=== PATIENT | male | born 1995 | race Two or more races ===

== ENCOUNTER 2020-07-23 12:51 | Emergency (ER) | payer OTHER, SELFPAY ==
[2020-07-23 13:00] VITALS: BP 147/67; PULSE 83; RESP 18; TEMP 37.2; O2SAT 100; BMI 48.6
--- NOTE | 2020-07-23 14:03 | ED_ITS ---
HPI - Skin/Abscess/Foreign Bdy General Chief complaint: Skin/Abscess/Foreign Body Stated complaint: finger infection Time Seen by Provider: 07/23/20 13:56 Source: patient Mode of arrival: ambulatory Limitations: no limitations History of Present Illness HPI narrative: 24-year-old male presenting to the ED with complaints of redness to the left hand 4th digit for the past few days worse today. Reports he had an abscess and he squeezed it himself yesterday and now has worsening redness but not an abscess. Denies any other symptoms, complaints or concerns at this time. Related Data Previous Rx's Medication Instructions Recorded cephalexin [Keflex] 500 mg PO Q6H 10 Days #40 cap 07/23/20 doxycycline monohydrate 100 mg PO BID 10 Days #20 cap 07/23/20 Allergies Allergy/AdvReac Type Severity Reaction Status Date / Time No Known Allergies Allergy Verified 07/23/20 12:59 [No Known Allergies*] Review of Systems Review of Systems: Constitutional : No Fever, No Chills, Cardiovascular : No Chest Pain, No SOB Respiratory : No Dyspnea Gastrointestinal : No abdominal pain Musculoskeletal : No Joint Swelling Skin : No skin laceration, No Foreign bodies, No rash Neuro : No Weakness, No Numbness/tingling Psych : No SI/HI/thoughts of self injury Yes all other systems are reviewed and are negative [facility]LY [facility] Past Medical History Attestation statement: The following information was validated with the patient. Medical History Asthma Social History Social History Advance Directives: No Advance Directives Information Provided: No Physical Exam Vital Signs: Vital Signs: Vital Signs Temp Pulse Resp BP Pulse Ox 07/23/20 13:00 98.9 F 83 18 147/67 H 100 Body Mass Index 48.6 vital signs have been reviewed as normal and appeared to be correct. Blood pressure normal. Heart rate normal. Respiration rate normal. Temperature normal. Oxygen saturation normal. Appearance: Alert. Oriented X3. No acute distress. Head: Normal external exam. Normocephalic. Atraumatic. No Real signs noted. No raccoon eyes noted Eyes: PERRLA. EOMI. Conjunctiva and sclera normal. Eyelids normal. ENT: EAC normal. TM's Normal. Pharynx normal. Uvula midline. Moist mucous membranes. No trismus noted. No drooling noted. No muffled voice noted. Neck: Normal inspection. Neck supple. FROM. No adenopathy. Thyroid Normal. No meningeal signs. No neck mass noted. CVS: Normal heart rate and rhythm. Heart sound normal. No murmurs noted. Pulses normal throughout. Respiratory: No respiratory distress. Painless inspiration. Breath sounds normal. No wheezes/rales/rhonchi noted. Chest nontender. No accessory muscle usage noted or decreased air movement noted. Abdomen: Soft and nontender. Bowel sounds normal in all 4 quadrants. No distention noted. No organomegaly noted. No visible injury noted. Back: No CVA tenderness. Full range of motion noted. Skin: Skin warm and dry. Normal skin color. Normal skin turgor. No rashes/lesions/lacerations noted. Extremities: Right 4th digit at the distal aspect at the ulnar aspect of the nail there is mild surrounding erythema no fluctuance. No streaking/ induration /foreign bodies or drainage noted. No lower extremity edema. Extremities exhibit normal range of motion. All other Extremities nontender. Neuro: Oriented X 3. No motor deficit. No sensory deficit. Reflexes normal. Course Course Course Narrative: Patient with paronychia although he already drained at his house yesterday now has residing cellulitis will DC home with antibiotics and instructions to return if any new or worsening symptoms to follow-up with primary care provider. Patient understands agrees the plan. Discharge Plan Discharge Clinical Impression: Paronychia due to ingrown nail Patient Disposition: Home, Self-Care Instructions: Paronychia (ED) Prescriptions: New doxycycline monohydrate 100 mg capsule 100 mg PO BID 10 Days Qty: 20 RF: 0 cephalexin [Keflex] 500 mg capsule 500 mg PO Q6H 10 Days Qty: 40 RF: 0 Referrals: César Wallace MD [Primary Care Provider] - 2 days Print Language: Mongolian
== END 2020-07-23 14:20 | disposition home or self-care (01) ==
PROVIDERS: Emergency Provider Emergency Medicine; PCP Internal Medicine
DX: L03.012 Cellulitis of left finger (principal); L60.0 Ingrowing nail; F17.200 Nicotine dependence, unspecified, uncomplicated
CPT/HCPCS: 99283

== ENCOUNTER 2020-10-03 10:09 | Emergency (ER) | payer OTHER, SELFPAY ==
[2020-10-03 10:50] VITALS: BP 152/92; PULSE 86; RESP 16; TEMP 33.9; O2SAT 98; BMI 48.6
[2020-10-03 10:54] VITALS: BP 152/92; PULSE 86; RESP 16; TEMP 33.9; O2SAT 98
--- NOTE | 2020-10-03 11:16 | ED_ITS ---
HPI - General Adult General Chief complaint: General Medical Stated complaint: swollen tonsils Time Seen by Provider: 10/03/20 10:23 Source: patient Mode of arrival: ambulatory Limitations: no limitations History of Present Illness HPI narrative: 25yoM c PMHx of asthma presenting to the ED c c/o of swollen tonsils x 2 weeks. Denies any fevers, chills, trouble swallowing or breathing, cough or any other symptoms complaints or concerns. Denies recent travel or sick contacts. Denies any other family members or friends with similar symptoms. Related Data Previous Rx's Medication Instructions Recorded cephalexin [Keflex] 500 mg PO Q6H 10 Days #40 cap 07/23/20 doxycycline monohydrate 100 mg PO BID 10 Days #20 cap 07/23/20 acetaminophen [Tylenol] 650 mg PO Q6H PRN #10 tab 10/03/20 amoxicillin-pot clavulanate 1 tab PO BID 10 Days #20 tab 10/03/20 [Augmentin] Allergies Allergy/AdvReac Type Severity Reaction Status Date / Time No Known Allergies Allergy Verified 07/23/20 12:59 [No Known Allergies*] Review of Systems Review of Systems: Constitutional : No Fever, No Chills, No fatigue, No Malaise ENT/Mouth : + sore throat, No runny nose Eyes: No Discharge Cardiovascular : No Chest Pain, No SOB Respiratory : No Cough, No Sputum, No Wheezing, No Smoke Exposure, No Dyspnea Gastrointestinal : No Nausea, No Vomiting, No Diarrhea Genitourinary : No irregular bleeding, No Dysuria, No Urinary Frequency, No Hematuria, No Urinary Incontinence, No Urgency, No Flank Pain, Musculoskeletal : No Myalgia Skin : No rash Neuro : No Headache Yes all other systems are reviewed and are negative [facility]LY [facility] Past Medical History Attestation statement: The following information was validated with the patient. Medical History Asthma Social History Social History Smoking Status: Never smoker Use of substances other than those prescribed or required for medical reasons: No Advance Directives: No Advance Directives Information Provided: Yes Physical Exam Vital Signs: Vital Signs: Last Vital Signs Temp 93.0 F L 10/03/20 10:54 Pulse 86 10/03/20 10:54 Resp 16 12/31/20 10:54 BP 152/92 H 10/03/20 10:54 Pulse Ox 98 10/03/20 10:54 Body Mass Index 48.6 vital signs have been reviewed as normal and appeared to be correct. Blood pressure normal. Heart rate normal. Respiration rate normal. Temperature normal. Oxygen saturation normal. Appearance: Alert. Oriented X3. No acute distress. Head: Normal external exam. Normocephalic. Eyes: PERRLA. EOMI. Conjunctiva and sclera normal. Eyelids normal. ENT: Tonsils bilaterally erythematous bilaterally. Uvula is midline. Not consistent with peritonsillar abscess or pharyngeal abscess. Moist mucous membranes. No exudate noted. No trismus noted. No drooling noted. No muffled voice noted. Neck: Normal inspection. Neck supple. FROM. No adenopathy. Thyroid Normal. No meningeal signs. No neck mass noted. CVS: Normal heart rate and rhythm. Heart sound normal. No murmurs noted. Pulses normal throughout. Respiratory: No respiratory distress. Painless inspiration. Breath sounds normal. No wheezes/rales/rhonchi noted. Chest nontender. No accessory muscle usage noted or decreased air movement noted. Back: No CVA tenderness. Full range of motion noted. Skin: Skin warm and dry. Normal skin color. Normal skin turgor. No rashes/lesions/lacerations noted. Extremities: Extremities exhibit normal range of motion. Extremities nontender. Neuro: Oriented X 3. No motor deficit. No sensory deficit. Reflexes normal. Course Course Course Narrative: - 25-year-old male with bilateral lymphadenopathy to tonsils although uvula is midline. No trismus or drooling. Patient is sitting comfortably denies any actual pain he just noticed that his tonsils were enlarged. Swallowing and breathing normally. Is tolerating his secretions. Not consistent with pharyngeal abscess. Will test for strep and mono and DC home with antibiotics and instructions to follow-up. Patient understands agrees the plan. Medical Decision Making Medical Records Medical records reviewed: Yes I reviewed the patient's medical records. Discharge Plan Discharge Clinical Impression: Pharyngitis, Lymphadenopathy Patient Disposition: Home, Self-Care Instructions: Pharyngitis (ED), Lymphadenopathy (ED) Prescriptions: New amoxicillin-pot clavulanate [Augmentin] 875-125 mg tablet 1 tab PO BID 10 Days Qty: 20 RF: 0 acetaminophen [Tylenol] 325 mg tablet 650 mg PO Q6H PRN (Reason: fever or pain) Qty: 10 RF: 0 No Action doxycycline monohydrate 100 mg capsule 100 mg PO BID 10 Days Qty: 20 RF: 0 cephalexin [Keflex] 500 mg capsule 500 mg PO Q6H 10 Days Qty: 40 RF: 0 Referrals: César Wallace MD [Primary Care Provider] - 2 days Print Language: Beninese
[2020-10-03 12:19] LABS: MANUAL DIFF FLAG NO
[2020-10-03 12:20] LABS: Basophils Percent Auto 0.3 % (0-2); Eosinophils Absolute Auto 0.2 X10*3/uL (0.0-0.4); Hematocrit 40.6 % (42-52); Hemoglobin 13.3 g/dl (14.0-18.0); Imm Gran Abs Auto 0.02 X10*3/uL (0.00-0.03); Imm Gran Pct Auto 0.2 % (0.0-0.4); Lymphocytes Absolute Auto 2.5 X10*3/uL (1.2-4.9); Mean Corpuscular HGB Conc 32.8 g/dl (31.0-36.0); Mean Corpuscular Hemoglobin 29.9 pg (27.0-33.0); Mean Corpuscular Volume 91.2 fL (80-98); Mean Platelet Volume 10.5 fL (9.4-12.4); Monocytes Absolute Auto 0.7 X10*3/uL (0.1-1.2); Monocytes Percent Auto 7.5 % (2-11); Neutrophils Absolute Auto 5.6 X10*3/uL (2.0-8.3); Platelet Count 310 X10*3/uL (160-400); Red Blood Count 4.45 X10*6/uL (4.60-5.80); Red Cell Distribution Width 12.7 % (11.0-16.0)
--- NOTE | 2020-10-03 12:20 | PC.NURSE ---
pt awake, oriented. He reports swollen tonsils. He is able to manage his own secretions, denies shortness of breath, and is able to manage his own secretions. VS stable
[2020-10-03 12:53] LABS: Anion Gap 15 (12-20); Blood Urea Nitrogen 6 mg/dL (9-16); Carbon Dioxide 25 mmol/L (22-29); Chloride 101 mmol/L (96-108); Creatinine Clr Calc Pharmacy 198.6; Estimated Glomerular Filt Rate > 60; Glucose Random 224 mg/dL (60-115); Potassium 4.5 mmol/l (3.3-5.1); Sodium 136 mmol/L (135-145)
[2020-10-03 13:08] LABS: Monotest Negative (Negative)
[2020-10-03 13:25] LABS: Influenza A PCR NEGATIVE (Negative); Influenza B PCR NEGATIVE (Negative); Resp Syncy Virus RNA Qual PCR NEGATIVE (Negative); SARS COV2 PCR INHOUSE NEGATIVE (Negative)
== END 2020-10-03 12:35 | disposition home or self-care (01) ==
PROVIDERS: Physician Assistant Medical; Emergency Provider Emergency Medicine Emergency Medical Services; PCP Internal Medicine
DX: J02.9 Acute pharyngitis, unspecified (principal); R59.1 Generalized enlarged lymph nodes; Z20.828 Contact with and (suspected) exposure to other viral communicable diseases
CPT/HCPCS: 0241U; 36415; 80048; 85025; 86308; 87880; 99283; 99284

== ENCOUNTER 2020-11-06 15:31 | Emergency (ER) | payer OTHER, SELFPAY ==
[2020-11-06 15:59] VITALS: BP 147/87; PULSE 102; RESP 20; TEMP 37.7; O2SAT 97; BMI 51.7
--- NOTE | 2020-11-06 16:53 | ED.GENADULT ---
HPI - General Adult General Chief complaint: General Medical Stated complaint: cough Time Seen by Provider: 11/06/20 16:29 History of Present Illness HPI narrative: Patient presents to ED for dry cough, runny nose, and diarrhea. Patient states no one at home having similar symptoms. Patient states no recent travel outside the country or state lines. Related Data Home Medications Medication Instructions Recorded Confirmed No Known Home Meds 10/17/20 10/17/20 Allergies Allergy/AdvReac Type Severity Reaction Status Date / Time No Known Allergies Allergy Verified 10/17/20 11:55 [No Known Allergies*] Review of Systems Review of Systems: Yes all other systems are reviewed and are negative Constitutional: Constitutional: Reports as per HPI and Reports no additional constitutional complaints Eyes: Eyes: Reports as per HPI and Reports no additional eye complaints ENT: Reports system reviewed and no additional complaints, except as documented and Reports as per HPI Comments: Runny nose Cardiovascular: Cardiovascular: Reports as per HPI and Reports no additional cardiovascular complaints Respiratory: Respiratory: Reports as per HPI, Reports no additional respiratory complaints and Reports cough Gastrointestinal: Gastrointestinal: Reports as per HPI and Reports no additional gastrointestinal complaints Genitourinary: Genitourinary: Reports no additional male genitourinary complaints and Reports as per HPI Musculoskeletal: Musculoskeletal: Reports no additional musculoskeletal complaints and Reports as per HPI Neurologic: Reports system reviewed and no additional complaints, except as documented and Reports as per HPI Psychiatric: Psychiatric: Reports no additional psychiatric complaints and Reports as per HPI PMFSH Past Medical History Medical History Asthma Morbid obesity with BMI of 50.0-59.9, adult Surgical History History of repair of anterior cruciate ligament of right knee (~08/2015) Family History Family History (Updated 10/17/20 @ 22:43 by César Wallace MD) Brother Epilepsy Social History Social History Alcohol intake: never Smoking Status: Never smoker Smoked in Last 30 Days: No Use of substances other than those prescribed or required for medical reasons: No Advance Directives: No Advance Directives Information Provided: Yes Physical Exam Vital Signs: Vital Signs: Last Vital Signs Temp 99.8 F 11/06/20 15:59 Pulse 102 H 11/06/20 15:59 Resp 20 11/06/20 15:59 BP 147/87 H 11/06/20 15:59 Pulse Ox 97 11/06/20 15:59 Body Mass Index 51.7 Const: General: cooperative, healthy appearing, comfortable, no acute distress, well developed, alert, awake and Physically active Orientation/consciousness: patient oriented x3 HENMT: Head: Yes normal to inspection and Yes No palpable skull fracture present Eyes: General: appearance normal, both eyes and all related structures Neck: Neck: Yes normal visual inspection, Yes full ROM, Yes no lymphadenopathy, Yes no meningeal signs, Yes trachea midline, Yes supple and No tender Chest: Chest palpation & inspection: normal inspection of the chest and normal palpation of entire chest wall Resp: Effort & Inspection: normal respiratory effort and able to speak in complete sentences Auscultation: clear to auscultation bilaterally Cardio: Jugular venous distension: no JVD Heart sounds: S1 normal heart sound present and S2 normal heart sound present GI: Inspection: Yes normal to inspection Palpation (GI): Soft to palpation, not firm, nontender, no guarding and not rigid : General: No CVA tenderness and Yes no CVA tenderness Back/Spine/Pelvis: Back: no CVA tenderness, No CVA tenderness and No back tenderness Skin: General skin exam: no rashes or lesions noted and elasticity normal Neuro: General: patient oriented x3, no meningeal signs and CN's II-XI intact bilaterally Cranial nerves: Yes CN's II-XII intact bilaterally Extrem: Other: negative for any swelling, pitting edema, or calf tendernes. General: Yes normal to inspection and Yes full ROM Psych: Appearance: grossly normal, well kempt and not disheveled Course Course Course Narrative: Patient not in any distress. Patient will have COVID swab ordered. Reevaluation(s) Reevaluation #1: Will call patient with COVID results. Patient presents not any distress Time: 18:27 Reevaluation #2: Patient called and was informed that COVID swab came back negative. Patient informed sometimes be early false negative. Patient informed if he still having symptoms he should quarantine Time: 19:39 Medical Decision Making MDM Narrative Medical decision making narrative: Viral syndrome Lab Data Labs: Lab Results 11/06/20 Range/Units 16:59 Coronavirus (PCR) NEGATIVE (Negative) Influenza Type A (PCR) NEGATIVE (Negative) Influenza Type B (PCR) NEGATIVE (Negative) RSV RNA Qual (PCR) NEGATIVE (Negative) Discharge Plan Discharge Clinical Impression: Acute viral syndrome Patient Disposition: Home, Self-Care Instructions: Viral Syndrome (ED) Additional Instructions: Return to the ED immediately for any chest pain, shortness of breath, swelling of lower extremities, calf pain, coughing up blood, fever, chills, or any other concerning symptoms. Prescriptions: No Action No Known Home Meds RF: 0 Referrals: César Wallace MD [Primary Care Provider] - 2 days (Viral syndrome. COVID swab pending) Interventions: ED Discharge Assessment Last Done: 11/06/20 18:33 Discharge Date/Time: 11/06/20 18:36 Print Language: Bulgarian
[2020-11-06 19:27] LABS: Influenza A PCR NEGATIVE (Negative); Influenza B PCR NEGATIVE (Negative); Resp Syncy Virus RNA Qual PCR NEGATIVE (Negative); SARS COV2 PCR INHOUSE NEGATIVE (Negative)
== END 2020-11-06 18:36 | disposition home or self-care (01) ==
PROVIDERS: Physician Assistant; Emergency Provider Emergency Medicine; PCP Internal Medicine
DX: B34.9 Viral infection, unspecified (principal); Z20.822 Contact with and (suspected) exposure to COVID-19; J45.909 Unspecified asthma, uncomplicated
CPT/HCPCS: 0241U; 36415; 99283; 99284

== ENCOUNTER 2021-05-03 17:27 | Emergency (ER) | payer OTHER, SELFPAY ==
--- NOTE | ~2021-05-03 | XR_ITS ---
EXAMINATION: XR CHEST, 2 VIEWS CLINICAL INFORMATION: Cough COMPARISON: 12/05/2012 TECHNIQUE: PA and lateral views of the chest were obtained. FINDINGS: Lungs are clear. No consolidation, pneumothorax, or pleural effusion. Cardiac and mediastinal contours are normal. Pulmonary vasculature is unremarkable. Trachea is midline. 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 XR/XR chest 2V IMPRESSION: No acute pulmonary findings.
[2021-05-03 17:30] VITALS: BP 161/105; PULSE 106; RESP 20; TEMP 37.4; O2SAT 96; BMI 53.1
[2021-05-03 18:00] VITALS: PULSE 109; RESP 18; O2SAT 98
[2021-05-03 18:14] VITALS: O2SAT 98
--- NOTE | 2021-05-03 18:17 | ED_ITS ---
HPI - URI/Sore Throat General Chief Complaint: Upper Respiratory Symptoms Stated Complaint: cough Source: patient Mode of arrival: ambulatory Limitations: no limitations History of Present Illness HPI Narrative: 25-year-old male with past medical history of obesity and asthma presents with several days of a dry cough, runny nose and chest tightness. He did receive the Moderna vaccine earlier this week on Wednesday. He does not report any fevers, chills, chest pain or palpitations, abdominal pain, abdominal distention, dysuria, hematuria, nausea, vomiting, diarrhea, constipation, or edema. MD elicited complaint: cough, rhinorrhea and nasal congestion Pertinent past history: asthma Onset (ago): day(s) Consistency: constant Severity: mild Description of mucous: clear and watery Able to tolerate fluids by mouth: Yes Exacerbating factors: deep breaths Relieving factors: nothing Associated symptoms: rhinorrhea, nasal congestion and cough Treatments prior to arrival: none Related Data Previous Rx's Medication Instructions Recorded benzonatate 200 mg capsule 200 mg PO BID-TID PRN 10 Days #30 11/18/20 cap benzonatate 100 mg capsule 100 mg PO TID PRN #30 cap 05/03/21 (Tessalon Kaycee) Allergies Allergy/AdvReac Type Severity Reaction Status Date / Time No Known Allergies Allergy Verified 10/17/20 11:55 [No Known Allergies*] Review of Systems Review of Systems: Constitutional: No Fever, No Chills ENT/Mouth: No Hoarseness, No sore throat, No Rhinorrhea Eyes: No Redness, No Discharge, No Vision Changes Cardiovascular: No Chest Pain, no SOB, no Dyspnea on Exertion, No Edema Respiratory: positive Cough, No Sputum, positive Wheezing, Gastrointestinal: No Nausea, No Vomiting, No Diarrhea, No abdominal Pain Genitourinary: No Dysuria, No Hematuria Musculoskeletal: No joint pain, No Myalgias Skin: No rash Neuro: No Weakness, No Numbness, No Headache Psych: No anxiety, depression Heme/Lymph: No Bruising, No Bleeding Endocrine: No Polyuria, No Polydipsia Yes all other systems are reviewed and are negative [facility] Past Medical History Attestation statement: The following information was validated with the patient. Source: old records reviewed Medical History Asthma Morbid obesity with BMI of 50.0-59.9, adult Surgical History History of repair of anterior cruciate ligament of right knee (~08/2015) Family History Family History Brother Epilepsy Social History Social History Alcohol intake: never Smoked in Last 30 Days: No Use of substances other than those prescribed or required for medical reasons: No Advance Directives: No Advance Directives Information Provided: No Physical Exam Vital Signs: Vital Signs: Last Vital Signs Temp 99.3 F 05/03/21 17:30 Pulse 108 H 05/03/21 19:15 Resp 18 05/03/21 19:15 BP 135/74 05/03/21 19:15 Pulse Ox 96 05/03/21 19:15 Body Mass Index 53.1 Appearance: Alert. Oriented X3. No acute distress. Eyes: Pupils equal, round and reactive to light. EOMI, sclera nonicteric ENT: Pharynx normal. Moist mucous membranes Neck: Normal inspection. Neck supple. No cervical lymphadenopathy CVS: Normal heart rate and rhythm. Pulses normal. Respiratory: No respiratory distress. Lung sounds clear to auscultation all lobes Abdomen: Soft and nontender. Skin: Skin warm and dry. Normal skin color. Normal skin turgor. Extremities: No lower extremity edema. Gait well balanced well coordinated Neuro: No motor deficit. No sensory deficit. Cranial nerves 2-12 intact Course Course Course Narrative: 25-year-old male with past medical history morbid obesity and asthma presents with several days of upper respiratory symptoms. Received COVID-19 vaccine several days ago. Will order chest x-ray and COVID testing. Patient appears nontoxic, is afebrile, does have an elevated blood pressure, tachycardia most likely due to albuterol use. Lung sounds are clear to auscultation all lobes. Chest x-ray is negative, COVID test is negative. Most likely viral upper respiratory. Plan of care is to discharge home with Lis Benoit. Patient verbalized understanding of and agrees to plan of care. MDM - URI/Sore Throat Differential Diagnosis Differential diagnosis: Likely upper respiratory infection, viral infection, bronchitis, influenza and pharyngitis Medical Records Attestation: I reviewed the patient's medical records. Lab Data Attestation: I reviewed the patient's lab results. Labs: Lab Results 05/03/21 Range/Units 18:32 COVID-19 (ANNALISA) Negative (Negative) COVID-19 Clin Com See Note Imaging Data Chest x-ray: Attestation: I personally reviewed and interpreted this imaging study as follows: Radiologist's impression: EXAMINATION: XR CHEST, 2 VIEWS CLINICAL INFORMATION: Cough COMPARISON: 12/05/2012 TECHNIQUE: PA and lateral views of the chest were obtained. FINDINGS: Lungs are clear. No consolidation, pneumothorax, or pleural effusion. Cardiac and mediastinal contours are normal. Pulmonary vasculature is unremarkable. Trachea is midline. 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 XR/XR chest 2V IMPRESSION: No acute pulmonary findings. Discharge Plan Discharge Clinical Impression: Upper respiratory infection Patient Disposition: Home, Self-Care Instructions: Viral Syndrome (ED) Additional Instructions: You were evaluated for upper respiratory symptoms. Your COVID-19 test is negative. Your chest x-ray is negative for pneumonia. Please follow-up with primary care provider as needed. I prescribed Tessalon Perles to help with your cough. Please use her albuterol inhaler as needed for shortness of breath and wheezing. Thank you for choosing this emergency department for evaluation. Please follow-up with primary care physician as needed. Return to the emergency department for any new, concerning, or worsening symptoms. Prescriptions: New benzonatate [Tessalon Perles] 100 mg capsule 100 mg PO TID PRN (Reason: cough) Qty: 30 RF: 0 No Action benzonatate 200 mg capsule 200 mg PO BID-TID PRN (Reason: cough) 10 Days Qty: 30 RF: 0 Stand Alone Forms: Work/School Release Interventions: ED Discharge Assessment Last Done: 05/03/21 19:51 Discharge Date/Time: 05/03/21 19:55
[2021-05-03] MEDS: Benzonatate 100 MG CAPSULE 200 MG PO (18:27)
[2021-05-03] MEDS: Albuterol Sulfate 90 MCG 8 GM INHALER 2 PUFF INHALE (18:40)
[2021-05-03 18:41] VITALS: PULSE 112; O2SAT 97
[2021-05-03 18:52] LABS: COVID-19 Test Negative (Negative); IDNOW Serial# 9DD0AD1C
[2021-05-03 19:15] VITALS: BP 135/74; PULSE 108; RESP 18; O2SAT 96
== END 2021-05-03 19:55 | disposition home or self-care (01) ==
PROVIDERS: Nurse Practitioner Family; Emergency Provider Emergency Medicine Emergency Medical Services; PCP Internal Medicine
DX: J06.9 Acute upper respiratory infection, unspecified (principal); Z20.822 Contact with and (suspected) exposure to COVID-19; J45.909 Unspecified asthma, uncomplicated; E66.01 Morbid (severe) obesity due to excess calories; Z68.43 Body mass index [BMI] 50.0-59.9, adult
CPT/HCPCS: 36415; 71046; 87635; 94640; 99284; 99285

== ENCOUNTER 2021-07-04 18:56 | Emergency (ER) | payer OTHER, SELFPAY ==
--- NOTE | ~2021-07-04 | US_ITS ---
EXAMINATION: US ABDOMEN LIMITED CLINICAL INFORMATION: Right upper quadrant pain. COMPARISON: No similar priors. TECHNIQUE: Real-time imaging of the right upper quadrant abdominal viscera. FINDINGS: PANCREAS: Not visualized due to overlying shadowing from bowel gas. LIVER: There is diffuse increased parenchymal echogenicity which limits evaluation of subtle lesions and also some segments of the liver were not visualized due to shadowing from bowel gas and poor acoustic windows due to patient's body habitus. Accounting for these limitations, no focal abnormalities are seen. There is no intrahepatic biliary ductal dilatation. GALLBLADDER: The gallbladder is physiologically distended without evidence of stones, sludge, polyps, wall thickening or pericholecystic fluid. COMMON BILE DUCT: Normal in caliber measuring 0.7 cm in diameter. RIGHT KIDNEY: No hydronephrosis. No renal calculi or focal parenchymal lesions. The kidney measures 10.1 cm in maximum dimension. FREE FLUID: None. US/US abdomen limited IMPRESSION: The examination is significantly limited due to patient body habitus and shadowing from bowel gas. There is increased hepatic parenchymal echogenicity most compatible with hepatic steatosis. The common bile duct is within the upper limits of normal of unknown etiology based upon this study.
[2021-07-04 19:26] VITALS: BP 141/90; PULSE 99; RESP 16; TEMP 36.9; O2SAT 97; BMI 48.6
--- NOTE | 2021-07-04 21:21 | ED_ITS ---
HPI - Abdominal Pain General Chief Complaint: Abdominal Pain Stated Complaint: Abdominal pain Time Seen by Provider: 07/04/21 21:08 History of Present Illness HPI narrative: Patient is a 25-year-old male presents today with having abdominal pain in the epigastric area since approximately 17:00. The pain is dull. It is nonradiating. No history of similar pains in the past. Patient de nies any change in pain with position. Patient ate a ham and cheese sandwich at around noon time. The pain started at around 17:00. Positive nausea. No vomiting. No change in bowel movement. No chest pain or shortness of breath no diaphoresis. Patient from home. No coughing or congestion or upper respiratory symptoms. Patient is immunized for COVID. Related Data Previous Rx's Medication Instructions Recorded benzonatate 200 mg capsule 200 mg PO BID-TID PRN 10 Days #30 11/18/20 cap benzonatate 100 mg capsule 100 mg PO TID PRN #30 cap 05/03/21 (Tessalon Perles) pantoprazole 40 mg tablet,delayed 40 mg PO DAILY #14 tab 07/04/21 release (Protonix) Allergies Allergy/AdvReac Type Severity Reaction Status Date / Time No Known Allergies Allergy Verified 07/04/21 21:01 [No Known Allergies*] Review of Systems Review of Systems Positive epigastric pain No vomiting Positive nausea No history of similar pain No diarrhea All systems reviewed otherwise negative Physical Exam Vital Signs: Vital Signs: Last Vital Signs Temp 98.5 F 07/04/21 19:26 Pulse 99 07/04/21 19:26 Resp 16 07/04/21 19:26 BP 141/90 H 07/04/21 19:26 Pulse Ox 97 07/04/21 19:26 Body Mass Index 48.6 Appearance: Alert. Oriented X3. No acute distress. Eyes: Pupils equal, round and reactive to light. ENT: Pharynx normal. Neck: Normal inspection. Neck supple. No lymph nodes noted. No crepitus CVS: Normal heart rate and rhythm. Pulses normal. Normal S1 and S2 Respiratory: No respiratory distress. Breath sounds normal. No Wheezing. No rales Abdomen: Soft, mild epigastric tenderness no rebound. No rigidity. No distention. good BS x4 Skin: Skin warm and dry. Normal skin color. Normal skin turgor. Extremities: No lower extremity edema. Neurovascular intact to all extremities. No Lacerations. No Rash Neuro: Oriented X 3. No motor deficit. No sensory deficit. Moving all extermities. No slurred speech MDM - Abdominal Pain MDM Narrative Medical decision making narrative: Patient's LFT consistent with having a fatty liver. White count slightly elevated at 12. Ultrasound showed no evidence of gallstone. Patient's alk-phos is normal. Bilirubin normal. Given Maalox with good relief of patient's symptoms. Will start patient on PPI. Reflux precautions. Will discharge patient home. Lab Data Result diagrams: 07/04/21 22:04 07/04/21 22:04 Labs: Lab Results 07/04/21 07/04/21 Range/Units 22:04 22:04 WBC 12.9 H (4.8-10.8) X10*3/uL RBC 4.54 L (4.60-5.80) X10*6/uL Hgb 13.7 L (14.0-18.0) g/dl Hct 40.6 L (42-52) % MCV 89.4 (80-98) fL MCH 30.2 (27.0-33.0) pg MCHC 33.7 (31.0-36.0) g/dl RDW 13.2 (11.0-16.0) % Plt Count 358 (160-400) X10*3/uL MPV 10.2 (9.4-12.4) fL Immature Gran % (Auto) 0.3 (0.0-0.4) % Neut % (Auto) 65.2 (45-73) % Lymph % (Auto) 25.8 (20-40) % Blaine % (Auto) 7.5 (2-11) % Eos % (Auto) 0.9 (0-4) % Baso % (Auto) 0.3 (0-2) % Lymph # (Auto) 3.3 (1.2-4.9) X10*3/uL Blaine # (Auto) 1.0 (0.1-1.2) X10*3/uL Eos # (Auto) 0.1 (0.0-0.4) X10*3/uL Baso # (Auto) 0.0 (0.0-0.2) X10*3/uL Abs Immat Gran (auto) 0.04 H (0.00-0.03) X10*3/uL Absolute Neuts (auto) 8.4 H (2.0-8.3) X10*3/uL Absolute Nucleated RBC 0.000 (0.0-0.012) X10*3/uL Nucleated RBC % (auto) 0.0 (0.0-0.2) /100WBC Sodium 141 (135-145) mmol/L Potassium 4.3 (3.3-5.1) mmol/L Chloride 105 (96-108) mmol/L Carbon Dioxide 28 (22-29) mmol/L Anion Gap 12 (12-20) BUN 8 L (9-16) mg/dL Creatinine 0.83 (0.5-1.4) mg/dL Estim Creat Clear Calc 189.0 Estimated GFR > 60 Random Glucose 108 D (60-115) mg/dL Calcium 9.9 D (8.4-10.2) mg/dL Total Bilirubin 0.5 (0.0-1.0) mg/dL AST 38 H (5-37) U/L ALT 77 H (0-40) U/L Alkaline Phosphatase 86 (39-117) U/L Total Protein 7.5 (6.5-8.0) g/dL Albumin 4.5 (3.5-5.0) g/dL Lipase 29 (8-78) U/L Discharge Plan Discharge Clinical Impression: Gastritis Patient Disposition: Home, Self-Care Instructions: Gastritis (ED), Gastroesophageal Reflux Disease (ED) Prescriptions: New pantoprazole [Protonix] 40 mg tablet,delayed release (DR/EC) 40 mg PO DAILY Qty: 14 RF: 0 No Action benzonatate 200 mg capsule 200 mg PO BID-TID PRN (Reason: cough) 10 Days Qty: 30 RF: 0 benzonatate [Tessalon Perles] 100 mg capsule 100 mg PO TID PRN (Reason: cough) Qty: 30 RF: 0 Referrals: César Wallace MD [Primary Care Provider] - 2 days [facility] Past Medical History Attestation statement: The following information was validated with the patient. Medical History Asthma Morbid obesity with BMI of 50.0-59.9, adult Surgical History History of repair of anterior cruciate ligament of right knee (~08/2015) Family History Family History Brother Epilepsy Social History Social History Alcohol intake: never Patient Tobacco Use Status: Never used Tobacco Use of substances other than those prescribed or required for medical reasons: No Advance Directives: No Advance Directives Information Provided: No
[2021-07-04] MEDS: Ondansetron ODT 4 MG TAB.RAPDIS SUBLINGUAL (21:53)
[2021-07-04] MEDS: Magnesium Hydrox/Alum Hydrox 30 ML ORAL.SUSP PO (21:53)
[2021-07-04 22:08] LABS: Basophils Percent Auto 0.3 % (0-2); Eosinophils Absolute Auto 0.1 X10*3/uL (0.0-0.4); Eosinophils Percent Auto 0.9 % (0-4); Hematocrit 40.6 % (42-52); Hemoglobin 13.7 g/dl (14.0-18.0); Imm Gran Abs Auto 0.04 X10*3/uL (0.00-0.03); Imm Gran Pct Auto 0.3 % (0.0-0.4); Lymphocytes Absolute Auto 3.3 X10*3/uL (1.2-4.9); Lymphocytes Percent Auto 25.8 % (20-40); MANUAL DIFF FLAG NO; Mean Corpuscular HGB Conc 33.7 g/dl (31.0-36.0); Mean Corpuscular Hemoglobin 30.2 pg (27.0-33.0); Mean Corpuscular Volume 89.4 fL (80-98); Mean Platelet Volume 10.2 fL (9.4-12.4); Monocytes Percent Auto 7.5 % (2-11); Neutrophils Absolute Auto 8.4 X10*3/uL (2.0-8.3); Neutrophils Percent Auto 65.2 % (45-73); Platelet Count 358 X10*3/uL (160-400); Red Blood Count 4.54 X10*6/uL (4.60-5.80); Red Cell Distribution Width 13.2 % (11.0-16.0); White Blood Count 12.9 X10*3/uL (4.8-10.8)
[2021-07-04 22:26] LABS: Alanine Aminotransferase 77 U/L (0-40); Albumin Level 4.5 g/dL (3.5-5.0); Alkaline Phosphatase 86 U/L (39-117); Anion Gap 12 (12-20); Aspartate Amino Transferase 38 U/L (5-37); Bilirubin Total 0.5 mg/dL (0.0-1.0); Blood Urea Nitrogen 8 mg/dL (9-16); Calcium 9.9 mg/dL (8.4-10.2); Carbon Dioxide 28 mmol/L (22-29); Chloride 105 mmol/L (96-108); Estimated Glomerular Filt Rate > 60; Glucose Random 108 mg/dL (60-115); Lipase 29 U/L (8-78); Potassium 4.3 mmol/L (3.3-5.1); Sodium 141 mmol/L (135-145); Total Protein 7.5 g/dL (6.5-8.0)
--- NOTE | 2021-07-04 23:03 | PC.NURSE ---
Pt alert and oriented x4, calm and cooperative. Pt states pain has improved. Pt denies N/V. Pt ambulated out to private car. IV removed, vitals stable.
[2021-07-04 23:04] VITALS: BP 136/82; PULSE 86; RESP 20; TEMP 36.9; O2SAT 98
[2021-07-04 23:05] LABS: Appearance Urine HAZY; Color Urine YELLOW; Glucose Urine UA NEG (NEG); Leukocyte Esterase Urine NEG (NEG); Nitrite Urine NEG (NEG); Specific Gravity - Urine >= 1.030 (1.005-1.025); Urine Blood NEG (NEG); Urine Ketones NEG (NEG); Urine Protein TRACE MG/DL (NEG-TRACE)
[2021-07-04 23:06] LABS: UACC Culture Trigger NO
== END 2021-07-04 23:04 | disposition home or self-care (01) ==
PROVIDERS: Emergency Provider Emergency Medicine Emergency Medical Services; PCP Internal Medicine
DX: K29.00 Acute gastritis without bleeding (principal); R10.13 Epigastric pain; Z79.899 Other long term (current) drug therapy
CPT/HCPCS: 36415; 76705; 80053; 81003; 83690; 85025; 99284

== ENCOUNTER 2021-09-22 08:10 | Outpatient (REF) | payer OTHER, SELFPAY ==
[2021-09-22 08:24] LABS: MANUAL DIFF FLAG NO
[2021-09-22 09:09] LABS: Estimated Average Glucose 160 mg/dL; Hemoglobin A1c % 7.2 %
[2021-09-22 09:14] LABS: Basophils Percent Auto 0.2 % (0-2); Eosinophils Absolute Auto 0.3 X10*3/uL (0.0-0.4); Hematocrit 41.9 % (42.0-52.0); Hemoglobin 13.4 g/dl (14.0-18.0); Imm Gran Abs Auto 0.03 X10*3/uL (0.00-0.03); Imm Gran Pct Auto 0.2 % (0.0-0.4); Lymphocytes Absolute Auto 4.1 X10*3/uL (1.2-4.9); Lymphocytes Percent Auto 33.5 % (20-40); Mean Corpuscular Hemoglobin 28.9 pg (27.0-33.0); Mean Corpuscular Volume 90.5 fL (80.0-98.0); Mean Platelet Volume 10.3 fL (9.4-12.4); Monocytes Absolute Auto 0.8 X10*3/uL (0.1-1.2); Monocytes Percent Auto 6.6 % (2-11); Neutrophils Absolute Auto 7.1 x10*3/uL (2.0-8.3); Neutrophils Percent Auto 57.5 % (45-73); Platelet Count 404 X10*3/uL (160-400); Red Blood Count 4.63 X10*6/uL (4.60-5.80); Red Cell Distribution Width 13.3 % (11.0-16.0); White Blood Count 12.3 X10*3/uL (4.8-10.8)
[2021-09-22 09:28] LABS: Alanine Aminotransferase 79 U/L (0-40); Albumin Level 4.3 g/dL (3.5-5.0); Alkaline Phosphatase 78 U/L (39-117); Anion Gap 12 (12-20); Aspartate Amino Transferase 37 U/L (5-37); Bilirubin Total 0.6 mg/dL (0.0-1.0); Blood Urea Nitrogen 9 mg/dL (9-16); Calcium 9.5 mg/dL (8.4-10.2); Carbon Dioxide 27 mmol/L (22-29); Chloride 106 mmol/L (96-108); Cholesterol 179 mg/dL; Estimated Glomerular Filt Rate > 60; Glucose Fasting 141 mg/dL (60-99); HDL Cholesterol 27 mg/dL; LDL Cholesterol Calculated 116 mg/dl; Potassium 5.1 mmol/L (3.3-5.1); Sodium 140 mmol/L (135-145); Total Protein 7.3 g/dL (6.5-8.0); Triglycerides 182 mg/dL
[2021-09-22 09:53] LABS: TSH reflex Free T4 2.44 uIU/mL (0.32-4.0)
== END 2021-09-22 08:11 | disposition home or self-care (01) ==
LOC: HO.LAB 08:10
PROVIDERS: PCP Internal Medicine; Visit Provider Nurse Practitioner Acute Care
DX: Z00.00 Encounter for general adult medical examination without abnormal findings (principal); E66.01 Morbid (severe) obesity due to excess calories; Z68.43 Body mass index [BMI] 50.0-59.9, adult
CPT/HCPCS: 36415; 80053; 80061; 83036; 84443; 85025

== ENCOUNTER 2021-09-25 10:37 | Outpatient (REF) | payer OTHER, SELFPAY ==
--- NOTE | ~2021-09-25 | MM_ITS ---
EXAMINATION: MM DIAGNOSTIC DIGITAL BREAST TOMOSYNTHESIS, BILATERAL US BILATERAL BREAST TARGETED CLINICAL INFORMATION: Bilateral breast lumps inferior medial aspect of both breasts. COMPARISON: Mammography: None TECHNIQUE: Digital breast tomosynthesis is performed in both the craniocaudal and mediolateral oblique views along with computer-aided detection (CAD). Synthesized 2D images are generated from the tomosynthesis. FINDINGS: The breasts are almost entirely fatty (ACR BI-RADS breast composition Category a). There are no significant masses, abnormal calcifications, or other abnormalities within the right breast. Within the lateral aspect of the left breast there is a well-circumscribed 8 x 7 mm density, 9 cm from nipple. Right breast targeted ultrasound evaluation demonstrates a heterogeneous density at the 4 o'clock position approximately 15 cm from the nipple, which is well-circumscribed lying within the dermis with some peripheral vascularity and without abnormal distal sound shadowing. The lesion is wider than it is tall. No definite pore to the skin is appreciated. On some images there is question of the appearance of a lymph node with thin cortex; however, this likely represents a sebaceous cyst. No suspicious findings. Targeted left breast ultrasound demonstrates at the 3 o'clock position approximately 9 cm from nipple, a normal-appearing lymph node without cortical thickening or lobulation. At the 8 o'clock position approximately 13 cm from the nipple, there is a dermal hypoechoic lesion which is wider than it is tall with some increased through sound transmission and no distal sound shadowing measuring approximately 6 x 3 x 8 mm in size and likely representing a sebaceous cyst. There is some adjacent vascularity present with some appearing to lie within this structure peripherally. Results are discussed with the patient at time of visit. MM/MM tomosynthesis diagnostic BI IMPRESSION: In region of palpable abnormalities there are what appear to be benign terminal lesions bilaterally which do not lie within breast parenchyma which may represent small lymph nodes or sebaceous cyst. Continued clinical follow-up is recommended. ASSESSMENT: BI-RADS 2: Benign RECOMMENDATION: Clinical follow-up This patient's information was entered into a reminder system with a target due date for their next mammogram.
--- NOTE | ~2021-09-25 | US_ITS ---
EXAMINATION: US DIAGNOSTIC ULTRASOUND BREAST, LEFT CLINICAL INFORMATION: Palpable abnormality 8:00 position 13 cm from the nipple.. COMPARISON: None. TECHNIQUE: Ultrasound of the breast is performed with real-time natarajan scale imaging and color Doppler. FINDINGS: Targeted left breast ultrasound demonstrates at the 3:00 position approximately 9 cm from nipple a normal-appearing lymph node without cortical thickening or lobulation. At the 8:00 position approximately 13 cm from the nipple there is a dermal hypoechoic lesion which is wider than it is tall with some increased through sound transmission and no distal sound shadowing measuring approximately 6 x 3 x 8 mm in size and likely representing a sebaceous cyst. There is some adjacent vascularity present with some appearing to lie within this structure peripherally. Results are discussed with the patient at time of visit. US/US breast LT limited IMPRESSION: In region of palpable abnormalities there are what appear to be benign terminal lesions bilaterally which do not lie within breast parenchyma which may represent small lymph nodes or sebaceous cyst. Continued clinical follow-up is recommended. ASSESSMENT: BI-RADS 2: Benign RECOMMENDATION: Clinical follow-up
--- NOTE | ~2021-09-25 | US_ITS ---
EXAMINATION: US DIAGNOSTIC ULTRASOUND BREAST, RIGHT CLINICAL INFORMATION: Breast lump. COMPARISON: None. TECHNIQUE: Ultrasound of the breast is performed with real-time natarajan scale imaging and color Doppler. FINDINGS: Right breast targeted ultrasound evaluation demonstrates a heterogeneous density at the 4:00 position approximately 15 cm from the nipple which is well-circumscribed lying within the dermis with some peripheral vascularity and without abnormal distal sound shadowing. The lesion is wider than it is tall. No definite pore to the skin is appreciated. On some images there is question of the appearance of a lymph node with thin cortex however this likely represents a sebaceous cyst. No suspicious findings. Results are discussed with the patient at time of visit. US/US breast RT limited IMPRESSION: In region of palpable abnormalities there are what appear to be benign terminal lesions bilaterally which do not lie within breast parenchyma which may represent small lymph nodes or sebaceous cyst. Continued clinical follow-up is recommended. ASSESSMENT: BI-RADS 2: Benign RECOMMENDATION: Clinical follow-up
== END 2021-09-25 10:38 | disposition home or self-care (01) ==
LOC: HO.MAMMO 10:37
PROVIDERS: Visit Provider Nurse Practitioner Acute Care
DX: N63.14 Unspecified lump in the right breast, lower inner quadrant (principal); N63.24 Unspecified lump in the left breast, lower inner quadrant
CPT/HCPCS: 76642; 77062; 77066

== ENCOUNTER 2021-12-07 10:53 | Emergency (ER) | payer OTHER, SELFPAY ==
--- NOTE | ~2021-12-07 | XR_ITS ---
EXAMINATION: XR ANKLE, RIGHT CLINICAL INFORMATION: Pain following injury. COMPARISON: None TECHNIQUE: AP, lateral, and mortise views of the right ankle. FINDINGS: No acute fracture or dislocation. The ankle mortise is maintained. Small tibiotalar marginal osteophytes. No osseous erosion. Prominent plantar and dorsal calcaneal enthesophytes. XR/XR ankle RT min 3V IMPRESSION: No acute fracture or dislocation. Mild tibiotalar osteoarthritis. Plantar and dorsal calcaneal spurs.
[2021-12-07 11:06] VITALS: BP 129/64; PULSE 89; RESP 18; TEMP 36.7; O2SAT 98; BMI 57.2
--- NOTE | 2021-12-07 11:30 | ED.LOWEXIN ---
HPI - Extremity Injury (Lower) General Chief Complaint: Extremity Injury, Lower Stated Complaint: r foot inj at work Time Seen by Provider: 12/07/21 11:30 Source: patient Mode of arrival: ambulatory Limitations: no limitations History of Present Illness HPI Narrative: rolled right ankle after slipping while at work yesterday. works at a [employer]. able to ambulate, but more pain this morning when he got up. pain along posterior heel and right side of ankle. Denies snapping or popping sound with injury. Place: work Relieving factors: cold therapy Context: other Related Data Previous Rx's Medication Instructions Recorded ibuprofen 400 mg tablet 400 mg PO Q8H PRN #14 tab 11/21/21 Allergies Allergy/AdvReac Type Severity Reaction Status Date / Time No Known Allergies Allergy Verified 12/07/21 11:12 [No Known Allergies*] Review of Systems Review of Systems: Constitutional : No Fever, No Chills, No changes in PO intake, No difficulty speaking,? Cardiovascular : No Chest Pain, No SOB Respiratory : No Cough, No Sputum, No Wheezing,No Dyspnea Gastrointestinal : No Nausea, No Vomiting, No Diarrhea Musculoskeletal : positive right ankle pain and pain with ambulation Skin : No rash, no facial swelling or redness, Neuro : No Weakness, No Numbness, No Headache Psych : No SI/HI/thoughts of self injury Yes all other systems are reviewed and are negative [facility] Past Medical History Medical History Asthma Morbid obesity with BMI of 50.0-59.9, adult Surgical History History of repair of ACL History of repair of anterior cruciate ligament of right knee (~08/2015) Family History Family History Brother Epilepsy Social History Social History Housing: Apartment Alcohol intake: never Patient Tobacco Use Status: Never used Tobacco e-Cigarette/Vaping Use: Never Used Second Hand Smoke Exposure: Yes Advance Directives: Yes Advance Directives Information Provided: Yes Advance Directives on File: No service: No Current occupational status: employed Physical Exam Vital Signs: Vital Signs: Last Vital Signs Temp 98.1 F 12/07/21 11:06 Pulse 89 12/07/21 11:06 Resp 18 12/07/21 11:06 BP 129/64 12/07/21 11:06 Pulse Ox 98 12/07/21 11:06 BMI result Body Mass Index 57.2 vital signs have been reviewed as normal and appeared to be correct.? Blood pressure normal.? Heart rate normal.? Respiration rate normal.? Temperature normal.? Oxygen saturation normal. Appearance: Alert. Oriented X3. No acute distress. ? Head: Normal external exam. CVS: Normal heart rate and rhythm. Respiratory: No respiratory distress. Painless inspiration Back: Full range of motion noted. Skin: Skin warm and dry.? Normal skin color.? Normal skin turgor. No rashes/lesions/lacerations noted. Extremities: Mild tenderness over right posterior heel and right medial malleoli. no edema, ecchymosis or erythema noted. positive pedal pulses. ankle stable on exam. Negative Ferrari test Neuro: Oriented X 3.? No motor deficit noted. No sensory deficit noted. MDM - Extremity Injury (Lower) Imaging Data right ankle: Attestation: I personally reviewed and interpreted this imaging study as follows: Radiologist's impression: AP, lateral, and mortise views of the right ankle. FINDINGS: No acute fracture or dislocation. The ankle mortise is maintained. Small tibiotalar marginal osteophytes. No osseous erosion. Prominent plantar and dorsal calcaneal enthesophytes.? XR/XR ankle RT min 3V IMPRESSION: No acute fracture or dislocation. ? Mild tibiotalar osteoarthritis. ? Plantar and dorsal calcaneal spurs. Discharge Plan Discharge Clinical Impression: Ankle sprain and strain Patient Disposition: Home, Self-Care Instructions: Ankle Sprain (ED) Additional Instructions: Your xray did not show any fractures (broken bones). use crutches and pako wrap as needed. you can increase weight bearing on right foot as tolerated. Follow up with work connection this week for recheck. Call work connection (see paperwork given) for appointment Prescriptions: No Action ibuprofen 400 mg tablet 400 mg PO Q8H PRN (Reason: pain) Qty: 14 0RF Stand Alone Forms: Work/School Release Interventions: ED Discharge Assessment Last Done: 12/07/21 13:08 Discharge Date/Time: 12/07/21 13:09
== END 2021-12-07 13:09 | disposition home or self-care (01) ==
PROVIDERS: Emergency Provider Emergency Medicine; PCP Internal Medicine
DX: S93.401A Sprain of unspecified ligament of right ankle, initial encounter (principal); M25.571 Pain in right ankle and joints of right foot; W01.0XXA Fall on same level from slipping, tripping and stumbling without subsequent striking against object, initial encounter; Y93.9 Activity, unspecified; Y92.9 Unspecified place or not applicable; Y99.0 Civilian activity done for income or pay; Z79.899 Other long term (current) drug therapy
CPT/HCPCS: 73610; 99283

== ENCOUNTER → 2022-01-20 10:10 | Outpatient (BNVA) | payer OTHER, SELFPAY | PROVIDERS: PCP Internal Medicine; Referring Provider Internal Medicine; Visit Provider Surgery | DX: N63.10 Unspecified lump in the right breast, unspecified quadrant (principal); L72.0 Epidermal cyst | CPT/HCPCS: 99202 ==

== ENCOUNTER 2022-02-19 07:39 | Outpatient (REF) | payer OTHER, SELFPAY ==
[2022-02-19 07:48] VITALS: BMI 56.2
[2022-02-19 07:49] VITALS: BP 141/79; PULSE 82; RESP 16; TEMP 37.2; O2SAT 97
[2022-02-19 08:25] VITALS: BP 146/82; PULSE 86; RESP 16; O2SAT 97
--- NOTE | 2022-02-19 08:42 | P.OP_ITS ---
Operative Note Operative Note Date of Service: 02/19/22 Narrative: Preoperative diagnosis: Epidermal inclusion cyst mid chest Postoperative diagnosis: same Procedure: excision of epidermal inclusion cyst mid chest Surgeon: Cas Holcomb MD Building Inspection Engineer: none Anesthesia: local Indications for procedure: 26-year-old male patient presenting with a saw cyst of the anterior chest. On examination the patient has a 1.5 cm epidermal inclusion cyst to the right of midline over the sternum. Operative findings: 1.5 cm epidermal inclusion cyst Specimen: epidermal inclusion cyst mid chest Estimated blood loss: 2 mL Complications: none Procedure details: patient was brought to the minor surgery suite placed in a supine position. The site of surgery was confirmed by the patient in the mid chest. After assuring informed consent the skin was prepped with Betadine and draped in a sterile fashion. Local anesthesia consisting of 1% lidocaine with epinephrine was then infiltrated circumferentially around the lesion. An elliptical incision was then created oriented transversely around the cyst. The incision was carried down through the subcutaneous tissue and around the cyst wall. The lesion was completely excised and sent to pathology for further examination. Dermis was then reapproximated using interrupted 3-0 Polysorb sutures. Skin was closed using interrupted 3-0 nylon sutures. Sterile dressings consisting of 2 x 2 gauze Tegaderm were then applied. The pat ient tolerated the procedure well. He was discharged home in stable condition.
== END 2022-02-19 07:40 | disposition home or self-care (01) ==
LOC: HO.MS 07:39
PROVIDERS: PCP Internal Medicine; Visit Provider Surgery
PROC: (CPT 11402; principal; 2022-02-19 08:00)
DX: L72.0 Epidermal cyst (principal)
CPT/HCPCS: 11402; 12031; 88304

== ENCOUNTER → 2022-02-26 14:50 | Outpatient (BNVA) | payer OTHER, SELFPAY | PROVIDERS: PCP Internal Medicine; Referring Provider Internal Medicine; Visit Provider Surgery | DX: Z48.817 Encounter for surgical aftercare following surgery on the skin and subcutaneous tissue (principal); Z87.2 Personal history of diseases of the skin and subcutaneous tissue | CPT/HCPCS: 99212 ==

== ENCOUNTER 2022-09-24 09:50 | Outpatient (REF) | payer OTHER, SELFPAY ==
--- NOTE | ~2022-09-24 | XR_ITS ---
EXAMINATION: XR LUMBOSACRAL SPINE CLINICAL INFORMATION: Low back pain COMPARISON: Previous x-ray most recent February 2019 TECHNIQUE: Three views of the lumbosacral spine. FINDINGS: Mild curvature of the lumbar sacral spine to the right. Bone alignment is otherwise normal. No fracture or dislocation. Mild degenerative spondylosis and degenerative disc disease at T12-L1, L1-L2 and L2-L3. Lower lumbar spine facet arthritis. XR/XR lumbar spine 2-3V IMPRESSION: Mild degenerative changes.
== END 2022-09-24 09:51 | disposition home or self-care (01) ==
LOC: HO.XRAY 09:50
PROVIDERS: PCP Internal Medicine; Visit Provider Internal Medicine
DX: M54.50 Low back pain, unspecified (principal)
CPT/HCPCS: 72100

== ENCOUNTER 2023-03-12 09:56 | Emergency (ER) | payer OTHER, SELFPAY ==
--- NOTE | ~2023-03-12 | XR_ITS ---
EXAMINATION: XR ANKLE, RIGHT CLINICAL INFORMATION: Right ankle pain without trauma COMPARISON: None available. TECHNIQUE: AP, lateral, and mortise views of the right ankle. FINDINGS: There is no evidence of fracture or dislocation there is mild enthesopathy seen in the medial malleolus and there is plantar and superior calcaneal spurring. XR/XR ankle RT 2V IMPRESSION: Mild degenerative changes and calcaneal spurring.
[2023-03-12 10:05] VITALS: BP 132/75; PULSE 84; RESP 19; TEMP 36.6; O2SAT 98; BMI 53.2
--- NOTE | 2023-03-12 10:28 | ED.LOWEXIN ---
HPI - Extremity Injury (Lower) General Chief Complaint: Extremity Injury, Lower Stated Complaint: R ankle pain Time Seen by Provider: 03/12/23 10:25 Source: patient Mode of arrival: ambulatory Limitations: no limitations History of Present Illness HPI Narrative: 27 yo male presents to the ER for evaluation of nontrauamtic right ankle pain that started last night. He reports medial ankle pain and some swelling. No known injury. He is able to walk on it but it is sore. He reports pain moving his foot side to side. No redness, warmth or fevers. No other joint pain. MD complaint: other ( nontrauamtic right ankle pain ) Onset (ago): day(s) (1) Injury: Right: ankle Type of Injury: unknown Place: home Severity: moderate Severity scale (1-10): 5 Relieving factors: immobilization and rest Exacerbating factors: weight bearing, movement and palpation Associated symptoms: swelling and able to partially bear weight Other symptoms: none Related Data Previous Rx's Medication Instructions Recorded tizanidine 4 mg tablet 4 mg PO Q8H PRN muscle spasticity 09/22/22 10 days #30 tabs lidocaine 4 % topical patch 1 patch topical DAILY PRN pain #30 10/20/22 (Aspercreme (lidocaine)) ea naproxen 500 mg tablet 500 mg PO BID PRN pain 30 days #60 11/12/22 tabs lidocaine 5 % topical patch 1 patch topical DAILY 30 days #30 01/15/23 ea naproxen 500 mg tablet 500 mg PO BID PRN pain #20 tabs 03/12/23 Allergies Allergy/AdvReac Type Severity Reaction Status Date / Time No Known Allergies Allergy Verified 03/12/23 10:05 [No Known Allergies*] Review of Systems Review of Systems: Yes all other systems are reviewed and are negative PMFSH Past Medical History Medical History Asthma Lumbar degenerative disc disease Morbid obesity with BMI of 50.0-59.9, adult Surgical History History of excision of mass (02/19/22) History of repair of ACL History of repair of anterior cruciate ligament of right knee (~08/2015) Family History Family History Brother Epilepsy Maternal Aunt Breast cancer Social History Social History Housing: Apartment Alcohol intake: never Patient Tobacco Use Status: Never used Tobacco Smoked in Last 30 Days: No e-Cigarette/Vaping Use: Never Used Second Hand Smoke Exposure: Yes Use of substances other than those prescribed or required for medical reasons: No Advance Directives: No Advance Directives Information Provided: No service: No Current occupational status: employed Cognitive needs: No Hearing needs: No Vision needs: No Physical Exam Vital Signs: Vital Signs: Last Vital Signs Temp 98 F 03/12/23 10:05 Pulse 84 03/12/23 10:05 Resp 19 03/12/23 10:05 BP 132/75 03/12/23 10:05 Pulse Ox 98 03/12/23 10:05 O2 Del Method Room Air 03/12/23 10:05 BMI result Body Mass Index 53.2 Appearance: Alert. Oriented X3. No acute distress. HEENT: normal inspection CVS: Normal heart rate and rhythm. Pulses normal. Respiratory: No respiratory distress. Skin: Skin warm and dry. Normal skin color. Normal skin turgor. No rashes. Extremities: right ankle with minimal edema of distal medial ankle with tenderness to palpation. No erythema, warmth on palpation. No pain with dorsiflexion or plantar flexion. There is pain with movement of the foot laterally and medially. No point tenderness of the medial malleolus. Foot is warm and well perfused, 2+ DP and PT pulses. No pitting edema. Neuro: Oriented X 3. No motor deficit. No sensory deficit. Medical Decision Making Medical Decision Making MDM Narrative: 27-year-old male with history of morbid obesity, BMI is 53 who presents to the ER for evaluation of nontraumatic right ankle pain that started last night. On examination he has some mild tenderness and swelling of his medial distal ankle. No point tenderness. He has pain with lateral and medial range of motion. his x-ray today showed some mild degenerative changes. Most likely related to his weight. There is no evidence of acute fracture. No evidence of septic joint or gout, no erythema or warmth over the joint itself. Patient was placed in an Gene wrap for comfort and compression. We discussed RICE, NSAIDs and follow-up with PCP. He is stable for discharge home Differential Diagnosis Differential Diagnoses: The differential diagnosis associated with the presentation includes Ankle sprain, ankle fracture, arthritis, less likely septic joint or gout Independent Interpretation I performed an independent interpretation of an: Plain X-Ray Interpretation: right ankle with no fracture, agrees radiologist read Radiology Impression Discussion of test interpretation with radiology: I have reviewed the radiologist's reading. Radiologist Impression: XR/XR ankle RT 2V IMPRESSION: Mild degenerative changes and calcaneal spurring. ? External Record Review External record reviewed: Outpatient record and Prior outpatient radiology Prescription Management I considered prescription management with: Pain Medication Chronic Conditions Patient?s care impacted by: Other ( morbid obesity) Critical Care Time Critical Care Time Critical Care Time: No Discharge Plan Discharge Clinical Impression: Ankle sprain Patient Disposition: Home, Self-Care Instructions: Ankle Sprain (DC) Additional Instructions: Your x-ray today showed some mild degenerative changes, no broken bones or other abnormalities. Rest your ankle and elevate your foot when possible. Recommend GENE wrap for support and compression. Use ice several times per day for the next 48 hours. You may bear weight as tolerated. Take Tylenol and the prescribed anti-inflammatory medication as needed for pain. Follow up with your doctor as needed. Prescriptions: New naproxen 500 mg tablet 500 mg PO BID PRN (Reason: pain) Qty: 20 0RF No Action naproxen 500 mg tablet 500 mg PO BID PRN (Reason: pain) 30 Days Qty: 60 1RF Rx Instructions: Take with food lidocaine 5 % adhesive patch,medicated 1 patch topical DAILY 30 Days Qty: 30 2RF Rx Instructions: leave on most painful area for up to 12 hrs tizanidine 4 mg tablet 4 mg PO Q8H PRN (Reason: muscle spasticity) 10 Days Qty: 30 1RF lidocaine [Aspercreme (lidocaine)] 4 % adhesive patch,medicated 1 patch topical DAILY PRN (Reason: pain) Qty: 30 0RF Referrals: César Wallace MD [Primary Care Provider] -
--- NOTE | 2023-03-12 10:43 | PC.NURSE ---
patient a&ox3, c/o rt ankle pain with movement only 6/10 pain, + csm/pulses, edema noted to BLE , pt denies injury, xray obtained- awaiting results, pt denies taking po pain medications at home.
== END 2023-03-12 11:45 | disposition home or self-care (01) ==
PROVIDERS: Emergency Provider Internal Medicine; PCP Internal Medicine
DX: M25.571 Pain in right ankle and joints of right foot (principal); Z79.899 Other long term (current) drug therapy
CPT/HCPCS: 73600; 99283

== ENCOUNTER 2023-03-22 18:36 | Emergency (ER) | payer OTHER, SELFPAY ==
--- NOTE | ~2023-03-22 | US_ITS ---
EXAMINATION: US SCROTUM CLINICAL INFORMATION: Left testicular pain. COMPARISON: None available. TECHNIQUE: A sonogram of the scrotum was performed assessing natarajan-scale appearance and color Doppler flow. Spectral Doppler analysis of the arterial and venous flow were performed in the testes bilaterally. FINDINGS: RIGHT: Right testicle measures 3.2 x 1.5 x 2.1 cm, volume 5.1 mL. Tiny intratesticular calcification noted but no focal testicular parenchymal lesions are visualized. Spectral Doppler analysis of the arterial and venous flow is normal in the right testis. Right epididymal head is normal in size with a tiny right epididymal cyst. No right hydrocele or varicocele is seen. Right epididymal Doppler flow is normal. LEFT: Left testicle measures 3.7 x 2.3 x 2.8 cm, volume 12.4 mL. No focal testicular parenchymal lesions are visualized. Spectral Doppler analysis of the arterial and venous flow is normal in the left testis. Left epididymal head is normal in size. No left hydrocele or varicocele is seen. Left epididymal Doppler flow is normal. US/US scrotum IMPRESSION: No acute abnormality seen.
--- NOTE | ~2023-03-22 | US_ITS ---
EXAMINATION: US SCROTUM CLINICAL INFORMATION: Left testicular pain. COMPARISON: None available. TECHNIQUE: A sonogram of the scrotum was performed assessing natarajan-scale appearance and color Doppler flow. Spectral Doppler analysis of the arterial and venous flow were performed in the testes bilaterally. FINDINGS: RIGHT: Right testicle measures 3.2 x 1.5 x 2.1 cm, volume 5.1 mL. Tiny intratesticular calcification noted but no focal testicular parenchymal lesions are visualized. Spectral Doppler analysis of the arterial and venous flow is normal in the right testis. Right epididymal head is normal in size with a tiny right epididymal cyst. No right hydrocele or varicocele is seen. Right epididymal Doppler flow is normal. LEFT: Left testicle measures 3.7 x 2.3 x 2.8 cm, volume 12.4 mL. No focal testicular parenchymal lesions are visualized. Spectral Doppler analysis of the arterial and venous flow is normal in the left testis. Left epididymal head is normal in size. No left hydrocele or varicocele is seen. Left epididymal Doppler flow is normal. US/US scrotum doppler IMPRESSION: No acute abnormality seen.
[2023-03-22 18:39] VITALS: BP 142/79; PULSE 98; RESP 20; TEMP 36.1; O2SAT 99; BMI 55.9
--- NOTE | 2023-03-22 18:43 | ED_ITS ---
HPI - General Adult General Chief complaint: Urogenital-Male Stated complaint: pain in left testicle Time Seen by Provider: 03/22/23 19:59 Source: patient Mode of arrival: ambulatory Limitations: no limitations History of Present Illness HPI narrative: 27-year-old male came in for evaluation of left testicular pain started about 2 days ago then started to get better today patient woke up with worsening of left testicular pain. Patient declined any trauma or injury to the left testicle, patient is sexually not active and declined any risk for STDs no dysuria or frequency urination, no urethral discharge. Testicular pain is more when he stand up, declined any recent trauma or heavy lifting. Related Data Previous Rx's Medication Instructions Recorded tizanidine 4 mg tablet 4 mg PO Q8H PRN muscle spasticity 09/22/22 10 days #30 tabs lidocaine 4 % topical patch 1 patch topical DAILY PRN pain #30 10/20/22 (Aspercreme (lidocaine)) ea naproxen 500 mg tablet 500 mg PO BID PRN pain 30 days #60 11/12/22 tabs lidocaine 5 % topical patch 1 patch topical DAILY 30 days #30 01/15/23 ea naproxen 500 mg tablet 500 mg PO BID PRN pain #20 tabs 03/12/23 Allergies Allergy/AdvReac Type Severity Reaction Status Date / Time No Known Allergies Allergy Verified 03/22/23 18:50 [No Known Allergies*] Review of Systems Review of Systems: All other systems are reviewed and are negative Constitutional: Reports as per HPI and Reports no additional constitutional complaints Eyes: Reports as per HPI and Reports no additional eye complaints Reports system reviewed and no additional complaints, except as documented Cardiovascular: Reports as per HPI and Reports no additional cardiovascular complaints Respiratory: Reports as per HPI and Reports no additional respiratory complaints Gastrointestinal: Reports as per HPI and Reports no additional gastrointestinal complaints Genitourinary: Reports no additional female genitourinary complaints Musculoskeletal: Reports no additional musculoskeletal complaints Skin/Breast: Reports system reviewed and no additional complaints, except as docu Psychiatric: Reports no additional psychiatric complaints Endocrine: Reports no additional endocrine complaints Hematologic/Lymphatic: Reports no additional hematologic/lymphatic complaints Allergic/Immunologic: Reports no additional allergic/immunologic complaints Reports system reviewed and no additional complaints, except as documented and Reports Abnormal speech present [facility] Past Medical History Medical History Asthma Lumbar degenerative disc disease Morbid obesity with BMI of 50.0-59.9, adult Surgical History History of excision of mass (02/19/22) History of repair of ACL History of repair of anterior cruciate ligament of right knee (~08/2015) Family History Family History Brother Epilepsy Maternal Aunt Breast cancer Social History Social History Housing: Apartment Alcohol intake: never Patient Tobacco Use Status: Never used Tobacco e-Cigarette/Vaping Use: Never Used Second Hand Smoke Exposure: Yes service: No Current occupational status: employed Cognitive needs: No Hearing needs: No Vision needs: No Physical Exam ED Vital Signs: Vital Signs - 24 hr 03/22/23 18:39 03/22/23 20:00 Temperature 97.0 F 98.7 F Pulse Rate 98 75 Respiratory Rate 20 15 Blood Pressure 142/79 H 107/50 L Pulse Oximetry 99 98 Oxygen Delivery Method Room Air Room Air BMI result Body Mass Index 55.9 Vital signs have been reviewed as appeared to be correct. Blood pressure normal. Heart rate normal. Respiration rate normal. Temperature normal. Oxygen saturation normal. Appearance: Alert. Oriented X3. No acute distress. Head: Normal external exam. Normocephalic. Atraumatic. No Real signs noted. No raccoon eyes noted Eyes: PERRLA. EOMI. Conjunctiva and sclera normal. Eyelids normal. ENT: TM's Normal. Pharynx normal. Uvula midline. Moist mucous membranes. No trismus noted. No drooling noted. No muffled voice noted. Neck: Normal inspection. Neck supple. FROM. No adenopathy. Thyroid Normal. No meningeal signs. No neck mass noted. CVS: Normal heart rate and rhythm. Heart sound normal. No murmurs noted. Pulses normal throughout. Respiratory: No respiratory distress. Painless inspiration. Breath sounds normal. No wheezes/rales/rhonchi noted. Chest nontender. No accessory muscle usage noted or decreased air movement noted. Abdomen: Soft and nontender. Bowel sounds normal in all 4 quadrants. No distention noted. No organomegaly noted. No visible injury noted. : Normal inspection, mild tenderness to the left scrotum but no swelling or tenderness or redness. Intact cremasteric muscle reflexes bilaterally. Back: No CVA tenderness. Full range of motion noted. Skin: Skin warm and dry. Normal skin color. Normal skin turgor. No rashes/lesions/lacerations noted. Extremities: No lower extremity edema. Extremities exhibit normal range of motion. Extremities nontender. Neuro: Oriented X 3. Cranial nerve exam: II-XII are grossly intact No motor deficit. No sensory deficit. Reflexes normal. Course Course Course Narrative: 27-year-old male presents for evaluation of left testicular pain. He reports his symptoms initially started last night. His pain is intermittent but got much worse today. Denies any dysuria. Plan for UA, scrotal ultrasound. Patient denies concern for STI Reevaluation(s) Reevaluation #1: Left testicular pain with unremarkable left testicular ultrasound, no UTI, patient decline any chance of STDs since he is not sexually active. Will recommend rest with elevation of the scrotum and take ibuprofen if needed for pain. Time: 21:07 Medical Decision Making Differential Diagnosis Differential Diagnoses: The differential diagnosis associated with the presentation includes (UTI, kidney stone, STD, testicular torsion.) Lab Data MDM Lab Attestation statement: I reviewed the patient's lab results. Labs: Lab Results 03/22/23 Range/Units 20:11 Urine Color Dark Yellow Urine Appearance Cloudy Urine pH 5.5 (5.0-9.0) Ur Specific [place] 1.025 (1.005-1.025) Urine Protein Trace (Neg-Trace) mg/dL Urine Glucose (UA) Negative (Negative) mg/dL Urine Ketones Trace (Negative) mg/dL Urine Blood Negative (Negative) Urine Nitrite Negative (Negative) Ur Leukocyte Esterase Negative (Negative) Urine RBC 0-2 (0-2) /HPF Urine WBC 0-5 (0-5) /HPF Ur Squamous Epith Cells 6-10 (0-2) /HPF Urine Bacteria None Seen (None Seen) Hyaline Casts 0-2 (0-2) /LPF Independent Interpretation I performed an independent interpretation of an: Ultrasound (Scrotal ultrasound: No torsion or testicular cysts.) Radiology Impression Discussion of test interpretation with radiology: I have reviewed the radiologi st's reading. Discharge Plan Discharge Clinical Impression: Acute pain in scrotum Patient Disposition: Home, Self-Care Instructions: Scrotal Pain (ED) Additional Instructions: Avoid laying supine for long times, elevate the scrotum, take ibuprofen 200 mg if needed for pain. Prescriptions: No Action naproxen 500 mg tablet 500 mg PO BID PRN (Reason: pain) 30 Days Qty: 60 1RF Rx Instructions: Take with food naproxen 500 mg tablet 500 mg PO BID PRN (Reason: pain) Qty: 20 0RF lidocaine 5 % adhesive patch,medicated 1 patch topical DAILY 30 Days Qty: 30 2RF Rx Instructions: leave on most painful area for up to 12 hrs tizanidine 4 mg tablet 4 mg PO Q8H PRN (Reason: muscle spasticity) 10 Days Qty: 30 1RF lidocaine [Aspercreme (lidocaine)] 4 % adhesive patch,medicated 1 patch topical DAILY PRN (Reason: pain) Qty: 30 0RF Referrals: César Wallace MD [Primary Care Provider] -
[2023-03-22 20:00] VITALS: BP 107/50; PULSE 75; RESP 15; TEMP 37.1; O2SAT 98
[2023-03-22 20:31] LABS: Appearance Urine Cloudy; Color Urine Dark Yellow; Glucose Urine UA Negative (Negative); Leukocyte Esterase Urine Negative (Negative); Nitrite Urine Negative (Negative); PH 5.5 (5.0-9.0); Specific Gravity - Urine 1.025 (1.005-1.025); Urine Blood Negative (Negative); Urine Ketones Trace mg/dL (Negative); Urine Protein Trace mg/dL (Neg-Trace)
[2023-03-22 20:36] LABS: Bacteria Urine None Seen (None Seen); Hyaline Casts Urine 0-2 /LPF (0-2); RBC Urine 0-2 /HPF (0-2); WBC Urine 0-5 /HPF (0-5)
== END 2023-03-22 21:34 | disposition home or self-care (01) ==
PROVIDERS: Physician Assistant; Emergency Provider Emergency Medicine; PCP Internal Medicine
DX: N50.812 Left testicular pain (principal); N50.82 Scrotal pain; R10.2 Pelvic and perineal pain; Z79.899 Other long term (current) drug therapy
CPT/HCPCS: 76870; 81001; 93975; 99284

== ENCOUNTER 2023-04-29 11:54 | Outpatient (AMB) | payer OTHER, SELFPAY ==
[2023-04-29 12:04] VITALS: BP 126/82; PULSE 86; O2SAT 98; BMI 55.5
--- NOTE | 2023-04-29 12:04 | A.OFFPC_ITS ---
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 Accompanied by: Self / Same As Patient Allergies No Known Allergies [No Known Allergies*] Allergy (Verified 04/29/23 14:01) Medication List - Last Reconciled 04/29/23 by César Wallace MD levofloxacin 500 mg PO DAILY 10 days lidocaine 4% (Aspercreme (lidocaine)) 1 patch topical DAILY PRN lidocaine 5% 1 patch topical DAILY 30 days naproxen 500 mg PO BID PRN naproxen 500 mg PO BID PRN 30 days Tobacco use date assessed: 04/29/23 Dental Screening Dental Screen Date: 04/29/23 Did you have a dental visit in the last 12 months?: No Did you have a dental problem in the last 6 months where you did not have access to dental care?: No Was dental information given to patient?: No HPI [facility] [place] Acute pain in scrotum HPI Details Patient comes in today for his [facility] follow up visit He went to the ER last month on 03/22/2023 for worsening left testicular pain that he states has been going on for a couple of days prior to his ER visit Does not recall any recent injury, trauma or heavy exertion and noted that his pain feels worse with prolonged standing He denies any associated urinary symptoms, including dysuria and urinary frequency; denies any penile discharge States that he is not sexually active so STDs are not a possibility Had scrotal US done in the ER which came out normal and states that he was sent home subsequently with instructions to just take some OTC Ibuprofen as needed States that he currently still has on and off pains in his left scrotal / testicular area and does not really feel any different from a month ago although his symptoms do not seem to be occurring as often as they did He again denies any other associated symptoms Denies any fever, headaches or dizziness Denies any chest pains, no SOB No nausea/vomiting, no abdominal pain No change in bowel habits noted [facility] Medical History Asthma Lumbar degenerative disc disease Morbid obesity with BMI of 50.0-59.9, adult Surgical History History of excision of mass (02/19/22) History of repair of ACL History of repair of anterior cruciate ligament of right knee (~08/2015) Family History Brother Epilepsy Maternal Aunt Breast cancer Social History Housing: Apartment Alcohol intake: never Patient Tobacco Use Status: Never used Tobacco e-Cigarette/Vaping Use: Never Used Second Hand Smoke Exposure: Yes service: No Current occupational status: employed Cognitive needs: No Hearing needs: No Vision needs: No Questionnaire PHQ-9 Over the last 2 weeks, how often have you been bothered by any of the following problems? 1. Little interest or pleasure in doing things: not at all 2. Feeling down, depressed, or hopeless: not at all 3. Trouble falling or staying asleep, or sleeping too much: not at all 4. Feeling tired or having little energy: not at all 5. Poor appetite or overeating: not at all 6. Feeling bad about yourself - or that you are a failure or have let yourself or your family down: not at all 7. Trouble concentrating on things, such as reading the newspaper or watching television: not at all 8. Moving or speaking so slowly that other people could have noticed. Or the opposite - being so fidgety or restless that you have been moving around a lot more than usual: not at all 9. Thoughts that you would be better off or of hurting yourself in some way: not at all Total score: 0 Depression Screening Interpretation: Negative 67452 - PHQ-9 Billing: Yes Source: Developed by Drs. Kwesi Tran, Za Campoverde, Jovon Mireles and colleagues, with an educational sary from [employer]. Thrive Questionnaire Date Thrive assessed: 04/29/23 I am a: Patient What is your living situation today?: I have a steady place to live Within the past 12 months, did the food you bought not last and you didn't have the money to get more?: Never true Within the past 12 months, did you worry whether your food would run out before you got money to buy more?: Never true Do you have trouble paying for medicines?: No Do you have trouble getting transportation to medical appointments?: No Do you have trouble paying your heating and electricity bill?: No Do you have trouble taking care of your child, family member or friend?: No Do you have trouble with day-to-day activities such as bathing, preparing meals, shopping, managing finances, etc.?: No Are you currently unemployed and looking for a job?: No Are you interested in more education?: No Please select the resources that you would like help with: None Currently or been in a relationship where the following occur: no concerns reported AUDIT C Alcohol Use Questionnaire (AUDIT-C) 1. How often do you have a drink containing alcohol?: Monthly or less 2. How many drinks containing alcohol do you have on a typical day when you are drinking?: 1 or 2 3. How often do you have six or more drinks on one occasion?: Never Total Score: 1 Score Reviewed/Action Taken: Yes LIBBY-7 AMB Questionnaire LIBBY-7 Date LIBBY - 7 assessed: 04/29/23 Feeling nervous, anxious, or on edge: 0 = Not at all Not being able to stop or control worryin = Not at all Worrying too much about different things: 0 = Not at all Trouble relaxin = Not at all Being so restless that it is hard to sit still: 0 = Not at all Becoming easily annoyed or irritable: 0 = Not at all Feeling afraid as if something awful might happen: 0 = Not at all Total LIBBY-7 score (0-4 normal; 5-9 mild; 10-14 moderate; 15-21 severe): 0 Source: Developed by Drs. Kwesi Tran, Za Campoverde, Jovon Mireles and colleagues, with an educational sary from [employer]. Review of Systems Const Denies chills, Denies fatigue, Denies fever(s) and Denies headache(s) ENT Denies dysphagia, Denies dizziness, Denies headache(s), Denies odynophagia and Denies sore throat Card Denies chest pain, Denies palpitations and Denies dyspnea Resp Denies cough and Denies dyspnea GI Denies abdominal pain, Denies constipation, Denies dysphagia, Denies heartburn, Denies diarrhea, Denies nausea, Denies odynophagia and Denies vomiting Denies hematuria, Denies difficulty urinating, Denies dysuria, Denies nocturia, Denies penile discharge, Reports testicular pain (left - see HPI), Denies urinary frequency and Denies urinary urgency Neuro Denies dizziness and Denies headache(s) Endo Denies fatigue and Denies palpitations Physical exam (Primary Care) Vital Signs: Last Vital Signs Pulse 86 04/29/23 12:04 BP 126/82 04/29/23 12:04 Pulse Ox 98 04/29/23 12:04 Oxygen Delivery Method Room Air 04/29/23 12:04 BMI result Body Mass Index 55.5 Tobacco/Smoking Status: Tobacco use Status Tobacco use date assessed 04/29/23 04/29/23 12:09 Patient Tobacco Use Status Never used Tobacco 04/29/23 12:09 e-Cigarette/Vaping Use Never Used 04/29/23 12:09 PHQ-9: PHQ-9 Score PHQ-9: Total score 0 04/29/23 13:03 Depression Screening Interpretation: Negative Thrive Assessment: Date of Thrive Assessment Date Thrive assessed 04/29/23 04/29/23 12:09 Currently or been in a relationship where the following occur: no concerns reported Const General: no acute distress and alert Neck Neck: Yes no lymphadenopathy and Yes supple Resp Auscultation: clear to auscultation bilaterally, no rales and no wheezes Cardio Rate: regular rate Rhythm: regular rhythm Heart sounds: no murmurs GI Palpation (GI): Soft to palpation and nontender Auscultation: normal bowel sounds Scrotum: no inguinal hernias and no scrotal swelling Testes: no testicular mass, no testicular swelling and testicular tenderness on the left Extrem General: Yes no clubbing, cyanosis or edema Assessment and Plan Assessment & Plan (1) Left testicular pain: Code(s): N50.812 - Left testicular pain Plan: Patient advised again that his recent scrotal US done in the ER came out normal so it is unlikely that his current left testicular pain is from torsion or testicular pathology Reminded that his previous lumbar spine x-rays done revealed (+) lower lumbar facet arthritis so there is a possibility that his current left scrotal pain may have some relation to his lower back as the nerves that supply the scrotum and testicles originate from L1, L2 and S2 At this time, will try him empirically on Levofloxacin 500 mg QD x 10 days for possible occult / subclinical epididymitis and advised patient that this Abx Tx may OR may not help Will also go ahead and refer him to urology for further evaluation and management Plan To return as scheduled in June 2023 for his annual physical examination Orders: Referrals Urology Referral N50.812 - Left testicular pain Medications: New levofloxacin 500 mg PO DAILY 10 days 10 tabs 0RF epididymitis Coding Level of Care Code Est Pt Level 3 (81529) Diagnoses Left testicular pain N50.812
== END 2023-04-29 13:02 | disposition home or self-care (01) ==
PROVIDERS: PCP Internal Medicine; Visit Provider Internal Medicine
DX: N50.812 Left testicular pain (principal)
CPT/HCPCS: 99213

== ENCOUNTER 2023-06-17 08:44 | Outpatient (AMB) | payer OTHER, SELFPAY ==
[2023-06-17 08:47] VITALS: BP 120/76; PULSE 90; O2SAT 97; BMI 55.2
--- NOTE | 2023-06-17 08:47 | MHC.PC.OV ---
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 Accompanied by: Self / Same As Patient Allergies No Known Allergies [No Known Allergies*] Allergy (Verified 06/17/23 09:09) Medication List - Last Reconciled 06/17/23 by César Wallace MD lidocaine 5% 1 patch topical DAILY 30 days naproxen 500 mg PO BID PRN Tobacco use date assessed: 06/17/23 Dental Screening Dental Screen Date: 06/17/23 Did you have a dental visit in the last 12 months?: No Did you have a dental problem in the last 6 months where you did not have access to dental care?: No Was dental information given to patient?: No HPI pe HPI Details Patient comes in today for his annual physical examination States that he feels okay Has had some mild soreness on the right side of his throat since 3 to 4 days ago - recalls eating something that did not agree with him this past weekend and threw up last Wednesday States that he has been feeling better after he threw up but noted the soreness on the right side of his throat since He denies any trouble swallowing and denies any cough/cold symptoms; denies any fever He denies any headaches or dizziness Denies any chest pains, no SOB No nausea/vomiting, no abdominal pain No change in bowel habits noted Denies any acute urinary symptoms States that his previous left testicular pain resolved completely after the trial of Tx with empiric Abx (Levofloxacin) that we started him on and they have not recurred since He was previously referred to urology for this and is scheduled to be seen in a couple of weeks on 06/28/23 - patient states that he still plans to go and see them to get this checked out Still has on and off low back pain and would like to get a refill on his Lidocaine patches, which he states help a lot PFSH Medical History Lumbar degenerative disc disease Morbid obesity with BMI of 50.0-59.9, adult Asthma Surgical History History of excision of mass (02/19/22) History of repair of ACL History of repair of anterior cruciate ligament of right knee (~08/2015) Family History Brother Epilepsy Maternal Aunt Breast cancer Social History Housing: Apartment Alcohol intake: never Patient Tobacco Use Status: Never used Tobacco e-Cigarette/Vaping Use: Never Used Second Hand Smoke Exposure: Yes service: No Current occupational status: employed Cognitive needs: No Hearing needs: No Vision needs: No Questionnaire PHQ-9 Over the last 2 weeks, how often have you been bothered by any of the following problems? 1. Little interest or pleasure in doing things: not at all 2. Feeling down, depressed, or hopeless: not at all 3. Trouble falling or staying asleep, or sleeping too much: not at all 4. Feeling tired or having little energy: not at all 5. Poor appetite or overeating: not at all 6. Feeling bad about yourself - or that you are a failure or have let yourself or your family down: not at all 7. Trouble concentrating on things, such as reading the newspaper or watching television: not at all 8. Moving or speaking so slowly that other people could have noticed. Or the opposite - being so fidgety or restless that you have been moving around a lot more than usual: not at all 9. Thoughts that you would be better off or of hurting yourself in some way: not at all Total score: 0 Depression Screening Interpretation: Negative 47561 - PHQ-9 Billing: Yes Source: Developed by Drs. Kwesi Tran, Za Campoverde, Jovon Mireles and colleagues, with an educational sary from [employer]. Thrive Questionnaire Date Thrive assessed: 06/17/23 I am a: Patient What is your living situation today?: I have a steady place to live Within the past 12 months, did the food you bought not last and you didn't have the money to get more?: Never true Within the past 12 months, did you worry whether your food would run out before you got money to buy more?: Never true Do you have trouble paying for medicines?: No Do you have trouble getting transportation to medical appointments?: No Do you have trouble paying your heating and electricity bill?: No Do you have trouble taking care of your child, family member or friend?: No Do you have trouble with day-to-day activities such as bathing, preparing meals, shopping, managing finances, etc.?: No Are you currently unemployed and looking for a job?: No Are you interested in more education?: No Please select the resources that you would like help with: None Currently or been in a relationship where the following occur: no concerns reported AUDIT C Alcohol Use Questionnaire (AUDIT-C) 1. How often do you have a drink containing alcohol?: Monthly or less 2. How many drinks containing alcohol do you have on a typical day when you are drinking?: 1 or 2 3. How often do you have six or more drinks on one occasion?: Never Total Score: 1 Score Reviewed/Action Taken: Yes LIBBY-7 AMB Questionnaire LIBBY-7 Date LIBBY - 7 assessed: 06/17/23 Feeling nervous, anxious, or on edge: 0 = Not at all Not being able to stop or control worryin = Not at all Worrying too much about different things: 0 = Not at all Trouble relaxin = Not at all Being so restless that it is hard to sit still: 0 = Not at all Becoming easily annoyed or irritable: 0 = Not at all Feeling afraid as if something awful might happen: 0 = Not at all Total LIBBY-7 score (0-4 normal; 5-9 mild; 10-14 moderate; 15-21 severe): 0 Source: Developed by Drs. Kwesi Tran, Za Campoverde, Jovon Mireles and colleagues, with an educational sary from [employer]. Review of Systems Const Denies chills, Denies fatigue, Denies fever(s), Denies headache(s), Denies malaise and Denies weakness Eyes Denies blurry vision, Denies change in vision, Denies irritation and Denies itchy eyes ENT Denies dysphagia, Denies dizziness, Denies otalgia, Denies headache(s), Denies nasal congestion, Denies neck pain, Denies odynophagia and Denies sore throat Card Denies chest pain, Denies rapid heart rate, Denies irregular heart rhythm, Denies palpitations and Denies dyspnea Resp Denies chest congestion, Denies cough, Denies dyspnea and Denies wheezing GI Denies abdominal pain, Denies bloating, Denies constipation, Denies dysphagia, Denies heartburn, Denies diarrhea, Denies nausea, Denies odynophagia and Denies vomiting Denies hematuria, Denies difficulty urinating, Denies dysuria, Denies nocturia, Denies testicular mass, Denies testicular pain (appears to have resolved with Abx Tx), Denies urinary frequency and Denies urinary urgency Musc Reports back pain (on and off, over the lower back), Denies arthralgias, Denies joint swelling, Denies muscle weakness and Denies neck pain Skin/Breast Denies change in pigmentation, Denies lesions, Denies rash and Denies unusual bruising Neuro Denies dizziness, Denies headache(s), Denies paresthesias and Denies weakness Endo Denies fatigue and Denies palpitations Aller/Immun Denies itchy eyes and Denies wheezing Physical exam (Primary Care) Vital Signs: Last Vital Signs Pulse 90 06/17/23 08:47 BP 120/76 06/17/23 08:47 Pulse Ox 97 06/17/23 08:47 Oxygen Delivery Method Room Air 06/17/23 08:47 BMI result Body Mass Index 55.2 Tobacco/Smoking Status: Tobacco use Status Tobacco use date assessed 06/17/23 06/17/23 08:51 Patient Tobacco Use Status Never used Tobacco 06/17/23 08:51 e-Cigarette/Vaping Use Never Used 06/17/23 08:51 PHQ-9: PHQ-9 Score PHQ-9: Total score 0 06/17/23 08:51 Depression Screening Interpretation: Negative Thrive Assessment: Date of Thrive Assessment Date Thrive assessed 06/17/23 06/17/23 08:51 Currently or been in a relationship where the following occur: no concerns reported Const General: no acute distress, alert and awake Orientation/consciousness: patient oriented x3 HENMT Head: Yes normocephalic and Yes atraumatic Ears: external ears normal, TM's normal bilaterally and EAC's normal General nose exam: No nasal discharge present Face and sinus: Yes normal facial exam and Yes sinuses nontender Teeth and gingiva: dentition normal Throat: Yes posterior oropharynx normal and Yes tonsils normal (no TP congestion) Eyes Eyelids: Yes eyelids normal Conjunctivae: conjunctivae normal Pupils: Equal, round and reactive pupils present EOM: EOMs intact bilaterally Neck Neck: Yes no lymphadenopathy and Yes supple Thyroid: Thyroid normal Resp Auscultation: clear to auscultation bilaterally, no rales and no wheezes Cardio Rate: regular rate Rhythm: regular rhythm Heart sounds: no murmurs GI Palpation (GI): Soft to palpation and nontender Auscultation: normal bowel sounds General: Yes no CVA tenderness Testes: no testicular mass, no testicular swelling and no testicular tenderness Back/Spine/Pelvis Back: no CVA tenderness Thoracic/Lumbar Spine: straight leg raise negative bilaterally and lumbar spinal tenderness Skin Lesions: no lesions Rashes: no rashes Neuro General: patient oriented x3, moves all extremities, no focal motor deficits and CN's II-XI intact bilaterally Cranial nerves: Yes Equal, round and reactive pupils present Cognition (Neuro): normal cognition Gait exam (Neuro): Normal gait present Extrem General: Yes no clubbing, cyanosis or edema Assessment and Plan Assessment & Plan (1) Annual physical exam: Code(s): Z00.00 - Encounter for general adult medical examination without abnormal findings Plan: Check labs (2) Lumbar degenerative disc disease: Code(s): M51.36 - Other intervertebral disc degeneration, lumbar region Plan: Reinforced activity and weight lifting restrictions Lumbar spine x-rays done back on 02/16/2019 revealed a stable mild anterior T11 wedge compression fracture, anterior spondylosis at T12-L1 and L1-L2, with no acute fracture or spondylolisthesis seen Repeat lumbar spine x-rays done in September 2022 revealed (+) mild curvature of the lumbar sacral spine to the right. Bone alignment is otherwise normal. No fracture or dislocation. Mild degenerative spondylosis and degenerative disc disease at T12-L1, L1-L2 and L2-L3; (+) lower lumbar spine facet arthritis. The previous T11 wedge compression fracture has apparently resolved Patient also reports (+) improvement of symptoms and relief of pain when he received physical therapy in the past - advised that we can refer him to physical therapy again at any time when needed and all he has to do is to let us know Continue Lidocaine 5% patches apply QD PRN - Rx refilled (3) Asthma: Code(s): J45.909 - Unspecified asthma, uncomplicated Qualifiers: Asthma severity: mild Asthma persistence: intermittent Asthma complication type: uncomplicated Qualified Code(s): J45.20 - Mild intermittent asthma, uncomplicated Plan: Stable - states that he has not had any flare ups of his asthma in a while now Has Albuterol inhaler that he uses as needed but as he has not had any flare ups in a while now, has not needed to use it at all lately (4) Left testicular pain: Code(s): N50.812 - Left testicular pain Plan: States that this apparently resolved with empiric Abx Tx with Levofloxacin back in late April 2023 and the pain has not recurred since Testicular US done back in March 2023 came out normal He was previously referred to urology for further evaluation and is scheduled to be seen on 06/28/23 - patient states that he would like to keep that appt just to get checked out (5) Morbid obesity with BMI of 50.0-59.9, adult: Code(s): E66.01 - Morbid (severe) obesity due to excess calories; Z68.43 - Body mass index [BMI] 50.0-59.9, adult Plan: Reinforced diet/exercise as tolerated/lose weight Plan To return in 1 year for his next annual physical examination Orders: Orders Complete Blood Count Auto Diff Today N50.812 - Left testicular pain, Z00.00 - Encounter for general adult medical examination without abnormal findings UA CC w/rflx Micro + Cult Today N50.812 - Left testicular pain, Z00.00 - Encounter for general adult medical examination without abnormal findings Comprehensive Met. Panel Today E66.01 - Morbid (severe) obesity due to excess calories, N50.812 - Left testicular pain, Z00.00 - Encounter for general adult medical examination without abnormal findings, Z68.43 - Body mass index [BMI] 50.0-59.9, adult TSH reflex Free T4 Today E66.01 - Morbid (severe) obesity due to excess calories, Z00.00 - Encounter for general adult medical examination without abnormal findings, Z68.43 - Body mass index [BMI] 50.0-59.9, adult Vitamin D 25-OH Total Today E55.9 - Vitamin D deficiency, unspecified, E66.01 - Morbid (severe) obesity due to excess calories, Z00.00 - Encounter for general adult medical examination without abnormal findings, Z68.43 - Body mass index [BMI] 50.0-59.9, adult Cholesterol Today E66.01 - Morbid (severe) obesity due to excess calories, Z00.00 - Encounter for general adult medical examination without abnormal findings, Z68.43 - Body mass index [BMI] 50.0-59.9, adult Medications: Refilled lidocaine 5% leave on most painful area for up to 12 hrs 1 patch topical DAILY 30 days 30 ea 5RF M51.36 - Other intervertebral disc degeneration, lumbar region, M54.50 - Low back pain, unspecified Coding Level of Care Code Est Pt Prev Care [id number]) Diagnoses Annual physical exam Z00.00 Lumbar degenerative disc disease M51.36 Mild intermittent asthma without complication J45.20 Asthma severity: mild Asthma persistence: intermittent Asthma complication type: uncomplicated Left testicular pain N50.812 Morbid obesity with BMI of 50.0-59.9, adult E66.01; Z68.43
== END 2023-06-17 09:24 | disposition home or self-care (01) ==
PROVIDERS: PCP Internal Medicine; Visit Provider Internal Medicine
DX: Z00.00 Encounter for general adult medical examination without abnormal findings (principal); J45.20 Mild intermittent asthma, uncomplicated; Z68.43 Body mass index [BMI] 50.0-59.9, adult; E66.01 Morbid (severe) obesity due to excess calories; M51.36 Other intervertebral disc degeneration, lumbar region; N50.812 Left testicular pain
CPT/HCPCS: 99395

== ENCOUNTER 2023-06-28 08:49 | Outpatient (AMB) | payer OTHER, SELFPAY ==
--- NOTE | 2023-06-28 08:55 | A.OFFVIS_ITS ---
Intake Intake Visit Reasons: Left testicular pain Intake Note: NEW Patient presents today to established treatment for Left Testicular Pain: Meds- None Allergies to Antibiotic- No Known Allergies Blood Thinner- None Disk Grinder Required: No Accompanied by: Self / Same As Patient Allergies No Known Allergies [No Known Allergies*] Allergy (Verified 06/28/23 08:57) HPI HPI Comments History of Present Illness Details Anthony is a 27-year-old male who presents today to the office to establish as a new patient for an evaluation of?left testicular pain. 06/28/2023? He is present today for an evaluation of?left testicular pain. He has seen Dr. Lindsey for left testicular pain on 04/29/2023.? The patient was treated with Levofloxacin 500 mg QD x 10 days for possible occult / subclinical epididymitis and was advised patient that this Abx Tx may OR may not help at that time. The patient was referred to urology for further evaluation and management during that time. I reviewed the scrotum US results from 03/22/2023 revealed no left hydrocele or varicocele. is seen. Left epididymal Doppler flow is normal. He reports that the left testicular pain has improved. He states that he notices on and off mild pain while to stretching his legs. He admits that sometimes he will hold urine at work. Evaluation today?UA? leukocytes: negative; blood: negative. Plan: Chemical epididymitis Behavioural modifications such as making sure that he is emptying his bladder in a timely fashion; supportive measures such as non NSAIDS prn. Scrotal support, underwear as needed. [facility] Medical History Lumbar degenerative disc disease Morbid obesity with BMI of 50.0-59.9, adult Asthma Surgical History History of excision of mass (02/19/22) History of repair of ACL History of repair of anterior cruciate ligament of right knee (~08/2015) Family History Brother Epilepsy Maternal Aunt Breast cancer Social History Housing: Apartment Alcohol intake: never Patient Tobacco Use Status: Never used Tobacco e-Cigarette/Vaping Use: Never Used Second Hand Smoke Exposure: Yes service: No Current occupational status: employed Cognitive needs: No Hearing needs: No Vision needs: No Review of Systems Const All systems reviewed & are unremarkable except as noted in HPI and below Reports no additional complaints Eyes Reports no additional complaints ENT Reports no additional complaints Card Denies dyspnea Resp Denies cough and Denies dyspnea GI Reports no additional complaints Musc Reports no additional complaints Skin/Breast Denies rash and Denies unusual bruising Neuro Reports no additional complaints Psych Reports no additional complaints Endo Reports no additional complaints Waqar/Lymph Reports no additional complaints Aller/Immun Reports no additional complaints Physical Exam Const General: healthy appearing, no acute distress and well developed Nutritional Appearance: overweight Orientation/consciousness: patient oriented x3 HEENT Head: Yes normocephalic and Yes atraumatic Eyes Conjunctivae: conjunctivae normal Neck Neck: Yes normal visual inspection Chest Chest palpation & inspection: normal inspection of the chest Resp Effort & Inspection: normal respiratory effort Cardio Rate: regular rate GI Inspection: Yes normal to inspection Palpation (GI): Soft to palpation Penis: normal penis Scrotum: scrotum normal Skin General skin exam: no rashes or lesions noted Neuro General: patient oriented x3 Extrem General: No pedal edema Psych Appearance: grossly normal Affect: normal affect Results AMB Urinalysis, Automated UA Leukoctes 0 Baljeet/uL Last Edit by EDGAR Hernandez on 06/28/23 09:15 UA Nitrite Negative Last Edit by EDGAR Hernandez on 06/28/23 09:15 UA Urobilinogen 0.2 mg/dL Last Edit by EDGAR Hernandez on 06/28/23 09:1 5 UA Protein 15 mg/dL Last Edit by EDGAR Hernandez on 06/28/23 09:15 UA pH 5.5 Last Edit by EDGAR Hernandez on 06/28/23 09:15 UA Blood 0 Deepak/uL Last Edit by Carolyn Zavala KERRYA on 06/28/23 09:15 UA Specific [place] 1.030 Last Edit by Carolyn Zavala, A on 06/28/23 09: 15 UA Ketone Negative Last Edit by Carolyn Zavala, A on 06/28/23 09:15 UA Bilirubin 0 mg/dL Last Edit by Carolyn Zavala, A on 06/28/23 09:15 UA Glucose 0 mg/dL Last Edit by Carolyn Zavala, A on 06/28/23 09:15 Results Reviewed Results Reviewed: Laboratory Last Values Urine pH (Auto) 5.5 06/28/23 09:06 Specific [place] (Auto) 1.030 06/28/23 09:06 Urine Protein (Auto) 15 mg/dL 06/28/23 09:06 Glucose (UA)(Auto) 0 mg/dL 06/28/23 09:06 Urine Ketones (Auto) Negative 06/28/23 09:06 Urine Blood (Auto) 0 Deepak/uL 06/28/23 09:06 Urine Nitrite (Auto) Negative 06/28/23 09:06 Urine Bilirubin (Auto) 0 mg/dL 06/28/23 09:06 Urine Urobilinogen (Auto) 0.2 mg/dL 06/28/23 09:06 Leukocyte Esterase (Auto) 0 Baljeet/uL 06/28/23 09:06 Date of Service: 03/22/23 EXAMINATION: US SCROTUM CLINICAL INFORMATION:? Left testicular pain. COMPARISON:? None available. FINDINGS: RIGHT: Right testicle measures 3.2 x 1.5 x 2.1 cm, volume 5.1 mL. Tiny intratesticular calcification noted but no focal testicular parenchymal lesions are visualized. Spectral Doppler analysis of the arterial and venous flow is normal in the right testis.? Right epididymal head is normal in size with a tiny right epididymal cyst. No right hydrocele or varicocele is seen. Right epididymal Doppler flow is normal. LEFT: Left testicle measures 3.7 x 2.3 x 2.8 cm, volume 12.4 mL. No focal testicular parenchymal lesions are visualized. Spectral Doppler analysis of the arterial and venous flow is normal in the left testis.? Left epididymal head is normal in size. No left hydrocele or varicocele is seen. Left epididymal Doppler flow is normal. IMPRESSION: No acute abnormality seen Assessment & Plan Assessment & Plan (1) Left testicular pain: Code(s): N50.812 - Left testicular pain (2) Epididymitis, left: Code(s): N45.1 - Epididymitis Plan Behavioural modifications such as making sure that he is emptying his bladder in a timely fashion; supportive measures such as non NSAIDS prn.? Scrotal support, underwear as needed. Orders: Orders AMB Urinalysis Automated Today Z13.9 - Encounter for screening, unspecified Patient Instructions: The patient had an opportunity to ask questions regarding treatment plan. All questions were answered. Imaging, Laboratory studies and physical exam results were discussed and reviewed in detail. No major barriers to understanding were identified. The patient expressed understanding and agreement with the above treatment plan.? ? ? The patient is aware they should contact our office by phone for worsening of their current condition or the appearance of new symptoms. Compliance is encouraged with any medications and followup testing that is ordered.? ? ? It is a privilege to be allowed the opportunity to participate in the urologic care of your patient. If you have any questions or concerns regarding treatment for the above conditions please do not hesitate to contact me. The office tele phone contact is [phone].? ? ? This note is constructed in part using voice recognition software. While every effort has been made to ensure accuracy monument letterer errors may have been included.? ? ? Yours sincerely,? ? ? Lily Martinez MD? Coding Level of Care Code New Pt Level 3 (75016) Diagnoses Left testicular pain N50.812 Epididymitis, left N45.1
== END 2023-06-28 09:43 | disposition home or self-care (01) ==
PROVIDERS: PCP Internal Medicine; Visit Provider Urology
DX: N50.812 Left testicular pain (principal); N45.1 Epididymitis; Z13.9 Encounter for screening, unspecified
CPT/HCPCS: 99203

== ENCOUNTER → 2023-06-28 08:49 | Outpatient (BNVA) | payer OTHER, SELFPAY | PROVIDERS: PCP Internal Medicine; Visit Provider Urology | DX: N45.1 Epididymitis (principal); N50.812 Left testicular pain | CPT/HCPCS: 81003 ==

== ENCOUNTER 2023-07-04 10:01 | Emergency (ER) | payer OTHER, SELFPAY ==
[2023-07-04 10:13] VITALS: BP 135/78; PULSE 82; RESP 16; TEMP 37.2; O2SAT 96; BMI 55.0
--- NOTE | 2023-07-04 10:20 | ED_ITS ---
HPI - Eye Problem General Chief complaint: Eye Problems Stated complaint: R eye swollen Time Seen by Provider: 07/04/23 10:17 Source: patient Mode of arrival: ambulatory Limitations: no limitations History of Present Illness HPI Narrative: 27 yo male healthy here with complaints of redness, swelling and discomfort to right lower eyelid since yesterday. No vision changes, discharge reported. Denies contact lens use Related Data Previous Rx's Medication Instructions Recorded naproxen 500 mg tablet 500 mg PO BID PRN pain #20 tabs 03/12/23 lidocaine 5 % topical patch 1 patch topical DAILY 30 days #30 06/17/23 ea erythromycin 5 mg/gram (0.5 %) eye 0.5 inch ophthalmic (eye) BID 7 07/04/23 ointment days #3.5 grams Allergies Allergy/AdvReac Type Severity Reaction Status Date / Time No Known Allergies Allergy Verified 07/04/23 10:13 [No Known Allergies*] Review of Systems Review of Systems: Yes all other systems are reviewed and are negative Constitutional: Constitutional: Reports no additional constitutional complaints, Denies body ache(s), Denies chills, Denies fever(s), Denies headache(s) and Denies weakness Eyes: Eyes: Reports no additional eye complaints, Denies change in vision, Denies eye discharge, Denies irritation, Denies eye pain and Denies photophobia Comments: +eyelid swelling/redness ENT: Reports system reviewed and no additional complaints, except as documented, Denies dizziness, Denies headache(s), Denies nasal congestion, Denies nasal discharge and Denies neck pain Cardiovascular: Cardiovascular: Reports no additional cardiovascular complai nts, Denies chest pain, Denies leg edema and Denies dyspnea Respiratory: Respiratory: Reports no additional respiratory complaints, Denies cough and Denies dyspnea Gastrointestinal: Gastrointestinal: Reports no additional gastrointestinal complaints, Denies abdominal pain, Denies diarrhea, Denies nausea and Denies vomiting Genitourinary: Genitourinary: Denies urinary incontinence Musculoskeletal: Musculoskeletal: Reports no additional musculoskeletal complaints, Denies back pain, Denies arthralgias, Denies joint swelling, Denies neck pain, Denies numbness and Denies tingling Integumentary/Breasts: Skin/Breast: Reports system reviewed and no additional complaints, except as docu and Denies rash Neurologic: Reports system reviewed and no additional complaints, except as documented, Denies Abnormal speech present, Denies dizziness, Denies headache(s), Denies numbness, Denies tingling and Denies weakness PMFSH Past Medical History Attestation statement: The following information was validated with the patient. Source: old records reviewed and nursing notes reviewed Medical History Lumbar degenerative disc disease Morbid obesity with BMI of 50.0-59.9, adult Asthma Surgical History History of excision of mass (02/19/22) History of repair of ACL History of repair of anterior cruciate ligament of right knee (~08/2015) Family History Family History Brother Epilepsy Maternal Aunt Breast cancer Social History Social History Housing: Apartment Alcohol intake: never Patient Tobacco Use Status: Never used Tobacco e-Cigarette/Vaping Use: Never Used Second Hand Smoke Exposure: Yes Advance Directives: No Advance Directives Information Provided: No service: No Current occupational status: employed Cognitive needs: No Hearing needs: No Vision needs: No Physical Exam Vital Signs: Vital Signs: Last Vital Signs Temp 98.9 F 07/04/23 10:13 Pulse 82 07/04/23 10:13 Resp 16 07/04/23 10:13 BP 135/78 07/04/23 10:13 Pulse Ox 96 07/04/23 10:13 O2 Del Method Room Air 07/04/23 10:13 BMI result Body Mass Index 55.0 Const: General: cooperative, healthy appearing, comfortable and no acute distress Orientation/consciousness: patient oriented x3 Limitations: no limitations HEENT: Head: Yes normal to inspection Ears: hearing grossly normal bilaterally and TM's normal bilaterally General nose exam: Normal external nose present Face and sinus: Yes normal facial exam Mouth: Normal oral and palatal mucosa present Throat: Yes posterior oropharynx normal, Yes tonsils normal and Yes uvula midline Eyes: General: appearance normal, both eyes and all related structures Visual Reyez: normal visual reyez by confrontation Alignment and Position: alignment normal Periorbital: periorbital findings normal Eyelids: Yes eyelid abnormality (Right lower eyelid hordeolum present ) Conjunctivae: conjunctivae normal Sclerae: sclerae normal Corneas: corneas normal Pupils: Equal, round and reactive pupils present EOM: EOMs intact bilaterally Direct Ophthalmoscopy: normal light reflex and No photophobia Neck: Neck: Yes normal visual inspection and Yes full ROM Chest: Chest palpation & inspection: normal inspection of the chest Resp: Effort & Inspection: normal respiratory effort Auscultation: clear to auscultation bilaterally Cardio: Rate: regular rate Rhythm: regular rhythm Peripheral pulses: Peripheral pulses 2+ throughout GI: Inspection: Yes normal to inspection Palpation (GI): Soft to palpation and nontender Auscultation: normal bowel sounds Back/Spine/Pelvis: Thoracic/Lumbar Spine: thoracic and lumbar spine normal to inspection Skin: General skin exam: no rashes or lesions noted Neuro: General: patient oriented x3, no focal motor deficits and normal sensation to monofilament Cranial nerves: Yes Equal, round and reactive pupils present Cognition (Neuro): normal cognition Speech: No Abnormal speech present Gait exam (Neuro): Normal gait present Motor exam (neuro): 5/5 motor strength present throughout Extrem: General: Yes normal to inspection Medical Decision Making Medical Decision Making MDM Narrative: 27 yo male healthy here with complaints of redness, swelling and discomfort to right lower eyelid since yesterday. No vision changes, discharge reported. Denies contact lens use +hordeleoum on exam right lower eyelid. Exam otherwise benign with no visual complaints. Recommend warm compresses, topical antibiotic ointment. Reviewed worrisome signs/symptoms with patient and when to seek additional care. Comfortable with discharge home. Differential Diagnosis Differential Diagnoses: The differential diagnosis associated with the presentation includes chalazion, hordeleoum Low concern for orbital cellulitis, periorbital cellulitis, corneal abrasion, corneal FB Admission/Observation Consideration of admission/observation: Escalation of care including admission/observation considered No clinical findings concerning for orbital cellulitis necessitating labs, CT orbiits and even further need for IV ABX and admission Tests considered The following testing was considered but not selected: No clinical findings concerning for orbital cellulitis necessitating labs, CT orbiits Prescription Management I considered prescription management with: Antibiotic Discharge Plan Discharge Clinical Impression: Hordeolum Patient Disposition: Home, Self-Care Instructions: Amy (ED) Additional Instructions: Warm compresses four times daily Prescriptions: New erythromycin 5 mg/gram (0.5 %) ointment 0.5 inch ophthalmic (eye) BID 7 Days Qty: 3.5 0RF No Action naproxen 500 mg tablet 500 mg PO BID PRN (Reason: pain) Qty: 20 0RF lidocaine 5 % adhesive patch,medicated 1 patch topical DAILY 30 Days Qty: 30 5RF Rx Instructions: leave on most painful area for up to 12 hrs Referrals: César Wallace MD [Primary Care Provider] - 1 week Interventions: ED Discharge Assessment Last Done: 07/04/23 10:26
== END 2023-07-04 10:26 | disposition home or self-care (01) ==
PROVIDERS: Emergency Provider Emergency Medicine; PCP Internal Medicine
DX: H00.012 Hordeolum externum right lower eyelid (principal)
CPT/HCPCS: 99282

== ENCOUNTER 2023-09-21 16:49 | Emergency (ER) | payer OTHER, SELFPAY ==
[2023-09-21 17:11] VITALS: BP 150/91; PULSE 96; RESP 18; TEMP 37; O2SAT 96; BMI 56.2
--- NOTE | 2023-09-21 17:12 | ED_ITS ---
HPI - General Adult General Chief complaint: Skin/Abscess/Foreign Body Stated complaint: painful lump on abd Time Seen by Provider: 09/21/23 19:01 Source: patient Mode of arrival: ambulatory Limitations: no limitations History of Present Illness HPI narrative: Patient is a 28-year-old male presents emergency department for evaluation of a small painful lump beneath his abdominal fold. Reports onset 2.5 days ago. Slowly increasing in size. He states he attempted to drain it at home but was unsuccessful. Reports some surrounding redness. Denies any additional skin lesions or wounds at this time. Denies fevers, chills nausea, vomiting, constipation, diarrhea. Related Data Previous Rx's Medication Instructions Recorded naproxen 500 mg tablet 500 mg PO BID PRN pain #20 tabs 03/12/23 lidocaine 5 % topical patch 1 patch topical DAILY 30 days #30 06/17/23 ea erythromycin 5 mg/gram (0.5 %) eye 0.5 inch ophthalmic (eye) BID 7 07/04/23 ointment days #3.5 grams cephalexin 500 mg capsule 500 mg PO QID #27 caps 09/21/23 doxycycline hyclate 100 mg capsule 100 mg PO BID #13 caps 09/21/23 Allergies Allergy/AdvReac Type Severity Reaction Status Date / Time No Known Allergies Allergy Verified 07/04/23 10:13 [No Known Allergies*] Review of Systems Review of Systems: Yes all other systems are reviewed and are negative PMFSH Past Medical History Attestation statement: The following information was validated with the patient. Source: old records reviewed Medical History Lumbar degenerative disc disease Morbid obesity with BMI of 50.0-59.9, adult Asthma Surgical History History of excision of mass (02/19/22) History of repair of ACL History of repair of anterior cruciate ligament of right knee (~08/2015) Family History Family History Brother Epilepsy Maternal Aunt Breast cancer Social History Social History Housing: Apartment Alcohol intake: never Patient Tobacco Use Status: Never used Tobacco e-Cigarette/Vaping Use: Never Used Second Hand Smoke Exposure: Yes service: No Current occupational status: employed Cognitive needs: No Hearing needs: No Vision needs: No Physical Exam ED Vital Signs: Vital Signs - 24 hr 09/21/23 17:11 09/21/23 19:04 Temperature 98.6 F 98.3 F Pulse Rate 96 89 Respiratory Rate 18 18 Blood Pressure 150/91 H 151/79 H Pulse Oximetry 96 97 Oxygen Delivery Method Room Air Room Air BMI result Body Mass Index 56.2 Appearance: Alert.?Oriented to person, place and time. No acute distress.?Normal affect. Eyes: Pupils equal, round and reactive to light.? ENT: Pharynx normal.?? Neck: Normal inspection.? Neck supple.?? CVS: Heart sounds normal. Normal heart rate and rhythm.? Pulses normal.?? Respiratory: No respiratory distress.? Lung sounds clear to auscultation bilaterally?? Abdomen: Soft and non-tender. Normoactive bowel sounds.?? Skin: Skin warm and dry.? Normal skin color.? 1cm mid lower abdominal fold abscess, actively draining, small amount of surrounding induration and erythema, no fluctuance?? Extremities: No lower extremity edema.? Neuro: Moves all extremities spontaneously. Sensation intact bilaterally. . Ambulates with normal steady gait. Course Course Course Narrative: RME- 28 year old male presents for evaluation of a painful lump with redness to the lower abdominal skin folds. Exam consistent with a small abscess Medical Decision Making Medical Decision Making MDM Narrative: Patient is a 28-year-old male presents emergency department for evaluation of a painful lump to the abdominal fold as per HPI. He reports a history of similar in the past requiring incision and drainage. While waiting in the emergency department, the abscess began draining on its own. At this time examination is consistent with a drained abscess, no remaining fluctuance present, do not feel this would be amenable to any further incision and drainage at this time. There is some mild induration in surrounding erythema, concerning for overlying cellulitis. Not consistent with necrotizing fasciitis, myositis. At this time feel he is stable for discharge home, discussed warm moist compresses, acetaminophen/ibuprofen for pain, prescription for antibiotic was sent to patient's pharmacy. Reviewed worrisome signs and symptoms that would warrant re-evaluation emergency department. All questions answered. Stable for discharge. Differential Diagnosis Differential Diagnoses: The differential diagnosis associated with the presentation includes (As noted above) Admission/Observation Consideration of admission/observation: Escalation of care including admission/observation considered (As noted above) External Record Review External record reviewed: Outpatient record Prescription Management I considered prescription management with: Antibiotic Discharge Plan Discharge Clinical Impression: Abscess of skin of abdomen Patient Disposition: Home, Self-Care Instructions: Abscess (ED) Additional Instructions: Apply warm moist compresses 3-4 times a day for 10-15 minutes. You can take ibuprofen 200 mg, 3 tablets (600mg) every 6-8 hours as needed for pain, in addition to Tylenol 500 mg, 2 tablets (1,000mg) every 4-6 hours as need ed for pain, but not to exceed 3 doses daily (3,000mg).? Complete the entire course of antibiotics as prescribed Contact your primary care provider and arrange for a follow-up visit. You may return back to emergency department with any new or worsening symptoms or concerns. Prescriptions: New cephalexin 500 mg capsule 500 mg PO QID Qty: 27 0RF doxycycline hyclate 100 mg capsule 100 mg PO BID Qty: 13 0RF No Action naproxen 500 mg tablet 500 mg PO BID PRN (Reason: pain) Qty: 20 0RF erythromycin 5 mg/gram (0.5 %) ointment 0.5 inch ophthalmic (eye) BID 7 Days Qty: 3.5 0RF lidocaine 5 % adhesive patch,medicated 1 patch topical DAILY 30 Days Qty: 30 5RF Rx Instructions: leave on most painful area for up to 12 hrs Referrals: César Wallace MD [Primary Care Provider] - Stand Alone Forms: Work/School Release
[2023-09-21 19:04] VITALS: BP 151/79; PULSE 89; RESP 18; TEMP 36.8; O2SAT 97
== END 2023-09-21 20:31 | disposition home or self-care (01) ==
PROVIDERS: Emergency Provider Internal Medicine; PCP Internal Medicine
DX: L02.211 Cutaneous abscess of abdominal wall (principal); Z79.899 Other long term (current) drug therapy
CPT/HCPCS: 99282; 99283

== ENCOUNTER 2023-09-28 06:14 | Emergency (ER) | payer OTHER, SELFPAY ==
[2023-09-28 06:30] VITALS: BP 138/77; PULSE 95; RESP 16; TEMP 36.8; O2SAT 96; BMI 55.9
--- NOTE | 2023-09-28 07:48 | ED_ITS ---
HPI - Male Genitourinary General Chief complaint: Urogenital-Male Stated complaint: groin pain Time Seen by Provider: 09/28/23 07:48 History of Present Illness HPI Narrative: The patient is a 28-year-old male. He has a history of morbid obesity. He presents because of pain and discomfort and from the foreskin of his penis. This is been present for about 3 or 4 days. He denies being sexually active and does not think that he is at any risk for any sexually transmitted disease. He says that he has discomfort if he attempts to retract his foreskin. No fever, sweats, chills. No testicular pain. Related Data Previous Rx's Medication Instructions Recorded naproxen 500 mg tablet 500 mg PO BID PRN pain #20 tabs 03/12/23 lidocaine 5 % topical patch 1 patch topical DAILY 30 days #30 06/17/23 ea erythromycin 5 mg/gram (0.5 %) eye 0.5 inch ophthalmic (eye) BID 7 07/04/23 ointment days #3.5 grams cephalexin 500 mg capsule 500 mg PO QID #27 caps 09/21/23 doxycycline hyclate 100 mg capsule 100 mg PO BID #13 caps 09/21/23 clotrimazole 1 % topical cream 1 appl topical BID 4 weeks #45 09/28/23 grams metformin 500 mg tablet 500 mg PO BID #60 tabs 09/28/23 Allergies Allergy/AdvReac Type Severity Reaction Status Date / Time No Known Allergies Allergy Verified 09/28/23 06:29 [No Known Allergies*] Review of Systems 2 Review of Systems: Yes all other systems are reviewed and are negative [facility] Past Medical History Medical History Lumbar degenerative disc disease Morbid obesity with BMI of 50.0-59.9, adult Asthma Surgical History History of excision of mass (02/19/22) History of repair of ACL History of repair of anterior cruciate ligament of right knee (~08/2015) Family History Family History Brother Epilepsy Maternal Aunt Breast cancer Social History Social History Housing: Apartment Alcohol intake: never Patient Tobacco Use Status: Never used Tobacco e-Cigarette/Vaping Use: Never Used Second Hand Smoke Exposure: Yes service: No Current occupational status: employed Cognitive needs: No Hearing needs: No Vision needs: No Physical Exam 2 Vital Signs: Vital Signs: Last Vital Signs Temp 98.6 F 09/28/23 09:21 Pulse 74 09/28/23 09:21 Resp 18 09/28/23 09:21 BP 129/77 09/28/23 09:21 Pulse Ox 97 09/28/23 09:21 O2 Del Method Room Air 09/28/23 09:21 BMI result Body Mass Index 55.9 Const: Other: The patient is awake, alert, pleasant, cooperative. He does not appear in acute distress. BMI is 56. HEENT: Other: Face is symmetrical. Mucous membranes moist. Eyes: Other: Pupils are round equal, conjunctivae clear Resp: Other: Lungs are clear Cardio: Other: The patient has regular rate rhythm with no murmur GI: Other: The abdomen is soft and nontender : Other: The patient is an uncircumcised male. Scrotal contents are unremarkable. No testicular swelling or tenderness. There is some edema to the tip of the foreskin and there is purulent discharge at the tip of the foreskin. When I attempt to retract the foreskin he has discomfort. There is no paraphimosis. Medical Decision Making Medical Decision Making [facility] Narrative: Patient is a morbidly obese 28-year-old who presents with penile discharge and foreskin discomfort. He says he is not sexually active. Clinically the distal foreskin seems somewhat indurated, swollen, and tender. He has pain with attempts to retracting the foreskin. There is no paraphimosis. There is purulent discharge at the tip of the foreskin. Interestingly these symptoms began after the patient was started on cephalexin and doxycycline last week when he was here for a small superficial skin abscess on his lower abdomen. He says he has been taking the cephalexin but not the doxycycline. 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 I think it is unlikely that the penile discharge represents gonorrhea or chlamydia given the absence of recent sexual exposures. A urine sample sent for GC and chlamydia is negative for both. A wound culture was sent from the purulence discharge. The Gram stain shows 1+ polys, 3+ epithelial cells, 3+ Gram-positive rods, 3+ Gram-negative rods, 2+ Gram-positive cocci, and 1+ yeast. Additionally the patient's urine showed glucosuria. I suspect that the patient likely has incipient type 2 diabetes. His blood sugar was 176 and his hemoglobin A1c is 9.7 The patient is advised to improve his hygiene with regard to his foreskin. He should make a lot of effort to gently clean the foreskin with soap and water couple of times a day. Additionally he was prescribed clotrimazole cream which he should use 2 times a day. His urinalysis showed white cells but I think this is probably more related to the penile discharge than a true UTI. This is specially the case since he developed the penile symptoms while on cephalexin. As I think the patient has type 2 diabetes he will be started on metformin 500 mg b.i.d. and should follow up with his PCP for ongoing consideration of type 2 diabetes. With regard to his balanitis he should improve his penile hygiene, use the clotrimazole and follow-up with urology. He was also encouraged to restart the doxycycline he had been prescribed last week. Lab Data 09/28/23 09:51 Labs: Lab Results 09/28/23 09/28/23 09/28/23 Range/Units 08:38 08:41 09:51 Sodium 140 (135-145) mmol/L Potassium 4.0 D (3.3-5.1) mmol/L Chloride 104 (96-108) mmol/L Carbon Dioxide 27 (22-29) mmol/L Anion Gap 13 (12-20) BUN 8 L (9-16) mg/dL Creatinine 0.83 (0.5-1.4) mg/dL Estim Creat Clear Calc 200.2 Estimated GFR > 60 POC Glucose 167 H (60-115) mg/dL Random Glucose 176 H (60-115) mg/dL Estimat Average Glucose 232 mg/dL Hemoglobin A1c % 9.7 H (<6.0) % Calcium 9.7 (8.4-10.2) mg/dL Urine Color Yellow Urine Appearance Turbid Urine pH 6.0 (5.0-9.0) Ur Specific Loiza 1.025 (1.005-1.025) Urine Protein 100 (2+) H (Neg-Trace) mg/dL Urine Glucose (UA) 100 H (Negative) mg/dL Urine Ketones Trace (Negative) mg/dL Urine Blood Moderate (2+) H (Negative) Urine Nitrite Negative (Negative) Ur Leukocyte Esterase Large (3+) H (Negative) Urine RBC 11-20 H (0-2) /HPF Urine WBC >50 H (0-5) /HPF Ur Squamous Epith Cells 11-20 (0-2) /HPF Urine Bacteria 4+ (None Seen) Hyaline Casts 3-5 (0-2) /LPF Chlam trachomat DNA PCR NOT DETECTED (Not Detect.) N.gonorrhoeae DNA (PCR) NOT DETECTED (Not Detect.) Discharge Plan Discharge Clinical Impression: Balanoposthitis, Type 2 diabetes mellitus Patient Disposition: Home, Self-Care Additional Instructions: Please apply the cream prescribed 2 times a day to the tip of your penis. Also please focus on hygiene. When you take a shower make sure that you clean your foreskin well. Retract your foreskin as much as you can without significant discomfort and clean gently with soap and water. Try to do this at least 2 times a day before applying the cream. Please resume the doxycycline you were prescribed last week. Take this medication 2 times a day. Take it with a lot of water. Your testing today is concerning for early type 2 diabetes. Please contact your regular doctor's office to make an appointment to discuss this. In the meantime please start taking the metformin prescribed. Please also contact urology office to make an appointment to re-evaluate how your foreskin is doing. Therefore in summary please make an appoint with Urology office and also with your primary care doctor's office, please focus on foreskin hygiene, apply the clotrimazole 2 times a day, resume the doxycycline you were prescribed last week, and also take the metformin prescribed today. Return to the emergency room if significantly worse. Prescriptions: New clotrimazole 1 % cream 1 appl topical BID 28 Days Qty: 45 0RF metformin 500 mg tablet 500 mg PO BID Qty: 60 0RF No Action naproxen 500 mg tablet 500 mg PO BID PRN (Reason: pain) Qty: 20 0RF erythromycin 5 mg/gram (0.5 %) ointment 0.5 inch ophthalmic (eye) BID 7 Days Qty: 3.5 0RF cephalexin 500 mg capsule 500 mg PO QID Qty: 27 0RF doxycycline hyclate 100 mg capsule 100 mg PO BID Qty: 13 0RF lidocaine 5 % adhesive patch,medicated 1 patch topical DAILY 30 Days Qty: 30 5RF Rx Instructions: leave on most painful area for up to 12 hrs Referrals: César Wallace MD [Primary Care Provider] - (Early type 2 diabetes) Lily Martinez MD [Physician] - (balanoposthitis ) Interventions: ED Discharge Assessment Last Done: 09/28/23 09:56 Discharge Date/Time: 09/28/23 09:57
[2023-09-28 08:47] LABS: Glucose, Whole Blood 167 mg/dL (60-115)
[2023-09-28 08:49] LABS: Appearance Urine Turbid; Color Urine Yellow; Glucose Urine UA 100 mg/dL (Negative); Leukocyte Esterase Urine Large (3+) (Negative); Nitrite Urine Negative (Negative); Specific Gravity - Urine 1.025 (1.005-1.025); UMIC TRIGGER UACC YES; Urine Blood Moderate (2+) (Negative); Urine Ketones Trace mg/dL (Negative); Urine Protein 100 (2+) mg/dL (Neg-Trace)
[2023-09-28 09:01] LABS: Bacteria Urine 4+ (None Seen); UACC Culture Trigger YES; WBC Urine >50 /HPF (0-5)
[2023-09-28 09:21] VITALS: BP 129/77; PULSE 74; RESP 18; TEMP 37; O2SAT 97
[2023-09-28 10:17] LABS: Anion Gap 13 (12-20); Blood Urea Nitrogen 8 mg/dL (9-16); Calcium 9.7 mg/dL (8.4-10.2); Carbon Dioxide 27 mmol/L (22-29); Chloride 104 mmol/L (96-108); Creatinine Clr Calc Pharmacy 200.2; Estimated Glomerular Filt Rate > 60; Glucose Random 176 mg/dL (60-115); Sodium 140 mmol/L (135-145)
[2023-09-28 10:49] LABS: Estimated Average Glucose 232 mg/dL; Hemoglobin A1c % 9.7 % (<6.0)
[2023-09-28 11:30] LABS: CT PCR NOT DETECTED (Not Detect.); NG PCR NOT DETECTED (Not Detect.)
== END 2023-09-28 09:57 | disposition home or self-care (01) ==
PROVIDERS: Emergency Provider Emergency Medicine; PCP Internal Medicine
DX: N47.6 Balanoposthitis (principal); N48.89 Other specified disorders of penis; E11.9 Type 2 diabetes mellitus without complications; Z79.899 Other long term (current) drug therapy; Z79.84 Long term (current) use of oral hypoglycemic drugs
CPT/HCPCS: 0353U; 36415; 80048; 81001; 82947; 83036; 87070; 87086; 87147; 87205; 99283

== ENCOUNTER 2023-10-12 13:50 | Outpatient (AMB) | payer OTHER, SELFPAY ==
[2023-10-12 13:55] VITALS: BP 124/82; PULSE 88; O2SAT 99; BMI 55.7
--- NOTE | 2023-10-12 13:55 | A.OFFPC_ITS ---
Vital Signs 10/12/23 13:55 Height 5 ft 8 in Weight 366 lb 6 oz BMI 55.7 BP 124/82 Blood Pressure Location Lt brachial Position Sitting Pulse 88 Pulse Source Pulse Oximeter Pulse Oximetry (%) 99 Oxygen Delivery Method Room Air Intake Visit Reasons: ED javier up Ecologist Required: No Accompanied by: Self / Same As Patient Allergies No Known Allergies [No Known Allergies*] Allergy (Verified 12/16/23 12:00) Medication List - Last Reconciled 10/12/23 by César Wallace MD clotrimazole 1% 1 appl topical BID 4 weeks erythromycin 0.5 inches ophthalmic (eye) BID 7 days lidocaine 5% 1 patch topical DAILY 30 days metformin 500 mg PO BID naproxen 500 mg PO BID PRN Tobacco use date assessed: 10/12/23 Dental Screening Dental Screen Date: 10/12/23 Did you have a dental visit in the last 12 months?: No Did you have a dental problem in the last 6 months where you did not have access to dental care?: No Was dental information given to patient?: No HPI ED javier up HPI Details Patient comes in today for his HDF follow up visit He went to the ER a couple of weeks ago for increasing genital/penile discomfort and difficulty in retracting his foreskin He was diagnosed with balanoposthisis/phimosis and was given instructions on how to clean and manage this and was started on Clotrimazole cream as well He was also noted to have hyperglycemia on work up done in the ER and HgbA1c was noted to be at 9.7% and was started on Metformin 500 mg BID for newly-diagnosed diabetes and instructed to follow up with his PCP CHRISTEL Patient states that he currently feels okay and that his previous genital symptoms have mostly resolved He does however states that he has been experiencing increasing pain and discomfort over his left hip area for the past week or so He denies any previous hip issues and does not recall any recent injury or trauma to his left hip He denies any headaches or dizziness Denies any chest pains, no SOB No nausea/vomiting, no abdominal pain No change in bowel habits noted States that he will need his Metformin Rx refilled if he is to continue on the medication [facility], [facility] Medical History (Updated 12/16/23 @ 14:21 by César Wallace MD) Vitamin D deficiency Diabetes mellitus Lumbar degenerative disc disease Morbid obesity with BMI of 50.0-59.9, adult Asthma Surgical History History of excision of mass (02/19/22) History of repair of ACL History of repair of anterior cruciate ligament of right knee (~08/2015) Family History Brother Epilepsy Maternal Aunt Breast cancer Social History Housing: Apartment Alcohol intake: never Patient Tobacco Use Status: Never used Tobacco e-Cigarette/Vaping Use: Never Used Second Hand Smoke Exposure: Yes service: No Current occupational status: employed Cognitive needs: No Hearing needs: No Vision needs: No Questionnaire PHQ-9 Over the last 2 weeks, how often have you been bothered by any of the following problems? 1. Little interest or pleasure in doing things: not at all 2. Feeling down, depressed, or hopeless: not at all 3. Trouble falling or staying asleep, or sleeping too much: not at all 4. Feeling tired or having little energy: not at all 5. Poor appetite or overeating: not at all 6. Feeling bad about yourself - or that you are a failure or have let yourself or your family down: not at all 7. Trouble concentrating on things, such as reading the newspaper or watching television: not at all 8. Moving or speaking so slowly that other people could have noticed. Or the opposite - being so fidgety or restless that you have been moving around a lot more than usual: not at all 9. Thoughts that you would be better off or of hurting yourself in some way: not at all Total score: 0 Depression Screening Interpretation: Negative Depression Screening Done: Yes 55368 - PHQ-9 Billing: Yes Source: Developed by Drs. Kwesi Tran, Za Campoverde, Jovon Mireles and colleagues, with an educational sary from [employer]. Thrive Questionnaire Date Thrive assessed: 10/12/23 I am a: Patient What is your living situation today?: I have a steady place to live Within the past 12 months, did the food you bought not last and you didn't have the money to get more?: Never true Within the past 12 months, did you worry whether your food would run out before you got money to buy more?: Never true Do you have trouble paying for medicines?: No Do you have trouble getting transportation to medical appointments?: No Do you have trouble paying your heating and electricity bill?: No Do you have trouble taking care of your child, family member or friend?: No Do you have trouble with day-to-day activities such as bathing, preparing meals, shopping, managing finances, etc.?: No Are you currently unemployed and looking for a job?: No Are you interested in more education?: No Please select the resources that you would like help with: None Currently or been in a relationship where the following occur: no concerns reported AUDIT C Alcohol Use Questionnaire (AUDIT-C) 1. How often do you have a drink containing alcohol?: Monthly or less 2. How many drinks containing alcohol do you have on a typical day when you are drinking?: 1 or 2 3. How often do you have six or more drinks on one occasion?: Never Total Score: 1 Score Reviewed/Action Taken: Yes LIBBY-7 AMB Questionnaire LIBBY-7 Date LIBBY - 7 assessed: 10/12/23 Feeling nervous, anxious, or on edge: 0 = Not at all Not being able to stop or control worryin = Not at all Worrying too much about different things: 0 = Not at all Trouble relaxin = Not at all Being so restless that it is hard to sit still: 0 = Not at all Becoming easily annoyed or irritable: 0 = Not at all Feeling afraid as if something awful might happen: 0 = Not at all Total LIBBY-7 score (0-4 normal; 5-9 mild; 10-14 moderate; 15-21 severe): 0 Source: Developed by Drs. Kwesi Tran, Za Campoverde, Jovon Mireles and colleagues, with an educational sary from [employer]. Review of Systems Const Denies fatigue, Denies fever(s) and Denies headache(s) ENT Denies dysphagia, Denies dizziness, Denies otalgia, Denies headache(s), Denies neck pain, Denies odynophagia and Denies sore throat Card Denies chest pain, Denies palpitations and Denies dyspnea Resp Denies cough and Denies dyspnea GI Denies abdominal pain, Denies constipation, Denies dysphagia, Denies heartburn, Denies diarrhea, Denies nausea, Denies odynophagia and Denies vomiting Denies difficulty urinating, Denies dysuria, Reports nocturia and Reports urinary frequency Musc Reports back pain (over the lower back - chronic), Reports arthralgias (left hip ) and Denies neck pain Skin/Breast Denies rash Neuro Denies dizziness and Denies headache(s) Endo Denies fatigue and Denies palpitations Physical exam (Primary Care) Vital Signs: Last Vital Signs Pulse 88 10/12/23 13:55 BP 124/82 10/12/23 13:55 Pulse Ox 99 10/12/23 13:55 Oxygen Delivery Method Room Air 10/12/23 13:55 BMI result Body Mass Index 55.7 Tobacco/Smoking Status: Tobacco use Status Tobacco use date assessed 10/12/23 10/12/23 14:00 Patient Tobacco Use Status Never used Tobacco 10/12/23 14:00 e-Cigarette/Vaping Use Never Used 10/12/23 14:00 PHQ-9: PHQ-9 Score PHQ-9: Total score 0 10/12/23 14:20 Depression Screening Interpretation: Negative Thrive Assessment: Date of Thrive Assessment Date Thrive assessed 10/12/23 10/12/23 14:00 Currently or been in a relationship where the following occur: no concerns reported Const General: no acute distress and alert HENMT Throat: Yes posterior oropharynx normal and Yes tonsils normal (no TP congestion) Neck Neck: Yes no lymphadenopathy and Yes supple Thyroid: Thyroid normal Resp Auscultation: clear to auscultation bilaterally, no rales and no wheezes Cardio Rate: regular rate Rhythm: regular rhythm Heart sounds: no murmurs GI Palpation (GI): Soft to palpation and nontender Auscultation: normal bowel sounds General: Yes no CVA tenderness Back/Spine/Pelvis Back: no CVA tenderness Thoracic/Lumbar Spine: lumbar spinal tenderness Skin General skin exam: no rashes or lesions noted Extrem General: Yes no clubbing, cyanosis or edema Left lower extremity: hip/thigh Details: tenderness Location: of the hip Location: anterolaterally Assessment and Plan Assessment & Plan (1) Diabetes mellitus: Code(s): E11.9 - Type 2 diabetes mellitus without complications Qualifiers: Diabetes mellitus type: type 2 Diabetes mellitus half-way insulin use: without half-way use Diabetes mellitus complication status: with hyperglycemia Qualified Code(s): E11.65 - Type 2 diabetes mellitus with hyperglycemia Plan: Newly-diagnosed HgbA1c was noted to be at 9.7% when it was checked at the ER a couple of weeks ago - goal is <7.0% Reinforced diabetic diet Continue Metformin 500 mg BID for now - Rx refilled Will have patient get some follow up labs done in a couple of months (2) Left hip pain: Code(s): M25.552 - Pain in left hip Plan: Suspect tendinitis or bursitis as the source of his recent hip pain Will send patient for x-rays of the left hip for further evaluation (3) Asthma: Code(s): J45.909 - Unspecified asthma, uncomplicated Qualifiers: Asthma severity: mild Asthma persistence: intermittent Asthma complication type: uncomplicated Qualified Code(s): J45.20 - Mild intermittent asthma, uncomplicated Plan: Stable - states that he has not had any flare ups of his asthma in a while now Has Albuterol inhaler that he uses as needed but as he has not had any flare ups in a while now, has not needed to use it at all lately (4) Lumbar degenerative disc disease: Code(s): M51.36 - Other intervertebral disc degeneration, lumbar region Plan: Reinforced activity and weight lifting restrictions Lumbar spine x-rays done back on 02/16/2019 revealed a stable mild anterior T11 wedge compression fracture, anterior spondylosis at T12-L1 and L1-L2, with no acute fracture or spondylolisthesis seen Repeat lumbar spine x-rays done in September 2022 revealed (+) mild curvature of the lumbar sacral spine to the right. Bone alignment is otherwise normal. No fracture or dislocation. Mild degenerative spondylosis and degenerative disc disease at T12-L1, L1-L2 and L2-L3; (+) lower lumbar spine facet arthritis. The previous T11 wedge compression fracture has apparently resolved Patient also reports (+) improvement of symptoms and relief of pain when he received physical therapy in the past - advised that we can refer him to physical therapy again at any time when needed and all he has to do is to let us know Continue Lidocaine 5% patches apply QD PRN (5) Morbid obesity with BMI of 50.0-59.9, adult: Code(s): E66.01 - Morbid (severe) obesity due to excess calories; Z68.43 - Body mass index [BMI] 50.0-59.9, adult Plan: Reinforced diet/exercise as tolerated/lose weight Plan Follow up in 2 months Orders: Orders Hemoglobin A1c 2 Months E11.9 - Type 2 diabetes mellitus without complications Lipid Panel 2 Months E78.00 - Pure hypercholesterolemia, unspecified Complete Blood Count Auto Diff 2 Months J45.909 - Unspecified asthma, uncomplicated Comprehensive Barnes. Panel Fast 2 Months E78.00 - Pure hypercholesterolemia, unspecified TSH reflex Free T4 2 Months E78.00 - Pure hypercholesterolemia, unspecified XR hip LT min 2V 10/12/23 M25.552 - Pain in left hip UA CC w/rflx Micro + Cult 2 Months R30.0 - Dysuria Microalbumin, Random (w Creat) 2 Months E11.9 - Type 2 diabetes mellitus without complications Vitamin D 25-OH Total 2 Months E55.9 - Vitamin D deficiency, unspecified Medications: Refilled metformin 500 mg PO BID 60 tabs 2RF Coding Level of Care Code Est Pt Level 4 (56138) Diagnoses Type 2 diabetes mellitus with hyperglycemia, without long-term current use of insulin E11.65 Diabetes mellitus type: type 2 Diabetes mellitus half-way insulin use: 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
== END 2023-10-12 14:28 | disposition home or self-care (01) ==
PROVIDERS: PCP Internal Medicine; Visit Provider Internal Medicine
DX: E11.65 Type 2 diabetes mellitus with hyperglycemia (principal); E66.01 Morbid (severe) obesity due to excess calories; Z68.43 Body mass index [BMI] 50.0-59.9, adult; M25.552 Pain in left hip; J45.20 Mild intermittent asthma, uncomplicated; M51.36 Other intervertebral disc degeneration, lumbar region
CPT/HCPCS: 99214

== ENCOUNTER 2023-11-05 05:37 | Emergency (ER) | payer OTHER, SELFPAY ==
[2023-11-05 05:50] VITALS: BP 156/80; PULSE 106; RESP 17; TEMP 36.9; O2SAT 97; BMI 54.7
--- NOTE | 2023-11-05 07:05 | ED_ITS ---
HPI - Back Pain/Injury General Chief Complaint: Back Pain/Injury Stated Complaint: lower back pain Time Seen by Provider: 11/05/23 06:34 Source: patient, RN notes reviewed and old records reviewed Mode of arrival: ambulatory History of Present Illness HPI Narrative: 28-year-old male with a past medical history of obesity, lumbar degenerative disc disease, asthma, presenting to the ED complaining of low back pain x 3 days s/p cleaning his room. Denies known injury/trauma or fall. Denies numbness, tingling, weakness, incontinence/retention, dysuria/hematuria, fever. Denies trying anything for pain at home. MD elicited complaint: back pain Related Data Previous Rx's Medication Instructions Recorded naproxen 500 mg tablet 500 mg PO BID PRN pain #20 tabs 03/12/23 lidocaine 5 % topical patch 1 patch topical DAILY 30 days #30 06/17/23 ea erythromycin 5 mg/gram (0.5 %) eye 0.5 inch ophthalmic (eye) BID 7 07/04/23 ointment days #3.5 grams clotrimazole 1 % topical cream 1 appl topical BID 4 weeks #45 09/28/23 grams metformin 500 mg tablet 500 mg PO BID #60 tabs 10/12/23 acetaminophen 500 mg tablet 500 mg PO Q6H PRN fever or pain 11/05/23 (Tylenol Extra Strength) #14 tabs cyclobenzaprine 5 mg tablet 5 mg PO Q8H PRN pain (scale score 11/05/23 7-10) 5 days #14 tabs lidocaine 5 % topical patch 1 patch topical DAILY PRN pain #30 11/05/23 (Lidoderm) ea naproxen 500 mg tablet 500 mg PO BID PRN pain 10 days #20 11/05/23 tabs Allergies Allergy/AdvReac Type Severity Reaction Status Date / Time No Known Allergies Allergy Verified 11/05/23 05:49 [No Known Allergies*] Review of Systems Review of Systems: Constitutional: No Fever, No Chills ENT/Mouth: No Ear Pain, No Nasal Congestion, No sore throat, No Rhinorrhea, No Swallowing Difficulty Cardiovascular: No Chest Pain, No SOB Respiratory: No Cough, Gastrointestinal: No Nausea, No Vomiting, No Diarrhea, No Constipation, No Abdominal pain Genitourinary: No Dysuria, No Urinary Frequency, No Hematuria, No Urinary Incontinence/retention, No Flank Pain Musculoskeletal: + joint pain, No Myalgias, No Joint Swelling Skin: No Skin Lesions, No rash Neuro: No Weakness, No Numbness, No Paresthesias Yes all other systems are reviewed and are negative Constitutional: Constitutional: Reports as per HPI Neurologic: Denies Abnormal speech present and Denies Sensory deficit (Neuro) [facility] Past Medical History Attestation statement: The following information was validated with the patient. Source: old records reviewed Medical History Lumbar degenerative disc disease Morbid obesity with BMI of 50.0-59.9, adult Asthma Surgical History History of excision of mass (02/19/22) History of repair of ACL History of repair of anterior cruciate ligament of right knee (~08/2015) Family History Family History Brother Epilepsy Maternal Aunt Breast cancer Social History Social History Housing: Apartment Alcohol intake: never Patient Tobacco Use Status: Never used Tobacco e-Cigarette/Vaping Use: Never Used Second Hand Smoke Exposure: Yes Advance Directives: No Advance Directives Information Provided: No service: No Current occupational status: employed Cognitive needs: No Hearing needs: No Vision needs: No Physical Exam Vital Signs: Vital Signs: Last Vital Signs Temp 98.4 F 11/05/23 05:50 Pulse 106 H 11/05/23 05:50 Resp 17 11/05/23 05:50 BP 156/80 H 11/05/23 05:50 Pulse Ox 97 11/05/23 05:50 BMI result Body Mass Index 54.7 Const: General: cooperative, healthy appearing and no acute distress Orientation/consciousness: patient oriented x3 Limitations: no limitations HEENT: Head: Yes normal to inspection and Yes atraumatic Ears: hearing grossly normal bilaterally General nose exam: Normal external nose present Face and sinus: Yes normal facial exam Eyes: General: appearance normal, both eyes and all related structures EOM: EOMs intact bilaterally Neck: Neck: Yes normal visual inspection and Yes no meningeal signs Resp: Effort & Inspection: normal respiratory effort and no respiratory distress Auscultation: clear to auscultation bilaterally Cardio: Rate: regular rate Heart sounds: S1 normal heart sound present and S2 normal heart sound present GI: Inspection: Yes normal to inspection Palpation (GI): Soft to palpation, nontender, no guarding and not rigid : General: Yes no CVA tenderness Back/Spine/Pelvis: Other: No midline cervical/thoracic/lumbar spinous tenderness/step-off or deformity. + right-sided upper lumbar paraspinal/MSK reproducible tenderness. No rash/erythema or ecchymosis Back: no CVA tenderness Skin: Rashes: no rashes Wounds: no wounds Neuro: Other: Strength intact throughout. No saddle anesthesia. Sensation intact to light touch. Neurovascular intact distally General: patient oriented x3, gait normal, tone normal, moves all extremities, no meningeal signs, no focal motor deficits and CN's II-XI intact bilaterally Cranial nerves: Yes CN's II-XII intact bilaterally Cognition (Neuro): normal cognition Speech: No Abnormal speech present Gait exam (Neuro): Normal gait present Motor exam (neuro): 5/5 motor strength present throughout Sensory Exam: No Sensory deficit (Neuro) Extrem: General: Yes normal to inspection Medications Administered Discontinued Medications Generic Name Dose Route Start Last Admin Trade Name Freq PRN Reason Stop Dose Admin Cyclobenzaprine HCl 10 mg 11/05/23 06:49 11/05/23 07:22 Cyclobenzaprine Hcl 10 Mg Tablet PO 11/05/23 06:50 10 mg ONCE ONE Administration Ketorolac Tromethamine 30 mg 11/05/23 06:49 11/05/23 07:23 Ketorolac Tromethamine 30 Mg/Ml Vial IM 11/05/23 06:50 30 mg ONCE ONE Administration Lidocaine 1 patch 11/05/23 06:49 11/05/23 07:25 Lidocaine 4 % Patch Adh..Patch TRANSDERMA 11/05/23 06:50 1 patch ONCE ONE Administration Protocol Medical Decision Making Medical Decision Making MDM Narrative: 28-year-old male with a past medical history of obesity, lumbar degenerative disc disease, asthma, presenting to the ED complaining of low back pain x 3 days s/p cleaning his room. On exam of the tachycardic likely from pain, NAD/nontoxic, no midline spinous tenderness or or red flag symptoms. Ambulating with steady gait. PE as above. Concern for MSK pain/spasming/strain vs possible herniated disc. Low suspicion for cauda equina/cord compression, epidural abscess or renal stone/pyelo Plan: Pain management, PCP follow-up Please refer to course for remaining clinical decision making, interpretation of labs/imaging results, and discussions with consultants and/or family members. Results discussed with patient including worrisome signs and symptoms and strict return precautions, and when to return to the emergency department. They verbalized understanding and feel safe for discharge at this time. Differential Diagnosis Differential Diagnoses: The differential diagnosis associated with the presentation includes As above External Record Review External record reviewed: Inpatient record, Office record, Outpatient record, Prior outpatient labs, Prior outpatient radiology, Primary care record and Outside ED record Tests considered The following testing was considered but not selected: As above Prescription Management I considered prescription management with: Pain Medication Discharge Plan Discharge Clinical Impression: Low back pain Patient Disposition: Home, Self-Care Instructions: Acute Low Back Pain (ED) Additional Instructions: Your pain is likely musculoskeletal Flexeril is a muscle relaxer, take at night as it makes you drowsy, do not drive, drink alcohol, or operate machinery while taking it Naproxen as an anti-inflammatory / pain medication, take with food Lidoderm patches are numbing patches, apply to painful area In addition take Tylenol at home If symptoms persist or worsen, pain becomes unbearable, you developed urinary retention or incontinence, or weakness return to the ED Prescriptions: New acetaminophen [Tylenol Extra Strength] 500 mg tablet 500 mg PO Q6H PRN (Reason: fever or pain) Qty: 14 0RF lidocaine [Lidoderm] 5 % adhesive patch,medicated 1 patch topical DAILY MDD remove after 12 hours PRN (Reason: pain) Qty: 30 0RF Rx Instructions: leave on most painful area for up to 12 hrs naproxen 500 mg tablet 500 mg PO BID PRN (Reason: pain) 10 Days Qty: 20 0RF cyclobenzaprine 5 mg tablet 5 mg PO Q8H PRN (Reason: pain (scale score 7-10)) 5 Days Qty: 14 0RF No Action naproxen 500 mg tablet 500 mg PO BID PRN (Reason: pain) Qty: 20 0RF clotrimazole 1 % cream 1 appl topical BID 28 Days Qty: 45 0RF erythromycin 5 mg/gram (0.5 %) ointment 0.5 inch ophthalmic (eye) BID 7 Days Qty: 3.5 0RF lidocaine 5 % adhesive patch,medicated 1 patch topical DAILY 30 Days Qty: 30 5RF Rx Instructions: leave on most painful area for up to 12 hrs metformin 500 mg tablet 500 mg PO BID Qty: 60 2RF Referrals: César Wallace MD [Primary Care Provider] - Stand Alone Forms: Work/School Release Interventions: ED Discharge Assessment Last Done: 11/05/23 07:28 Discharge Date/Time: 11/05/23 07:29
[2023-11-05] MEDS: Cyclobenzaprine HCl 10 MG TABLET PO (07:22)
[2023-11-05] MEDS: Ketorolac Tromethamine 30 MG/ML VIAL IM (07:23)
[2023-11-05] MEDS: Lidocaine 4 % Patch ADH..PATCH 1 PATCH TRANSDERMA (07:25)
== END 2023-11-05 07:29 | disposition home or self-care (01) ==
PROVIDERS: Emergency Provider Emergency Medicine Emergency Medical Services; PCP Internal Medicine
DX: M54.50 Low back pain, unspecified (principal)
CPT/HCPCS: 96372; 99284; J1885

== ENCOUNTER 2023-12-08 08:09 | Outpatient (REF) | payer OTHER, SELFPAY ==
--- NOTE | ~2023-12-08 | XR_ITS ---
EXAMINATION: XR HIP, LEFT CLINICAL INFORMATION: Pain. COMPARISON: None available. TECHNIQUE: AP and frog-leg lateral views of the left hip. FINDINGS: No fracture. Alignment is anatomic. Hip joint space is maintained. Soft tissues are unremarkable. XR/XR hip LT min 2V IMPRESSION: Normal left hip.
[2023-12-08 08:36] LABS: MANUAL DIFF FLAG NO
[2023-12-08 08:53] LABS: Basophils Percent Auto 0.3 % (0-2); Eosinophils Absolute Auto 0.1 X10*3/uL (0.0-0.4); Eosinophils Percent Auto 1.1 % (0-4); Hematocrit 43.7 % (42.0-52.0); Hemoglobin 14.5 g/dl (14.0-18.0); Imm Gran Abs Auto 0.03 X10*3/uL (0.00-0.03); Imm Gran Pct Auto 0.2 % (0.0-0.4); Lymphocytes Percent Auto 32.2 % (20-40); Mean Corpuscular HGB Conc 33.2 g/dl (31.0-36.0); Mean Corpuscular Hemoglobin 29.1 pg (27.0-33.0); Mean Corpuscular Volume 87.6 fL (80.0-98.0); Mean Platelet Volume 10.2 fL (9.4-12.4); Monocytes Absolute Auto 0.7 X10*3/uL (0.1-1.2); Monocytes Percent Auto 5.9 % (2-11); Neutrophils Absolute Auto 7.5 x10*3/uL (2.0-8.3); Neutrophils Percent Auto 60.3 % (45-73); Platelet Count 361 X10*3/uL (160-400); Red Blood Count 4.99 X10*6/uL (4.60-5.80); Red Cell Distribution Width 13.1 % (11.0-16.0); White Blood Count 12.4 X10*3/uL (4.8-10.8)
[2023-12-08 09:37] LABS: Appearance Urine Clear; Color Urine Dark Yellow; Glucose Urine UA Negative (Negative); Leukocyte Esterase Urine Negative (Negative); Nitrite Urine Negative (Negative); PH 5.5 (5.0-9.0); Specific Gravity - Urine 1.025 (1.005-1.025); Urine Blood Negative (Negative); Urine Ketones Trace mg/dL (Negative); Urine Protein Negative (Neg-Trace)
[2023-12-08 09:43] LABS: Alanine Aminotransferase 82 U/L (0-40); Albumin Level 4.7 g/dL (3.5-5.0); Alkaline Phosphatase 82 U/L (39-117); Anion Gap 14 (12-20); Aspartate Amino Transferase 34 U/L (5-37); Bilirubin Total 0.6 mg/dL (0.0-1.0); Blood Urea Nitrogen 9 mg/dL (9-16); Carbon Dioxide 26 mmol/L (22-29); Chloride 102 mmol/L (96-108); Cholesterol 178 mg/dL (<200); Estimated Glomerular Filt Rate > 60; Glucose Fasting 149 mg/dL (60-99); Glucose Random 150 mg/dL (60-115); HDL Cholesterol 33 mg/dL (>40); LDL Cholesterol Calculated 115 mg/dL (<100); Potassium 3.7 mmol/L (3.3-5.1); Sodium 138 mmol/L (135-145); Total Protein 8.5 g/dL (6.5-8.0); Triglycerides 151 mg/dL (<150)
[2023-12-08 10:00] LABS: TSH reflex Free T4 1.85 uIU/mL (0.32-4.0)
[2023-12-08 10:39] LABS: Estimated Average Glucose 197 mg/dL; Hemoglobin A1c % 8.5 % (<6.0)
[2023-12-08 10:47] LABS: Creatinine Urine 341.84 mg/dL; Microalbum/Creatinine Ratio Ur 8.1 ug/mg cr (<30)
== END 2023-12-08 08:10 | disposition home or self-care (01) ==
LOC: HO.XRAY 08:09
PROVIDERS: PCP Internal Medicine; Visit Provider Internal Medicine
DX: Z00.00 Encounter for general adult medical examination without abnormal findings (principal); E66.01 Morbid (severe) obesity due to excess calories; N50.812 Left testicular pain; E55.9 Vitamin D deficiency, unspecified; M25.552 Pain in left hip; E11.9 Type 2 diabetes mellitus without complications; E78.00 Pure hypercholesterolemia, unspecified; R30.0 Dysuria; J45.909 Unspecified asthma, uncomplicated; Z68.43 Body mass index [BMI] 50.0-59.9, adult
CPT/HCPCS: 36415; 73502; 80053; 80061; 81003; 82043; 82306; 82570; 83036; 84443; 85025

== ENCOUNTER 2023-12-16 11:43 | Outpatient (AMB) | payer OTHER, SELFPAY ==
[2023-12-16 11:45] VITALS: BP 136/84; PULSE 89; O2SAT 97; BMI 54.8
--- NOTE | 2023-12-16 11:45 | MHC.PC.OV ---
Vital Signs 12/16/23 11:45 Height 5 ft 8 in Weight 360 lb 2 oz BMI 54.8 BP 136/84 Blood Pressure Location Rt brachial Position Sitting Pulse 89 Pulse Source Pulse Oximeter Pulse Oximetry (%) 97 Oxygen Delivery Method Room Air Intake Visit Reasons: newly diagnosed DM, asthma Outbound Sales Agent Required: No Accompanied by: Self / Same As Patient Allergies No Known Allergies [No Known Allergies*] Allergy (Verified 12/16/23 12:00) Medication List - Last Reconciled 12/16/23 by César Wallace MD acetaminophen (Tylenol Extra Strength) 500 mg PO Q6H PRN cyclobenzaprine 5 mg PO Q8H PRN 5 days lidocaine 5% (Lidoderm) 1 patch topical DAILY PRN MDD remove after 12 hours lidocaine 5% 1 patch topical DAILY 30 days metformin 500 mg PO BID naproxen 500 mg PO BID PRN 10 days Tobacco use date assessed: 12/16/23 Dental Screening Dental Screen Date: 12/16/23 Did you have a dental visit in the last 12 months?: No Did you have a dental problem in the last 6 months where you did not have access to dental care?: No Was dental information given to patient?: No HPI newly diagnosed DM, asthma HPI Details Patient comes in today for his follow up visit States that his left hip is still bothering him a lot and he often has to straighten his left leg out when he is sitting or his hip pain will get worse He still has trouble walking long distances due to his hip pain - would like to know how his hip x-rays done recently came out He denies any headaches or dizziness Denies any chest pains, no SOB No nausea/vomiting, no abdominal pain No change in bowel habits noted Needs his Metformin Rx refilled and states that his insurance recently informed him that they prefer he fill his Rx for 90 days' supply at a time Had his follow up labs done last week - to discuss his results [facility] Medical History (Updated 12/16/23 @ 14:21 by César Wallace MD) Vitamin D deficiency Diabetes mellitus Lumbar degenerative disc disease Morbid obesity with BMI of 50.0-59.9, adult Asthma Surgical History History of excision of mass (02/19/22) History of repair of ACL History of repair of anterior cruciate ligament of right knee (~08/2015) Family History Brother Epilepsy Maternal Aunt Breast cancer Social History Housing: Apartment Alcohol intake: never Patient Tobacco Use Status: Never used Tobacco e-Cigarette/Vaping Use: Never Used Second Hand Smoke Exposure: Yes service: No Current occupational status: employed Cognitive needs: No Hearing needs: No Vision needs: No Questionnaire PHQ-9 Over the last 2 weeks, how often have you been bothered by any of the following problems? 1. Little interest or pleasure in doing things: not at all 2. Feeling down, depressed, or hopeless: not at all 3. Trouble falling or staying asleep, or sleeping too much: not at all 4. Feeling tired or having little energy: not at all 5. Poor appetite or overeating: not at all 6. Feeling bad about yourself - or that you are a failure or have let yourself or your family down: not at all 7. Trouble concentrating on things, such as reading the newspaper or watching television: not at all 8. Moving or speaking so slowly that other people could have noticed. Or the opposite - being so fidgety or restless that you have been moving around a lot more than usual: not at all 9. Thoughts that you would be better off or of hurting yourself in some way: not at all Total score: 0 Depression Screening Interpretation: Negative Depression Screening Done: Yes 39806 - PHQ-9 Billing: Yes Source: Developed by Drs. Kwesi Tran, Za Campoverde, Jovon Mireles and colleagues, with an educational sary from [employer]. Thrive Questionnaire Date Thrive assessed: 12/16/23 I am a: Patient What is your living situation today?: I have a steady place to live Within the past 12 months, did the food you bought not last and you didn't have the money to get more?: Never true Within the past 12 months, did you worry whether your food would run out before you got money to buy more?: Never true Do you have trouble paying for medicines?: No Do you have trouble getting transportation to medical appointments?: No Do you have trouble paying your heating and electricity bill?: No Do you have trouble taking care of your child, family member or friend?: No Do you have trouble with day-to-day activities such as bathing, preparing meals, shopping, managing finances, etc.?: No Are you currently unemployed and looking for a job?: No Are you interested in more education?: No Please select the resources that you would like help with: None Currently or been in a relationship where the following occur: no concerns reported THRIVE Score: 0 AUDIT C Alcohol Use Questionnaire (AUDIT-C) 1. How often do you have a drink containing alcohol?: Monthly or less 2. How many drinks containing alcohol do you have on a typical day when you are drinking?: 1 or 2 3. How often do you have six or more drinks on one occasion?: Never Total Score: 1 Score Reviewed/Action Taken: Yes LIBBY-7 AMB Questionnaire LIBBY-7 Date LIBBY - 7 assessed: 12/16/23 Feeling nervous, anxious, or on edge: 0 = Not at all Not being able to stop or control worryin = Not at all Worrying too much about different things: 0 = Not at all Trouble relaxin = Not at all Being so restless that it is hard to sit still: 0 = Not at all Becoming easily annoyed or irritable: 0 = Not at all Feeling afraid as if something awful might happen: 0 = Not at all Total LIBBY-7 score (0-4 normal; 5-9 mild; 10-14 moderate; 15-21 severe): 0 Source: Developed by Drs. Kwesi Tran, Za Campoverde, Jovon Mireles and colleagues, with an educational sary from [employer]. Review of Systems Const Denies chills, Denies fatigue, Denies fever(s) and Denies headache(s) ENT Denies dysphagia, Denies dizziness, Denies otalgia, Denies headache(s), Denies neck pain, Denies odynophagia and Denies sore throat Card Denies chest pain, Denies palpitations and Denies dyspnea Resp Denies cough and Denies dyspnea GI Denies abdominal pain, Denies constipation, Denies dysphagia, Denies heartburn, Denies diarrhea, Denies nausea, Denies odynophagia and Denies vomiting Denies dysuria and Denies nocturia Musc Reports back pain (over the lower back, on and off), Reports arthralgias (increased over the left hip - see HPI) and Denies neck pain Skin/Breast Denies rash Neuro Denies dizziness and Denies headache(s) Endo Denies fatigue and Denies palpitations Physical exam (Primary Care) Vital Signs: Last Vital Signs Pulse 89 12/16/23 11:45 BP 136/84 12/16/23 11:45 Pulse Ox 97 12/16/23 11:45 Oxygen Delivery Method Room Air 12/16/23 11:45 BMI result Body Mass Index 54.8 Tobacco/Smoking Status: Tobacco use Status Tobacco use date assessed 12/16/23 12/16/23 11:47 Patient Tobacco Use Status Never used Tobacco 12/16/23 11:47 e-Cigarette/Vaping Use Never Used 12/16/23 11:47 PHQ-9: PHQ-9 Score PHQ-9: Total score 0 12/16/23 12:21 Depression Screening Interpretation: Negative Thrive Assessment: Date of Thrive Assessment Date Thrive assessed 12/16/23 12/16/23 11:47 Currently or been in a relationship where the following occur: no concerns reported Const General: no acute distress and alert HENMT Ears: TM's normal bilaterally and EAC's normal Throat: Yes posterior oropharynx normal and Yes tonsils normal (no TP congestion) Neck Neck: Yes no lymphadenopathy and Yes supple Resp Auscultation: clear to auscultation bilaterally, no rales and no wheezes Cardio Rate: regular rate Rhythm: regular rhythm Heart sounds: no murmurs GI Palpation (GI): Soft to palpation and nontender Auscultation: normal bowel sounds Back/Spine/Pelvis Thoracic/Lumbar Spine: lumbar spinal tenderness (mild) Skin Rashes: no rashes Extrem General: Yes no clubbing, cyanosis or edema Left lower extremity: hip/thigh Details: tenderness Location: of the hip Location: anterolaterally Results Reviewed Results Reviewed: Laboratory Tests 09/28/23 12/08/23 12/08/23 09:51 08:20 08:20 WBC Hgb Hct Plt Count Sodium 140 Potassium Creatinine Estimated GFR Fasting Glucose Hemoglobin A1c % Calcium AST ALT Triglycerides Cholesterol LDL Cholesterol, Calc HDL Cholesterol 25-OH Vitamin D Total TSH Urine pH 5.5 Ur Specific [place] 1.025 Urine Protein Negative Urine Glucose (UA) Negative Urine Blood Negative Urine Nitrite Negative Ur Leukocyte Esterase Negative 12/08/23 12/08/23 08:34 08:34 WBC 12.4 H Hgb 14.5 Hct 43.7 Plt Count 361 Sodium 138 Potassium 3.7 Creatinine 0.85 Estimated GFR > 60 Fasting Glucose 149 H Hemoglobin A1c % 8.5 H Calcium 10.0 AST 34 ALT 82 H Triglycerides 151 H Cholesterol 178 LDL Cholesterol, Calc 115 H HDL Cholesterol 33 L 25-OH Vitamin D Total 13.0 L TSH 1.85 Urine pH Ur Specific [place] Urine Protein Urine Glucose (UA) Urine Blood Urine Nitrite Ur Leukocyte Esterase Assessment and Plan Assessment & Plan (1) Diabetes mellitus: Code(s): E11.9 - Type 2 diabetes mellitus without complications Qualifiers: Diabetes mellitus complication status: with hyperglycemia Diabetes mellitus ferry terminal supervisor insulin use: without ferry terminal supervisor use Diabetes mellitus type: type 2 Qualified Code(s): E11.65 - Type 2 diabetes mellitus with hyperglycemia Plan: HgbA1c was at 8.5% on his labs done last week (was at 9.7% a few months ago) - goal is <7.0% Reinforced diabetic diet Continue Metformin 500 mg BID for now, especially since his diabetes control appears to be improving on his current med and regimen Will recheck his labs in 3 months for follow up (2) Hip bursitis, left: Code(s): M70.72 - Other bursitis of hip, left hip Qualifiers: Hip bursitis location: trochanteric bursitis Qualified Code(s): M70.62 - Trochanteric bursitis, left hip Plan: X-rays of the left hip done a few days ago came back normal Discussed with patient that we suspect that his current hip pain is due to bursitis Will refer him to physical therapy for further evaluation and management and advised that if physical therapy does not help much, then the next step would then be to refer him to physical therapy for consideration for cortisone injection Continue Naproxen 500 mg BID PRN with food (3) Vitamin D deficiency: Code(s): E55.9 - Vitamin D deficiency, unspecified Plan: He is advised that his Vitamin D level was very low on his recent labs and he should start taking supplements for this Will start him on Vitamin D3 2000 units QD (4) Asthma: Code(s): J45.909 - Unspecified asthma, uncomplicated Qualifiers: Asthma severity: mild Asthma persistence: intermittent Asthma complication type: uncomplicated Qualified Code(s): J45.20 - Mild intermittent asthma, uncomplicated Plan: Stable - states that he has not had any flare ups of his asthma in a while now Has Albuterol inhaler that he uses as needed but as he has not had any flare ups in a while now, has not needed to use it at all lately (5) Elevated LFTs: Code(s): R79.89 - Other specified abnormal findings of blood chemistry Plan: He is advised that his LFTs were elevated on his recent labs and are most likely related to his weight (hepatosteatosis) Advised that losing weight should help get them back to normal Will continue to monitor his LFTs regularly (6) Lumbar degenerative disc disease: Code(s): M51.36 - Other intervertebral disc degeneration, lumbar region Plan: Reinforced activity and weight lifting restrictions Lumbar spine x-rays done back on 02/16/2019 revealed a stable mild anterior T11 wedge compression fracture, anterior spondylosis at T12-L1 and L1-L2, with no acute fracture or spondylolisthesis seen Repeat lumbar spine x-rays done in September 2022 revealed (+) mild curvature of the lumbar sacral spine to the right. Bone alignment is otherwise normal. No fracture or dislocation. Mild degenerative spondylosis and degenerative disc disease at T12-L1, L1-L2 and L2-L3; (+) lower lumbar spine facet arthritis. The previous T11 wedge compression fracture has apparently resolved Patient also reports (+) improvement of symptoms and relief of pain when he received physical therapy in the past - advised that we can refer him to physical therapy again at any time when needed and all he has to do is to let us know Continue Lidocaine 5% patches apply QD PRN (7) Left testicular pain: Code(s): N50.812 - Left testicular pain Plan: States that this apparently resolved with empiric Abx Tx with Levofloxacin back in late April 2023 and the pain has not recurred since Testicular US done back in March 2023 came out normal He was referred to and seen by urology on 06/28/23 - was advised that his symptoms were likely due to epididymitis and he was instructed on measures and practices to help minimize this from recurring (8) Morbid obesity with BMI of 50.0-59.9, adult: Code(s): E66.01 - Morbid (severe) obesity due to excess calories; Z68.43 - Body mass index [BMI] 50.0-59.9, adult Plan: Reinforced diet/exercise as tolerated/lose weight Plan Follow up in 3 months Orders: Orders PT Evaluation and Treatment Today M70.72 - Other bursitis of hip, left hip Complete Blood Count Auto Diff 3 Months D64.9 - Anemia, unspecified Comprehensive [place]. Panel Fast 3 Months E78.00 - Pure hypercholesterolemia, unspecified Lipid Panel 3 Months E78.00 - Pure hypercholesterolemia, unspecified Hemoglobin A1c 3 Months E11.9 - Type 2 diabetes mellitus without complications Microalbumin, Random (w Creat) 3 Months E11.9 - Type 2 diabetes mellitus without complications Vitamin D 25-OH Total 3 Months E55.9 - Vitamin D deficiency, unspecified TSH reflex Free T4 3 Months E78.00 - Pure hypercholesterolemia, unspecified UA CC w/rflx Micro + Cult 3 Months R30.0 - Dysuria Medications: New cholecalciferol (vitamin D3) 50 mcg PO DAILY 90 days 90 caps 3RF E55.9 - Vitamin D deficiency, unspecified Changed From metformin 500 mg PO BID 60 tabs 2RF To metformin 500 mg PO BID 90 days 180 tabs 1RF Coding Level of Care Code Est Pt Level 4 (12506) Diagnoses Type 2 diabetes mellitus with hyperglycemia, without long-term current use of insulin E11.65 Diabetes mellitus complication status: with hyperglycemia Diabetes mellitus ferry terminal supervisor insulin use: without [facility] use Diabetes mellitus type: type 2 Trochanteric bursitis of left hip M70.62 Hip bursitis location: trochanteric bursitis Vitamin D deficiency E55.9 Mild intermittent asthma without complication J45.20 Asthma severity: mild Asthma persistence: intermittent Asthma complication type: uncomplicated Elevated LFTs R79.89 Lumbar degenerative disc disease M51.36 Left testicular pain N50.812 Morbid obesity with BMI of 50.0-59.9, adult E66.01; Z68.43
== END 2023-12-16 12:11 | disposition home or self-care (01) ==
PROVIDERS: PCP Internal Medicine; Visit Provider Internal Medicine
DX: E11.65 Type 2 diabetes mellitus with hyperglycemia (principal); E66.01 Morbid (severe) obesity due to excess calories; Z68.43 Body mass index [BMI] 50.0-59.9, adult; M70.62 Trochanteric bursitis, left hip; E55.9 Vitamin D deficiency, unspecified; J45.20 Mild intermittent asthma, uncomplicated; R79.89 Other specified abnormal findings of blood chemistry; M51.36 Other intervertebral disc degeneration, lumbar region; N50.812 Left testicular pain
CPT/HCPCS: 99214

== ENCOUNTER 2024-01-14 11:00 | Outpatient (RCR) | payer OTHER, SELFPAY ==
--- NOTE | 2023-12-31 14:19 | MHC.PT.EP ---
[facility] [place] [facility] [place] [facility] [place] Office [address] [phone] F: [phone] F: [phone] F: [phone] F: [phone] Physical Therapy Plan of Care Date of Evaluation: 12/31/23 Date of Surgery: Diagnosis: L hip pain, bursitis Assessment: Pt is a 28yo male who was referred to PT for L hip flexor pain. Skilled PT indicated to help patient reduce his pain by addressing multiple muscle imbalances, promotion of hip and core strengthening, and to improve body mechanics. Pt is in agreement with POC and is motivated to participate. Frequency and Duration: The patient will be seen 2x/week, x 4 weeks Short Term Goals: 1. In 2 weeks, patient will be able to complete 3 daily stretches while at work without increased pain. 2. In 2 weeks, improve L hip ext/abd strength with ability to complete SL bridge through 50% ROM. Life Skills Coordinator Goals: 1. Pt will be able to lift leg normally up onto 8 inch step without increased pain, repetitively for work purposes in 4 weeks. 2. Improve LEFS score 10 points indicating improved overall functional mobility. Treatment Plan: Modalities to reduce pain, spasms and effusion. Manual therapy to restore motion and function. Therapeutic exercise to improve strength and flexibility. Neuromuscular re-education for posture and balance. Therapeutic activities to return to functional activities of daily living. Electronically signed by: Calli Duvall PT, DPT Please sign and return to therapist. Thank you for your referral.
--- NOTE | 2024-08-09 11:20 | MHC.PT.DC ---
[facility] [place] Office [place] Office [place] Office [address] Luis Yuan [address] [phone] F: [phone] F: [phone] F: [phone] F: [phone] Physical Therapy Discharge Report Diagnosis: L hip pain, bursitis Date of Surgery: Date of Evaluation: 12/31/23 Date of Discharge: 02/11/24 Treatments to Date: 5 Cancellations to Date: 1 No Shows to Date: 2 Discharge Status: Improved Function Discharge Summary: Pt is a 28yo male who was referred to PT for L hip flexor pain. Skilled PT indicated to help patient reduce his pain by addressing multiple muscle imbalances, promotion of hip and core strengthening, and to improve body mechanics. Pt is in agreement with POC and is motivated to participate. Pt participated in 5 treatment sessions, progressed to phase 2 exercises including closed chair hip burner exercises, tolerated iliopsoas manual hip releases, and improved ROM into extension. Pt did not f/u with additional appointments following 5 treatment sessions. D/C at this time due to visit non-compliance. Thank you for this referral. Electronically signed by: Calli Duvall PT, DPT Please sign and return to therapist. Thank you for your referral.
== END 2024-08-09 11:22 | disposition home or self-care (01) ==
LOC: HO.PT 11:00
PROVIDERS: PCP Internal Medicine; Visit Provider Internal Medicine
DX: M70.72 Other bursitis of hip, left hip (principal)
CPT/HCPCS: 97110; 97140; 97161

== ENCOUNTER 2024-03-27 06:59 | Outpatient (REF) | payer OTHER, SELFPAY ==
[2024-03-27 07:09] LABS: MANUAL DIFF FLAG NO
[2024-03-27 07:51] LABS: Appearance Urine Clear; Color Urine Dark Yellow; Glucose Urine UA Negative (Negative); Leukocyte Esterase Urine Negative (Negative); Nitrite Urine Negative (Negative); PH 5.5 (5.0-9.0); Specific Gravity - Urine 1.025 (1.005-1.025); Urine Blood Negative (Negative); Urine Ketones Trace mg/dL (Negative); Urine Protein Negative (Neg-Trace)
[2024-03-27 07:52] LABS: Basophils Percent Auto 0.3 % (0-2); Eosinophils Absolute Auto 0.1 X10*3/uL (0.0-0.4); Eosinophils Percent Auto 1.1 % (0-4); Hematocrit 39.7 % (42.0-52.0); Hemoglobin 13.1 g/dl (14.0-18.0); Imm Gran Abs Auto 0.05 X10*3/uL (0.00-0.03); Imm Gran Pct Auto 0.4 % (0.0-0.4); Lymphocytes Absolute Auto 4.1 X10*3/uL (1.2-4.9); Lymphocytes Percent Auto 34.1 % (20-40); Mean Corpuscular Hemoglobin 29.4 pg (27.0-33.0); Mean Corpuscular Volume 89.2 fL (80.0-98.0); Mean Platelet Volume 10.4 fL (9.4-12.4); Monocytes Absolute Auto 0.9 X10*3/uL (0.1-1.2); Monocytes Percent Auto 7.2 % (2-11); Neutrophils Absolute Auto 6.8 x10*3/uL (2.0-8.3); Neutrophils Percent Auto 56.9 % (45-73); Platelet Count 345 X10*3/uL (160-400); Red Blood Count 4.45 X10*6/uL (4.60-5.80); Red Cell Distribution Width 13.1 % (11.0-16.0); White Blood Count 11.9 X10*3/uL (4.8-10.8)
[2024-03-27 08:01] LABS: Estimated Average Glucose 197 mg/dL; Hemoglobin A1c % 8.5 % (<6.0)
[2024-03-27 08:21] LABS: Alanine Aminotransferase 82 U/L (0-40); Albumin Level 4.5 g/dL (3.5-5.0); Alkaline Phosphatase 78 U/L (39-117); Anion Gap 15 (12-20); Aspartate Amino Transferase 46 U/L (5-37); Bilirubin Total 0.5 mg/dL (0.0-1.0); Blood Urea Nitrogen 11 mg/dL (9-16); Calcium 10.2 mg/dL (8.4-10.2); Carbon Dioxide 27 mmol/L (22-29); Chloride 101 mmol/L (96-108); Cholesterol 176 mg/dL (<200); Estimated Glomerular Filt Rate > 60; Glucose Fasting 136 mg/dL (60-99); HDL Cholesterol 34 mg/dL (>40); LDL Cholesterol Calculated 111 mg/dL (<100); Potassium 4.1 mmol/L (3.3-5.1); Sodium 139 mmol/L (135-145); Total Protein 7.7 g/dL (6.5-8.0); Triglycerides 158 mg/dL (<150)
[2024-03-27 08:24] LABS: Microalbum/Creatinine Ratio Ur 5.5 ug/mg cr (<30)
[2024-03-27 08:39] LABS: TSH reflex Free T4 3.38 uIU/mL (0.32-4.0); Vitamin D 25-OH Total 17.4 ng/mL (>30)
== END 2024-03-27 07:00 | disposition home or self-care (01) ==
LOC: HO.LAB 06:59
PROVIDERS: PCP Internal Medicine; Visit Provider Internal Medicine
DX: E78.00 Pure hypercholesterolemia, unspecified (principal); E11.9 Type 2 diabetes mellitus without complications; E55.9 Vitamin D deficiency, unspecified; R30.0 Dysuria; D64.9 Anemia, unspecified
CPT/HCPCS: 36415; 80053; 80061; 81003; 82043; 82306; 82570; 83036; 84443; 85025

== ENCOUNTER 2024-04-03 13:04 | Outpatient (AMB) | payer OTHER, SELFPAY ==
--- NOTE | 2024-04-03 13:12 | A.OFFPC_ITS ---
Vital Signs 04/03/24 13:15 Height 5 ft 8 in Weight 355 lb 2 oz BMI 54.0 BP 130/62 Blood Pressure Location Lt brachial Position Sitting Pulse 74 Pulse Source Pulse Oximeter Pulse Oximetry (%) 97 Oxygen Delivery Method Room Air Intake Visit Reasons: 3 Month F/U Intake Note: Patient is here to follow up on Asthma, Back pain . 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 Accompanied by: Self / Same As Patient Allergies No Known Allergies [No Known Allergies*] Allergy (Verified 04/03/24 14:00) Medication List - Last Reconciled 04/03/24 by César Wallace MD acetaminophen (Tylenol Extra Strength) 500 mg PO Q6H PRN cholecalciferol (vitamin D3) 50 mcg PO DAILY 90 days cyclobenzaprine 5 mg PO Q8H PRN 5 days lidocaine 5% (Lidoderm) 1 patch topical DAILY PRN MDD remove after 12 hours metformin 500 mg PO BID 90 days naproxen 500 mg PO BID PRN 10 days Tobacco use date assessed: 04/03/24 Dental Screening Dental Screen Date: 12/16/23 HPI 3 Month F/U HPI Details Patient comes in today for his follow up visit States that he is currently still experiencing increased pain in his left hip States that he went to physical therapy for a while a few months ago and recalls that he was experiencing some relief/improvement of his hip pain while he was getting physical therapy but his joint pains have gotten worse again since he completed his PT sessions a couple of months ago He recalls getting x-rays of his hip last year that came out normal and he would like to find out what to do now for his hip issues States that his hip pain is limiting his mobility and this is in turn making it harder for him to try to lose weight States that he feels okay otherwise He denies any headaches or dizziness Denies any chest pains, no increased SOB No nausea/vomiting, no abdominal pain No change in bowel habits noted Needs his Vitamin D3 Rx refilled - states that he never picked up his Rx last time as it was supposedly not at the pharmacy He had his follow up labs done last week - to discuss his results [facility] Medical History Chronic left hip pain Vitamin D deficiency Diabetes mellitus Lumbar degenerative disc disease Morbid obesity with BMI of 50.0-59.9, adult Asthma Surgical History History of excision of mass (02/19/22) History of repair of ACL History of repair of anterior cruciate ligament of right knee (~08/2015) Family History Brother Epilepsy Maternal Aunt Breast cancer Social History Housing: Apartment Alcohol intake: never Patient Tobacco Use Status: Never used Tobacco e-Cigarette/Vaping Use: Never Used Second Hand Smoke Exposure: Yes service: No Current occupational status: employed Cognitive needs: No Hearing needs: No Vision needs: No Questionnaire Thrive Questionnaire Date Thrive assessed: 12/16/23 LIBBY-7 AMB Questionnaire LIBBY-7 Date LIBBY - 7 assessed: 12/16/23 Source: Developed by Drs. Kwesi Tran, Za Campoverde, Jovon Mireles and colleagues, with an educational sary from [employer]. Review of Systems Const Denies chills, Denies fatigue, Denies fever(s) and Denies headache(s) ENT Denies dysphagia, Denies dizziness, Denies otalgia, Denies headache(s), Denies neck pain, Denies odynophagia and Denies sore throat Card Denies chest pain, Denies palpitations and Denies dyspnea Resp Denies cough, Denies dyspnea and Denies wheezing GI Denies abdominal pain, Denies constipation, Denies dysphagia, Denies heartburn, Denies diarrhea, Denies nausea, Denies odynophagia and Denies vomiting Denies dysuria, Denies nocturia and Denies urinary frequency Musc Reports back pain (over the lower back, on and off), Reports arthralgias (increased over the left hip - chronic), Denies joint swelling and Denies neck pain Skin/Breast Denies rash Neuro Denies dizziness and Denies headache(s) Endo Denies fatigue and Denies palpitations Aller/Immun Denies wheezing Physical exam (Primary Care) Vital Signs: Last Vital Signs Pulse 74 04/03/24 13:15 BP 130/62 04/03/24 13:15 Pulse Ox 97 04/03/24 13:15 Oxygen Delivery Method Room Air 04/03/24 13:15 BMI result Body Mass Index 54.0 Tobacco/Smoking Status: Tobacco use Status Tobacco use date assessed 04/03/24 04/03/24 13:24 Patient Tobacco Use Status Never used Tobacco 04/03/24 13:24 e-Cigarette/Vaping Use Never Used 04/03/24 13:24 Thrive Assessment: Date of Thrive Assessment Date Thrive assessed 12/16/23 04/03/24 13:24 Const General: no acute distress and alert HENMT Ears: TM's normal bilaterally and EAC's normal Throat: Yes posterior oropharynx normal and Yes tonsils normal (no TP congestion) Neck Neck: Yes no lymphadenopathy and Yes supple Thyroid: Thyroid normal Resp Auscultation: clear to auscultation bilaterally, no rales and no wheezes Cardio Rate: regular rate Rhythm: regular rhythm Heart sounds: no murmurs GI Palpation (GI): Soft to palpation and nontender Auscultation: normal bowel sounds General: Yes no CVA tenderness Back/Spine/Pelvis Back: no CVA tenderness Thoracic/Lumbar Spine: lumbar spinal tenderness (mild) Skin Rashes: no rashes Extrem General: Yes no clubbing, cyanosis or edema Left lower extremity: hip/thigh Details: tenderness Location: of the hip Location: anterolaterally Results Reviewed Results Reviewed: Laboratory Tests 03/27/24 03/27/24 07:05 07:07 WBC 11.9 H Hgb 13.1 L Hct 39.7 L Plt Count 345 Sodium 139 Potassium 4.1 Creatinine 0.86 Estimated GFR > 60 Fasting Glucose 136 H Hemoglobin A1c % 8.5 H Calcium 10.2 AST 46 H ALT 82 H Triglycerides 158 H Cholesterol 176 LDL Cholesterol, Calc 111 H HDL Cholesterol 34 L 25-OH Vitamin D Total 17.4 L TSH 3.38 Urine pH 5.5 Ur Specific [place] 1.025 Urine Protein Negative Urine Glucose (UA) Negative Urine Blood Negative Urine Nitrite Negative Ur Leukocyte Esterase Negative Microalb/Creat Ratio 5.5 Assessment and Plan Assessment & Plan (1) Diabetes mellitus: Code(s): E11.9 - Type 2 diabetes mellitus without complications Qualifiers: Diabetes mellitus type: type 2 Diabetes mellitus mcc insulin use: without longitudinal float operator use Diabetes mellitus complication status: with hyperglycemia Qualified Code(s): E11.65 - Type 2 diabetes mellitus with hyperglycemia Plan: His HgbA1c remains unchanged from previous at 8.5% on his labs done last week - goal is <7.0% Reinforced diabetic diet As his diabetes control appears to have stalled recently, will now increase his Metformin from 500 mg to 1000 mg BID Will recheck his labs in 3 months for follow up (2) Chronic left hip pain: Code(s): M25.552 - Pain in left hip; G89.29 - Other chronic pain Plan: X-rays of the left hip done last year came back normal We previously referred patient to physical therapy as we suspected at the time that his symptoms are more consistent with bursitis Patient relates that his hip pain was improving when he was going to physical therapy a couple of months ago but his symptoms have regressed again when he stopped going to PT since January 2024 (apparently completed his sessions then) As previously advised, since patient appears to have had only a partial response to physical therapy, will now refer him to orthopedics for consideration for cortisone injection(s) Continue Naproxen 500 mg BID PRN with food (3) Asthma: Code(s): J45.909 - Unspecified asthma, uncomplicated Qualifiers: Asthma severity: mild Asthma persistence: intermittent Asthma complication type: uncomplicated Qualified Code(s): J45.20 - Mild intermittent asthma, uncomplicated Plan: Stable - states that he has not had any flare ups of his asthma in a while now Has Albuterol inhaler that he uses as needed but as he has not had any flare ups in a while now, has not needed to use it at all lately (4) Vitamin D deficiency: Code(s): E55.9 - Vitamin D deficiency, unspecified Plan: Improving - continue Vitamin D3 2000 units QD (5) Elevated LFTs: Code(s): R79.89 - Other specified abnormal findings of blood chemistry Plan: He is advised that his LFTs remain elevated on his recent labs - are most likely related to his weight (hepatosteatosis) and that losing weight should help get them back to normal gradually He did have an abdominal US done in July 2021 that revealed (+) increased hepatic parenchymal echogenicity most compatible with hepatic steatosis Will continue to monitor his LFTs regularly (6) Leukocytosis (leucocytosis): Code(s): D72.829 - Elevated white blood cell count, unspecified Qualifiers: Leukocytosis type: unspecified Qualified Code(s): D72.829 - Elevated white blood cell count, unspecified Plan: Mild - it appears to be slowly improving and patient's differential on his CBC appears to be mostly normal Will continue to monitor his CBC regularly for now and will do further work ups only if this progresses or gets worse (7) Lumbar degenerative disc disease: Code(s): M51.36 - Other intervertebral disc degeneration, lumbar region Plan: Reinforced activity and weight lifting restrictions Lumbar spine x-rays done back on 02/16/2019 revealed a stable mild anterior T11 wedge compression fracture, anterior spondylosis at T12-L1 and L1-L2, with no acute fracture or spondylolisthesis seen Repeat lumbar spine x-rays done in September 2022 revealed (+) mild curvature of the lumbar sacral spine to the right. Bone alignment is otherwise normal. No fracture or dislocation. Mild degenerative spondylosis and degenerative disc disease at T12-L1, L1-L2 and L2-L3; (+) lower lumbar spine facet arthritis. The previous T11 wedge compression fracture has apparently resolved Patient also reports (+) improvement of symptoms and relief of pain when he received physical therapy in the past - advised that we can refer him to physical therapy again at any time when needed and all he has to do is to let us know Continue Lidocaine 5% patches apply QD PRN (8) Left testicular pain: Code(s): N50.812 - Left testicular pain Plan: States that this apparently resolved with empiric Abx Tx with Levofloxacin back in late April 2023 and the pain has not recurred since Testicular US done back in March 2023 came out normal He was referred to and seen by urology on 06/28/23 - was advised that his symptoms were likely due to epididymitis and he was instructed on measures and practices to help minimize this from recurring (9) Morbid obesity with BMI of 50.0-59.9, adult: Code(s): E66.01 - Morbid (severe) obesity due to excess calories; Z68.43 - Body mass index [BMI] 50.0-59.9, adult Plan: Reinforced diet/exercise as tolerated/lose weight Plan Follow up in 3 months Orders: Orders Complete Blood Count Auto Diff 3 Months D64.9 - Anemia, unspecified TSH reflex Free T4 3 Months E78.00 - Pure hypercholesterolemia, unspecified Vitamin D 25-OH Total 3 Months E55.9 - Vitamin D deficiency, unspecified Hemoglobin A1c 3 Months E11.9 - Type 2 diabetes mellitus without complications Comprehensive [place]. Panel Fast 3 Months E78.00 - Pure hypercholesterolemia, unspecified UA CC w/rflx Micro + Cult 3 Months R30.0 - Dysuria Referrals Orthopedics Referral M25.552 - Pain in left hip Medications: Changed From metformin 500 mg PO BID 90 days 180 tabs 1RF To metformin 1,000 mg PO BID 90 days 180 tabs 1RF Refilled cholecalciferol (vitamin D3) 50 mcg PO DAILY 90 days 90 caps 3RF E55.9 - Vitamin D deficiency, unspecified Coding Level of Care Code Est Pt Level 4 (28182) Complex EM visit Add On G2211 Diagnoses Type 2 diabetes mellitus with hyperglycemia, without long-term current use of insulin E11.65 Diabetes mellitus type: type 2 Diabetes mellitus longitudinal float operator insulin use: without longitudinal float operator use Diabetes mellitus complication status: with hyperglycemia Chronic left hip pain M25.552; G89.29 Mild intermittent asthma without complication J45.20 Asthma severity: mild Asthma persistence: intermittent Asthma complication type: uncomplicated Vitamin D deficiency E55.9 Elevated LFTs R79.89 Leukocytosis, unspecified type D72.829 Leukocytosis type: unspecified Lumbar degenerative disc disease M51.36 Left testicular pain N50.812 Morbid obesity with BMI of 50.0-59.9, adult E66.01; Z68.43
[2024-04-03 13:15] VITALS: BP 130/62; PULSE 74; O2SAT 97; BMI 54.0
== END 2024-04-03 14:09 | disposition home or self-care (01) ==
PROVIDERS: PCP Internal Medicine; Visit Provider Internal Medicine
DX: E11.65 Type 2 diabetes mellitus with hyperglycemia (principal); Z68.43 Body mass index [BMI] 50.0-59.9, adult; E66.01 Morbid (severe) obesity due to excess calories; M25.552 Pain in left hip; G89.29 Other chronic pain; J45.20 Mild intermittent asthma, uncomplicated; E55.9 Vitamin D deficiency, unspecified; R79.89 Other specified abnormal findings of blood chemistry; D72.829 Elevated white blood cell count, unspecified; M51.36 Other intervertebral disc degeneration, lumbar region; N50.812 Left testicular pain
CPT/HCPCS: 99214; G2211

== ENCOUNTER 2024-05-31 08:26 | Outpatient (REF) | payer OTHER, SELFPAY ==
--- NOTE | ~2024-05-31 | XR_ITS ---
EXAMINATION: XR HIP, LEFT CLINICAL INFORMATION: Left hip pain. COMPARISON: 12/08/2023. TECHNIQUE: AP and frog-leg lateral views of the left hip and an AP view of the pelvis. FINDINGS: Minimal arthrosis in both hips is characterized by marginal osteophytes. No joint space narrowing. No fracture or malalignment. Bone mineralization is normal. Soft tissues are unremarkable. XR/XR hip LT min 2V IMPRESSION: Mild minimal arthrosis. No acute osseous findings. Electronically signed by: Yonatan Mclaughlin MD 06/06/2024 10:07 AM EDT
== END 2024-05-31 08:27 | disposition home or self-care (01) ==
LOC: HO.XRAY 08:26
PROVIDERS: PCP Internal Medicine; Visit Provider Physician Assistant
DX: M25.552 Pain in left hip (principal)
CPT/HCPCS: 73502; 99202

== ENCOUNTER 2024-05-31 09:06 | Outpatient (AMB) | payer OTHER, SELFPAY ==
--- NOTE | 2024-05-31 09:11 | MHC.OFFVIS ---
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 Patient reports his pain has been present since late September of 2023. He attended PT however this only provided him with temporary relief. His pain is located in his groin and travels down to his knee. Denies injury. Finds little relief with naproxen and Tylenol. 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 He states he has pain at the left groin and hip area that radiates down to his knee. His pain is aggravated with sitting bending, stair use and getting in and out of his car. He denies any pain night or with laying on his sides. He has tried physical therapy with transient relief. He has not had any injury in the past. He finds mild relief with naproxen and Tylenol. 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 REPLACED BY [facility] Medical History Chronic left hip pain Vitamin D deficiency Diabetes mellitus Lumbar degenerative disc disease Morbid obesity with BMI of 50.0-59.9, adult Asthma Surgical History History of excision of mass (02/19/22) History of repair of ACL History of repair of anterior cruciate ligament of right knee (~08/2015) Family History Brother Epilepsy Maternal Aunt Breast cancer Social History (Updated 05/31/24 @ 09:16 by EDGAR Madsen) Housing: Apartment Alcohol intake: never Patient Tobacco Use Status: Never used Tobacco e-Cigarette/Vaping Use: Never Used Second Hand Smoke Exposure: Yes service: No Current occupational status: employed Current occupation: [employer] Cognitive needs: No Hearing needs: No Vision needs: No Review of Systems Const All systems reviewed & are unremarkable except as noted in HPI and below Physical Exam Vital Signs: BMI result Body Mass Index 54.0 Const General: cooperative, healthy appearing, comfortable, no acute distress, well developed and alert Orientation/consciousness: patient oriented x3 HEENT Head: Yes normal to inspection, Yes normocephalic and Yes atraumatic Eyes General: appearance normal, both eyes and all related structures Resp Effort & Inspection: normal respiratory effort and able to speak in complete sentences Cardio Rate: regular rate Peripheral pulses: Peripheral pulses 2+ throughout GI Palpation (GI): Soft to palpation Skin Lesions: no lesions Rashes: no rashes Neuro General: patient oriented x3 Extrem Other: Left hip: Normal to inspection. He has no pain with ROM of hip. No pain with hip flexion or knee extension. No pain with abduction or adduction and no tenderness over great trochanter. NVI. Results Reviewed Results Reviewed: Xrays were obtained in the office today and personally reviewed by me of the left hip are negative for acute fracture or dislocations. Assessment & Plan Assessment & Plan (1) Left hip impingement syndrome: Code(s): M25.852 - Other specified joint disorders, left hip Category: Medical Plan Given his absence of pain on exam which is not consistent with the discomfort he states deep in the groin with activities. Therefore, I will order an MRI arthrogram to further evaluate the surrounding structures. Once this is complete, I will contact him to discuss the next step in his treatment. Orders: Orders XR hip LT min 2V Today M25.552 - Pain in left hip XR pelvis 1-2V Today M25.559 - Pain in unspecified hip Patient Instructions: Scribed for Luann Willis PA-C, by Myles Lindo medical sales specialist, on 05/31/2024 at 9:00 AM EST.? I, Luann Willis PA-C, have personally reviewed and agree with the information entered by the scribe. Coding Level of Care Code New Pt Level 3 (91183) Diagnoses Left hip impingement syndrome M25.852
[2024-05-31 09:19] VITALS: BMI 54.0
== END 2024-05-31 10:34 | disposition home or self-care (01) ==
PROVIDERS: PCP Internal Medicine; Visit Provider Physician Assistant
DX: M25.852 Other specified joint disorders, left hip (principal)
CPT/HCPCS: 99203

== ENCOUNTER 2024-07-23 19:37 | Emergency (ER) | payer OTHER, SELFPAY ==
--- NOTE | ~2024-07-23 | XR_ITS ---
EXAMINATION: XR CHEST CLINICAL INFORMATION: Chest discomfort COMPARISON: Chest radiograph 05/03/2021 TECHNIQUE: 2 views of the chest were obtained. FINDINGS: No significant abnormality is noted involving the heart, lungs, mediastinum, bony thorax or soft tissues. Degenerative changes are present in the spine with some mild wedging of a lower thoracic vertebral body and mild kyphosis, unchanged. XR/XR chest 2V IMPRESSION: No acute intrathoracic disease. Electronically signed by: Hernesto Dalton MD 07/23/2024 09:44 PM EDT
--- NOTE | 2024-07-23 19:39 | ECG_ITS ---
Test Reason : HEAVY CHEST Blood Pressure : / mmHG Vent. Rate : 088 BPM Atrial Rate : 088 BPM P-R Int : 152 ms QRS Dur : 102 ms QT Int : 370 ms P-R-T Axes : 028 018 011 degrees QTc Int : 447 ms Normal sinus rhythm Incomplete right bundle branch block Cannot rule out Anterior infarct , age undetermined Abnormal ECG When compared with ECG of 06-DEC-2012 00:12, No significant change was found Referred By: Leila Ramey Electronically Signed By:José Luis Mora
[2024-07-23 19:46] VITALS: BP 126/65; PULSE 90; RESP 18; TEMP 36.9; O2SAT 96; BMI 53.7
--- NOTE | 2024-07-23 19:58 | ED_ITS ---
HPI - Chest Pain General Chief Complaint: Chest Pain Stated Complaint: heavy chest feeling Time Seen by Provider: 07/23/24 21:24 Source: patient Mode of arrival: ambulatory Limitations: no limitations History of Present Illness ED Provider: greta YANCEY narrative: Patient no significant past medical obese comes here for sharp left-sided chest last 2 days off and lasting patient has had pain was at 10:00 no shortness a breath no increase in pain on movements or taking deep breath at this time patient is chest pain-free patient was evaluated by triage provider and labs were ordered chest x-ray and troponin was negative EKG without any ischemic changes Related Data Previous Rx's ?Medication ?Instructions ?Recorded acetaminophen 500 mg tablet 500 mg PO Q6H PRN fever or pain 11/05/23 (Tylenol Extra Strength) #14 tabs cyclobenzaprine 5 mg tablet 5 mg PO Q8H PRN pain (scale score 11/05/23 7-10) 5 days #14 tabs lidocaine 5 % topical patch 1 patch topical DAILY PRN pain #30 11/05/23 (Lidoderm) ea naproxen 500 mg tablet 500 mg PO BID PRN pain 10 days #20 11/05/23 tabs cholecalciferol (vitamin D3) 50 50 mcg PO DAILY 90 days #90 caps 04/03/24 mcg (2,000 unit) capsule metformin 1,000 mg tablet 1,000 mg PO BID 90 days #180 tabs 04/03/24 Allergies Allergy/AdvReac Type Severity Reaction Status Date / Time No Known Allergies Allergy Verified 07/23/24 19:50 [No Known Allergies*] Review of Systems 2 Review of Systems: Yes all other systems are reviewed and are negative PMFSH Past Medical History Medical History Chronic left hip pain Vitamin D deficiency Diabetes mellitus Lumbar degenerative disc disease Morbid obesity with BMI of 50.0-59.9, adult Asthma Surgical History History of excision of mass (02/19/22) History of repair of ACL History of repair of anterior cruciate ligament of right knee (~08/2015) Family History Family History Brother Epilepsy Maternal Aunt Breast cancer Social History Social History Housing: Apartment Alcohol intake: never Patient Tobacco Use Status: Never used Tobacco Smoked in Last 30 Days: No e-Cigarette/Vaping Use: Never Used Second Hand Smoke Exposure: Yes Use of substances other than those prescribed or required for medical reasons: No Advance Directives: No Advance Directives Information Provided: No service: No Current occupational status: employed Current occupation: [employer] Cognitive needs: No Hearing needs: No Vision needs: No Physical Exam 2 Vital Signs: Vital Signs: Last Vital Signs Temp 98.2 F 07/23/24 21:53 Pulse 85 07/23/24 21:53 Resp 18 07/23/24 21:53 BP 124/56 L 07/23/24 21:53 Pulse Ox 99 07/23/24 21:53 O2 Del Method Room Air 07/23/24 21:53 BMI result Body Mass Index 53.7 Appearance: Alert. Oriented X3. No acute distress. ENT: Pharynx normal. Oral Mucosa moist Neck: Normal inspection. Neck supple. CVS: Normal heart rate and rhythm. Pulses normal. Respiratory: No respiratory distress. Equal air entry bilateral, no wheezing/rales/rhonchi Abdomen: Soft and nontender. Bowel sounds are present, no mass palpable, no CVA tenderness Skin: Skin warm and dry. Normal skin color. Normal skin turgor. Extremities: No lower extremity edema. No calf tenderness Neuro: Oriented X 3. No motor deficit. Course Course Course Narrative: This is a Rapid Medical Examination (RME) performed by Nissa Ramey PA-C in triage. Full HPI, ROS, assessment and treatment plan per primary provider in the Main ED. 28 yo male here for eval of left sided chest heaviness x3 days. Reports feeling a sharp, pins and needles pain in his left chest which has since resolved. Denies any strenuous activity. States he possibly lifting a keg at work however is unsure. denies chest pain or SOB. Plan: cxr, ekg, labs Medical Decision Making Medical Decision Making [facility] Narrative: Patient's heart score of 0 atypical chest take cardiac enzymes and EKG without any ischemic change Differential Diagnosis Differential Diagnoses: The differential diagnosis associated with the presentation includes Lab Data [facility] Lab Attestation statement: I reviewed the patient's lab results. 07/23/24 20:04 07/23/24 20:04 Labs: Lab Results 07/23/24 Range/Units 20:04 WBC 11.6 H (4.8-10.8) X10*3/uL RBC 5.02 (4.60-5.80) X10*6/uL Hgb 14.9 (14.0-18.0) g/dl Hct 43.9 (42.0-52.0) % MCV 87.5 (80.0-98.0) fL MCH 29.7 (27.0-33.0) pg MCHC 33.9 (31.0-36.0) g/dl RDW 12.8 (11.0-16.0) % Plt Count 363 (160-400) X10*3/uL MPV 9.9 (9.4-12.4) fL Immature Gran % (Auto) 0.3 (0.0-0.4) % Neut % (Auto) 61.1 (45-73) % Lymph % (Auto) 30.5 (20-40) % [place] % (Auto) 6.5 (2-11) % Eos % (Auto) 1.3 (0-4) % Baso % (Auto) 0.3 (0-2) % Lymph # (Auto) 3.5 (1.2-4.9) X10*3/uL [place] # (Auto) 0.8 (0.1-1.2) X10*3/uL Eos # (Auto) 0.2 (0.0-0.4) X10*3/uL Baso # (Auto) 0.0 (0.0-0.2) X10*3/uL Abs Immat Gran (auto) 0.03 (0.00-0.03) X10*3/uL Absolute Neuts (auto) 7.1 (2.0-8.3) x10*3/uL Absolute Nucleated RBC 0.000 (0.0-0.012) X10*3/uL Nucleated RBC % (auto) 0.0 (0.0-0.2) /100WBC PT 11.4 (10.9-12.4) SEC INR 1.0 (0.9-1.1) Sodium 137 (135-145) mmol/L Potassium 3.9 (3.3-5.1) mmol/L Chloride 104 (96-108) mmol/L Carbon Dioxide 24 (22-29) mmol/L Anion Gap 13 (12-20) BUN 11 (9-16) mg/dL Creatinine 0.88 (0.5-1.4) mg/dL Estim Creat Clear Calc 184.2 Estimated GFR > 60 Random Glucose 230 H (60-115) mg/dL Calcium 9.6 (8.4-10.2) mg/dL Magnesium 2.0 (1.6-2.6) mg/dL Total Bilirubin 0.3 (0.0-1.0) mg/dL AST 29 (5-37) U/L ALT 59 H (0-40) U/L Alkaline Phosphatase 87 (39-117) U/L Troponin I High Sens 5.5 (<3.5-35.0) ng/L Total Protein 8.2 H (6.5-8.0) g/dL Albumin 4.7 (3.5-5.0) g/dL Lipase 29 (8-78) U/L Independent Interpretation I performed an independent interpretation of an: EKG Interpretation: Normal sinus rhythm heart rate 88 beats per minute no acute ST-T changes no acute ischemia Discharge Plan Discharge Clinical Impression: Atypical chest pain Patient Disposition: Home, Self-Care Instructions: Chest Wall Pain (ED) Additional Instructions: Your chest Pain is not from the cardiac origin Take Tylenol /Motrin for pain as needed Prescriptions: No Action acetaminophen [Tylenol Extra Strength] 500 mg tablet 500 mg PO Q6H PRN (Reason: fever or pain) Qty: 14 0RF lidocaine [Lidoderm] 5 % adhesive patch,medicated 1 patch topical DAILY MDD remove after 12 hours PRN (Reason: pain) Qty: 30 0RF Rx Instructions: leave on most painful area for up to 12 hrs naproxen 500 mg tablet 500 mg PO BID PRN (Reason: pain) 10 Days Qty: 20 0RF cyclobenzaprine 5 mg tablet 5 mg PO Q8H PRN (Reason: pain (scale score 7-10)) 5 Days Qty: 14 0RF cholecalciferol (vitamin D3) 50 mcg (2,000 unit) capsule 50 mcg PO DAILY 90 Days Qty: 90 3RF metformin 1,000 mg tablet 1,000 mg PO BID 90 Days Qty: 180 1RF Stand Alone Forms: Work/School Release Interventions: ED Discharge Assessment Last Done: 07/23/24 21:53 Discharge Date/Time: 07/23/24 21:53 Print Language: Welsh
[2024-07-23 20:10] LABS: MANUAL DIFF FLAG NO
[2024-07-23 20:11] LABS: Basophils Percent Auto 0.3 % (0-2); Eosinophils Absolute Auto 0.2 X10*3/uL (0.0-0.4); Eosinophils Percent Auto 1.3 % (0-4); Hematocrit 43.9 % (42.0-52.0); Hemoglobin 14.9 g/dl (14.0-18.0); Imm Gran Abs Auto 0.03 X10*3/uL (0.00-0.03); Imm Gran Pct Auto 0.3 % (0.0-0.4); Lymphocytes Absolute Auto 3.5 X10*3/uL (1.2-4.9); Lymphocytes Percent Auto 30.5 % (20-40); Mean Corpuscular HGB Conc 33.9 g/dl (31.0-36.0); Mean Corpuscular Hemoglobin 29.7 pg (27.0-33.0); Mean Corpuscular Volume 87.5 fL (80.0-98.0); Mean Platelet Volume 9.9 fL (9.4-12.4); Monocytes Absolute Auto 0.8 X10*3/uL (0.1-1.2); Monocytes Percent Auto 6.5 % (2-11); Neutrophils Absolute Auto 7.1 x10*3/uL (2.0-8.3); Neutrophils Percent Auto 61.1 % (45-73); Platelet Count 363 X10*3/uL (160-400); Red Blood Count 5.02 X10*6/uL (4.60-5.80); Red Cell Distribution Width 12.8 % (11.0-16.0); White Blood Count 11.6 X10*3/uL (4.8-10.8)
[2024-07-23 20:24] LABS: Prothrombin Time 11.4 SEC (10.9-12.4)
[2024-07-23 20:31] VITALS: PULSE 84
[2024-07-23 20:36] LABS: Alanine Aminotransferase 59 U/L (0-40); Albumin Level 4.7 g/dL (3.5-5.0); Alkaline Phosphatase 87 U/L (39-117); Anion Gap 13 (12-20); Aspartate Amino Transferase 29 U/L (5-37); Bilirubin Total 0.3 mg/dL (0.0-1.0); Blood Urea Nitrogen 11 mg/dL (9-16); Calcium 9.6 mg/dL (8.4-10.2); Carbon Dioxide 24 mmol/L (22-29); Chloride 104 mmol/L (96-108); Creatinine Clr Calc Pharmacy 184.2; Estimated Glomerular Filt Rate > 60; Glucose Random 230 mg/dL (60-115); Lipase 29 U/L (8-78); Potassium 3.9 mmol/L (3.3-5.1); Sodium 137 mmol/L (135-145); Total Protein 8.2 g/dL (6.5-8.0)
[2024-07-23 20:38] VITALS: BP 124/56; PULSE 85; RESP 18; O2SAT 99
[2024-07-23 20:43] LABS: Troponin-I High Sensitivity 5.5 ng/L (<3.5-35.0)
[2024-07-23 21:53] VITALS: BP 124/56; PULSE 85; RESP 18; TEMP 36.8; O2SAT 99
== END 2024-07-23 21:53 | disposition home or self-care (01) ==
PROVIDERS: Physician Assistant Medical; Emergency Provider Internal Medicine; PCP Internal Medicine
DX: R07.89 Other chest pain (principal); I45.10 Unspecified right bundle-branch block; R94.31 Abnormal electrocardiogram [ECG] [EKG]; Z79.899 Other long term (current) drug therapy
CPT/HCPCS: 36415; 71046; 80053; 83690; 83735; 84484; 85025; 85610; 93005; 99284; 99285

== ENCOUNTER → 2024-07-23 19:39 | Outpatient (BNV) | payer OTHER, SELFPAY | PROVIDERS: Emergency Provider Internal Medicine; PCP Internal Medicine; Visit Provider Internal Medicine Cardiovascular Disease | DX: R94.31 Abnormal electrocardiogram [ECG] [EKG] (principal) | CPT/HCPCS: 93010 ==

== ENCOUNTER 2024-07-24 14:04 | Outpatient (REF) | payer OTHER, SELFPAY ==
--- NOTE | ~2024-07-24 | FL_ITS ---
FLUOROSCOPIC GUIDED LEFT HIP ARTHROGRAM INDICATIONS: Left hip pain. Intra-articular gadolinium injection is needed prior to MRI. PROCEDURE: Risks and benefits and possible complications were discussed with the patient and the consent form was signed. The patient was placed hip on the fluoroscopy table. The left hip was prepped and draped in normal sterile fashion. 1% buffered lidocaine was used for anesthesia. A 22-gauge spinal needle was used to access the hip joint. Intra-articular position of the needle within the hip joint was verified using 3 cc of Omnipaque 300. A total of 12 mL of gadolinium/saline (1:200) contrast mixture was then injected into the hip joint. The needle was then removed and a Band-Aid was applied to the injection site. The patient tolerated the procedure well and was sent for to MRI. There were no immediate complications. FL/FL arthrogram hip LT IMPRESSION: Successful instillation of dilute intra-articular gadolinium into the left hip prior to MRI. The procedure was performed by Driss Siddiqui PA-C, and directly supervised by Dr. Bergeron. Electronically signed by: Yonatan Bergeron MD 07/24/2024 04:21 PM EDT
--- NOTE | ~2024-07-24 | MR_ITS ---
EXAMINATION: MR HIP WITH CONTRAST, LEFT CLINICAL INFORMATION: Left hip pain and swelling. COMPARISON: Left hip fluoroscopic arthrography done earlier the same day. Left hip radiographs dated 05/31/2024. TECHNIQUE: MRI of the left hip was performed after the intra-articular administration of a dilute gadolinium-containing solution on a high-field scanner. FINDINGS: ACETABULAR LABRUM: No contrast extending into the labral tissue to suggest undersurface tearing. ARTICULAR CARTILAGE/BONE: Articular cartilage thinning with areas of full-thickness loss superiorly and centrally as well as superolaterally. Small marginal osteophytes. There is a large, simple cyst within the acetabulum measuring up to 3.3 x 1.9 x 4.1 cm, consistent with a geode. No adjacent marrow edema or aggressive features. No stress reaction, fracture, or avascular necrosis. The alpha angle equals approximately 41 degrees as measured at the 3:00 position on the sagittal oblique images. The acetabular depth is within normal limits. MUSCLES/TENDONS: Mild gluteus minimus and minimal gluteus medius tendinosis. No transverse tendon tear or tendon retraction. JOINT FLUID/BURSA: Within normal limits. INTRAPELVIC STRUCTURES: Unremarkable. MR/MR hip LT w con IMPRESSION: 1. 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 No stress reaction, fracture, or avascular necrosis. 2. No labral tear. 3. Mild gluteus minimus and minimal gluteus medius tendinosis. Electronically signed by: Ray Amaral MD 08/02/2024 10:55 AM EDT
[2024-07-24] MEDS: gadobutroL 2 ML VIAL IVPUSH (15:10)
== END 2024-07-24 14:05 | disposition home or self-care (01) ==
LOC: HO.XRAY 14:04
PROVIDERS: PCP Internal Medicine; Visit Provider Physician Assistant
DX: M16.12 Unilateral primary osteoarthritis, left hip (principal)
CPT/HCPCS: 27093; 73525; 73722; A9585

== ENCOUNTER → 2024-07-24 14:22 | Outpatient (BNV) | payer OTHER, SELFPAY | PROVIDERS: PCP Internal Medicine; Visit Provider Radiology Diagnostic Radiology | DX: M25.552 Pain in left hip (principal) | CPT/HCPCS: 27095; 73525 ==

== ENCOUNTER 2024-08-11 09:32 | Outpatient (AMB) | payer OTHER, SELFPAY ==
--- NOTE | 2024-08-11 09:33 | MHC.OFFVIS ---
Vital Signs 08/11/24 09:35 Height 5 ft 8 in Weight 335 lb BMI 50.9 Intake Visit Reasons: MRI results Intake Note: Anthony a 28 year old male who presents today for an MRI review of left hip pain. Patient reports no change in his symptoms. Allergies No Known Allergies [No Known Allergies*] Allergy (Verified 08/11/24 09:36) HPI HPI MRI results: Details: left hip s/p MRI. He continues to have pain with prolonged standing and walking. Pain with reaching at lower levels and bending. [facility] Medical History Chronic left hip pain Vitamin D deficiency Diabetes mellitus Lumbar degenerative disc disease Morbid obesity with BMI of 50.0-59.9, adult Asthma Surgical History History of excision of mass (02/19/22) History of repair of ACL History of repair of anterior cruciate ligament of right knee (~08/2015) Family History Brother Epilepsy Maternal Aunt Breast cancer Social History Housing: Apartment Alcohol intake: never Patient Tobacco Use Status: Never used Tobacco e-Cigarette/Vaping Use: Never Used Second Hand Smoke Exposure: Yes service: No Current occupational status: employed Current occupation: [employer] Cognitive needs: No Hearing needs: No Vision needs: No Review of Systems Const All systems reviewed & are unremarkable except as noted in HPI and below Physical Exam Vital Signs: BMI result Body Mass Index 50.9 Resp Effort & Inspection: normal respiratory effort and able to speak in complete sentences Telehealth Telehealth Telehealth Platform: Telephone Location of provider rendering services: practice address Location of patient: address on file Patient Identification confirmed using: Name, : Yes Telehealth method: voice only Patient verbally consented to treatment: Yes Patient verbally consented to billing insurance company: Yes Patient informed of any privacy concerns related to visit: Yes Minutes spent on Phone/Video with Pt.: 10 Results Reviewed Results Reviewed: MR hip LT w con IMPRESSION: 1. 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 No stress reaction, fracture, or avascular necrosis. 2. No labral tear. 3. Mild gluteus minimus and minimal gluteus medius tendinosis. Assessment & Plan Assessment & Plan (1) Left hip impingement syndrome: Code(s): M25.852 - Other specified joint disorders, left hip Category: Medical Plan: We discussed options and since he continues to have pain with daily activities I recommend referral to a hip specialist for further evaluation . He is content with this plan. Orders: Referrals Orthopedics Referral M25.852 - Other specified joint disorders, left hip Coding Level of Care Code Tele Est Pt Level 3 (62264) Complex EM visit Add On G2211 Diagnoses Left hip impingement syndrome M25.852
[2024-08-11 09:35] VITALS: BMI 50.9
== END 2024-08-11 09:42 | disposition home or self-care (01) ==
LOC: HO.HOS 09:32
PROVIDERS: PCP Internal Medicine; Visit Provider Physician Assistant
DX: M25.852 Other specified joint disorders, left hip (principal)
CPT/HCPCS: 99213; G2211

== ENCOUNTER → 2024-08-11 09:32 | Outpatient (BNVA) | payer OTHER, SELFPAY | PROVIDERS: PCP Internal Medicine; Visit Provider Physician Assistant ==

== ENCOUNTER 2024-08-30 07:09 | Emergency (ER) | payer OTHER, SELFPAY ==
--- NOTE | ~2024-08-30 | XR_ITS ---
EXAMINATION: XR ANKLE, LEFT XR FOOT, LEFT CLINICAL INFORMATION: pain, injury COMPARISON: 08/23/2017. TECHNIQUE: AP, lateral, and mortise views of the left ankle. 3 views left foot. FINDINGS: No fracture, dislocation, or suspicious focal bony abnormality. There is normal alignment. Ankle mortise is intact. Talar dome is normal. There are mild to moderate degenerative changes in the tibiotalar joint, possibly posttraumatic. No ankle joint effusion. Bones of the foot are intact and normally aligned. There are mild degenerative changes in the tarsometatarsal joints and intertarsal joints. 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 There is a large dorsal calcaneal enthesophyte. There is a moderate-sized plantar calcaneal enthesophyte. No soft tissue abnormalities. XR/XR ankle LT min 3V IMPRESSION: 1. No acute trauma posttraumatic abnormalities of the left ankle or foot. 2. 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 3. There are large dorsal and medium-sized plantar calcaneal spurs. 4. There are left foot and ankle degenerative changes as discussed. Electronically signed by: Yonatan Bergeron MD 08/30/2024 11:00 [place] [facility] [place]
--- NOTE | ~2024-08-30 | XR_ITS ---
EXAMINATION: XR ANKLE, LEFT XR FOOT, LEFT CLINICAL INFORMATION: pain, injury COMPARISON: 08/23/2017. TECHNIQUE: AP, lateral, and mortise views of the left ankle. 3 views left foot. FINDINGS: No fracture, dislocation, or suspicious focal bony abnormality. There is normal alignment. Ankle mortise is intact. Talar dome is normal. There are mild to moderate degenerative changes in the tibiotalar joint, possibly posttraumatic. No ankle joint effusion. Bones of the foot are intact and normally aligned. There are mild degenerative changes in the tarsometatarsal joints and intertarsal joints. 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 There is a large dorsal calcaneal enthesophyte. There is a moderate-sized plantar calcaneal enthesophyte. No soft tissue abnormalities. XR/XR foot LT min 3V IMPRESSION: 1. No acute trauma posttraumatic abnormalities of the left ankle or foot. 2. 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 3. There are large dorsal and medium-sized plantar calcaneal spurs. 4. There are left foot and ankle degenerative changes as discussed. Electronically signed by: Yonatan Bergeron MD 08/30/2024 11:00 AM [facility] [place]
[2024-08-30 07:12] VITALS: BP 138/65; PULSE 81; RESP 18; TEMP 36.4; O2SAT 99; BMI 53.6
[2024-08-30 07:37] VITALS: BP 138/65; PULSE 81; RESP 18; TEMP 36.4; O2SAT 99
--- NOTE | 2024-08-30 07:37 | ED_ITS ---
HPI - General Adult General Chief complaint: Extremity Injury, Lower Stated complaint: L foot pain Time Seen by Provider: 08/30/24 07:36 Source: patient Mode of arrival: ambulatory Limitations: no limitations History of Present Illness ED Provider: Sana Marroquin PA-C HPI narrative: Patient is a 29 year old assigned male at with a history of asthma and DM presenting to the emergency department today with left heel pain. Patient states that over the last day he has had left heel pain. Patient states that the pain is constant but is significantly worse when he steps on his left foot and it goes into the rest of his left foot. Patient denies any dizziness, lightheadedness, abdominal pain, nausea, vomiting, fever, chills, blurry vision, double vision, loss of vision, chest pain, difficulty breathing, shortness of breath, back pain, night sweats, pain with urination, increased urinary frequency, increased urinary urgency, blood in his urine or stool, syncope or a near syncopal episode, bowel incontinence, bladder incontinence, or any other complaints at this time. Onset (ago): day(s) (1) Location: left and lower extremity Relieving factors: none Exacerbating factors: other (pressure on heel) Associated symptoms: denies other symptoms Treatments prior to arrival: none Related Data Previous Rx's ?Medication ?Instructions ?Recorded lidocaine 5 % topical patch 1 patch topical DAILY PRN pain #30 11/05/23 (Lidoderm) ea cholecalciferol (vitamin D3) 50 50 mcg PO DAILY 90 days #90 caps 04/03/24 mcg (2,000 unit) capsule metformin 1,000 mg tablet 1,000 mg PO BID 90 days #180 tabs 04/03/24 naproxen 500 mg tablet 500 mg PO BID 7 days #14 tabs 08/30/24 Allergies Allergy/AdvReac Type Severity Reaction Status Date / Time No Known Allergies Allergy Verified 08/30/24 07:12 [No Known Allergies*] Review of Systems Constitutional: Constitutional: Reports no additional constitutional complaints, Denies chills, Denies fever(s) and Denies night sweats Eyes: Eyes: Reports no additional eye complaints, Denies blurry vision, Denies change in vision, Denies diplopia, Denies eye discharge, Denies loss of vision and Denies eye pain ENT: Denies dizziness Cardiovascular: Cardiovascular: Reports no additional cardiovascular complaints, Denies chest pain, Denies lightheadedness, Denies Loss of Consciousness and Denies dyspnea Respiratory: Respiratory: Reports no additional respiratory complaints and Denies dyspnea Gastrointestinal: Gastrointestinal: Reports no additional gastrointestinal complaints, Denies abdominal pain, Denies melena, Denies hematochezia, Denies change in bowel habits and Denies change in stool character Genitourinary: Genitourinary: Reports no additional male genitourinary complaints, Denies hematuria, Denies oliguria, Denies difficulty urinating, Denies dysuria, Denies urinary frequency, Denies urinary hesitancy, Denies urinary incontinence and Denies urinary urgency Musculoskeletal: Musculoskeletal: Reports no additional musculoskeletal complaints, Denies numbness and Denies tingling Comments: left heel pain Neurologic: Denies dizziness, Denies loss of vision, Denies numbness and Denies tingling Psychiatric: Psychiatric: Reports no additional psychiatric complaints Endocrine: Endocrine: Reports no additional endocrine complaints Hematologic/Lymphatic: Hematologic/Lymphatic: Reports no additional hematologic/lymphatic complaints Allergic/Immunologic: Allergic/Immunologic: Reports no additional allergic/immunologic complaints [facility] Past Medical History Attestation statement: The following information was validated with the patient. Source: old records reviewed and nursing notes reviewed Medical History Chronic left hip pain Vitamin D deficiency Diabetes mellitus Lumbar degenerative disc disease Morbid obesity with BMI of 50.0-59.9, adult Asthma Surgical History History of excision of mass (02/19/22) History of repair of ACL History of repair of anterior cruciate ligament of right knee (~08/2015) Family History Family History Brother Epilepsy Maternal Aunt Breast cancer Social History Social History Housing: Apartment Alcohol intake: never Patient Tobacco Use Status: Never used Tobacco e-Cigarette/Vaping Use: Never Used Second Hand Smoke Exposure: Yes Advance Directives: No Advance Directives Information Provided: No service: No Current occupational status: employed Current occupation: [employer] Cognitive needs: No Hearing needs: No Vision needs: No Physical Exam ED Vital Signs: Vital Signs - 24 hr 08/30/24 07:12 08/30/24 07:37 08/30/24 09:37 Temperature 97.6 F 97.6 F 97.6 F Pulse Rate 81 81 81 Respiratory Rate 18 18 18 Blood Pressure 138/65 138/65 138/65 Pulse Oximetry 99 99 99 BMI result Body Mass Index 53.6 Const General: cooperative, no acute distress, alert and awake Nutritional Appearance: well nourished Orientation/consciousness: patient oriented x3 Limitations: no limitations HENMT Head: Yes normal to inspection and Yes atraumatic Ears: hearing grossly normal bilaterally and external ears normal General nose exam: Normal external nose present, no nasal discharge noted and no epistaxis Face and sinus: Yes normal facial exam, No abrasion and No laceration Mouth: Normal oral and palatal mucosa present, no drooling and no muffled voice Eyes General: appearance normal, both eyes and all related structures Periorbital: periorbital findings normal Eyelids: Yes eyelids normal Conjunctivae: conjunctivae normal Pupils: Equal, round and reactive pupils present EOM: EOMs intact bilaterally Neck Neck: Yes normal visual inspection, Yes full ROM and Yes no lymphadenopathy Chest Chest palpation & inspection: normal inspection of the chest Resp Effort & Inspection: normal respiratory effort and able to speak in complete sentences GI Inspection: Yes normal to inspection Neuro General: patient oriented x3 and moves all extremities Cranial nerves: Yes Equal, round and reactive pupils present Cognition (Neuro): normal cognition Extrem General: Yes normal to inspection, Yes full ROM and Yes capillary refill normal Psych Appearance: grossly normal Mental Status: mental status grossly normal Affect: normal affect Attitude: cooperative Thought process: Normal thought process present Thought content: Normal thought content present Insight: Good insight present (Psych) Medications Administered Discontinued Medications Generic Name Dose Route Start Last Admin Trade Name Freq PRN Reason Stop Dose Admin Ketorolac Tromethamine 15 mg 08/30/24 09:24 08/30/24 09:29 Ketorolac Tromethamine 15 Mg/Ml Vial IM 08/30/24 09:25 15 mg ONCE ONE Administration Medical Decision Making Medical Decision Making [facility] Narrative: Patient is a 29 year old assigned male at with a history of asthma and DM presenting to the emergency department today with left heel pain. Patient's physical exam was unremarkable. Patient's left foot and ankle x-rays showed no acute process. I explained my physical exam findings as well as all test results to the patient. I answered all questions asked by the patient. I stressed the importance of the patient taking his medication as directed (either prescribed or as the over the counter packaging recommends). I stressed the importance of the patient following up with his primary care provider and an orthopedic provider. I stressed the importance of the patient returning to the emergency department immediately if his symptoms were to worsen or if he were to develop any dizziness, shortness of breath, difficulty breathing, chest pain, blurry vision, loss of vision, nausea, vomiting, abdominal pain, fever, chills, back pain, or any other complaints. Patient verbalized agreement and understanding with this treatment plan and discharge. Differential Diagnosis Differential Diagnoses: The differential diagnosis associated with the presentation includes Left heel pain Plantar fasciitis Admission/Observation Consideration of admission/observation: Escalation of care including admission/observation considered Patient would have been admitted to the hospital had his work up had any findings where hospital admission was appropriate and his clinical presentation warranted hospital admission. Independent Interpretation I performed an independent interpretation of an: Plain X-Ray Interpretation: My interpretation is in agreement with the radiologist's impression of these imaging studies. EXAMINATION: XR ANKLE, LEFT XR FOOT, LEFT CLINICAL INFORMATION: pain, injury COMPARISON: 08/23/2017. TECHNIQUE: AP, lateral, and mortise views of the left ankle. 3 views left foot. FINDINGS: No fracture, dislocation, or suspicious focal bony abnormality. There is normal alignment. Ankle mortise is intact. Talar dome is normal. There are mild to moderate degenerative changes in the tibiotalar joint, possibly posttraumatic. No ankle joint effusion. Bones of the foot are intact and normally aligned. There are mild degenerative changes in the tarsometatarsal joints and intertarsal joints. 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 There is a large dorsal calcaneal enthesophyte. There is a moderate-sized plantar calcaneal enthesophyte. No soft tissue abnormalities. XR/XR foot LT min 3V IMPRESSION: 1. No acute trauma posttraumatic abnormalities of the left ankle or foot. 2. 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 3. There are large dorsal and medium-sized plantar calcaneal spurs. 4. There are left foot and ankle degenerative changes as discussed. Electronically signed by: Yonatan Bergeron MD 08/30/2024 11:00 AM [facility] Dictated By: Yonatan Bergeron MD Signed By: Electronically signed by Yonatan Bergeron MD 08/30/24 1100 Radiology Impression Discussion of test interpretation with radiology: I have reviewed the radiologist's reading. Discharge Plan Discharge Clinical Impression: Plantar fasciitis Patient Disposition: Home, Self-Care Instructions: Plantar Fasciitis (ED), Plantar Fasciitis Exercises (ED) Additional Instructions: Follow up with your primary care provider. Return to the emergency department immediately if your symptoms worsen or if you develop any dizziness, shortness of breath, difficulty breathing, chest pain, blurry vision, loss of vision, nausea, vomiting, abdominal pain, fever, chills, back pain, or any other complaints. Prescriptions: New naproxen 500 mg tablet 500 mg PO BID 7 Days Qty: 14 0RF No Action lidocaine [Lidoderm] 5 % adhesive patch,medicated 1 patch topical DAILY MDD remove after 12 hours PRN (Reason: pain) Qty: 30 0RF Rx Instructions: leave on most painful area for up to 12 hrs cholecalciferol (vitamin D3) 50 mcg (2,000 unit) capsule 50 mcg PO DAILY 90 Days Qty: 90 3RF metformin 1,000 mg tablet 1,000 mg PO BID 90 Days Qty: 180 1RF Referrals: [facility] [place] [facility] [place] Group] (Call to establish and follow up with an orthopedic provider. ) César Wallace MD [Primary Care Provider] - Stand Alone Forms: Work/School Release Interventions: ED Discharge Assessment Last Done: 08/30/24 09:37 Discharge Date/Time: 08/30/24 09:38 Print Language: Icelandic
--- NOTE | 2024-08-30 07:40 | PC.NURSE ---
Pt enters my care- pt denied any trauma to back of his heel- no swelling or redness- pt stated he works on his feet alot
[2024-08-30] MEDS: Ketorolac Tromethamine 15 MG/ML VIAL IM (09:29)
[2024-08-30 09:37] VITALS: BP 138/65; PULSE 81; RESP 18; TEMP 36.4; O2SAT 99
== END 2024-08-30 09:38 | disposition home or self-care (01) ==
PROVIDERS: Emergency Provider Emergency Medicine Emergency Medical Services; PCP Internal Medicine
DX: M72.2 Plantar fascial fibromatosis (principal); E11.9 Type 2 diabetes mellitus without complications; J45.909 Unspecified asthma, uncomplicated; Z79.84 Long term (current) use of oral hypoglycemic drugs
CPT/HCPCS: 73610; 73630; 96372; 99284; J1885

== ENCOUNTER → 2024-08-30 07:37 | Outpatient (BNV) | payer OTHER, SELFPAY | PROVIDERS: Emergency Provider Emergency Medicine Emergency Medical Services; PCP Internal Medicine; Visit Provider Radiology Diagnostic Radiology | DX: M77.32 Calcaneal spur, left foot (principal); M19.072 Primary osteoarthritis, left ankle and foot | CPT/HCPCS: 73610; 73630 ==

== ENCOUNTER 2024-09-14 11:44 | Outpatient (AMB) | payer OTHER, SELFPAY ==
[2024-09-14 11:47] VITALS: BP 126/80; PULSE 81; O2SAT 98; BMI 53.7
--- NOTE | 2024-09-14 11:47 | MHC.PC.OV ---
Vital Signs 09/14/24 11:47 Height 5 ft 8 in Weight 353 lb 4 oz BMI 53.7 BP 126/80 Blood Pressure Location Lt brachial Position Sitting Pulse 81 Pulse Source Pulse Oximeter Pulse Oximetry (%) 98 Oxygen Delivery Method Room Air Intake Visit Reasons: DM, anemia, leucocytosis, left hip pain Display Fabrication Supervisor Required: No Accompanied by: Self / Same As Patient Allergies No Known Allergies [No Known Allergies*] Allergy (Verified 09/14/24 12:10) Medication List - Last Reconciled 09/14/24 by César Wallace MD cholecalciferol (vitamin D3) 50 mcg PO DAILY 90 days lidocaine 5% (Lidoderm) 1 patch topical DAILY PRN MDD remove after 12 hours metformin 1,000 mg PO BID 90 days naproxen 500 mg PO BID 7 days Tobacco use date assessed: 09/14/24 Dental Screening Dental Screen Date: 09/14/24 Did you have a dental visit in the last 12 months?: No Did you have a dental problem in the last 6 months where you did not have access to dental care?: No Was dental information given to patient?: No HPI DM, anemia, leucocytosis, left hip pain HPI Details Patient comes in today for his follow-up visit States that he feels okay except for his left hip - he continues to experience left hip pain gets worse with prolonged activity and prolonged standing He has been to physical therapy within the past year with no improvement He was referred to orthopedics and had an MRI of the left hip done a couple of months ago He denies any headaches or dizziness Denies any chest pains, no shortness of breath No nausea/vomiting, no abdominal pain No change in bowel habits noted [facility] Medical History (Updated 09/17/24 @ 08:23 by César Wallace MD) Osteoarthritis of left hip Chronic left hip pain Vitamin D deficiency Diabetes mellitus Lumbar degenerative disc disease Morbid obesity with BMI of 50.0-59.9, adult Asthma Surgical History History of excision of mass (02/19/22) History of repair of ACL History of repair of anterior cruciate ligament of right knee (~08/2015) Family History Brother Epilepsy Maternal Aunt Breast cancer Social History Housing: Apartment Alcohol intake: never Patient Tobacco Use Status: Never used Tobacco e-Cigarette/Vaping Use: Never Used Second Hand Smoke Exposure: Yes service: No Current occupational status: employed Current occupation: [email or web address] Cognitive needs: No Hearing needs: No Vision needs: No Questionnaire PHQ-9 Over the last 2 weeks, how often have you been bothered by any of the following problems? 1. Little interest or pleasure in doing things: not at all 2. Feeling down, depressed, or hopeless: not at all 3. Trouble falling or staying asleep, or sleeping too much: not at all 4. Feeling tired or having little energy: not at all 5. Poor appetite or overeating: not at all 6. Feeling bad about yourself - or that you are a failure or have let yourself or your family down: not at all 7. Trouble concentrating on things, such as reading the newspaper or watching television: not at all 8. Moving or speaking so slowly that other people could have noticed. Or the opposite - being so fidgety or restless that you have been moving around a lot more than usual: not at all 9. Thoughts that you would be better off or of hurting yourself in some way: not at all Total score: 0 Depression Screening Interpretation: Negative Depression Screening Done: Yes 50067 - PHQ-9 Billing: Yes Source: Developed by Drs. Kwesi Tran, Za Campoverde, Jovon Mireles and colleagues, with an educational sary from [employer]. Thrive Questionnaire Date Thrive assessed: 09/14/24 I am a: Patient What is your living situation today?: I have a steady place to live Within the past 12 months, did the food you bought not last and you didn't have the money to get more?: Never true Within the past 12 months, did you worry whether your food would run out before you got money to buy more?: Never true Do you have trouble paying for medicines?: No Do you have trouble getting transportation to medical appointments?: No Do you have trouble paying your heating and electricity bill?: No Do you have trouble taking care of your child, family member or friend?: No Do you have trouble with day-to-day activities such as bathing, preparing meals, shopping, managing finances, etc.?: No Are you currently unemployed and looking for a job?: No Are you interested in more education?: No Please select the resources that you would like help with: None Currently or been in a relationship where the following occur: No concerns reported THRIVE Score: 0 AUDIT C Alcohol Use Questionnaire (AUDIT-C) 1. How often do you have a drink containing alcohol?: Monthly or less 2. How many drinks containing alcohol do you have on a typical day when you are drinking?: 1 or 2 3. How often do you have six or more drinks on one occasion?: Never Total Score: 1 Score Reviewed/Action Taken: Yes LIBBY-7 AMB Questionnaire LIBBY-7 Date LIBBY - 7 assessed: 09/14/24 Feeling nervous, anxious, or on edge: 0 = Not at all Not being able to stop or control worryin = Not at all Worrying too much about different things: 0 = Not at all Trouble relaxin = Not at all Being so restless that it is hard to sit still: 0 = Not at all Becoming easily annoyed or irritable: 0 = Not at all Feeling afraid as if something awful might happen: 0 = Not at all Total LIBBY-7 score (0-4 normal; 5-9 mild; 10-14 moderate; 15-21 severe): 0 Source: Developed by Drs. Kwesi Tran, Za Campoverde, Jovon Mireles and colleagues, with an educational sary from [employer]. Review of Systems Const Denies chills, Denies fatigue, Denies fever(s) and Denies headache(s) ENT Denies dysphagia, Denies dizziness, Denies otalgia, Denies headache(s), Denies neck pain, Denies odynophagia and Denies sore throat Card Denies chest pain, Denies palpitations and Denies dyspnea Resp Denies cough, Denies dyspnea and Denies wheezing GI Denies abdominal pain, Denies constipation, Denies dysphagia, Denies heartburn, Denies diarrhea, Denies nausea, Denies odynophagia and Denies vomiting Denies dysuria, Denies nocturia and Denies urinary frequency Musc Reports back pain (over the lower back, on and off), Reports arthralgias (increased over the left hip - chronic) and Denies neck pain Skin/Breast Denies rash Neuro Denies dizziness and Denies headache(s) Endo Denies fatigue and Denies palpitations Aller/Immun Denies wheezing Physical exam (Primary Care) Vital Signs: Last Vital Signs Pulse 81 09/14/24 11:47 BP 126/80 09/14/24 11:47 Pulse Ox 98 09/14/24 11:47 Oxygen Delivery Method Room Air 09/14/24 11:47 BMI result Body Mass Index 53.7 Tobacco/Smoking Status: Tobacco use Status Tobacco use date assessed 09/14/24 09/14/24 11:50 Patient Tobacco Use Status Never used Tobacco 09/14/24 11:50 e-Cigarette/Vaping Use Never Used 09/14/24 11:50 PHQ-9: PHQ-9 Score PHQ-9: Total score 0 09/14/24 12:12 Depression Screening Interpretation: Negative Thrive Assessment: Date of Thrive Assessment Date Thrive assessed 09/14/24 09/14/24 11:50 Currently or been in a relationship where the following occur: No concerns reported Const General: no acute distress and alert HENMT Ears: TM's normal bilaterally and EAC's normal Throat: Yes posterior oropharynx normal and Yes tonsils normal (no TP congestion) Neck Neck: Yes no lymphadenopathy and Yes supple Thyroid: Thyroid normal Resp Auscultation: clear to auscultation bilaterally, no rales and no wheezes Cardio Rate: regular rate Rhythm: regular rhythm Heart sounds: no murmurs GI Palpation (GI): Soft to palpation and nontender Auscultation: normal bowel sounds General: Yes no CVA tenderness Back/Spine/Pelvis Back: no CVA tenderness Thoracic/Lumbar Spine: lumbar spinal tenderness (mild) Skin Rashes: no rashes Extrem General: Yes no clubbing, cyanosis or edema Left lower extremity: hip/thigh Details: tenderness Location: of the hip Location: anterolaterally Results AMB Hemoglobin A1c AMB Hemoglobin A1c 8.5 % Last Edit by EDGAR Cano on 09/14/24 12:03 Results Reviewed Results Reviewed: Laboratory Last Values Hgb A1c (Clinic) 8.5 % (4.0-6.0) H 09/14/24 11:57 Coding Level of Care Code Est Pt Level 4 (27328) Diagnoses Type 2 diabetes mellitus with hyperglycemia, without long-term current use of insulin E11.65 Diabetes mellitus type: type 2 Diabetes mellitus adjunct faculty for medical terminology insulin use: without fci use Diabetes mellitus complication status: with hyperglycemia Primary osteoarthritis of left hip M16.12 Osteoarthritis type: primary Elevated LFTs R79.89 Mild intermittent asthma without complication J45.20 Asthma severity: mild Asthma persistence: intermittent Asthma complication type: uncomplicated Vitamin D deficiency E55.9 Leukocytosis, unspecified type D72.829 Leukocytosis type: unspecified Degeneration of intervertebral disc of lumbar region with discogenic back pain M51.360 Disc-related pain type: discogenic back pain only Morbid obesity with BMI of 50.0-59.9, adult E66.01; Z68.43 Additional Codes PHQ-9 - 09317 - PHQ-9 Billing: Yes ([id number]) Assessment & Plan Assessment & Plan (1) Diabetes mellitus: Code(s): E11.9 - Type 2 diabetes mellitus without complications Category: Medical Qualifiers: Diabetes mellitus type: type 2 Diabetes mellitus adjunct faculty for medical terminology insulin use: without adjunct faculty for medical terminology use Diabetes mellitus complication status: with hyperglycemia Qualified Code(s): E11.65 - Type 2 diabetes mellitus with hyperglycemia Plan: His in-office HgbA1c today remains unchanged from his previous HgbA1c of 8.5% a few months ago - goal is <7.0% Reinforced diabetic diet Continue Metformin 1000 mg BID; will start him additionally on Januvoa 50 mg QD Will recheck his labs and HgbA1c in 3 months for follow up (2) Osteoarthritis of left hip: Code(s): M16.12 - Unilateral primary osteoarthritis, left hip Category: Medical Qualifiers: Osteoarthritis type: primary Qualified Code(s): M16.12 - Unilateral primary osteoarthritis, left hip Plan: He was referred to and seen by orthopedics for his left hip issues a few months ago He has been referred to physical therapy about a year ago and states that PT did not help at all He eventually underwent an MRI of the left hip a couple of months ago, which revealed (+) [id number] left hip osteoarthritis with a large geode within the acetabulum. No stress reaction, fracture, or avascular necrosis. No labral tear. Mild gluteus minimus and minimal gluteus medius tendinosis are noted He was then referred to a hip specialist for further management and he is currently still waiting to be seen by a his hip specialist (3) Elevated LFTs: Code(s): R79.89 - Other specified abnormal findings of blood chemistry Category: Medical Plan: His LFTs remained elevated on his recent labs done a few months ago - are most likely related to his weight (hepatosteatosis) and he is advised that losing weight should help get them back to normal gradually He did have an abdominal US done in July 2021 that revealed (+) increased hepatic parenchymal echogenicity most compatible with hepatic steatosis Will continue to monitor his LFTs regularly (4) Asthma: Code(s): J45.909 - Unspecified asthma, uncomplicated Category: Medical Qualifiers: Asthma severity: mild Asthma persistence: intermittent Asthma complication type: uncomplicated Qualified Code(s): J45.20 - Mild intermittent asthma, uncomplicated Plan: Stable - states that he has not had any flare ups of his asthma in a while now He has an Albuterol inhaler that he uses as needed but as he has not had any flare ups in a while now, has not needed to use it at all lately (5) Vitamin D deficiency: Code(s): E55.9 - Vitamin D deficiency, unspecified Category: Medical Plan: Continue Vitamin D3 2000 units QD (6) Leukocytosis (leucocytosis): Code(s): D72.829 - Elevated white blood cell count, unspecified Category: Medical Qualifiers: Leukocytosis type: unspecified Qualified Code(s): D72.829 - Elevated white blood cell count, unspecified Plan: Mild - it appears to be slowly improving and patient's differential on his CBC appears to be mostly normal Will continue to monitor his CBC regularly for now and will do further work ups only if this progresses or gets worse (7) Lumbar degenerative disc disease: Code(s): M51.36 - Other intervertebral disc degeneration, lumbar region Category: Medical Qualifiers: Disc-related pain type: discogenic back pain only Qualified Code(s): M51.360 - Other intervertebral disc degeneration, lumbar region with discogenic back pain only Plan: Reinforced activity and weight lifting restrictions Lumbar spine x-rays done back on 02/16/2019 revealed a stable mild anterior T11 wedge compression fracture, anterior spondylosis at T12-L1 and L1-L2, with no acute fracture or spondylolisthesis seen Repeat lumbar spine x-rays done in September 2022 revealed (+) mild curvature of the lumbar sacral spine to the right. Bone alignment is otherwise normal. No fracture or dislocation. Mild degenerative spondylosis and degenerative disc disease at T12-L1, L1-L2 and L2-L3; (+) lower lumbar spine facet arthritis. The previous T11 wedge compression fracture has apparently resolved Patient also reports (+) improvement of symptoms and relief of pain when he received physical therapy in the past - advised that we can refer him to physical therapy again at any time when needed and all he has to do is to let us know Continue Lidocaine 5% patches apply QD PRN (8) Morbid obesity with BMI of 50.0-59.9, adult: Code(s): E66.01 - Morbid (severe) obesity due to excess calories; Z68.43 - Body mass index [BMI] 50.0-59.9, adult Category: Medical Plan: Reinforced diet/exercise as tolerated/lose weight Plan Follow-up in 3 months Orders: Orders AMB Hemoglobin A1c 09/14/24 Z13.9 - Encounter for screening, unspecified Medications: New sitagliptin phosphate (Januvia) 50 mg PO DAILY 90 days 90 tabs 1RF
== END 2024-09-14 12:30 | disposition home or self-care (01) ==
PROVIDERS: PCP Internal Medicine; Visit Provider Internal Medicine
DX: Z13.9 Encounter for screening, unspecified (principal)

== ENCOUNTER → 2024-09-14 11:44 | Outpatient (BNVA) | payer OTHER, SELFPAY | PROVIDERS: PCP Internal Medicine; Visit Provider Internal Medicine | DX: E11.65 Type 2 diabetes mellitus with hyperglycemia (principal); M16.12 Unilateral primary osteoarthritis, left hip; R79.89 Other specified abnormal findings of blood chemistry; J45.20 Mild intermittent asthma, uncomplicated; E55.9 Vitamin D deficiency, unspecified; D72.829 Elevated white blood cell count, unspecified; M51.360 Other intervertebral disc degeneration, lumbar region with discogenic back pain only; E66.01 Morbid (severe) obesity due to excess calories; Z68.43 Body mass index [BMI] 50.0-59.9, adult; Z71.3 Dietary counseling and surveillance | CPT/HCPCS: 83036; 96127; 99212 ==

== ENCOUNTER 2024-12-25 19:31 | Emergency (ER) | payer OTHER, SELFPAY ==
--- NOTE | 2024-12-25 | ECG_ITS ---
Test Reason : chest pain Blood Pressure : */* mmHG Vent. Rate : 75 BPM Atrial Rate : 75 BPM P-R Int : 164 ms QRS Dur : 106 ms QT Int : 394 ms P-R-T Axes : 30 16 17 degrees QTcB Int : 439 ms Normal sinus rhythm with sinus arrhythmia Incomplete right bundle branch block Borderline ECG When compared with ECG of 23-Jul-2024 19:37, No significant change was found Referred By: Generic ED Physician Electronically Signed By: TIM GREGG MD
--- NOTE | ~2024-12-25 | XR_ITS ---
CLINICAL HISTORY: pain Single view of the chest. Comparison 07/23/2024. Findings: Heart size is upper limits of normal. There is no consolidation. No pleural effusions are seen. The lungs are under ventilated. Impression: No consolidation. This document has been electronically signed by: David Ramírez MD on 12/25/2024 20:35:21
[2024-12-25 19:38] VITALS: BP 136/62; PULSE 75; RESP 18; TEMP 36.7; O2SAT 99; BMI 55.4
--- NOTE | 2024-12-25 19:41 | ED_ITS ---
HPI - Chest Pain General Chief Complaint: Chest Pain Stated Complaint: chest tightness/pressure Time Seen by Provider: 12/25/24 23:06 Source: patient Mode of arrival: ambulatory Limitations: no limitations History of Present Illness ED Provider: Hernesto Mena DO HPI narrative: 29-year-old male with past medical history of mild diabetes on metformin and asthma as well as obesity presents to the ED for an evaluation of left-sided nonradiating chest pressure episodes that started at noon today and have been intermittent, lasting 5 or 10 minutes at a time with no clear mitigating or exacerbating factors. He denies increased pain with exertion or associated dyspnea, diaphoresis, nausea, vomiting, lower extremity pain or swelling, previous history of DVT or PE, hemoptysis, pleuritic chest pain or pain to palpation or pain worse with lying supine. He denies recent illnesses including cough or fevers. Related Data Previous Rx's ?Medication ?Instructions ?Recorded lidocaine 5 % topical patch 1 patch topical DAILY PRN pain #30 11/05/23 (Lidoderm) ea cholecalciferol (vitamin D3) 50 50 mcg PO DAILY 90 days #90 caps 04/03/24 mcg (2,000 unit) capsule metformin 1,000 mg tablet 1,000 mg PO BID 90 days #180 tabs 04/03/24 naproxen 500 mg tablet 500 mg PO BID 7 days #14 tabs 08/30/24 sitagliptin phosphate 50 mg tablet 50 mg PO DAILY 90 days #90 tabs 09/14/24 (Januvia) Allergies Allergy/AdvReac Type Severity Reaction Status Date / Time No Known Allergies Allergy Verified 12/25/24 19:40 [No Known Allergies*] Review of Systems 2 Review of Systems: Yes all other systems are reviewed and are negative PMFSH Past Medical History Medical History (Updated 12/26/24 @ 00:19 by Hernesto Mena DO) Osteoarthritis of left hip Chronic left hip pain Vitamin D deficiency Diabetes mellitus Lumbar degenerative disc disease Morbid obesity with BMI of 50.0-59.9, adult Asthma Surgical History History of excision of mass (02/19/22) History of repair of ACL History of repair of anterior cruciate ligament of right knee (~08/2015) Family History Family History Brother Epilepsy Maternal Aunt Breast cancer Social History Social History Housing: Apartment Alcohol intake: never Patient Tobacco Use Status: Never used Tobacco e-Cigarette/Vaping Use: Never Used Second Hand Smoke Exposure: Yes Advance Directives: No Advance Directives Information Provided: Yes service: No Current occupational status: employed Current occupation: [employer] Cognitive needs: No Hearing needs: No Vision needs: No Physical Exam 2 Vital Signs: Vital Signs: Last Vital Signs Temp 99.1 F 12/26/24 00:36 Pulse 84 12/26/24 00:36 Resp 16 12/26/24 00:36 BP 147/82 H 12/26/24 00:36 Pulse Ox 98 12/26/24 00:36 O2 Del Method Room Air 12/26/24 00:36 BMI result Body Mass Index 55.4 Constitutional: ?Alert, oriented, speaking in full sentences HEENT: ?Normocephalic, atraumatic. ?Moist mucous membranes Eyes: ?PERRL, EOMI Neck: ?Supple, nontender Chest: ?No chest wall tenderness Respiratory: ?Lungs clear to auscultation, no increased work of breathing Cardio: ?Regular rate and rhythm, no murmur, 2+ radial and DP pulses symmetrically GI: ?Soft, nondistended, nontender Back: ?Normal range of motion, nontender Skin: ?No rash, no lesions Neuro: ?Alert and oriented to person, place and time, moves all 4 extremities, no focal deficits Extremities: ?No swelling or tenderness, full range of motion Psych: ?Calm, alert and cooperative, appropriate behavior Course Course Course Narrative: This is a rapid medical exam performed by Araseli Norman PA-C. The patient is a 29-year-old male with a history of morbid obesity, arthritis, asthma who presents with left-sided chest pain since earlier today. No precipitating factors, no exacerbating or alleviating. Pain over left anterior chest. Denies recent cough or cold symptoms, denies overuse injury. We will be screening basic labs EKG chest x-ray and a trop. The patient was stable and can return to the waiting room pending his full medical assessment. Medical Decision Making Medical Decision Making MDM Narrative: This patient presents with chest pain, with symptoms suggestive of noncardiac chest pain. History without high risk features (e.g., not substernal, no exertional component, not relieved with rest). Minimal CAD risk factors. Exam without evidence of volume overload. EKG without signs of active ischemia. HEART score: 2. Plan to send troponin to evaluate for evidence of NSTEMI. Presentation not consistent with acute PE (Wells low risk / PERC negative), pneumothorax, thoracic arotic dissection, cardiac effusion or tamponade. Two troponins unremarkable. No active chest pain during my evaluation. Unclear etiology of the patient's symptoms at this time. Very low likelihood of ACS. Patient has follow up with his PCP on Wednesday in less than a week. We discussed clear return precautions for any recurrent symptoms or development of other symptoms. Admission/Observation Consideration of admission/observation: Escalation of care including admission/observation considered Lab Data MDM Lab Attestation statement: I reviewed the patient's lab results. 12/25/24 20:07 12/25/24 20:07 Labs: Lab Results 12/25/24 12/25/24 Range/Units 20:07 23:14 WBC 10.0 (4.8-10.8) X10*3/uL RBC 4.59 L (4.60-5.80) X10*6/uL Hgb 13.3 L (14.0-18.0) g/dl Hct 40.3 L (42.0-52.0) % MCV 87.8 (80.0-98.0) fL MCH 29.0 (27.0-33.0) pg MCHC 33.0 (31.0-36.0) g/dl RDW 12.7 (11.0-16.0) % Plt Count 304 (160-400) X10*3/uL MPV 10.5 (9.4-12.4) fL Immature Gran % (Auto) 0.3 (0.0-0.4) % Neut % (Auto) 54.6 (45-73) % Lymph % (Auto) 34.1 (20-40) % [place] % (Auto) 9.1 (2-11) % Eos % (Auto) 1.5 (0-4) % Baso % (Auto) 0.4 (0-2) % Lymph # (Auto) 3.4 (1.2-4.9) X10*3/uL [place] # (Auto) 0.9 (0.1-1.2) X10*3/uL Eos # (Auto) 0.2 (0.0-0.4) X10*3/uL Baso # (Auto) 0.0 (0.0-0.2) X10*3/uL Abs Immat Gran (auto) 0.03 (0.00-0.03) X10*3/uL Absolute Neuts (auto) 5.5 (2.0-8.3) x10*3/uL Absolute Nucleated RBC 0.000 (0.0-0.012) X10*3/uL Nucleated RBC % (auto) 0.0 (0.0-0.2) /100WBC Sodium 138 (135-145) mmol/L Potassium 4.4 (3.3-5.1) mmol/L Chloride 103 (96-108) mmol/L Carbon Dioxide 26 (22-29) mmol/L Anion Gap 13 (12-20) BUN 10 (9-16) mg/dL Creatinine 0.82 (0.5-1.4) mg/dL Estim Creat Clear Calc 199.6 Estimated GFR > 60 Random Glucose 234 H (60-115) mg/dL Calcium 9.2 (8.4-10.2) mg/dL Magnesium 1.8 (1.6-2.6) mg/dL Total Bilirubin 0.3 (0.0-1.0) mg/dL AST 50 H (5-37) U/L ALT 98 H (0-40) U/L Alkaline Phosphatase 80 (39-117) U/L Troponin I High Sens < 2.7 D < 2.7 (<3.5-35.0) ng/L Total Protein 7.4 (6.5-8.0) g/dL Albumin 4.3 (3.5-5.0) g/dL Lipase 25 (8-78) U/L Independent Interpretation I performed an independent interpretation of an: EKG Interpretation: Normal sinus rhythm at 75 beats per minute, slight prolongation of QRS, unremarkable intervals otherwise, no diagnostic ST or T-wave abnormalities, normal axis, no prior for comparison. Chest x-ray per my independent interpretation shows no acute cardiopulmonary abnormalities. Scores Heart Score History: -1- moderately suspicious ECG: -0- normal Age: -0- < or = 45 Risk factory: -1- 1 or 2 risk factors Troponin: -0- < or = normal limit Score: 2 Risk: 1.7% Discharge Plan Discharge Clinical Impression: Chest pain Patient Disposition: Home, Self-Care Instructions: Chest Pain (ED) Additional Instructions: You have been evaluated in the emergency department for chest pain today.? Although it was determined that there was not an immediately life threatening cause for your chest pain, it is very important that you follow up with your primary care physician.? Further cardiac (heart) testing may be recommended. Please be aware that if your condition changes or worsens in any way while you are at home, you should return to the emergency department immediately for further care.? This is especially true for worsening / recurrent pain, shortness of breath, vomiting, sweating, palpitations, lightheadedness or passing out.? These may be signs of an emergency condition and you should call 911 if these symptoms occur. Thank you for choosing us for your care. Prescriptions: No Action lidocaine [Lidoderm] 5 % adhesive patch,medicated 1 patch topical DAILY MDD remove after 12 hours PRN (Reason: pain) Qty: 30 0RF Rx Instructions: leave on most painful area for up to 12 hrs naproxen 500 mg tablet 500 mg PO BID 7 Days Qty: 14 0RF cholecalciferol (vitamin D3) 50 mcg (2,000 unit) capsule 50 mcg PO DAILY 90 Days Qty: 90 3RF metformin 1,000 mg tablet 1,000 mg PO BID 90 Days Qty: 180 1RF Januvia 50 mg tablet 50 mg PO DAILY 90 Days Qty: 90 1RF Interventions: ED Discharge Assessment Last Done: 12/26/24 00:36 Discharge Date/Time: 12/26/24 00:36 Print Language: Croatian
[2024-12-25 20:13] LABS: MANUAL DIFF FLAG NO
[2024-12-25 20:15] LABS: Basophils Percent Auto 0.4 % (0-2); Eosinophils Absolute Auto 0.2 X10*3/uL (0.0-0.4); Eosinophils Percent Auto 1.5 % (0-4); Hematocrit 40.3 % (42.0-52.0); Hemoglobin 13.3 g/dl (14.0-18.0); Imm Gran Abs Auto 0.03 X10*3/uL (0.00-0.03); Imm Gran Pct Auto 0.3 % (0.0-0.4); Lymphocytes Absolute Auto 3.4 X10*3/uL (1.2-4.9); Lymphocytes Percent Auto 34.1 % (20-40); Mean Corpuscular Volume 87.8 fL (80.0-98.0); Mean Platelet Volume 10.5 fL (9.4-12.4); Monocytes Absolute Auto 0.9 X10*3/uL (0.1-1.2); Monocytes Percent Auto 9.1 % (2-11); Neutrophils Absolute Auto 5.5 x10*3/uL (2.0-8.3); Neutrophils Percent Auto 54.6 % (45-73); Platelet Count 304 X10*3/uL (160-400); Red Blood Count 4.59 X10*6/uL (4.60-5.80); Red Cell Distribution Width 12.7 % (11.0-16.0)
[2024-12-25 20:30] LABS: Alanine Aminotransferase 98 U/L (0-40); Albumin Level 4.3 g/dL (3.5-5.0); Alkaline Phosphatase 80 U/L (39-117); Anion Gap 13 (12-20); Aspartate Amino Transferase 50 U/L (5-37); Bilirubin Total 0.3 mg/dL (0.0-1.0); Blood Urea Nitrogen 10 mg/dL (9-16); Calcium 9.2 mg/dL (8.4-10.2); Carbon Dioxide 26 mmol/L (22-29); Chloride 103 mmol/L (96-108); Creatinine Clr Calc Pharmacy 199.6; Estimated Glomerular Filt Rate > 60; Glucose Random 234 mg/dL (60-115); Lipase 25 U/L (8-78); Magnesium 1.8 mg/dL (1.6-2.6); Potassium 4.4 mmol/L (3.3-5.1); Sodium 138 mmol/L (135-145); Total Protein 7.4 g/dL (6.5-8.0)
[2024-12-25 20:39] LABS: Troponin-I High Sensitivity < 2.7 ng/L (<3.5-35.0)
[2024-12-25 23:02] VITALS: BP 140/74; PULSE 66; RESP 18; TEMP 36.3; O2SAT 98
[2024-12-25 23:49] LABS: Troponin-I High Sensitivity < 2.7 ng/L (<3.5-35.0)
[2024-12-25 23:59] VITALS: BP 147/82; PULSE 84; RESP 16; TEMP 37.3; O2SAT 98
[2024-12-26 00:36] VITALS: BP 147/82; PULSE 84; RESP 16; TEMP 37.3; O2SAT 98
== END 2024-12-26 00:36 | disposition home or self-care (01) ==
PROVIDERS: Physician Assistant Medical; Emergency Provider Emergency Medicine; PCP Internal Medicine
DX: R07.89 Other chest pain (principal); I49.8 Other specified cardiac arrhythmias; Z79.899 Other long term (current) drug therapy; Z79.84 Long term (current) use of oral hypoglycemic drugs
CPT/HCPCS: 36415; 71045; 80053; 83690; 83735; 84484; 85025; 93005; 99283

== ENCOUNTER → 2024-12-25 19:34 | Outpatient (BNV) | payer OTHER, SELFPAY | PROVIDERS: Emergency Provider Emergency Medicine; PCP Internal Medicine; Visit Provider Internal Medicine Cardiovascular Disease | DX: I45.10 Unspecified right bundle-branch block (principal) | CPT/HCPCS: 93010 ==

== ENCOUNTER → 2024-12-25 19:40 | Outpatient (BNV) | payer OTHER, SELFPAY | PROVIDERS: PCP Internal Medicine; Visit Provider Radiology Diagnostic Radiology | DX: R07.9 Chest pain, unspecified (principal) | CPT/HCPCS: 71045 ==

== ENCOUNTER 2024-12-26 18:21 | Emergency (ER) | payer OTHER, SELFPAY ==
--- NOTE | 2024-12-26 18:23 | ECG_ITS ---
Test Reason : cp Blood Pressure : */* mmHG Vent. Rate : 100 BPM Atrial Rate : 100 BPM P-R Int : 156 ms QRS Dur : 104 ms QT Int : 374 ms P-R-T Axes : 24 23 34 degrees QTcB Int : 482 ms Normal sinus rhythm Incomplete right bundle branch block Borderline ECG When compared with ECG of 25-Dec-2024 19:34, No significant change was found Referred By: Generic ED Physician Electronically Signed By: TIM GREGG MD
[2024-12-26 18:51] VITALS: BP 122/64; PULSE 76; RESP 18; TEMP 36.8; O2SAT 99; BMI 55.0
--- NOTE | 2024-12-26 18:58 | ED_ITS ---
HPI - Chest Pain General Chief Complaint: Dizziness Stated Complaint: Chest pain Time Seen by Provider: 12/26/24 21:52 Source: patient Mode of arrival: ambulatory Limitations: no limitations History of Present Illness ED Provider: HPI narrative: Patient is complaining of pain in the right 2nd intercostal space since yesterday was seen here diagnose costochondritis today comes because pain is still there and has difficulty in breathing patient has a D-dimer done prior to my evaluation which was negative yesterday cardiac workup was negative chest x- ray were negative patient has had 2 sets of cardiac enzymes which were negative yesterday and today also troponin is negative Related Data Previous Rx's ?Medication ?Instructions ?Recorded lidocaine 5 % topical patch 1 patch topical DAILY PRN pain #30 11/05/23 (Lidoderm) ea cholecalciferol (vitamin D3) 50 50 mcg PO DAILY 90 days #90 caps 04/03/24 mcg (2,000 unit) capsule metformin 1,000 mg tablet 1,000 mg PO BID 90 days #180 tabs 04/03/24 naproxen 500 mg tablet 500 mg PO BID 7 days #14 tabs 08/30/24 sitagliptin phosphate 50 mg tablet 50 mg PO DAILY 90 days #90 tabs 09/14/24 (Januvia) ibuprofen 600 mg tablet 600 mg PO Q6H PRN fever or pain 12/26/24 #30 tabs Allergies Allergy/AdvReac Type Severity Reaction Status Date / Time No Known Allergies Allergy Verified 12/26/24 22:42 Review of Systems 2 Review of Systems: Yes all other systems are reviewed and are negative PMFSH Past Medical History Medical History Osteoarthritis of left hip Chronic left hip pain Vitamin D deficiency Diabetes mellitus Lumbar degenerative disc disease Morbid obesity with BMI of 50.0-59.9, adult Asthma Surgical History History of excision of mass (02/19/22) History of repair of ACL History of repair of anterior cruciate ligament of right knee (~08/2015) Family History Family History Brother Epilepsy Maternal Aunt Breast cancer Social History Social History Housing: Apartment Alcohol intake: never Patient Tobacco Use Status: Never used Tobacco Smoked in Last 30 Days: No e-Cigarette/Vaping Use: Never Used Second Hand Smoke Exposure: Yes Advance Directives: No Advance Directives Information Provided: No service: No Current occupational status: employed Current occupation: [employer] Cognitive needs: No Hearing needs: No Vision needs: No Physical Exam 2 Vital Signs: Vital Signs: Last Vital Signs Temp 98.1 F 12/26/24 22:53 Pulse 63 12/26/24 22:53 Resp 16 12/26/24 22:53 BP 118/65 12/26/24 22:53 Pulse Ox 98 12/26/24 22:53 O2 Del Method Room Air 12/26/24 22:53 BMI result Body Mass Index 55.0 Appearance: Alert. Oriented X3. No acute distress. Eyes: PERRLA, No Nystagmus ENT: Pharynx normal. Oral Mucosa moist Neck: Normal inspection. Neck supple. CVS: Normal heart rate and rhythm. Pulses normal. No rub murmur or gallop Respiratory: No respiratory distress. Equal air entry bilateral, no wheezing/rales/rhonchi global tenderness right 2nd intercostal space on palpation Abdomen: Soft and nontender. Bowel sounds are present, no mass palpable, no CVA tenderness Skin: Skin warm and dry. Normal skin color. Normal skin turgor. Extremities: No lower extremity edema. No calf tenderness Neuro: Oriented X 3. No motor deficit. No sensory deficit.No cerebellar signs , cranial nerves II-XII intact Course Course Course Narrative: This is a rapid medical exam performed by Araseli Norman PA-C. Patient is a 29-year-old male with a history of morbid obesity, chronic pain, diabetes, asthma who presents with pleuritic chest pain. Patient was seen overnight yesterday in the emergency department for same symptoms. He had a negative cardiac workup. Patient states he has gradual sharp left anterior chest pain worse with breathing, that occurs spontaneously. Denies anxiety, history of panic attacks, recent cough or cold symptoms, abdominal pain, chest wall strain. He has no known risk factors for PE, no objective signs symptoms for DVT on exam. He appears anxious on exam, his lungs are clear. We will be screening basic labs cardiac enzyme, and a dimer. I am not repeating the chest x-ray which he had yesterday. EKG already obtained. He is stable and can return to the waiting room pending his full medical assessment. Medications Administered Discontinued Medications Generic Name Dose Route Start Last Admin Trade Name Mukul PRN Reason Stop Dose Admin Ibuprofen 800 mg 12/26/24 22:11 12/26/24 22:47 Ibuprofen 800 Mg Tablet PO 12/26/24 22:12 800 mg ONCE ONE Administration Medical Decision Making Medical Decision Making [facility] Narrative: Patient will costochondritis D-dimer was negative for PE repeat cardiac enzymes also negative Differential Diagnosis Differential Diagnoses: The differential diagnosis associated with the presentation includes PE/costochondritis/ACS Lab Data [facility] Lab Attestation statement: I reviewed the patient's lab results. 12/26/24 19:25 12/26/24 19:25 Labs: Lab Results 12/26/24 Range/Units 19:25 WBC 11.4 H (4.8-10.8) X10*3/uL RBC 4.50 L (4.60-5.80) X10*6/uL Hgb 13.2 L (14.0-18.0) g/dl Hct 38.4 L (42.0-52.0) % MCV 85.3 (80.0-98.0) fL MCH 29.3 (27.0-33.0) pg MCHC 34.4 (31.0-36.0) g/dl RDW 12.8 (11.0-16.0) % Plt Count 297 (160-400) X10*3/uL MPV 10.3 (9.4-12.4) fL Immature Gran % (Auto) 0.3 (0.0-0.4) % Neut % (Auto) 69.4 (45-73) % Lymph % (Auto) 23.0 (20-40) % [place] % (Auto) 6.3 (2-11) % Eos % (Auto) 0.7 (0-4) % Baso % (Auto) 0.3 (0-2) % Lymph # (Auto) 2.6 (1.2-4.9) X10*3/uL [place] # (Auto) 0.7 (0.1-1.2) X10*3/uL Eos # (Auto) 0.1 (0.0-0.4) X10*3/uL Baso # (Auto) 0.0 (0.0-0.2) X10*3/uL Abs Immat Gran (auto) 0.04 H (0.00-0.03) X10*3/uL Absolute Neuts (auto) 7.9 (2.0-8.3) x10*3/uL Absolute Nucleated RBC 0.000 (0.0-0.012) X10*3/uL Nucleated RBC % (auto) 0.0 (0.0-0.2) /100WBC D-Dimer High Sensitivty < 150 NG/ML Sodium 137 (135-145) mmol/L Potassium 3.8 (3.3-5.1) mmol/L Chloride 105 (96-108) mmol/L Carbon Dioxide 21 L (22-29) mmol/L Anion Gap 15 (12-20) BUN 10 (9-16) mg/dL Creatinine 0.81 (0.5-1.4) mg/dL Estim Creat Clear Calc 201.2 Estimated GFR > 60 Random Glucose 215 H (60-115) mg/dL Calcium 9.5 (8.4-10.2) mg/dL Magnesium 1.7 (1.6-2.6) mg/dL Total Bilirubin 0.4 (0.0-1.0) mg/dL AST 54 H (5-37) U/L ALT 101 H (0-40) U/L Alkaline Phosphatase 80 (39-117) U/L Troponin I High Sens < 2.7 (<3.5-35.0) ng/L Total Protein 7.5 (6.5-8.0) g/dL Albumin 4.4 (3.5-5.0) g/dL Independent Interpretation I performed an independent interpretation of an: EKG Interpretation: Normal sinus rhythm heart rate 100 beats per minute incomplete right bundle- branch block no acute ST-T changes no acute ischemia Discharge Plan Discharge Clinical Impression: Acute costochondritis Patient Disposition: Home, Self-Care Instructions: Costochondritis (ED) Additional Instructions: Your chest pain is from inflammation of the cartilage Ibuprofen for pain Follow with your PCP if not better Prescriptions: New ibuprofen 600 mg tablet 600 mg PO Q6H PRN (Reason: fever or pain) Qty: 30 0RF No Action lidocaine [Lidoderm] 5 % adhesive patch,medicated 1 patch topical DAILY MDD remove after 12 hours PRN (Reason: pain) Qty: 30 0RF Rx Instructions: leave on most painful area for up to 12 hrs naproxen 500 mg tablet 500 mg PO BID 7 Days Qty: 14 0RF cholecalciferol (vitamin D3) 50 mcg (2,000 unit) capsule 50 mcg PO DAILY 90 Days Qty: 90 3RF metformin 1,000 mg tablet 1,000 mg PO BID 90 Days Qty: 180 1RF Januvia 50 mg tablet 50 mg PO DAILY 90 Days Qty: 90 1RF Stand Alone Forms: Work/School Release Interventions: ED Discharge Assessment Last Done: 12/26/24 22:53 Discharge Date/Time: 12/26/24 22:55 Print Language: Citizen Of [place]
[2024-12-26 19:37] LABS: MANUAL DIFF FLAG NO
[2024-12-26 19:39] LABS: Basophils Percent Auto 0.3 % (0-2); Eosinophils Absolute Auto 0.1 X10*3/uL (0.0-0.4); Eosinophils Percent Auto 0.7 % (0-4); Hematocrit 38.4 % (42.0-52.0); Hemoglobin 13.2 g/dl (14.0-18.0); Imm Gran Abs Auto 0.04 X10*3/uL (0.00-0.03); Imm Gran Pct Auto 0.3 % (0.0-0.4); Lymphocytes Absolute Auto 2.6 X10*3/uL (1.2-4.9); Mean Corpuscular HGB Conc 34.4 g/dl (31.0-36.0); Mean Corpuscular Hemoglobin 29.3 pg (27.0-33.0); Mean Corpuscular Volume 85.3 fL (80.0-98.0); Mean Platelet Volume 10.3 fL (9.4-12.4); Monocytes Absolute Auto 0.7 X10*3/uL (0.1-1.2); Monocytes Percent Auto 6.3 % (2-11); Neutrophils Absolute Auto 7.9 x10*3/uL (2.0-8.3); Neutrophils Percent Auto 69.4 % (45-73); Platelet Count 297 X10*3/uL (160-400); Red Cell Distribution Width 12.8 % (11.0-16.0); White Blood Count 11.4 X10*3/uL (4.8-10.8)
[2024-12-26 20:02] LABS: Alanine Aminotransferase 101 U/L (0-40); Albumin Level 4.4 g/dL (3.5-5.0); Alkaline Phosphatase 80 U/L (39-117); Anion Gap 15 (12-20); Aspartate Amino Transferase 54 U/L (5-37); Bilirubin Total 0.4 mg/dL (0.0-1.0); Blood Urea Nitrogen 10 mg/dL (9-16); Calcium 9.5 mg/dL (8.4-10.2); Carbon Dioxide 21 mmol/L (22-29); Chloride 105 mmol/L (96-108); Creatinine Clr Calc Pharmacy 201.2; Estimated Glomerular Filt Rate > 60; Glucose Random 215 mg/dL (60-115); Magnesium 1.7 mg/dL (1.6-2.6); Potassium 3.8 mmol/L (3.3-5.1); Sodium 137 mmol/L (135-145); Total Protein 7.5 g/dL (6.5-8.0)
[2024-12-26 20:12] LABS: D Dimer High Sensitivity < 150 NG/ML
[2024-12-26 20:16] LABS: Troponin-I High Sensitivity < 2.7 ng/L (<3.5-35.0)
--- NOTE | 2024-12-26 21:37 | PC.NURSE ---
Patient presents from work and began experiencing sscp. Denies any additional symptoms or cardiac history.
[2024-12-26 21:39] VITALS: BP 136/74; PULSE 71; RESP 18; TEMP 36.9; O2SAT 99
[2024-12-26 22:00] VITALS: BP 118/65; PULSE 63; RESP 16; TEMP 36.7; O2SAT 98
[2024-12-26] MEDS: Ibuprofen 800 MG TABLET PO (22:47)
[2024-12-26 22:53] VITALS: BP 118/65; PULSE 63; RESP 16; TEMP 36.7; O2SAT 98
== END 2024-12-26 22:55 | disposition home or self-care (01) ==
PROVIDERS: Physician Assistant Medical; Emergency Provider Internal Medicine; PCP Internal Medicine
DX: M94.0 Chondrocostal junction syndrome [Tietze] (principal); R07.9 Chest pain, unspecified; E11.9 Type 2 diabetes mellitus without complications; J45.909 Unspecified asthma, uncomplicated
CPT/HCPCS: 36415; 80053; 83735; 84484; 85025; 85379; 93005; 99283; 99285

== ENCOUNTER → 2024-12-26 18:23 | Outpatient (BNV) | payer OTHER, SELFPAY | PROVIDERS: Emergency Provider Internal Medicine; PCP Internal Medicine; Visit Provider Internal Medicine Cardiovascular Disease | DX: I45.10 Unspecified right bundle-branch block (principal) | CPT/HCPCS: 93010 ==

== ENCOUNTER 2024-12-29 09:12 | Outpatient (REF) | payer OTHER, SELFPAY ==
[2024-12-29 09:36] LABS: MANUAL DIFF FLAG NO
[2024-12-29 09:59] LABS: Basophils Percent Auto 0.4 % (0-2); Eosinophils Absolute Auto 0.1 X10*3/uL (0.0-0.4); Eosinophils Percent Auto 1.2 % (0-4); Hematocrit 41.7 % (42.0-52.0); Hemoglobin 13.9 g/dl (14.0-18.0); Imm Gran Abs Auto 0.03 X10*3/uL (0.00-0.03); Imm Gran Pct Auto 0.3 % (0.0-0.4); Lymphocytes Percent Auto 31.6 % (20-40); Mean Corpuscular HGB Conc 33.3 g/dl (31.0-36.0); Mean Corpuscular Volume 86.9 fL (80.0-98.0); Mean Platelet Volume 10.6 fL (9.4-12.4); Monocytes Absolute Auto 0.7 X10*3/uL (0.1-1.2); Monocytes Percent Auto 7.5 % (2-11); Neutrophils Absolute Auto 5.5 x10*3/uL (2.0-8.3); Platelet Count 319 X10*3/uL (160-400); Red Cell Distribution Width 12.7 % (11.0-16.0); White Blood Count 9.4 X10*3/uL (4.8-10.8)
[2024-12-29 10:05] LABS: Estimated Average Glucose 235 mg/dL; Hemoglobin A1c % 9.8 % (<6.0)
[2024-12-29 11:19] LABS: Alanine Aminotransferase 111 U/L (0-40); Albumin Level 4.4 g/dL (3.5-5.0); Alkaline Phosphatase 73 U/L (39-117); Anion Gap 11 (12-20); Aspartate Amino Transferase 69 U/L (5-37); Bilirubin Total 0.6 mg/dL (0.0-1.0); Blood Urea Nitrogen 9 mg/dL (9-16); Calcium 9.3 mg/dL (8.4-10.2); Carbon Dioxide 27 mmol/L (22-29); Chloride 106 mmol/L (96-108); Estimated Glomerular Filt Rate > 60; Glucose Fasting 172 mg/dL (60-99); Potassium 4.6 mmol/L (3.3-5.1); Sodium 139 mmol/L (135-145); Total Protein 7.5 g/dL (6.5-8.0)
[2024-12-29 11:23] LABS: TSH reflex Free T4 1.94 uIU/mL (0.32-4.0); Vitamin D 25-OH Total 15.2 ng/mL (>30)
[2024-12-29 11:38] LABS: Appearance Urine Clear; Color Urine Yellow; Glucose Urine UA Negative (Negative); Leukocyte Esterase Urine Negative (Negative); Nitrite Urine Negative (Negative); PH 5.5 (5.0-9.0); Urine Blood Negative (Negative); Urine Ketones Negative (Negative); Urine Protein Negative (Neg-Trace)
== END 2024-12-29 09:13 | disposition home or self-care (01) ==
LOC: HO.LAB 09:12
PROVIDERS: PCP Internal Medicine; Visit Provider Internal Medicine
DX: D64.9 Anemia, unspecified (principal); E78.00 Pure hypercholesterolemia, unspecified; R30.0 Dysuria; E55.9 Vitamin D deficiency, unspecified; E11.9 Type 2 diabetes mellitus without complications
CPT/HCPCS: 36415; 80053; 81003; 82306; 83036; 84443; 85025

== ENCOUNTER 2025-01-01 12:18 | Outpatient (AMB) | payer OTHER, SELFPAY ==
[2025-01-01 12:31] VITALS: BP 114/72; PULSE 72; O2SAT 99; BMI 54.8
--- NOTE | 2025-01-01 12:31 | A.OFFPC_ITS ---
Vital Signs 01/01/25 12:31 Height 5 ft 8 in Weight 360 lb 6 oz BMI 54.8 BP 114/72 Blood Pressure Location Lt brachial Position Sitting Pulse 72 Pulse Source Pulse Oximeter Pulse Oximetry (%) 99 Oxygen Delivery Method Room Air Intake Visit Reasons: 3 months [employer] Analyst Required: No Accompanied by: Self / Same As Patient Allergies No Known Allergies Allergy (Verified 01/01/25 12:55) Medication List - Last Reconciled 01/01/25 by César Wallace MD cholecalciferol (vitamin D3) 50 mcg PO DAILY 90 days ibuprofen 600 mg PO Q6H PRN lidocaine 5% (Lidoderm) 1 patch topical DAILY PRN MDD remove after 12 hours metformin 1,000 mg PO BID 90 days naproxen 500 mg PO BID 7 days sitagliptin phosphate (Januvia) 50 mg PO DAILY 90 days Tobacco use date assessed: 01/01/25 Dental Screening Dental Screen Date: 01/01/25 Did you have a dental visit in the last 12 months?: No Did you have a dental problem in the last 6 months where you did not have access to dental care?: No Was dental information given to patient?: No HPI 3 months HPI Details Patient comes in today for his follow up visit He went to the ER last week for increased right-sided chest wall pain - was diagnosed with costochondritis after work ups done came back negative Patient states that he still has the right anterior chest wall pain but the intensity of the pain has subsided a lot from a week ago States that he feels okay otherwise He denies any headaches or dizziness Denies any exertional chest pains, no increased SOB No nausea/vomiting, no abdominal pain No change in bowel habits noted He had his follow up labs done a few days ago - to discuss his results [facility], [facility] Medical History Osteoarthritis of left hip Chronic left hip pain Vitamin D deficiency Diabetes mellitus Lumbar degenerative disc disease Morbid obesity with BMI of 50.0-59.9, adult Asthma Surgical History History of excision of mass (02/19/22) History of repair of ACL History of repair of anterior cruciate ligament of right knee (~08/2015) Family History Brother Epilepsy Maternal Aunt Breast cancer Social History Housing: Apartment Alcohol intake: never Patient Tobacco Use Status: Never used Tobacco e-Cigarette/Vaping Use: Never Used Second Hand Smoke Exposure: Yes service: No Current occupational status: employed Current occupation: [employer] Cognitive needs: No Hearing needs: No Vision needs: No Questionnaire PHQ-9 Over the last 2 weeks, how often have you been bothered by any of the following problems? 1. Little interest or pleasure in doing things: not at all 2. Feeling down, depressed, or hopeless: not at all 3. Trouble falling or staying asleep, or sleeping too much: not at all 4. Feeling tired or having little energy: not at all 5. Poor appetite or overeating: not at all 6. Feeling bad about yourself - or that you are a failure or have let yourself or your family down: not at all 7. Trouble concentrating on things, such as reading the newspaper or watching television: not at all 8. Moving or speaking so slowly that other people could have noticed. Or the opposite - being so fidgety or restless that you have been moving around a lot more than usual: not at all 9. Thoughts that you would be better off or of hurting yourself in some way: not at all Total score: 0 Depression Screening Interpretation: Negative Depression Screening Done: Yes 84573 - PHQ-9 Billing: Yes Source: Developed by Drs. Kwesi Tran, Za Campoverde, Jovon Mireles and colleagues, with an educational sary from [employer]. Thrive Questionnaire Date Thrive assessed: 01/01/25 I am a: Patient What is your living situation today?: I have a steady place to live Within the past 12 months, did the food you bought not last and you didn't have the money to get more?: Never true Within the past 12 months, did you worry whether your food would run out before you got money to buy more?: Never true Do you have trouble paying for medicines?: No Do you have trouble getting transportation to medical appointments?: No Do you have trouble paying your heating and electricity bill?: No Do you have trouble taking care of your child, family member or friend?: No Do you have trouble with day-to-day activities such as bathing, preparing meals, shopping, managing finances, etc.?: No Are you currently unemployed and looking for a job?: No Are you interested in more education?: No Please select the resources that you would like help with: None Currently or been in a relationship where the following occur: No concerns reported THRIVE Score: 0 AUDIT C Alcohol Use Questionnaire (AUDIT-C) 1. How often do you have a drink containing alcohol?: Monthly or less 2. How many drinks containing alcohol do you have on a typical day when you are drinking?: 1 or 2 3. How often do you have six or more drinks on one occasion?: Never Total Score: 1 Score Reviewed/Action Taken: Yes LIBBY-7 AMB Questionnaire LIBBY-7 Date LIBBY - 7 assessed: 01/01/25 Feeling nervous, anxious, or on edge: 0 = Not at all Not being able to stop or control worryin = Not at all Worrying too much about different things: 0 = Not at all Trouble relaxin = Not at all Being so restless that it is hard to sit still: 0 = Not at all Becoming easily annoyed or irritable: 0 = Not at all Feeling afraid as if something awful might happen: 0 = Not at all Total LIBBY-7 score (0-4 normal; 5-9 mild; 10-14 moderate; 15-21 severe): 0 Source: Developed by Drs. Kwesi Tran, Za Campoverde, Jovon Mireles and colleagues, with an educational sary from [employer]. Review of Systems Const Denies chills, Denies fatigue, Denies fever(s) and Denies headache(s) ENT Denies dysphagia, Denies dizziness, Denies otalgia, Denies headache(s), Denies neck pain, Denies odynophagia and Denies sore throat Card Details: (+) mild right-sided chest wall pain Denies chest pain with activity, Denies palpitations and Denies dyspnea Resp Denies chest congestion, Denies cough and Denies dyspnea GI Denies abdominal pain, Denies constipation, Denies dysphagia, Denies heartburn, Denies diarrhea, Denies nausea, Denies odynophagia and Denies vomiting Denies dysuria, Denies nocturia and Denies urinary frequency Musc Reports back pain (over the lower back, on and off), Reports arthralgias (increased over the left hip - chronic) and Denies neck pain Skin/Breast Denies rash Neuro Denies dizziness and Denies headache(s) Endo Denies fatigue and Denies palpitations Physical exam (Primary Care) Vital Signs: Last Vital Signs Pulse 72 01/01/25 12:31 BP 114/72 01/01/25 12:31 Pulse Ox 99 01/01/25 12:31 Oxygen Delivery Method Room Air 01/01/25 12:31 BMI result Body Mass Index 54.8 Tobacco/Smoking Status: Tobacco use Status Tobacco use date assessed 01/01/25 01/01/25 12:33 Patient Tobacco Use Status Never used Tobacco 01/01/25 12:33 e-Cigarette/Vaping Use Never Used 01/01/25 12:33 PHQ-9: PHQ-9 Score PHQ-9: Total score 0 01/01/25 12:58 Depression Screening Interpretation: Negative Thrive Assessment: Date of Thrive Assessment Date Thrive assessed 01/01/25 01/01/25 12:33 Currently or been in a relationship where the following occur: No concerns reported Const General: no acute distress and alert HENMT Ears: TM's normal bilaterally and EAC's normal Throat: Yes posterior oropharynx normal and Yes tonsils normal (no TP congestion) Neck Neck: Yes supple and No lymphadenopathy Thyroid: Thyroid normal Chest Other: (+) mild tenderness on palpation over the right lower anterior chest wall, just lateral to the lower sternum Resp Auscultation: clear to auscultation bilaterally, no rales and no wheezes Cardio Rate: regular rate Rhythm: regular rhythm Heart sounds: no murmurs GI Palpation (GI): Soft to palpation and nontender Auscultation: normal bowel sounds General: Yes no CVA tenderness Back/Spine/Pelvis Back: no CVA tenderness Thoracic/Lumbar Spine: lumbar spinal tenderness (mild) Skin Rashes: no rashes Extrem General: Yes no clubbing, cyanosis or edema Left lower extremity: hip/thigh Details: tenderness Location: of the hip Location: anterolaterally Results Reviewed Results Reviewed: Laboratory Tests 12/29/24 12/29/24 09:27 09:32 WBC 9.4 Hgb 13.9 L Hct 41.7 L Plt Count 319 Sodium 139 Potassium 4.6 D Creatinine 0.80 Estimated GFR > 60 Fasting Glucose 172 H Hemoglobin A1c % 9.8 H Calcium 9.3 AST 69 H ALT 111 H 25-OH Vitamin D Total 15.2 L TSH 1.94 Ur Specific [place] 1.020 Urine Protein Negative Urine Glucose (UA) Negative Urine Blood Negative Urine Nitrite Negative Ur Leukocyte Esterase Negative Coding Level of Care Code Est Pt Level 4 (80891) Complex EM visit Add On G2211 Diagnoses Type 2 diabetes mellitus with hyperglycemia, without long-term current use of insulin E11.65 Diabetes mellitus complication status: with hyperglycemia Diabetes mellitus prison insulin use: without shower screen installer use Diabetes mellitus type: type 2 Primary osteoarthritis of left hip M16.12 Osteoarthritis type: primary Elevated LFTs R79.89 Mild intermittent asthma without complication J45.20 Asthma complication type: uncomplicated Asthma persistence: intermittent Asthma severity: mild Costochondritis M94.0 Vitamin D deficiency E55.9 Leukocytosis, unspecified type D72.829 Leukocytosis type: unspecified Degeneration of intervertebral disc of lumbar region with discogenic back pain M51.360 Disc-related pain type: discogenic back pain only Morbid obesity with BMI of 50.0-59.9, adult E66.01; Z68.43 Additional Codes PHQ-9 - 28363 - PHQ-9 Billing: Yes ([id number]) Assessment & Plan Assessment & Plan (1) Diabetes mellitus: Code(s): E11.9 - Type 2 diabetes mellitus without complications Category: Medical Qualifiers: Diabetes mellitus complication status: with hyperglycemia Diabetes mellitus shower screen installer insulin use: without prison use Diabetes mellitus type: type 2 Qualified Code(s): E11.65 - Type 2 diabetes mellitus with hyperglycemia Plan: His HgbA1c went up to 9.8% on his labs done a few days ago (in-office HgbA1c was previously at 8.5% a few months ago) - goal is <7.0% Reinforced diabetic diet Patient admits that he has not been taking his medications as prescribed over the past few weeks due to increased stress and anxiety and he is now just starting back on taking his medications regularly Continue Metformin 1000 mg BID and Januvia 50 mg QD for now Will recheck his labs and HgbA1c in 3 months for follow up (2) Osteoarthritis of left hip: Code(s): M16.12 - Unilateral primary osteoarthritis, left hip Category: Medical Qualifiers: Osteoarthritis type: primary Qualified Code(s): M16.12 - Unilateral primary osteoarthritis, left hip Plan: He was referred to and seen by orthopedics for his left hip issues last year He has been referred to physical therapy about a year ago but states that PT did not help at all He eventually underwent an MRI of the left hip a few months ago, which revealed (+) [id number] left hip osteoarthritis with a large geode within the acetabulum. No stress reaction, fracture, or avascular necrosis. No labral tear. Mild gluteus minimus and minimal gluteus medius tendinosis are noted He was then referred to a hip specialist for further management and he is currently still waiting to be seen by this hip specialist (3) Elevated LFTs: Code(s): R79.89 - Other specified abnormal findings of blood chemistry Category: Medical Plan: His LFTs remained elevated on his recent labs done last week and he is cautioned that they have increased slightly from previous These are most likely related to his weight (hepatosteatosis) and he has been advised that losing weight should help get them back to normal gradually He did have an abdominal US done in July 2021 that revealed (+) increased hepatic parenchymal echogenicity most compatible with hepatic steatosis Will continue to monitor his LFTs regularly (4) Asthma: Code(s): J45.909 - Unspecified asthma, uncomplicated Category: Medical Qualifiers: Asthma complication type: uncomplicated Asthma persistence: intermittent Asthma severity: mild Qualified Code(s): J45.20 - Mild intermittent asthma, uncomplicated Plan: Controlled - states that he has not had any flare ups of his asthma in a while now He has an Albuterol inhaler that he uses as needed but as he has not had any flare ups in a while now, has not needed to use it at all lately (5) Costochondritis: Code(s): M94.0 - Chondrocostal junction syndrome [[place]ze] Category: Medical Plan: Work ups done at the ER recently came back normal Patient is again advised/reassured of the benign nature of this issue He has been advised that he can try applying some warm compress to his right anterior chest wall area PRN for symptomatic relief (6) Vitamin D deficiency: Code(s): E55.9 - Vitamin D deficiency, unspecified Category: Medical Plan: Continue Vitamin D3 2000 units QD Have advised patient that his vitamin D level on his recent labs have decreased from previous so he should try to take his Vitamin D3 tablets daily and more consistently (7) Leukocytosis (leucocytosis): Code(s): D72.829 - Elevated white blood cell count, unspecified Category: Medical Qualifiers: Leukocytosis type: unspecified Qualified Code(s): D72.829 - Elevated white blood cell count, unspecified Plan: Corrected on his recent labs - patient's differential on his CBC also appears normal Will continue to monitor his CBC regularly for now and will do further work ups only if this progresses or gets worse (8) Lumbar degenerative disc disease: Code(s): M51.36 - Other intervertebral disc degeneration, lumbar region Category: Medical Qualifiers: Disc-related pain type: discogenic back pain only Qualified Code(s): M51.360 - Other intervertebral disc degeneration, lumbar region with discogenic back pain only Plan: Reinforced activity and weight lifting restrictions Lumbar spine x-rays done back on 02/16/2019 revealed a stable mild anterior T11 wedge compression fracture, anterior spondylosis at T12-L1 and L1-L2, with no acute fracture or spondylolisthesis seen Repeat lumbar spine x-rays done in September 2022 revealed (+) mild curvature of the lumbar sacral spine to the right. Bone alignment is otherwise normal. No fracture or dislocation. Mild degenerative spondylosis and degenerative disc disease at T12-L1, L1-L2 and L2-L3; (+) lower lumbar spine facet arthritis. The previous T11 wedge compression fracture has apparently resolved Patient also reports (+) improvement of symptoms and relief of pain when he received physical therapy in the past - advised that we can refer him to physical therapy again at any time when needed and he just has to reach out and let us know Continue Lidocaine 5% patches apply QD PRN (9) Morbid obesity with BMI of 50.0-59.9, adult: Code(s): E66.01 - Morbid (severe) obesity due to excess calories; Z68.43 - Body mass index [BMI] 50.0-59.9, adult Category: Medical Plan: Reinforced diet/exercise as tolerated/lose weight Plan Follow-up in 3 months Orders: Orders Complete Blood Count Auto Diff 3 Months D64.9 - Anemia, unspecified Comprehensive [place]. Panel Fast 3 Months E78.00 - Pure hypercholesterolemia, unspecified Microalbumin, Random (w Creat) 3 Months E11.9 - Type 2 diabetes mellitus without complications Vitamin D 25-OH Total 3 Months E55.9 - Vitamin D deficiency, unspecified Vitamin B12 and Folate 3 Months E53.8 - Deficiency of other specified B group vitamins Lipid Panel 3 Months E78.00 - Pure hypercholesterolemia, unspecified Hemoglobin A1c 3 Months E11.9 - Type 2 diabetes mellitus without complications TSH reflex Free T4 3 Months E78.00 - Pure hypercholesterolemia, unspecified UA CC w/rflx Micro + Cult 3 Months R30.0 - Dysuria
--- OUTSIDE RECORDS SUMMARY | 2025-01-01 13:58 | XMS_ITS | Encounter Summary ---
Author Organization [facility] Address [address] [place] [address] Phone Care Team Providers Care Paint Line Production Supervisor Name Role Phone Valerie Cooper MD Primary Care Provider [phone] Encounter Details Date Type Department Care Team (Late st Contact Info) Description 05/07/2015 Documentation [facility] [place] Family Medicine [address] [place] [address] Family Medicine, Physician [address] [place], [place] [phone] Social History Tobacco Use Types Packs/Day Years Used Date Smoking Tobacco: Never Comments:Never smoker Sex and Gender Information Value Date Recorded Sex Assigned at Not on file Legal Sex Male 4:44 PM EDT Gender Identity Not on file Sexual Orientation Not on file documented as of this encounter Plan of Treatment Not on file documented as of this encounter Visit Diagnoses Not on filedocumented in this encounter Care Teams Paint Line Production Supervisor Relationship Specialty Start Date End Date Valerie Cooper MD [address] [place] [address] [place] [address] PCP - General 05/14/17 01/14/23 documented as of this encounter
--- OUTSIDE RECORDS SUMMARY | 2025-01-01 13:58 | XMS_ITS | Encounter Summary ---
Author Organization [facility] Address [address] [place] [address] Phone Care Team Providers Care Microsoft Access Developer Name Role Phone Valerie Cooper MD Primary Care Provider [phone] Encounter Details Date Type Department Care Team (Late st Contact Info) Description 08/31/2011 Documentation [facility] [place] Family Medicine [address] [place] [address] Family Medicine, Physician [address] [place], [place] [phone] Social History Tobacco Use Types Packs/Day Years Used Date Smoking Tobacco: Never Assessed Sex and Gender Information Value Date Recorded Sex Assigned at Not on file Legal Sex Male 4:44 PM EDT Gender Identity Not on file Sexual Orientation Not on file documented as of this encounter Plan of Treatment Not on file documented as of this encounter Visit Diagnoses Not on filedocumented in this encounter Care Teams Microsoft Access Developer Relationship Specialty Start Date End Date Valerie Cooper MD [address] [place] [address] PCP - General 05/14/17 01/14/23 documented as of this encounter
--- OUTSIDE RECORDS SUMMARY | 2025-01-01 13:58 | XMS_ITS | Encounter Summary ---
Author Organization [facility] Address [address] [place] [address] Phone Care Team Providers Care Maritime Pilot Name Role Phone Valerie Cooper MD Primary Care Provider [phone] Encounter Details Date Type Department Care Team (Late st Contact Info) Description 05/20/2017 Conversion Encounter [facility] [place] [address] [place] [address] Social History Tobacco Use Types Packs/Day Years [...] on filedocumented in this encounter Care Teams Maritime Pilot Relationship Specialty Start Date End Date Valerie Cooper MD [address] [place] [address] PCP - General 05/14/17 01/14/23 documented as of this encounter
--- OUTSIDE RECORDS SUMMARY | 2025-01-01 13:58 | XMS_ITS | Encounter Summary ---
Author Organization [facility] Address [address] [place] [address] Phone Care Team Providers Care Magnetic Tester Name Role Phone Valerie Cooper MD Primary Care Provider Encounter Details Date Type Department Care Team (Late st Contact Info) Description 03/13/2015 Documentation [facility] [place] Family Medicine [address] [place] [address] Family Medicine, Physician [address] [place], [place] [phone] Social History Tobacco Use Types Packs/Day Years [...] on filedocumented in this encounter Care Teams Magnetic Tester Relationship Specialty Start Date End Date Valerie Cooper MD [address] [place] [address] [place] [address] PCP - General 05/14/17 01/14/23 documented as of this encounter
--- OUTSIDE RECORDS SUMMARY | 2025-01-01 13:58 | XMS_ITS | Encounter Summary ---
Author Organization [facility] Address [address] [place] [address] Phone Care Team Providers Care Allocation Analyst Name Role Phone Valerie Cooper MD Primary Care Provider [phone] Encounter Details Date Type Department Care Team (Late st Contact Info) Description 01/15/2011 Documentation [facility] [place] Family Medicine [address] [place] [address] Family Medicine, Physician [address] [place], [place] [phone] Social History Tobacco Use Types Packs/Day Years [...] on filedocumented in this encounter Care Teams Allocation Analyst Relationship Specialty Start Date End Date Valerie Cooper MD [address] [facility] [place] [address] PCP - General 05/14/17 01/14/23 documented as of this encounter
--- OUTSIDE RECORDS SUMMARY | 2025-01-01 13:58 | XMS_ITS | Encounter Summary ---
Author Organization [facility] Address [address] [place] [address] Phone Care Team Providers Care Clinical Cytogeneticist Scientist Name Role Phone Valerie Cooper MD Primary Care Provider [phone] Encounter Details Date Type Department Care Team (Late st Contact Info) Description 09/11/2011 Documentation [facility] [place] [address] [place] [address] Family Medicine, Physician [address] [place], [place] [phone] Social History Tobacco Use Types Packs/Day Years [...] on filedocumented in this encounter Care Teams Clinical Cytogeneticist Scientist Relationship Specialty Start Date End Date Valerie Cooper MD [address] [facility] [place] [address] PCP - General 05/14/17 01/14/23 documented as of this encounter
--- OUTSIDE RECORDS SUMMARY | 2025-01-01 13:58 | XMS_ITS | Clinical Summary ---
Author Organization [facility] Address [address] [place] [address] Phone Care Team Providers Care Rn Endocrinology Name Role Phone Unavailable Primary Care Provider Unavailabl e Immunizations Immunization Administration Dates Next Due DTP 04/30/1999, 6,05/06/1995, 995,1994 H1N1 09/06/2009 HPV, Quadrivalent 07/12/2013,06/29/2012 Hep B, ped/adol 05/06/1995,1994,1994 Hib (PRP-T) 12/10/1995,199 5,04/02/1995, 995 IPV 12/10/1995, 5,04/02/1995, 995 Influenza Split 07/12/2013,06/29/2012,06/04/2011 Influenza, injectable, trivalent 09/06/2009,01/2008,10/19/2007 MMR 06/07/1998,12/30/1995 Meningococcal Conj (Menactra) MCV4P 10/19/2007 Tdap 06/30/2006 Family History Relation Name Status Comments Brother Alive Brother: Asthma , Asthma / Reflex Father Alive Father: Alive a nd well Mother Alive Mother: Alive a nd well Other Family history of Asthma, No family history of *Dental caries, No family history of *CVA/Stroke, No family history of *Sudden /NH under 55, Family history of ADD/ADHD, No family history of Hyperlipidemia Sister Alive Sister: Alive a nd well Social History Tobacco Use Types Packs/Day Years Used Date Smoking Tobacco: Never Comments:Never smoker Sex and Gender Information Value Date Recorded Sex Assigned at Not on file Legal Sex Male 4:44 PM EDT Gender Identity Not on file Sexual Orientation Not on file Last Filed Vital Signs Vital Sign Reading Time Taken Comments Blood Pressure 150/100 07/12/2013 12:00 AM EDT Pulse - - Temperature 36.6 ??C (97.8 ??F) 12/15/2012 12:00 AM E DT Respiratory Rate - - Oxygen Saturation 99% 12/15/2012 12:00 AM EDT Inhaled Oxygen Concentration - - Weight 142 kg (312 lb) 07/12/2013 12:00 AM EDT Height 174 cm (5' 8.5 ) 07/12/2013 12:00 AM EDT Body Mass Index 46.75 07/12/2013 12:00 AM EDT Plan of Treatment Health Maintenance Due Date Last Done Comments Varicella Vaccines (1 of 2 - 13+ 2-dose series) 2007 HPV Vaccines (3 - Male 3-dose series) 10/04/2013 07/12/2013, 06/29/2012 DTaP,Tdap,and Td Vaccines (7 - Td or Tdap) 06/30/2016 06/30/2006, 04/30/1999, 04/20/1996, Additional history exists Influenza Vaccines (#1) 2024 07/12/20 13, 06/29/2012, 06/04/2011, Additional history exists COVID-19 Vaccine ( season) 2024 Hepatitis B Vaccines Completed 05/06/1995, 1994, 1994 HIB Vaccines Completed 12/10/1995, 12/1994, 04/02/1995, Additional history exists IPV Vaccines Completed 12/10/1995, 12/1994, 04/02/1995, Additional history exists MMR Vaccines Completed 06/07/1998, 12/30/1995 Meningococcal Vaccine Aged Out 10/19/2007 No abbey jeovany eligible based on patient's age to complete this topic Hepatitis A Vaccines Aged Out No long er eligible based on patient's age to complete this topic Men B Vaccine Aged Out No longer elig ible based on patient's age to complete this topic Pneumococcal Vaccine Aged Out No long er eligible based on patient's age to complete this topic
== END 2025-01-01 13:11 | disposition home or self-care (01) ==
LOC: HO.HMCH 12:18
PROVIDERS: PCP Internal Medicine; Visit Provider Internal Medicine
DX: E11.65 Type 2 diabetes mellitus with hyperglycemia (principal); M16.12 Unilateral primary osteoarthritis, left hip; R79.89 Other specified abnormal findings of blood chemistry; J45.20 Mild intermittent asthma, uncomplicated; M94.0 Chondrocostal junction syndrome [Tietze]; E55.9 Vitamin D deficiency, unspecified; D72.829 Elevated white blood cell count, unspecified; M51.360 Other intervertebral disc degeneration, lumbar region with discogenic back pain only; E66.01 Morbid (severe) obesity due to excess calories; Z68.43 Body mass index [BMI] 50.0-59.9, adult

== ENCOUNTER → 2025-01-01 12:18 | Outpatient (BNVA) | payer OTHER, SELFPAY | PROVIDERS: PCP Internal Medicine; Visit Provider Internal Medicine | DX: E11.65 Type 2 diabetes mellitus with hyperglycemia (principal); M16.12 Unilateral primary osteoarthritis, left hip; R79.89 Other specified abnormal findings of blood chemistry; J45.20 Mild intermittent asthma, uncomplicated; M94.0 Chondrocostal junction syndrome [Tietze]; E55.9 Vitamin D deficiency, unspecified; D72.829 Elevated white blood cell count, unspecified; M51.360 Other intervertebral disc degeneration, lumbar region with discogenic back pain only; E66.01 Morbid (severe) obesity due to excess calories; Z68.43 Body mass index [BMI] 50.0-59.9, adult; Z71.3 Dietary counseling and surveillance | CPT/HCPCS: 96127; 99212 ==

== ENCOUNTER 2025-03-13 17:00 | Emergency (ER) | payer SELFPAY ==
--- NOTE | 2025-03-13 17:02 | ECG_ITS ---
Test Reason : chest pressure Blood Pressure : */* mmHG Vent. Rate : 80 BPM Atrial Rate : 80 BPM P-R Int : 170 ms QRS Dur : 100 ms QT Int : 378 ms P-R-T Axes : 35 16 24 degrees QTcB Int : 435 ms Normal sinus rhythm RSR' or QR pattern in V1 suggests right ventricular conduction delay Cannot rule out Anterior infarct , age undetermined Abnormal ECG When compared with ECG of 26-Dec-2024 18:25, No significant change was found Referred By: Sonny Munguia Electronically Signed By: TIM GREGG MD
--- NOTE | 2025-03-13 19:09 | PC.NURSE ---
NO ANSWER WHEN CALLED FROM AT 1900
--- OUTSIDE RECORDS SUMMARY | 2025-03-13 19:37 | XMS_ITS | Encounter Summary ---
Author Organization [facility] Address [address] [place] [address] Phone Care Team Providers Care Registered Nurses Name Role Phone Valerie Cooper MD Primary Care Provider [phone] Encounter Details Date Type Department Care Team (Late st Contact Info) Description 09/11/2011 Documentation [facility] [place] [address] [place] [address] Family Medicine, Physician [address] [place], [place] [phone] Social History Tobacco Use Types Packs/Day Years [...] on filedocumented in this encounter Care Teams Registered Nurses Relationship Specialty Start Date End Date Valerie Cooper MD [address] [facility] [place] [address] PCP - General 05/14/17 01/14/23 documented as of this encounter
== END 2025-03-13 19:39 | disposition left against medical advice (07) ==
LOC: HO.ED 19:36
PROVIDERS: Emergency Provider Emergency Medicine; PCP Internal Medicine
DX: R07.89 Other chest pain (principal)
CPT/HCPCS: 93005; 99281; 99282

== ENCOUNTER → 2025-03-13 17:02 | Outpatient (BNV) | payer SELFPAY | PROVIDERS: Emergency Provider Emergency Medicine; PCP Internal Medicine; Visit Provider Internal Medicine Cardiovascular Disease | DX: R94.31 Abnormal electrocardiogram [ECG] [EKG] (principal); R07.89 Other chest pain | CPT/HCPCS: 93010 ==

== ENCOUNTER 2025-03-16 12:44 | Emergency (ER) | payer SELFPAY ==
--- NOTE | ~2025-03-16 | XR_ITS ---
EXAMINATION: XR CHEST CLINICAL INFORMATION: CP COMPARISON: 12/25/2024. TECHNIQUE: 2 views of the chest were obtained. FINDINGS: The cardiac, hilar, and mediastinal contours are normal. The lungs are clear bilaterally. There is no pneumothorax or pleural effusion. There is no focal osseous or soft tissue abnormality. XR/XR chest 2V IMPRESSION: No active pulmonary disease. Electronically signed by: Yonatan Bergeron MD 03/16/2025 02:42 PM EDT
--- NOTE | 2025-03-16 12:45 | ECG_ITS ---
Test Reason : chest pain Blood Pressure : */* mmHG Vent. Rate : 85 BPM Atrial Rate : 85 BPM P-R Int : 172 ms QRS Dur : 104 ms QT Int : 376 ms P-R-T Axes : 26 7 18 degrees QTcB Int : 447 ms Normal sinus rhythm Normal ECG When compared with ECG of 13-Mar-2025 17:04, No significant change was found Referred By: Generic ED Physician Electronically Signed By: TIM GREGG MD
[2025-03-16 12:54] VITALS: BP 150/79; PULSE 90; O2SAT 97
--- NOTE | 2025-03-16 13:34 | ED_ITS ---
HPI - Chest Pain General Chief Complaint: Chest Pain Stated Complaint: CP Time Seen by Provider: 03/16/25 18:25 Source: patient and RN notes reviewed Mode of arrival: ambulatory Limitations: no limitations History of Present Illness ED Provider: Marcos YANCEY narrative: 29-year-old male with past medical history significant for morbid obesity, asthma presents for evaluation of left-sided chest pain. Patient reports he has had chest pain on and off for the last 2 days today he felt as though his pain worsened while he was at work. 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 he feels as though he was not doing anything strenuous. The pain was sharp for about 6 minutes before improving. He complains of a mild, 2/10 pressure that is persistent. He denies any shortness of breath, palpitations denies any abdominal pain, nausea vomiting he was given aspirin and fluids by EMS he denies any family history of coronary artery disease Related Data Previous Rx's ?Medication ?Instructions ?Recorded lidocaine 5 % topical patch 1 patch topical DAILY PRN pain #30 11/05/23 (Lidoderm) ea cholecalciferol (vitamin D3) 50 50 mcg PO DAILY 90 days #90 caps 04/03/24 mcg (2,000 unit) capsule metformin 1,000 mg tablet 1,000 mg PO BID 90 days #180 tabs 04/03/24 naproxen 500 mg tablet 500 mg PO BID 7 days #14 tabs 08/30/24 sitagliptin phosphate 50 mg tablet 50 mg PO DAILY 90 days #90 tabs 09/14/24 (Januvia) ibuprofen 600 mg tablet 600 mg PO Q6H PRN fever or pain 12/26/24 #30 tabs albuterol sulfate 90 mcg/actuation 2 puff inhalation Q4-6H PRN 03/07/25 aerosol inhaler shortness of breath or wheezing #8.5 grams Allergies Allergy/AdvReac Type Severity Reaction Status Date / Time No Known Allergies Allergy Verified 03/16/25 13:37 Review of Systems 2 Constitutional: Constitutional: Denies chills, Denies frequent falls and Denies headache(s) Eyes: Eyes: Denies blurry vision ENT: Denies vertigo, Denies dizziness and Denies headache(s) Cardiovascular: Cardiovascular: Reports chest pain, Reports chest pain at rest, Reports chest pain with activity and Denies dyspnea Respiratory: Respiratory: Denies cough and Denies dyspnea Gastrointestinal: Gastrointestinal: Denies abdominal pain, Denies nausea and Denies vomiting Musculoskeletal: Musculoskeletal: Denies back pain Integumentary/Breasts: Skin/Breast: Denies rash Neurologic: Denies vertigo, Denies dizziness, Denies frequent falls and Denies headache(s) PMFSH Past Medical History Medical History Osteoarthritis of left hip Chronic left hip pain Vitamin D deficiency Diabetes mellitus Lumbar degenerative disc disease Morbid obesity with BMI of 50.0-59.9, adult Asthma Surgical History History of excision of mass (02/19/22) History of repair of ACL History of repair of anterior cruciate ligament of right knee (~08/2015) Family History Family History Brother Epilepsy Maternal Aunt Breast cancer Social History Social History Housing: Apartment Alcohol intake: never Patient Tobacco Use Status: Never used Tobacco e-Cigarette/Vaping Use: Never Used Second Hand Smoke Exposure: Yes Advance Directives: No Advance Directives Information Provided: Yes service: No Current occupational status: employed Current occupation: [email or web address] Cognitive needs: No Hearing needs: No Vision needs: No Physical Exam 2 Vital Signs: Vital Signs: Last Vital Signs Temp 97.6 F 03/16/25 19:16 Pulse 71 03/16/25 19:16 Resp 14 03/16/25 19:16 BP 130/74 03/16/25 19:16 Pulse Ox 98 03/16/25 19:16 O2 Del Method Room Air 03/16/25 19:16 BMI result Body Mass Index 53.8 Const: General: healthy appearing, comfortable, no acute distress, alert and awake Nutritional Appearance: well nourished and obese O rientation/consciousness: patient oriented x3 HEENT: Head: Yes normocephalic and Yes atraumatic Eyes: Eyelids: Yes eyelids normal Conjunctivae: conjunctivae normal S clerae: sclerae normal Corneas: corneas normal Pupils: Equal, round and reactive pupils present EOM: EOMs intact bilaterally Neck: Neck: Yes full ROM Chest: Other: no deformity to the left chest, there is some subjective tenderness in the left anterior axillary line. No crepitus Resp: Effort & Inspection: normal respiratory effort, able to speak in complete sentences, no audible wheezes and not labored Auscultation: clear to auscultation bilaterally Cardio: Rate: regular rate Rhythm: regular rhythm GI: Inspection: No distended Palpation (GI): Soft to palpation, not firm, nontender, no guarding and not rigid Skin: General skin exam: elasticity normal Neuro: General: patient oriented x3 Cranial nerves: Yes Equal, round and reactive pupils present and Yes Bilaterally intact EOM present Cognition (Neuro): normal cognition Course Course Course Narrative: This is an RME: Additional HPI, ROS, PE not included below will be deferred to primary provider. RME assessment and note performed by: Kristin Tillman PA-C This is a [id number]-male, with a hx of asthma and diabetes who presents to the ER with concerns of chest pain which started 3 days ago. Reports that the chest pain started on wednesday, which resolved after 1 day. As he was working again, he states that he then developed left sided chest pain and pressure. Reports that his entire body felt numb. Reports that he felt dizzy and sweaty. Was given ASA in ambulance which provided him with some relief. Plan: EKG, labs, chest x-ray, further ER evaluation needed. Medical Decision Making Medical Decision Making [facility] Narrative: 29-year-old male with past medical history significant for obesity, asthma presents for evaluation of chest pain that has been on and off for 2 days. His pain worsened today prompting his visit, EKG is normal sinus rhythm without ischemic changes, troponin negative. The patient does not have factors for coronary artery disease, he has a low heart score of 1, he rules out for ACS, he had a chest x-ray that did not show any significant abnormalities. He denies any shortness of breath, lungs are clear to auscultation. His pain is reproducible on exam in his likely musculoskeletal in origin. He is also PERC negative Differential Diagnosis Differential Diagnoses: The differential diagnosis associated with the presentation includes ACS Chest pain Anxiety GERD PE Costochondritis Admission/Observation Consideration of admission/observation: Escalation of care including admission/observation considered Lab Data [facility] Lab Attestation statement: I reviewed the patient's lab results. there was a mild leukocytosis to 12.6k, no significant left shift. The patient has a mild, chronic anemia consistent with his baseline. This is a normocytic anemia. Chemistries are significant for a random glucose of 247, no evidence of DKA. Mild elevation of AST and ALT which the patient has had in the past. Troponin negative x2 03/16/25 14:28 03/16/25 14:28 Labs: Lab Results 03/16/25 03/16/25 Range/Units 14:28 17:10 WBC 12.6 H (4.8-10.8) X10*3/uL RBC 4.66 (4.60-5.80) X10*6/uL Hgb 13.7 L (14.0-18.0) g/dl Hct 40.1 L (42.0-52.0) % MCV 86.1 (80.0-98.0) fL MCH 29.4 (27.0-33.0) pg MCHC 34.2 (31.0-36.0) g/dl RDW 12.8 (11.0-16.0) % Plt Count 327 (160-400) X10*3/uL MPV 10.4 (9.4-12.4) fL Immature Gran % (Auto) 0.3 (0.0-0.4) % Neut % (Auto) 64.3 (45-73) % Lymph % (Auto) 27.3 (20-40) % Nuckolls % (Auto) 6.9 (2-11) % Eos % (Auto) 1.0 (0-4) % Baso % (Auto) 0.2 (0-2) % Lymph # (Auto) 3.4 (1.2-4.9) X10*3/uL Nuckolls # (Auto) 0.9 (0.1-1.2) X10*3/uL Eos # (Auto) 0.1 (0.0-0.4) X10*3/uL Baso # (Auto) 0.0 (0.0-0.2) X10*3/uL Abs Immat Gran (auto) 0.04 H (0.00-0.03) X10*3/uL Absolute Neuts (auto) 8.1 (2.0-8.3) x10*3/uL Absolute Nucleated RBC 0.000 (0.0-0.012) X10*3/uL Nucleated RBC % (auto) 0.0 (0.0-0.2) /100WBC Sodium 138 (135-145) mmol/L Potassium 4.2 (3.3-5.1) mmol/L Chloride 104 (96-108) mmol/L Carbon Dioxide 25 (22-29) mmol/L Anion Gap 13 (12-20) BUN 11 (9-16) mg/dL Creatinine 0.73 (0.5-1.4) mg/dL Estim Creat Clear Calc 220.3 Estimated GFR > 60 Random Glucose 247 H (60-115) mg/dL Calcium 9.7 (8.4-10.2) mg/dL Magnesium 1.9 (1.6-2.6) mg/dL Total Bilirubin 0.2 (0.0-1.0) mg/dL Direct Bilirubin < 0.2 (0.0-0.5) mg/dL AST 65 H (5-37) U/L ALT 153 H (0-40) U/L Alkaline Phosphatase 79 (39-117) U/L Troponin I High Sens < 2.7 < 2.7 (<3.5-35.0) ng/L Total Protein 7.5 (6.5-8.0) g/dL Albumin 4.5 (3.5-5.0) g/dL Independent Interpretation I performed an independent interpretation of an: EKG ( sinus rhythm with a rate of [address] segment elevations or depressions, nondiagnostic EKG) and Plain X-Ray ( no focal infiltrate) Radiology Impression Discussion of test interpretation with radiology: I have reviewed the radiologist's reading. Radiologist Impression: FINDINGS: The cardiac, hilar, and mediastinal contours are normal. The lungs are clear bilaterally. There is no pneumothorax or pleural effusion. There is no focal osseous or soft tissue abnormality. XR/XR chest 2V IMPRESSION: No active pulmonary disease. Electronically signed by: Yonatan Bergeron MD 03/16/2025 02:42 PM EDT Discharge Plan Discharge Clinical Impression: Chest pain Patient Disposition: Home, Self-Care Instructions: Chest Pain (ED) Additional Instructions: Your workup in the today was reassuring. This includes your blood work, EKG, chest x-ray you may use ibuprofen / Tylenol for pain given your multiple episodes of chest pain, I recommend that you follow up with Cardiology, a referral was provided, call tomorrow to schedule an appointment Prescriptions: No Action albuterol sulfate 90 mcg/actuation HFA aerosol inhaler 2 puff inhalation Q4-6H PRN (Reason: shortness of breath or wheezing) Qty: 8.5 2RF lidocaine [Lidoderm] 5 % adhesive patch,medicated 1 patch topical DAILY MDD remove after 12 hours PRN (Reason: pain) Qty: 30 0RF Rx Instructions: leave on most painful area for up to 12 hrs naproxen 500 mg tablet 500 mg PO BID 7 Days Qty: 14 0RF ibuprofen 600 mg tablet 600 mg PO Q6H PRN (Reason: fever or pain) Qty: 30 0RF cholecalciferol (vitamin D3) 50 mcg (2,000 unit) capsule 50 mcg PO DAILY 90 Days Qty: 90 3RF metformin 1,000 mg tablet 1,000 mg PO BID 90 Days Qty: 180 1RF Januvia 50 mg tablet 50 mg PO DAILY 90 Days Qty: 90 1RF Referrals: Humberto Gonzales MD [Physician] - (multiple episodes of chest pain, negative ER workups) Stand Alone Forms: Work/School Release Interventions: ED Discharge Assessment Last Done: 03/16/25 19:16 Discharge Date/Time: 03/16/25 19:16 Print Language: Cymraes
[2025-03-16 13:35] VITALS: BP 118/55; PULSE 82; RESP 18; TEMP 36.9; O2SAT 97; BMI 53.8
--- OUTSIDE RECORDS SUMMARY | 2025-03-16 14:32 | XMS_ITS | Encounter Summary ---
Author Organization [facility] Address [address] [place] [address] Phone Care Team Providers Care Manager Of Operations Name Role Phone Valerie Cooper MD Primary Care Provider [phone] Encounter Details Date Type Department Care Team (Late st Contact Info) Description 09/11/2011 Documentation [facility] [place] [address] [place] [address] Family Medicine, Physician [address] [place], [place] [phone] Social History Tobacco Use Types Packs/Day Years [...] on filedocumented in this encounter Care Teams Manager Of Operations Relationship Specialty Start Date End Date Valerie Cooper MD [address] [facility] [place] [address] PCP - General 05/14/17 01/14/23 documented as of this encounter
[2025-03-16 14:33] LABS: MANUAL DIFF FLAG NO
[2025-03-16 14:37] LABS: Basophils Percent Auto 0.2 % (0-2); Eosinophils Absolute Auto 0.1 X10*3/uL (0.0-0.4); Hematocrit 40.1 % (42.0-52.0); Hemoglobin 13.7 g/dl (14.0-18.0); Imm Gran Abs Auto 0.04 X10*3/uL (0.00-0.03); Imm Gran Pct Auto 0.3 % (0.0-0.4); Lymphocytes Absolute Auto 3.4 X10*3/uL (1.2-4.9); Lymphocytes Percent Auto 27.3 % (20-40); Mean Corpuscular HGB Conc 34.2 g/dl (31.0-36.0); Mean Corpuscular Hemoglobin 29.4 pg (27.0-33.0); Mean Corpuscular Volume 86.1 fL (80.0-98.0); Mean Platelet Volume 10.4 fL (9.4-12.4); Monocytes Absolute Auto 0.9 X10*3/uL (0.1-1.2); Monocytes Percent Auto 6.9 % (2-11); Neutrophils Absolute Auto 8.1 x10*3/uL (2.0-8.3); Neutrophils Percent Auto 64.3 % (45-73); Platelet Count 327 X10*3/uL (160-400); Red Blood Count 4.66 X10*6/uL (4.60-5.80); Red Cell Distribution Width 12.8 % (11.0-16.0); White Blood Count 12.6 X10*3/uL (4.8-10.8)
[2025-03-16 14:48] LABS: Alanine Aminotransferase 153 U/L (0-40); Albumin Level 4.5 g/dL (3.5-5.0); Alkaline Phosphatase 79 U/L (39-117); Anion Gap 13 (12-20); Aspartate Amino Transferase 65 U/L (5-37); Bilirubin Direct < 0.2 mg/dL (0.0-0.5); Bilirubin Total 0.2 mg/dL (0.0-1.0); Blood Urea Nitrogen 11 mg/dL (9-16); Calcium 9.7 mg/dL (8.4-10.2); Carbon Dioxide 25 mmol/L (22-29); Chloride 104 mmol/L (96-108); Creatinine Clr Calc Pharmacy 220.3; Estimated Glomerular Filt Rate > 60; Glucose Random 247 mg/dL (60-115); Magnesium 1.9 mg/dL (1.6-2.6); Potassium 4.2 mmol/L (3.3-5.1); Sodium 138 mmol/L (135-145); Total Protein 7.5 g/dL (6.5-8.0)
[2025-03-16 14:59] LABS: Troponin-I High Sensitivity < 2.7 ng/L (<3.5-35.0)
[2025-03-16 17:35] LABS: Troponin-I High Sensitivity < 2.7 ng/L (<3.5-35.0)
[2025-03-16 17:40] VITALS: BP 122/52; PULSE 76; RESP 14; TEMP 36.3; O2SAT 95
[2025-03-16 19:16] VITALS: BP 130/74; PULSE 71; RESP 14; TEMP 36.4; O2SAT 98
== END 2025-03-16 19:16 | disposition home or self-care (01) ==
PROVIDERS: Physician Assistant Medical; Emergency Provider Emergency Medicine Emergency Medical Services; PCP Internal Medicine
DX: R05.9 Cough, unspecified (principal); J45.909 Unspecified asthma, uncomplicated; E11.9 Type 2 diabetes mellitus without complications; E66.01 Morbid (severe) obesity due to excess calories; Z68.43 Body mass index [BMI] 50.0-59.9, adult
CPT/HCPCS: 36415; 71046; 80048; 80076; 83735; 84484; 85025; 93005; 99283; 99284

== ENCOUNTER → 2025-03-16 12:45 | Outpatient (BNV) | payer OTHER, SELFPAY | PROVIDERS: PCP Internal Medicine; Visit Provider Internal Medicine Cardiovascular Disease | DX: R07.9 Chest pain, unspecified (principal) | CPT/HCPCS: 93010 ==

== ENCOUNTER → 2025-03-16 13:37 | Outpatient (BNV) | payer OTHER, SELFPAY | PROVIDERS: PCP Internal Medicine; Visit Provider Radiology Diagnostic Radiology | DX: R07.9 Chest pain, unspecified (principal) | CPT/HCPCS: 71046 ==

== ENCOUNTER 2025-03-27 08:19 | Outpatient (AMB) | payer OTHER, SELFPAY ==
[2025-03-27 08:21] VITALS: BP 130/72; PULSE 99; BMI 54.0
--- NOTE | 2025-03-27 08:21 | A.OFFVIS_ITS ---
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 Allergies No Known Allergies Allergy (Verified 03/27/25 08:35) Medication List - Last Reconciled 03/27/25 by ELI BegumC albuterol sulfate 90 mcg/actuation 2 puffs inhalation Q4-6H PRN cholecalciferol (vitamin D3) 50 mcg PO DAILY 90 days ibuprofen 600 mg PO Q6H PRN lidocaine 5% (Lidoderm) 1 patch topical DAILY PRN MDD remove after 12 hours metformin 1,000 mg PO BID 90 days naproxen 500 mg PO BID 7 days sitagliptin phosphate (Januvia) 50 mg PO DAILY 90 days HPI HPI [place]MINISTRATOR OF [place] HE[facility] [facility] [place] chest pressure (NS): Details: Anthony is a 29-year-old male with past medical history of morbid obesity borderline hypertension and diabetes who was recently seen in the emergency room for left-sided chest discomfort. He ruled out for ACS. He was referred to Cardiology in follow-up. Today he presents for cardiology consultation. 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 He developed a tightness in his left chest that caused him much concern. He then had some mild shortness of breath and sweating. EMS was called and [place] [facility] [place] Since that time he has noticed only a minimal tightness in the left chest region. He has not had symptoms to the degree of what brought him to the hospital. He has no other types of chest discomfort and no symptoms worse by physical activity. He denies shortness of breath, PND, orthopnea or edema. No lightheadedness, presyncope, syncope, falls. He has no prior cardiac history. He denies any known family history of heart disease. He is a nonsmoker, denies substance use or alcohol use. He describes himself as physically active. [facility] Medical History Osteoarthritis of left hip Chronic left hip pain Vitamin D deficiency Diabetes mellitus Lumbar degenerative disc disease Morbid obesity with BMI of 50.0-59.9, adult Asthma Surgical History History of excision of mass (02/19/22) History of repair of ACL History of repair of anterior cruciate ligament of right knee (~08/2015) Family History Brother Epilepsy Maternal Aunt Breast cancer Social History Housing: Apartment Alcohol intake: never Patient Tobacco Use Status: Never used Tobacco e-Cigarette/Vaping Use: Never Used Second Hand Smoke Exposure: Yes service: No Current occupational status: employed Current occupation: [employer] Cognitive needs: No Hearing needs: No Vision needs: No Review of Systems Const All systems reviewed & are unremarkable except as noted in HPI and below ENT Denies dizziness Card Details: episode of left chest discomfort while at work with ED eval Reports chest pain, Reports chest pain at rest, Reports chest pain with activity, Denies rapid heart rate, Denies pedal edema, Denies edema, Denies leg edema, Denies lightheadedness, Denies palpitations, Denies dyspnea, Denies dyspnea on exertion and Denies orthopnea Resp Denies cough, Denies dyspnea and Denies dyspnea on exertion GI Denies hematochezia and Denies change in stool character Musc Denies abnormal gait, Reports limited range of motion, Denies muscle cramps, Denies muscle weakness, Denies numbness, Denies radiating pain into limb, Denies stiffness and Denies tingling Neuro Denies abnormal gait, Denies dizziness, Denies numbness and Denies tingling Endo Denies palpitations Physical Exam Vital Signs: Last Vital Signs Pulse 99 03/27/25 08:21 BP 130/72 03/27/25 08:21 BMI result Body Mass Index 54.0 Const Other: morbid obesity General: cooperative, healthy appearing, comfortable and no acute distress Orientation/consciousness: patient oriented x3 Neck Neck: Yes normal visual inspection and Yes no JVD Resp Effort & Inspection: normal respiratory effort Auscultation: clear to auscultation bilaterally, no crackles, no rales, no rhonchi and no wheezes Cardio Jugular venous distension: no JVD Rate: regular rate Rhythm: regular rhythm Heart sounds: S1 normal heart sound present, S2 normal heart sound present, no gallops, no murmurs and no rubs Neuro General: patient oriented x3 Extrem General: Yes normal to inspection and No no pedal edema Psych Appearance: grossly normal Mental Status: mental status grossly normal Speech and movement: Normal speech and movement present Assessment & Plan Assessment & Plan (1) Chest pain: Code(s): R07.9 - Chest pain, unspecified Category: Medical Qualifiers: Chest pain type: unspecified Qualified Code(s): R07.9 - Chest pain, unspecified Plan: Recent ER evaluation for chest discomfort and ruled out for ACS. Troponins and D-dimer normal. Chest x-ray showed no acute findings. His EKG showed normal sinus rhythm, no acute ST or T-wave abnormalities, rate 85. He does have cardiac risk factors of morbid obesity borderline hypertension and diabetes. For further evaluation will order echocardiogram to assess for structural heart disease and exercise stress test to evaluate for ischemia. He tells me he will be able to walk on the treadmill. Signs and symptoms of angina reviewed with him. If his testing is normal then symptom likely musculoskeletal in nature. Cardiology follow-up 6-8 weeks, sooner if needed. (2) Borderline hypertension: Code(s): R03.0 - Elevated blood-pressure reading, without diagnosis of hypertension Category: Medical Plan: Blood pressure goal less than 130/80. Controlled at this time. No med changes made. (3) Diabetes mellitus: Code(s): E11.9 - Type 2 diabetes mellitus without complications Category: Medical Qualifiers: Diabetes mellitus complication status: with hyperglycemia Diabetes mellitus shelter insulin use: without middle or intermediate school principal use Diabetes mellitus type: type 2 Qualified Code(s): E11.65 - Type 2 diabetes mellitus with hyperglycemia Plan: Hemoglobin A1c goal less than 7. Followed by his PCP. He tells me he has been diabetic for about 1 year. (4) Morbid obesity with BMI of 50.0-59.9, adult: Code(s): E66.01 - Morbid (severe) obesity due to excess calories; Z68.43 - Body mass index [BMI] 50.0-59.9, adult Category: Medical (5) Hospital discharge follow-up: Code(s): Z09 - Encounter for follow-up examination after completed treatment for conditions other than malignant neoplasm Category: Medical Plan: Hospital records reviewed Plan Time spent on chart review, documentation, interview assessment Orders: Orders CA stress test Today R03.0 - Elevated blood-pressure reading, without diagnosis of hypertension, R07.9 - Chest pain, unspecified CA echo transthoracic complete Today R03.0 - Elevated blood-pressure reading, without diagnosis of hypertension, R07.9 - Chest pain, unspecified Coding Level of Care Code New Pt Level 4 (14807) Complex EM visit Add On G2211 Diagnoses Chest pain R07.9 Chest pain type: unspecified Borderline hypertension R03.0 Type 2 diabetes mellitus with hyperglycemia, without long-term current use of insulin E11.65 Diabetes mellitus complication status: with hyperglycemia Diabetes mellitus shelter insulin use: without shelter use Diabetes mellitus type: type 2 Morbid obesity with BMI of 50.0-59.9, adult E66.01; Z68.43 Hospital discharge follow-up Z09 Time Spent (min) 28
--- OUTSIDE RECORDS SUMMARY | 2025-03-27 08:29 | XMS_ITS | Encounter Summary ---
Author Organization [facility] Address [address] [place] [id number] Phone Care Team Providers Care Resident Services Supervisor Name Role Phone Valerie Cooper MD Primary Care Provider [phone] Encounter Details Date Type Department Care Team (Late st Contact Info) Description 09/11/2011 Documentation [facility] Family Medicine [address] [place] [address] Family Medicine, Physician [address] [place], [place] [id number] Social History Tobacco Use Types Packs/Day Years [...] on filedocumented in this encounter Care Teams Resident Services Supervisor Relationship Specialty Start Date End Date Valerie Cooper MD [address] [place] [address] PCP - General 05/14/17 01/14/23 documented as of this encounter
== END 2025-03-27 09:36 | disposition home or self-care (01) ==
LOC: HO.HCS 08:20
PROVIDERS: PCP Internal Medicine; Visit Provider Nurse Practitioner Family
DX: R07.9 Chest pain, unspecified (principal); R03.0 Elevated blood-pressure reading, without diagnosis of hypertension; E11.65 Type 2 diabetes mellitus with hyperglycemia; E66.01 Morbid (severe) obesity due to excess calories; Z68.43 Body mass index [BMI] 50.0-59.9, adult; Z09 Encounter for follow-up examination after completed treatment for conditions other than malignant neoplasm
CPT/HCPCS: 99204; G2211

== ENCOUNTER → 2025-03-27 08:19 | Outpatient (BNVA) | payer OTHER, SELFPAY | PROVIDERS: PCP Internal Medicine; Visit Provider Nurse Practitioner Family | DX: Z09 Encounter for follow-up examination after completed treatment for conditions other than malignant neoplasm (principal); R07.9 Chest pain, unspecified; R03.0 Elevated blood-pressure reading, without diagnosis of hypertension; E11.9 Type 2 diabetes mellitus without complications; E66.01 Morbid (severe) obesity due to excess calories; Z68.43 Body mass index [BMI] 50.0-59.9, adult | CPT/HCPCS: 99202 ==

== ENCOUNTER 2025-05-14 07:17 | Inpatient (IN) | payer OTHER, SELFPAY ==
--- NOTE | ~2025-05-14 | CT_ITS ---
EXAMINATION: CT ABDOMEN AND PELVIS WITHOUT CONTRAST CLINICAL INFORMATION: Concerning abdominal abscess. COMPARISON: None available. TECHNIQUE: Multidetector volumetric imaging was performed from the superior aspect of the liver through the pubic symphysis. Sagittal and coronal reformatted images were obtained on the technologist's workstation. This CT examination was performed using dose optimization techniques as appropriate, variously including the following: *Automated exposure control *Adjustment of mA and/or kV according to patient size (this includes techniques or standardized protocols for targeted exams where dose is matched to indication/reason for exam; i.e. extremities or head) *Use of iterative reconstruction technique. DLP: 1542 mGy centimeter. FINDINGS: Limited evaluation of the intra-abdominal organs and vascular structures due to lack of IV contrast. LUNG BASES: 3 mm calcified pulmonary nodule, left lower lung lobe likely granuloma. LIVER, GALLBLADDER, AND BILIARY TREE: Liver measures 22 cm with decreased attenuation. No pericholecystic fluid collection or gallbladder wall thickening. No intrahepatic or extrahepatic biliary ductal dilatation. PANCREAS: No peripancreatic fluid collections. No main pancreatic ductal dilatation. SPLEEN: 10 cm. Small accessory spleen. ADRENAL GLANDS: No gross nodular lesions. KIDNEYS AND URETERS: No hydronephrosis. No nephrolithiasis. BLADDER: Fluid-filled nearly collapsed. GASTROINTESTINAL TRACT: Abundant stool, large intestine. No intestinal obstruction pattern. Appendix is normal. No pneumatosis intestinalis. No ascites. No pneumoperitoneum. ABDOMINAL WALL: Small fat-containing umbilical hernia. LYMPH NODES: Prominent mesenteric and retroperitoneum and inguinal. Mild mesenteric edema pattern. VASCULAR: No aneurysm, abdominal aorta. No gross calcified plaques. PELVIC VISCERA: Inadequate evaluation. OSSEOUS STRUCTURES: Multilevel thoracolumbar spondylosis. Calcified deformity apex at T11. 20-30% was a compression deformity at T11 likely old. Sclerosis and the sacroiliac joints with syndesmophyte formation. There is a 5 cm sclerotic marginated nonexpansile lytic lesion in the posterior left acetabulum. Mild degenerative changes in the coxofemoral joints. CT/CT abdomen pelvis wo IV con IMPRESSION: No gross fluid collections, peritoneal cavity. Mild enteritis cannot be excluded. Hepatomegaly and likely steatosis. Small fat-containing umbilical hernia. Probable benign bone lesion posterior left iliac bone. Fleischner guidelines were followed. Electronically signed by: Matt Cotter MD 05/14/2025 11:01 AM EDT
[2025-05-14 07:29] VITALS: BP 112/55; PULSE 79; RESP 18; TEMP 36.6; O2SAT 99; BMI 53.7
[2025-05-14 08:55] VITALS: BP 142/84; PULSE 80; RESP 18; O2SAT 97
--- NOTE | 2025-05-14 09:07 | ED_ITS ---
HPI - Skin/Abscess/Foreign Bdy General Chief complaint: Skin/Abscess/Foreign Body Stated complaint: Lump on R Belly, Painfull Time Seen by Provider: 05/14/25 08:59 Source: patient Mode of arrival: ambulatory Limitations: no limitations History of Present Illness HPI narrative: This is a very pleasant 29 years old male presented to the emergency department with a chief complaint of redness swelling in the right side of the abdomen symptoms started 2 days ago worse over the weekend. Denies any fever or chills MD complaint: abscess/boil Onset (ago): day(s) (2) Severity: mild Severity scale (1-10): 2 Quality: burning Pain Consistency: constant Relieving factors: none Exacerbating factors: none Context: none Associated symptoms: denies other symptoms Related Data Previous Rx's ?Medication ?Instructions ?Recorded lidocaine 5 % topical patch 1 patch topical DAILY PRN pain #30 11/05/23 (Lidoderm) ea naproxen 500 mg tablet 500 mg PO BID 7 days #14 tab s 08/30/24 sitagliptin phosphate 50 mg tablet 50 mg PO DAILY 90 d ays #90 tabs 09/14/24 (Januvia) ibuprofen 600 mg tablet 600 mg PO Q6H PRN fever or p ain 12/26/24 #30 tabs albuterol sulfate 90 mcg/actuation 2 puff inhalation Q 4-6H PRN 03/07/25 aerosol inhaler shortness of breath or wheez ing #8.5 grams cholecalciferol (vitamin D3) 50 50 mcg PO DAILY 90 day s #90 caps 03/29/25 mcg (2,000 unit) capsule metformin 1,000 mg tablet 1,000 mg PO BID 90 days #180 tabs 03/29/25 Allergies Allergy/AdvReac Type Severity Reaction Status Date / Time No Known Allergies Allergy Verified 05/14/25 07:31 Review of Systems 2 Constitutional: Constitutional: Reports no additional constitutional complaints ENT: Reports system reviewed and no additional complaints, except as documented Integumentary/Breasts: Skin/Breast: Reports as per HPI [facility] Past Medical History [facility] Narrative: Diabetes Medical History Osteoarthritis of left hip Chronic left hip pain Vitamin D deficiency Diabetes mellitus Lumbar degenerative disc disease Morbid obesity with BMI of 50.0-59.9, adult Asthma Surgical History History of excision of mass (02/19/22) History of repair of ACL History of repair of anterior cruciate ligament of right knee (~08/2015) Family History Family History Brother Epilepsy Maternal Aunt Breast cancer Social History Social History Housing: Apartment Alcohol intake: never Patient Tobacco Use Status: Never used Tobacco e-Cigarette/Vaping Use: Never Used Second Hand Smoke Exposure: Yes Advance Directives: No Advance Directives Information Provided: No Nutrition Risks: No Nutritional Risk service: No Current occupational status: employed Current occupation: [employer] Cognitive needs: No Hearing needs: No Vision needs: No Physical Exam 2 Exam: Exam: He looks well is not toxic-appearing Vital Signs: Vital Signs: Last Vital Signs Temp 98.9 F 05/14/25 12:12 Pulse 75 05/14/25 12:12 Resp 18 05/14/25 12:12 BP 151/93 H 05/14/25 12:12 Pulse Ox 99 05/14/25 12:12 O2 Del Method Room Air 05/14/25 12:12 BMI result Body Mass Index 53.7 Const: General: cooperative Nutritional Appearance: well nourished O rientation/consciousness: patient oriented x3 Limitations: no limitations HEENT: Head: Yes normal to inspection General nose exam: Normal external nose present Face and sinus: Yes normal facial exam Mouth: Normal oral and palatal mucosa present Throat: Yes posterior oropharynx normal Neck: Neck: Yes normal visual inspection Thyroid: Thyroid normal Chest: Chest palpation & inspection: normal inspection of the chest Resp: Effort & Inspection: normal respiratory effort Auscultation: clear to auscultation bilaterally Cardio: Jugular venous distension: no JVD Rate: regular rate Rhythm: r egular rhythm GI: Other: Abdomen is soft in the right lower quadrant there is an area of 3 x 4 cm redness see picture Palpation (GI): Soft to palpation Percussion: Yes normal to percussion Auscultation: normal bowel sounds Skin: Other: Lesions: no lesions Neuro: General: patient oriented x3 Course Reevaluation(s) Reevaluation #1: I did a bedside ultrasound see picture the bedside ultrasound showed a clear-cut abscess. Discussed the case with Dr. Holcomb he will see the patient in the ED Time: 11:56 Medications Administered Generic Name Dose Route Start Last Admin Trade Name Freq PRN Reason Stop Dose Admin Enoxaparin Sodium 40 mg 05/14/25 13:00 05/14/25 14:10 Enoxaparin Sodium 40 Mg/0.4 Ml Syringe SUBCUT Not Given Q12H TANIA Discontinued Medications Generic Name Dose Route Start Last Admin Trade Name Freq PRN Reason Stop Dose Admin Vancomycin HCl 2,000 mg in 500 mls @ 250 mls/hr 05/14/25 10:00 05/14/25 12:47 Vancomycin/Ns IV 05/14/25 11:59 Infused ONCE ONE Infusion Lidocaine HCl 5 ml 05/14/25 11:56 05/14/25 12:01 Lidocaine Hcl 1 % Mpf 5 Ml Vial INFILTRATI 05/14/25 11:57 5 ml ONCE ONE Administration Medical Decision Making Medical Decision Making [facility] Narrative: Patient is here with a an area of redness in the right lower quadrant we will check labs including CBC chemistry blood culture obviously will need antibiotic US done by m pt has abscess of the abdomen see picture Differential Diagnosis Differential Diagnoses: The differential diagnosis associated with the presentation includes Cellulitis/abscess Admission/Observation Consideration of admission/observation: Escalation of care including admission/observation considered Lab Data [facility] Lab Attestation statement: I reviewed the patient's lab results. 05/14/25 09:22 05/14/25 09:22 Labs: Lab Results 05/14/25 Range/Units 09:22 WBC 12.1 H (4.8-10.8) X10*3/uL RBC 4.61 (4.60-5.80) X10*6/uL Hgb 13.7 L (14.0-18.0) g/dl Hct 40.8 L (42.0-52.0) % MCV 88.5 (80.0-98.0) fL MCH 29.7 (27.0-33.0) pg MCHC 33.6 (31.0-36.0) g/dl RDW 12.8 (11.0-16.0) % Plt Count 307 (160-400) X10*3/uL MPV 10.3 (9.4-12.4) fL Immature Gran % (Auto) 0.3 (0.0-0.4) % Neut % (Auto) 64.4 (45-73) % Lymph % (Auto) 27.1 (20-40) % [place] % (Auto) 6.5 (2-11) % Eos % (Auto) 1.5 (0-4) % Baso % (Auto) 0.2 (0-2) % Lymph # (Auto) 3.3 (1.2-4.9) X10*3/uL [place]ing # (Auto) 0.8 (0.1-1.2) X10*3/uL Eos # (Auto) 0.2 (0.0-0.4) X10*3/uL Baso # (Auto) 0.0 (0.0-0.2) X10*3/uL Abs Immat Gran (auto) 0.04 H (0.00-0.03) X10*3/uL Absolute Neuts (auto) 7.8 (2.0-8.3) x10*3/uL Absolute Nucleated RBC 0.000 (0.0-0.012) X10*3/uL Nucleated RBC % (auto) 0.0 (0.0-0.2) /100WBC ESR 16 H (0-15) MM/HR Sodium 139 (135-145) mmol/L Potassium 4.3 (3.3-5.1) mmol/L Chloride 101 (96-108) mmol/L Carbon Dioxide 29 (22-29) mmol/L Anion Gap 13 (12-20) BUN 9 (9-16) mg/dL Creatinine 0.65 (0.5-1.4) mg/dL Estim Creat Clear Calc 247.0 Estimated GFR > 60 Random Glucose 269 H (60-115) mg/dL Lactic Acid 1.8 (0.5-2.0) mmol/L Calcium 9.5 (8.4-10.2) mg/dL Total Bilirubin 0.4 (0.0-1.0) mg/dL AST 49 H (5-37) U/L ALT 121 H (0-40) U/L Alkaline Phosphatase 86 (39-117) U/L C-Reactive Protein 2.02 H (< or = 0.50) mg/dL Total Protein 7.7 (6.5-8.0) g/dL Albumin 4.6 (3.5-5.0) g/dL Independent Interpretation I performed an independent interpretation of an: CT Scan Radiology Impression Discussion of test interpretation with radiology: I have reviewed the radiologist's reading. Chronic Conditions Patient?s care impacted by: Diabetes Discharge Plan Discharge Clinical Impression: Abdominal wall abscess Patient Disposition: Admitted As Inpatient
[2025-05-14 09:28] LABS: MANUAL DIFF FLAG NO
[2025-05-14 09:31] LABS: Hematocrit 40.8 % (42.0-52.0); Hemoglobin 13.7 g/dl (14.0-18.0); Imm Gran Abs Auto 0.04 X10*3/uL (0.00-0.03); Imm Gran Pct Auto 0.3 % (0.0-0.4); Lymphocytes Absolute Auto 3.3 X10*3/uL (1.2-4.9); Mean Corpuscular HGB Conc 33.6 g/dl (31.0-36.0); Mean Corpuscular Hemoglobin 29.7 pg (27.0-33.0); Mean Corpuscular Volume 88.5 fL (80.0-98.0); NRBC Abs Auto 0.000 X10*3/uL (0.0-0.012); NRBC Pct Auto 0.0 /100WBC (0.0-0.2); Platelet Count 307 X10*3/uL (160-400); Red Blood Count 4.61 X10*6/uL (4.60-5.80); White Blood Count 12.1 X10*3/uL (4.8-10.8)
--- NOTE | 2025-05-14 09:49 | PC.NURSE ---
Pt comes from home after developing an abscess on his lower abdomen. Pt denies history of same, reporting no known bite or pimple noted to area prior to it getting larger, harder, and red. Tender to touch. Labs obtained, IV placed. Pt awaiting results, and scans at this time
[2025-05-14 09:50] LABS: Alanine Aminotransferase 121 U/L (0-40); Albumin Level 4.6 g/dL (3.5-5.0); Alkaline Phosphatase 86 U/L (39-117); Anion Gap 13 (12-20); Aspartate Amino Transferase 49 U/L (5-37); Blood Urea Nitrogen 9 mg/dL (9-16); Calcium 9.5 mg/dL (8.4-10.2); Carbon Dioxide 29 mmol/L (22-29); Chloride 101 mmol/L (96-108); Creatinine Clr Calc Pharmacy 247.0; Estimated Glomerular Filt Rate > 60; Potassium 4.3 mmol/L (3.3-5.1); Sodium 139 mmol/L (135-145); Total Protein 7.7 g/dL (6.5-8.0)
[2025-05-14] MEDS: vancomycin/NS 2,000 MG/500 ML PLAST..BAG 250 MG IV (10:20)
--- NOTE | 2025-05-14 11:54 | P.HPHOSP_ITS ---
History of Present Illness Date of Service: 05/14/25 Attending physician on admission: Carlos Davenport Chief Complaint: Worsening abd abscess Pt is a 29-year-old male with a PMH significant for mild intermittent asthma, [id number] type 2 diabetes, and obesity class 3 who presents to the ED with abdominal redness, swelling, and pain. Pt reports noticed a ?lump? on his lower right abdomen 3 days ago. Pt initially thought nothing of it, however yesterday began to grow larger. Woke this morning with right lower quadrant abdominal pain and area now appeared more swollen and red. Denies fever or drainage from area. No known trauma to the area. Denies nausea, vomiting, diarrhea. No SOB or difficulty breathing ? In the ED pt's vitals stable. Labs were significant for leukocytosis 12.1, CRP 2.02, AST 49, ALT 121. No significant electrolyte abnormalities. Renal function baseline. Lactic acid WNL. Dry CT of abdomen/pelvis without gross fluid collection in peritoneal cavity, though bedside ultrasound showed abscess. ED physician contacted General surgery who plan on draining abscess later on in the afternoon. Pt was treated in the ED with vancomycin. Pt is admitted to the hospital or treatment and further evaluation of abdominal wall abscess. Review of Systems 2 Review of Systems: Yes all other systems are reviewed and are negative [facility] Medical History Osteoarthritis of left hip Chronic left hip pain Vitamin D deficiency Diabetes mellitus Lumbar degenerative disc disease Morbid obesity with BMI of 50.0-59.9, adult Asthma Family History Brother Epilepsy Maternal Aunt Breast cancer Surgical History History of excision of mass (02/19/22) History of repair of ACL History of repair of anterior cruciate ligament of right knee (~08/2015) Social History Housing: Apartment Alcohol intake: never Patient Tobacco Use Status: Never used Tobacco e-Cigarette/Vaping Use: Never Used Second Hand Smoke Exposure: Yes Advance Directives: No Advance Directives Information Provided: No service: No Current occupational status: employed Current occupation: [employer] Cognitive needs: No Hearing needs: No Vision needs: No Meds Allergies Allergy/AdvReac Type Severity Reaction Status Date / Time No Known Allergies Allergy Verified 05/14/25 07:31 Active Medications: Current Medications Vancomycin HCl (Vancomycin/Ns) 2,000 mg in 500 mls @ 250 mls/hr IV ONCE ONE Stop: 05/14/25 11:59 Last Admin: 05/14/25 10:20 Dose: 250 mls/hr Physical Exam 2 Vital Signs and Narrative: Vital Signs: Last Vital Signs Temp 97.9 F 05/14/25 07:29 Pulse 80 05/14/25 08:55 Resp 18 05/14/25 08:55 BP 142/84 H 05/14/25 08:55 Pulse Ox 97 05/14/25 08:55 O2 Del Method Room Air 05/14/25 08:55 BMI result Body Mass Index 53.7 General: AOx3, no acute distress Resp: CTA bilaterally CVS: S1, S2, RRR GI: +BS, RLQ with erythema, swelling, tenderness, and purulent discharge as pictured below Skin: Warm, dry Neuro: Cranial nerves II-XII grossly intact bilaterally. Motor grossly intact bilaterally Extremities: No edema Psych: Appropriate affect Results Labs 05/14/25 09:22 05/14/25 09:22 Labs: Laboratory Results - last 24 hr 05/14/25 09:22 MCV 88.5 MCH 29.7 MCHC 33.6 RDW 12.8 Plt Count 307 MPV 10.3 Immature Gran % (Auto) 0.3 Neut % (Auto) 64.4 Lymph % (Auto) 27.1 [place] % (Auto) 6.5 Eos % (Auto) 1.5 Baso % (Auto) 0.2 Lymph # (Auto) 3.3 [place] # (Auto) 0.8 Eos # (Auto) 0.2 Baso # (Auto) 0.0 Abs Immat Gran (auto) 0.04 H Absolute Neuts (auto) 7.8 Absolute Nucleated RBC 0.000 Nucleated RBC % (auto) 0.0 Anion Gap 13 Estim Creat Clear Calc 247.0 Estimated GFR > 60 Random Glucose 269 H Lactic Acid 1.8 Calcium 9.5 Total Bilirubin 0.4 AST 49 H ALT 121 H Alkaline Phosphatase 86 C-Reactive Protein 2.02 H Total Protein 7.7 Albumin 4.6 Imaging Radiologist's Impressions: Impressions Abdomen/Pelvis CT 05/14/25 09:51 IMPRESSION: No gross fluid collections, peritoneal cavity. Mild enteritis cannot be excluded. Hepatomegaly and likely steatosis. Small fat-containing umbilical hernia. Probable benign bone lesion posterior left iliac bone. Fleischner guidelines were followed. Electronically signed by: Matt Cotter MD 05/14/2025 11:01 AM EDT RP Assessment and Plan (1) Abdominal wall abscess: Status: Acute Plan Pt is a 29-year-old male with a PMH significant for mild intermittent asthma, ibm-mzuiybn-bdavryptz type 2 diabetes, and obesity class 3 who presents to the ED with abdominal redness, swelling, and pain. Pt is admitted to the hospital or treatment and further evaluation of abdominal wall abscess. Abdominal wall abscess As shown on bedside US; CT imaging negative No sepsis: leukocytosis of 12.1, but no other SIRS; lactic acid WNL Continue vanco for now, day 1 General surgery consult for I&D Follow cultures Iav-bcrzdro-pmayquusn type 2 diabetes Sliding-scale insulin, diabetic diet Continue sitagliptin Mild intermittent asthma Not in acute exacerbation Continue home inhaler Obesity class 3 BMI 53.7 Weight loss encouraged Full Code Attending:?Dr. Davenport DVT Prophylaxis: Lovenox Pt will require a hospitalization of at least two nights for treatment of abdominal wall abscess requiring IV antibiotics, surgical I&D, while awaiting cultures.? Quality Stroke Does the patient have a stroke diagnosis?: No VTE Prior VTE?: No VTE Risk Level:: Medical - moderate - high VTE Device Contraindication: Treatment Not Indicated VTE Drug Contraindication: N/A - Med Ordered
[2025-05-14] MEDS: Lidocaine HCl 1 % MPF 5 ML VIAL INFILTRATI (12:01)
--- NOTE | 2025-05-14 12:05 | P.CONGS_ITS ---
History of Present Illness Consult details Consult date: 05/14/25 <Jose Campbell PA-C - Last Filed: 05/14/25 15:07> Reason for consult: other (abdominal wall abscess) <Jose Campbell PA-C - Last Filed: 05/14/25 15:07> Narrative: 29 year old male with a history of asthma, obesity, diabetes(most recent A1c 9.8, December 2024), presenting to the ED with a 2 day history of pain and redness in the right lower abdominal wall. Pain and size has been increasing with time. States it originated as a lump, and then became painful. He denies any injury to the area. Denies drainage, fever or chills. On presentation to the ED, he had leukocytosis, 12.1. patient had CT and ultrasound suggesting a fluid collection, thus the general surgery consult. denies alleries. Deneis smoking, alcohol use, drug use. daily medications include, metformin, albuterol as needed, vitamin-D sitagliptin. <Jose Campbell PA-C - Last Filed: 05/14/25 15:07> Review of Systems 2 Review of Systems: Yes all other systems are reviewed and are negative < Jose Campbell PA-C - Last Filed: 05/14/25 15:07> [facility] [place] Past Medical History Medical History: Medical History Osteoarthritis of left hip Chronic left hip pain Vitamin D deficiency Diabetes mellitus Lumbar degenerative disc disease Morbid obesity with BMI of 50.0-59.9, adult Asthma <Jose Campbell PA-C - Last Filed: 05/14/25 15:07> Family History Family History: Family History Brother Epilepsy Maternal Aunt Breast cancer <ALEXA Harrison Last Filed: 05/14/25 15:07> Surgical History Surgical History: Surgical History History of excision of mass (02/19/22) History of repair of ACL History of repair of anterior cruciate ligament of right knee (~08/2015) <ALEXA Harrison Last Filed: 05/14/25 15:07> Social History Social History: Social History Household Members: Family Housing: Apartment Do you presently have visiting nurse or other home services: No Alcohol intake: never Patient Tobacco Use Status: Never used Tobacco e-Cigarette/Vaping Use: Never Used Second Hand Smoke Exposure: Yes service: No Current occupational status: employed Current occupation: [employer] Cognitive needs: No Hearing needs: No Vision needs: No <Jose Campbell PA-C - Last Filed: 05/14/25 15:07> Meds Allergies/Adverse reactions: Allergies Allergy/AdvReac Type Severity Reaction Status Date / Time No Known Allergies Allergy Verified 05/14/25 07:31 <ALEXA Harrison Last Filed: 05/14/25 15:07> Physical Exam 2 Vital Signs: Vital Signs: Last Vital Signs Temp 97.9 F 05/14/25 07:29 Pulse 80 05/14/25 08:55 Resp 18 05/14/25 08:55 BP 142/84 H 05/14/25 08:55 Pulse Ox 97 05/14/25 08:55 O2 Del Method Room Air 05/14/25 08:55 BMI result Body Mass Index 53.7 <ALEXA Harrison Last Filed: 05/14/25 15:07> Const: General: comfortable, no acute distress, alert and awake <Jose Campbell PA-C - Last Filed: 05/14/25 15:07> Nutritional Appearance: obese <Jose Campbell PA-C - Last Filed: 05/14/25 15:07> Orientation/consciousness: patient oriented x3 <Jose Campbell PA-C - Last Filed: 05/14/25 15:07> GI: Other: 4x4 area of erythema, with moderate teressa ration. Very tender to the touch. Fluid collection appears to be in the subcutaneous layer, there is no head visible. Protuberant abdomen <ALEXA Harrison Last Filed: 05/14/25 15:07> Inspection: No incision <ALEXA Harrison Last Filed: 05/14/25 15:07> Palpation (GI): Tenderness to palpation present (GI) (skin) in the RLQ < Jose Campbell PA-C - Last Filed: 05/14/25 15:07> Neuro: General: patient oriented x3 <ALEXA Harrison Last Filed: 05/14/25 15:07> Results Labs Result diagrams: 05/14/25 09:22 05/14/25 09:22 <ALEXA Harrison Last Filed: 05/14/25 15:07> Labs: Abnormal lab results 05/14/25 Range/Units 09:22 WBC 12.1 H (4.8-10.8) X10*3/uL Hgb 13.7 L (14.0-18.0) g/dl Hct 40.8 L (42.0-52.0) % Abs Immat Gran (auto) 0.04 H (0.00-0.03) X10*3/uL Random Glucose 269 H (60-115) mg/dL AST 49 H (5-37) U/L ALT 121 H (0-40) U/L C-Reactive Protein 2.02 H (< or = 0.50) mg/dL Short CBC 05/14/25 Range/Units 09:22 WBC 12.1 H (4.8-10.8) X10*3/uL Hgb 13.7 L (14.0-18.0) g/dl Hct 40.8 L (42.0-52.0) % Plt Count 307 (160-400) X10*3/uL BMP 05/14/25 09:22 Sodium 139 Potassium 4.3 Chloride 101 Carbon Dioxide 29 BUN 9 Creatinine 0.65 Calcium 9.5 Liver Function 05/14/25 Range/Units 09:22 Total Bilirubin 0.4 (0.0-1.0) mg/dL AST 49 H (5-37) U/L ALT 121 H (0-40) U/L Alkaline Phosphatase 86 (39-117) U/L Albumin 4.6 (3.5-5.0) g/dL All other labs normal. <ALEXA Harrison Last Filed: 05/14/25 15:07> Assessment and Plan (1) Diabetes mellitus: Qualifiers: Diabetes mellitus complication status: with hyperglycemia D iabetes mellitus chcf insulin use: without chcf use Diabetes mellitus type: type 2 Qualified Code(s): E11.65 - Type 2 diabetes mellitus with hyperglycemia <Jose Campbell PA-C - Last Filed: 05/14/25 15:07> Status: Acute <Jose Campbell PA-C - Last Filed: 05/14/25 15:07> (2) Abdominal wall abscess: Status: Acute <Jose Campbell PA-C - Last Filed: 05/14/25 15:07> 29 year old male with a history of asthma, obesity, diabetes(most recent A1c 9.8, December 2024), presenting to the ED with a 2 day history of pain and redness in the right lower abdominal wall. Pain and size has been increasing with time. And prior presentation in the ED patient has leukocytosis 12 point would, had a CT and ultrasound, ultrasound showing abdominal wall abscess. He was started on IV vanco. This fluid collection will likely need to be drained with incision and drainage. Patient agreeable to this procedure. Patient will be admitted, we will follow along during this admission. Continue IV vanco Bedside I and D, we will get cultures of the abscess Glucose control Blood cultures pending <Jose Campbell PA-C - Last Filed: 05/14/25 15:07> 29 year old male with a history of asthma, obesity, diabetes(most recent A1c 9.8, December 2024), presenting to the ED with a 2 day history of pain and redness in the right lower abdominal wall. Pain and size has been increasing with time. And prior presentation in the ED patient has leukocytosis 12 point would, had a CT and ultrasound, ultrasound showing abdominal wall abscess. He was started on IV vanco. This fluid collection will likely need to be drained with incision and drainage. Patient agreeable to this procedure. Patient will be admitted, we will follow along during this admission. Continue IV vanco Bedside I and D, we will get cultures of the abscess Glucose control Blood cultures pending Patient seen and examined and agree with the above assessment and plan. Small abscess cavity identified on incision and drainage. Wound cultures obtained. We will continue to monitor. <Cas Holcomb MD - Last Filed: 05/14/25 16:07> Procedures Date of Service Date of Service: 05/14/25 <Jose Campbell PA-C - Last Filed: 05/14/25 15:07> 05/14/25 <Cas Holcomb MD - Last Filed: 05/14/25 16:07> Abscess I/D Consent for Procedure: Elective - informed consent obtained <Jose Campbell PA-C - Last Filed: 05/14/25 15:07> Site: abdomen (Right lower quadrant) <Jose Campbell PA-C - Last Filed: 05/14/25 15:07> Side (if applicable): right <Jose Campbell PA-C - Last Filed: 05/14/25 15:07> Sedation/analgesia: none <Jose Campbell PA-C - Last Filed: 05/14/25 15:07> Anesthetic used: lidocaine 1% (5 cc) <Jose Campbell PA-C - Last Filed: 05/14/25 15:07> Technique: incised with #11 blade <Jose Campbell PA-C - Last Filed: 05/14/25 15:07> Irrigation: No <Jose Campbell PA-C - Last Filed: 05/14/25 15:07> Packing used?: iodoform <Jose Campbell PA-C - Last Filed: 05/14/25 15:07> Additional comments: informed consent was obtained for incision and drainage of an abdominal wall abscess. Skin was prepped with Betadine. Local anesthetic was used 5 cc of 1% lidocaine using a 25 gauge needle. The area was selected for incision and drainage, and using an 11 blade a 1 cm incision was made. Culture was obtained through the incision. The abscess cavity was then probed with a sterile Q-tip to help facilitate some additional drainage. The quality of the drainage was purulent sanguinous. Quarter-inch iodoform packing was used to pack the wound, this was then dressed with fluff gauze and tape. Patient tolerated the procedure well, there were no immediate complications. <Jose Campbell PA-C - Last Filed: 05/14/25 15:07>
--- NOTE | 2025-05-14 12:09 | PC.NURSE ---
bedside set up for surgery to do bedside I&D in place. Admitting provider at bedside currently.
[2025-05-14 12:12] VITALS: BP 151/93; PULSE 75; RESP 18; TEMP 37.2; O2SAT 99
--- NOTE | 2025-05-14 13:27 | PHA.PROG ---
Admission Date/Time: May 14, 2025 11:53 Indication: skin Weight in k.2 kg Serum Creatinine - Last 168 Hours 05/14/25 09:22 Creatinine 0.65 Estimated CrCl and GFR - Last 168 Hours 05/14/25 09:22 Estim Creat Clear Calc 247.0 Estimated GFR > 60 Vancomycin Loading Dose: 2,000 mg Current Vancomycin Dosing Regimen: 1,250mg q8h Vancomycin Monitoring using AUC goal of 400 - 600 range with trough as surrogate marker: 427, predicted trough 12.3 Date and Time for next Vancomycin Level to be drawn: 05/15 @ 0800 Pharmacist Comments on Vancomycin Plan: Vancomycin dosing will take advantage of [employer] as a clinical decision support tool that uses Bayesian modeling to calculate individual patient's pharmacokinetic parameters and forecast the patient's drug concentration time course with the target goal AUC 24 range of 400 - 600 mg/L/hr.
--- NOTE | 2025-05-14 15:15 | PHA.MEDREC ---
Addendum entered by Matthew Steiner RPh 05/14/25 15:23: MED REC REVIEWED BY [facility]. Abbie Kimuman is aware of how patient is taking Januvia, would like it to be kept in patient's home med list. Original Note: Pharmacy Consult ? Medication Reconciliation Pharmacy has completed the medication reconciliation. Spoke with pt and he confirmed his medications. Pt confirmed he should be taking Januvia but has been taking it on/off and last took it about 1-1 1/2 months ago; despite it last being filled in claims 09/2024 for 30, pt pharmacy confirmed LF 09/2024.
[2025-05-14 15:50] VITALS: BMI 51.4
[2025-05-14 16:00] VITALS: BP 137/81; PULSE 93; RESP 16; TEMP 36.2; O2SAT 99
[2025-05-14 16:05] LABS: Glucose, Whole Blood 199 mg/dL (60-115)
[2025-05-14] MEDS: 0.9 % Sodium Chloride Flush 3 ML SYRINGE IVFLUSH ×2 (16:05→19:54)
[2025-05-14 19:26] VITALS: BP 115/58; PULSE 80; RESP 19; TEMP 36.2; O2SAT 97
[2025-05-14 20:23] LABS: Glucose, Whole Blood 235 mg/dL (60-115)
[2025-05-15 03:15] VITALS: BP 130/76; PULSE 73; RESP 18; TEMP 36.6; O2SAT 97
--- NOTE | 2025-05-15 06:55 | PM.PNGS ---
Subjective Subjective Date of Service: 05/15/25 Physical Exam Vital Signs: Vital Signs: Last Vital Signs Temp 97.8 F 05/15/25 03:15 Pulse 73 05/15/25 03:15 Resp 18 05/15/25 03:15 BP 130/76 05/15/25 03:15 Pulse Ox 97 05/15/25 03:15 O2 Del Method Room Air 05/15/25 03:15 BMI result Body Mass Index 51.4 Objective Data Active Medications Acetaminophen (Acetaminophen 325 Mg Tablet) 650 mg PO Q6H PRN PRN Reason: Pain, Mild 1-3,fever,headache Last Admin: 05/14/25 19:53 Dose: 650 mg Documented By: AIMEE Albuterol Sulfate (Albuterol Sulfate 90 Mcg 8 Gm Inhaler) 2 puff INHALE Q4H PRN PRN Reason: shortness of breath or wheezing Calcium Carbonate (Calcium Carbonate 750 Mg Tab.Chew) 750 mg PO Q4H PRN PRN Reason: Heartburn Dextrose (Dextrose 50 % 25 Gm/50 Ml Syringe) 25 gm IVPUSH Q15M PRN; Protocol PRN Reason: per Hypoglycemia Standing Ord. Enoxaparin Sodium (Enoxaparin Sodium 40 Mg/0.4 Ml Syringe) 40 mg SUBCUT Q12H ON LICENSE OF [facility] Last Admin: 05/15/25 01:57 Dose: 40 mg Documented By: AIMEE Glucose (Glucose Gel 15 Gm Gel..Gram.) 15 gm PO Q15M PRN; Protocol PRN Reason: per Hypoglycemia Standing Ord. Vancomycin HCl 1,250 mg/ (Sodium Chloride) 250 mls @ 166.667 mls/hr IV Q8H ON LICENSE OF [facility] Last Infusion: 05/15/25 03:30 Dose: Infused Documented By: AIMEE Insulin Human Lispro (Insulin Lispro 100 Unit/Ml 3 Ml Vial) 0 unit SUBCUT QIDACHS ON LICENSE OF [facility]; Protocol Last Admin: 05/14/25 21:38 Dose: 4 unit Documented By: AIMEE Magnesium Hydroxide (Milk Of Magnesia 30 Ml Oral.Susp) 30 ml PO DAILY PRN PRN Reason: Constipation Melatonin (Melatonin 3 Mg Tablet) 6 mg PO BEDTIME PRN PRN Reason: Insomnia Metformin HCl (Metformin Hcl 1,000 Mg Tablet) 1,000 mg PO BID ON LICENSE OF [facility] Last Admin: 05/14/25 21:38 Dose: 1,000 mg Documented By: AIMEE Pharmacy Consult (Consult Rx Vancomycin Dosing) 1 each MISCELLANE DAILY PRN PRN Reason: Consult order Sitagliptin Phosphate (Sitagliptin Phosphate 50 Mg Tablet) 50 mg PO DAILY ON LICENSE OF [facility] Sodium Chloride (0.9 % Sodium Chloride Flush 3 Ml Syringe) 3 ml IVFLUSH QSHIFT ON LICENSE OF [facility] Last Admin: 05/14/25 19:54 Dose: 3 ml Documented By: AIMEE Vitamin D (Cholecalciferol (Vitamin D3) 25 Mcg Tablet) 50 mcg PO DAILY ON LICENSE OF [facility] Labs 05/14/25 09:22 05/14/25 09:22 Labs: Laboratory Results - last 24 hr 05/14/25 05/14/25 05/14/25 09:22 16:02 20:10 MCV 88.5 MCH 29.7 MCHC 33.6 RDW 12.8 Plt Count 307 MPV 10.3 Immature Gran % (Auto) 0.3 Neut % (Auto) 64.4 Lymph % (Auto) 27.1 Archer % (Auto) 6.5 Eos % (Auto) 1.5 Baso % (Auto) 0.2 Lymph # (Auto) 3.3 Archer # (Auto) 0.8 Eos # (Auto) 0.2 Baso # (Auto) 0.0 Abs Immat Gran (auto) 0.04 H Absolute Neuts (auto) 7.8 Absolute Nucleated RBC 0.000 Nucleated RBC % (auto) 0.0 ESR 16 H Anion Gap 13 Estim Creat Clear Calc 247.0 Estimated GFR > 60 POC Glucose 199 H 235 H Random Glucose 269 H Lactic Acid 1.8 Calcium 9.5 Total Bilirubin 0.4 AST 49 H ALT 121 H Alkaline Phosphatase 86 C-Reactive Protein 2.02 H Total Protein 7.7 Albumin 4.6 Microbiology Microbiology Results: Microbiology 05/14/25 14:12 Gram Stain - Final Abdomen - Abscess Procedures Date of Service Date of Service: 05/15/25 Progress Note: A&P Time Spent With Patient Time: Total time managing care of this patient today ____ minutes. Quality Stroke Does the patient have a stroke diagnosis?: No VTE Prior VTE?: No VTE Risk Level:: Medical - moderate - high VTE Device Contraindication: Treatment Not Indicated VTE Drug Contraindication: N/A - Med Ordered
[2025-05-15 07:13] VITALS: BP 136/82; PULSE 84; RESP 18; TEMP 36.6; O2SAT 98
[2025-05-15 07:24] LABS: Glucose, Whole Blood 209 mg/dL (60-115)
[2025-05-15] MEDS: 0.9 % Sodium Chloride Flush 3 ML SYRINGE IVFLUSH ×2 (08:34→20:49)
[2025-05-15 08:55] LABS: Hematocrit 44.1 % (42.0-52.0); Hemoglobin 14.6 g/dl (14.0-18.0); Mean Corpuscular HGB Conc 33.1 g/dl (31.0-36.0); Mean Corpuscular Hemoglobin 29.3 pg (27.0-33.0); Mean Corpuscular Volume 88.4 fL (80.0-98.0); NRBC Abs Auto 0.000 X10*3/uL (0.0-0.012); NRBC Pct Auto 0.0 /100WBC (0.0-0.2); Platelet Count 340 X10*3/uL (160-400); Red Blood Count 4.99 X10*6/uL (4.60-5.80); White Blood Count 11.8 X10*3/uL (4.8-10.8)
--- NOTE | 2025-05-15 09:05 | P.PNGS_ITS ---
Subjective Subjective Date of Service: 05/15/25 Interval history: doing well today, pain minimal. denies fevers or chills. no acute events overnight. Physical Exam 2 Vital Signs: Vital Signs: Last Vital Signs Temp 97.9 F 05/15/25 07:13 Pulse 84 05/15/25 07:13 Resp 18 05/15/25 07:13 BP 136/82 05/15/25 07:13 Pulse Ox 98 05/15/25 07:13 O2 Del Method Room Air 05/15/25 07:13 BMI result Body Mass Index 51.4 Const: General: comfortable and no acute distress O rientation/consciousness: patient oriented x3 GI: Other: 1 cm incision from I&D, some improvement in erythema from yesterday. remians moderately indurated. scant sanguineous discharge, no purulence. tender to palpation Palpation (GI): Soft to palpation, Tenderness to palpation present (GI) (I&D site) and no guarding Neuro: General: patient oriented x3 Objective Data Active Medications Acetaminophen (Acetaminophen 325 Mg Tablet) 650 mg PO Q6H PRN PRN Reason: Pain, Mild 1-3,fever,headache Last Admin: 05/14/25 19:53 Dose: 650 mg Documented By: AIMEE Albuterol Sulfate (Albuterol Sulfate 90 Mcg 8 Gm Inhaler) 2 puff INHALE Q4H PRN PRN Reason: shortness of breath or wheezing Calcium Carbonate (Calcium Carbonate 750 Mg Tab.Chew) 750 mg PO Q4H PRN PRN Reason: Heartburn Dextrose (Dextrose 50 % 25 Gm/50 Ml Syringe) 25 gm IVPUSH Q15M PRN; Protocol PRN Reason: per Hypoglycemia Standing Ord. Enoxaparin Sodium (Enoxaparin Sodium 40 Mg/0.4 Ml Syringe) 40 mg SUBCUT Q12H [facility] Last Admin: 05/15/25 01:57 Dose: 40 mg Documented By: AIMEE Glucose (Glucose Gel 15 Gm Gel..Gram.) 15 gm PO Q15M PRN; Protocol PRN Reason: per Hypoglycemia Standing Ord. Vancomycin HCl 1,250 mg/ (Sodium Chloride) 250 mls @ 166.667 mls/hr IV Q8H [facility] Last Infusion: 05/15/25 03:30 Dose: Infused Documented By: AIMEE Insulin Human Lispro (Insulin Lispro 100 Unit/Ml 3 Ml Vial) 0 unit SUBCUT QIDACHS [facility]; Protocol Last Admin: 05/15/25 08:11 Dose: 4 unit Documented By: URSULA Magnesium Hydroxide (Milk Of Magnesia 30 Ml Oral.Susp) 30 ml PO DAILY PRN PRN Reason: Constipation Melatonin (Melatonin 3 Mg Tablet) 6 mg PO BEDTIME PRN PRN Reason: Insomnia Metformin HCl (Metformin Hcl 1,000 Mg Tablet) 1,000 mg PO BID [facility] Last Admin: 05/15/25 08:34 Dose: 1,000 mg Documented By: HILLARY Pharmacy Consult (Consult Rx Vancomycin Dosing) 1 each MISCELLANE DAILY PRN PRN Reason: Consult order Sitagliptin Phosphate (Sitagliptin Phosphate 50 Mg Tablet) 50 mg PO DAILY [facility] Last Admin: 05/15/25 08:34 Dose: 50 mg Documented By: HILLARY Sodium Chloride (0.9 % Sodium Chloride Flush 3 Ml Syringe) 3 ml IVFLUSH QSHIFT [facility] Last Admin: 05/15/25 08:34 Dose: 3 ml Documented By: HILLARY Vitamin D (Cholecalciferol (Vitamin D3) 25 Mcg Tablet) 50 mcg PO DAILY [facility] Last Admin: 05/15/25 08:34 Dose: 50 mcg Documented By: HILLARY Labs 05/15/25 08:48 05/14/25 09:22 Labs: Laboratory Results - last 24 hr 05/14/25 05/14/25 05/14/25 09:22 16:02 20:10 MCV 88.5 MCH 29.7 MCHC 33.6 RDW 12.8 Plt Count 307 MPV 10.3 Immature Gran % (Auto) 0.3 Neut % (Auto) 64.4 Lymph % (Auto) 27.1 Ogle % (Auto) 6.5 Eos % (Auto) 1.5 Baso % (Auto) 0.2 Lymph # (Auto) 3.3 Ogle # (Auto) 0.8 Eos # (Auto) 0.2 Baso # (Auto) 0.0 Abs Immat Gran (auto) 0.04 H Absolute Neuts (auto) 7.8 Absolute Nucleated RBC 0.000 Nucleated RBC % (auto) 0.0 ESR 16 H Anion Gap 13 Estim Creat Clear Calc 247.0 Estimated GFR > 60 POC Glucose 199 H 235 H Random Glucose 269 H Lactic Acid 1.8 Calcium 9.5 Total Bilirubin 0.4 AST 49 H ALT 121 H Alkaline Phosphatase 86 C-Reactive Protein 2.02 H Total Protein 7.7 Albumin 4.6 05/15/25 05/15/25 07:17 08:48 MCV 88.4 MCH 29.3 MCHC 33.1 RDW 12.8 Plt Count 340 MPV 10.3 Immature Gran % (Auto) Neut % (Auto) Lymph % (Auto) Ogle % (Auto) Eos % (Auto) Baso % (Auto) Lymph # (Auto) Ogle # (Auto) Eos # (Auto) Baso # (Auto) Abs Immat Gran (auto) Absolute Neuts (auto) Absolute Nucleated RBC 0.000 Nucleated RBC % (auto) 0.0 ESR Anion Gap Estim Creat Clear Calc Estimated GFR POC Glucose 209 H Random Glucose Lactic Acid Calcium Total Bilirubin AST ALT Alkaline Phosphatase C-Reactive Protein Total Protein Albumin Microbiology Microbiology Results: Microbiology 05/14/25 14:12 Gram Stain - Final Abdomen - Abscess Routine Culture - Preliminary Culture in progress. Procedures Date of Service Date of Service: 05/15/25 Progress Note: A&P Assessment and plan (1) Abdominal wall abscess: Status: Acute Plan 29 eyar old male admitted for management of cellulitis with abscess s/p I&D of a RLQ abdominal wall abscess. Patient doing well today, pain is minimal at rest, he is afebrile. WBC improved slightly to 11.8 today. On exam the area seems to be improving, the local erythema is improving, there remains moderate induration around the incision site. There is some pain to palpation to the area when changing dressings. packing was removed, there was scant sanguineous drainage without evidence of purulence. the wound was repacked with 1/4 in packing and dressed with fluff gauze. Would like him to have another day on IV antibiotics before discharge. continue IV abx pain control glucose control daily dressing changes preliminary gram stain showing gram pos cocci, culture pending. likely dc tomorrow on doxy for 1 week Time Spent With Patient Time: Total time managing care of this patient today ____ minutes. Quality Stroke Does the patient have a stroke diagnosis?: No VTE Prior VTE?: No VTE Risk Level:: Medical - moderate - high VTE Device Contraindication: Treatment Not Indicated VTE Drug Contraindication: N/A - Med Ordered
[2025-05-15 09:12] LABS: Anion Gap 16 (12-20); Blood Urea Nitrogen 9 mg/dL (9-16); Calcium 9.6 mg/dL (8.4-10.2); Carbon Dioxide 24 mmol/L (22-29); Chloride 101 mmol/L (96-108); Creatinine Clr Calc Pharmacy 233.5; Estimated Glomerular Filt Rate > 60; Potassium 4.0 mmol/L (3.3-5.1); Sodium 137 mmol/L (135-145)
--- NOTE | 2025-05-15 09:18 | HE.PHANOTE ---
Addendum entered by Julisa Mckeon [facility] 05/15/25 09:19: typo: next trough 05/16 @ 0800. Original Note: Re: Vanco Strong renal function, trough returned at 9.9. Continue current dose of 1250mg q8g with predicted AUC 406, predicted trough 11.6. Next trough 05/16 @ 0900.
--- NOTE | 2025-05-15 09:46 | MHC.CM.PN ---
CM MET WITH PT AT BEDSIDE. 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 NO SERVICES OR DME. PT DECLINES TO COMPLETE A HCP AT THIS TIME. PCP DR. BENAVIDEZ AT [facility] [place] DP: HOME, NO SERVICES IS ANTICIPATED. PT HAS OWN RIDE HOME. CM WILL CONTINUE TO FOLLOW FOR ANY CHANGE TO DC PLAN/NEEDS.
[2025-05-15 11:14] LABS: Glucose, Whole Blood 266 mg/dL (60-115)
[2025-05-15 15:44] VITALS: BP 130/70; PULSE 89; RESP 14; TEMP 36.9; O2SAT 97
[2025-05-15 16:30] LABS: Glucose, Whole Blood 162 mg/dL (60-115)
--- NOTE | 2025-05-15 16:44 | HO.WOUND ---
Wound Consult: Deferred to Surgery Team 29yr old [place] [facility] [place] see H&P for details history. Patient is seen and followed by [facility] for I&D site - will defer topical recommendations to their service.
--- NOTE | 2025-05-15 17:30 | HO.PM.IMPN ---
Subjective Subjective Date of Service: 05/15/25 Interval History: Bedside I&D performed by general surgery last evening Feels better, pain well controlled No acute events overnight No fever, chills; no abd pain Review of Systems Review of Systems: Yes all other systems are reviewed and are negative Physical Exam Exam: Exam: General: AOx3, no acute distress Resp: CTA bilaterally CVS: S1, S2, RRR GI: 1-inch incision in abd wall with packing; improved erythema, some induration. No purulent discharge noted Skin: Warm, dry Neuro: Cranial nerves II-XII grossly intact bilaterally. Motor grossly intact bilaterally Extremities: No edema Psych: Appropriate affect Vital Signs: Vital Signs: Last Vital Signs Temp 98.4 F 05/15/25 15:44 Pulse 89 05/15/25 15:44 Resp 14 05/15/25 15:44 BP 130/70 05/15/25 15:44 Pulse Ox 97 05/15/25 15:44 O2 Del Method Room Air 05/15/25 15:44 BMI result Body Mass Index 51.4 Objective Data Active Medications Acetaminophen (Acetaminophen 325 Mg Tablet) 650 mg PO Q6H PRN PRN Reason: Pain, Mild 1-3,fever,headache Last Admin: 05/14/25 19:53 Dose: 650 mg Documented By: AIMEE Albuterol Sulfate (Albuterol Sulfate 90 Mcg 8 Gm Inhaler) 2 puff INHALE Q4H PRN PRN Reason: shortness of breath or wheezing Calcium Carbonate (Calcium Carbonate 750 Mg Tab.Chew) 750 mg PO Q4H PRN PRN Reason: Heartburn Dextrose (Dextrose 50 % 25 Gm/50 Ml Syringe) 25 gm IVPUSH Q15M PRN; Protocol PRN Reason: per Hypoglycemia Standing Ord. Enoxaparin Sodium (Enoxaparin Sodium 40 Mg/0.4 Ml Syringe) 40 mg SUBCUT Q12H [facility] Last Admin: 05/15/25 13:14 Dose: 40 mg Documented By: HILLARY Glucose (Glucose Gel 15 Gm Gel..Gram.) 15 gm PO Q15M PRN; Protocol PRN Reason: per Hypoglycemia Standing Ord. Vancomycin HCl 1,250 mg/ (Sodium Chloride) 250 mls @ 166.667 mls/hr IV Q8H [facility] Last Infusion: 05/15/25 12:10 Dose: Infused Documented By: HILLARY Insulin Human Lispro (Insulin Lispro 100 Unit/Ml 3 Ml Vial) 0 unit SUBCUT QIDACHS [facility]; Protocol Last Admin: 05/15/25 16:50 Dose: 2 unit Documented By: HILLARY Magnesium Hydroxide (Milk Of Magnesia 30 Ml Oral.Susp) 30 ml PO DAILY PRN PRN Reason: Constipation Melatonin (Melatonin 3 Mg Tablet) 6 mg PO BEDTIME PRN PRN Reason: Insomnia Metformin HCl (Metformin Hcl 1,000 Mg Tablet) 1,000 mg PO BID [facility] Last Admin: 05/15/25 08:34 Dose: 1,000 mg Documented By: HILLARY Pharmacy Consult (Consult Rx Vancomycin Dosing) 1 each MISCELLANE DAILY PRN PRN Reason: Consult order Sitagliptin Phosphate (Sitagliptin Phosphate 50 Mg Tablet) 50 mg PO DAILY [facility] Last Admin: 05/15/25 08:34 Dose: 50 mg Documented By: HILLARY Sodium Chloride (0.9 % Sodium Chloride Flush 3 Ml Syringe) 3 ml IVFLUSH QSHIFT [facility] Last Admin: 05/15/25 16:47 Dose: Not Given Documented By: HILLARY Non-Admin Reason: Previously Administered Vitamin D (Cholecalciferol (Vitamin D3) 25 Mcg Tablet) 50 mcg PO DAILY [facility] Last Admin: 05/15/25 08:34 Dose: 50 mcg Documented By: HILLARY Labs 05/15/25 08:48 05/15/25 08:48 Labs: Laboratory Results - last 24 hr 05/14/25 05/15/25 05/15/25 20:10 07:17 08:48 MCV 88.4 MCH 29.3 MCHC 33.1 RDW 12.8 Plt Count 340 MPV 10.3 Absolute Nucleated RBC 0.000 Nucleated RBC % (auto) 0.0 Anion Gap 16 Estim Creat Clear Calc 233.5 Estimated GFR > 60 POC Glucose 235 H 209 H Random Glucose 273 H Calcium 9.6 Vancomycin Trough 9.9 L 05/15/25 05/15/25 11:11 16:17 MCV MCH MCHC RDW Plt Count MPV Absolute Nucleated RBC Nucleated RBC % (auto) Anion Gap Estim Creat Clear Calc Estimated GFR POC Glucose 266 H 162 H Random Glucose Calcium Vancomycin Trough Microbiology Microbiology Results: Microbiology 05/14/25 09:42 Blood Culture - Preliminary Blood - Venous No growth after 24 hours. 05/14/25 09:22 Blood Culture - Preliminary Blood - Venous No growth after 24 hours. 05/14/25 14:12 Gram Stain - Final Abdomen - Abscess Routine Culture - Preliminary Culture in progress. Assessment and Plan (1) Abdominal wall abscess: Status: Acute Assessment and Plan: Pt is a 29-year-old male with a PMH significant for mild intermittent asthma, gwr-odwvtyk-ldwkndddi type 2 diabetes, and obesity class 3 who presents to the ED with abdominal redness, swelling, and pain. Pt is admitted to the hospital or treatment and further evaluation of abdominal wall abscess. Abdominal wall abscess As shown on bedside US; CT imaging negative No sepsis: leukocytosis of 12.1, but no other SIRS; lactic acid WNL Bedside I&D performed by [facility] surgery Continue vanco, day 2 General surgery following Follow cultures Rmu-zryyija-miyolpojg type 2 diabetes Sliding-scale insulin, diabetic diet Continue sitagliptin Mild intermittent asthma Not in acute exacerbation Continue home inhaler Obesity class 3 BMI 53.7 Weight loss encouraged Full Code DVT Prophylaxis: Lovenox Pt requires continued hospitalization for treatment of abdominal wall abscess with IV antibiotics. Pt will likely be able to be discharged tomorrow. Quality Stroke Does the patient have a stroke diagnosis?: No VTE Prior VTE?: No VTE Risk Level:: Medical - moderate - high VTE Device Contraindication: Treatment Not Indicated VTE Drug Contraindication: N/A - Med Ordered
[2025-05-15 20:00] VITALS: BP 129/61; PULSE 86; RESP 18; TEMP 37.1; O2SAT 96
[2025-05-15 20:51] LABS: Glucose, Whole Blood 213 mg/dL (60-115)
[2025-05-16 03:36] VITALS: BP 119/66; PULSE 67; RESP 18; TEMP 36.3; O2SAT 96
[2025-05-16 06:22] LABS: Creatinine Clr Calc Pharmacy 237.1; Estimated Glomerular Filt Rate > 60
[2025-05-16 07:12] VITALS: BP 131/76; PULSE 70; RESP 12; TEMP 36.8; O2SAT 96
[2025-05-16 07:38] LABS: Glucose, Whole Blood 170 mg/dL (60-115)
[2025-05-16] MEDS: 0.9 % Sodium Chloride Flush 3 ML SYRINGE IVFLUSH (08:34)
--- NOTE | 2025-05-16 08:50 | PM.PNGS ---
Subjective Subjective Date of Service: 05/16/25 Interval history: doing well today, no complains. Pain is minimal. denies fevers or chills. feels comfortable going home Physical Exam Vital Signs: Vital Signs: Last Vital Signs Temp 98.2 F 05/16/25 07:12 Pulse 70 05/16/25 07:12 Resp 12 05/16/25 07:12 BP 131/76 05/16/25 07:12 Pulse Ox 96 05/16/25 07:12 O2 Del Method Room Air 05/16/25 07:12 BMI result Body Mass Index 51.4 Const: General: comfortable and no acute distress Nutritional Appearance: obese Orientation/consciousness: patient oriented x3 Resp: Effort & Inspection: normal respiratory effort and able to speak in complete sentences GI: Other: I&D site is improving, localized cellulitis improving, some mild induration remains. scant serosanguenious discharge. mildly tender Inspection: No distended Palpation (GI): Soft to palpation and no guarding Neuro: General: patient oriented x3 Objective Data Active Medications Acetaminophen (Acetaminophen 325 Mg Tablet) 650 mg PO Q6H PRN PRN Reason: Pain, Mild 1-3,fever,headache Last Admin: 05/14/25 19:53 Dose: 650 mg Documented By: AIMEE Albuterol Sulfate (Albuterol Sulfate 90 Mcg 8 Gm Inhaler) 2 puff INHALE Q4H PRN PRN Reason: shortness of breath or wheezing Calcium Carbonate (Calcium Carbonate 750 Mg Tab.Chew) 750 mg PO Q4H PRN PRN Reason: Heartburn Dextrose (Dextrose 50 % 25 Gm/50 Ml Syringe) 25 gm IVPUSH Q15M PRN; Protocol PRN Reason: per Hypoglycemia Standing Ord. Enoxaparin Sodium (Enoxaparin Sodium 40 Mg/0.4 Ml Syringe) 40 mg SUBCUT Q12H [facility] Last Admin: 05/16/25 01:25 Dose: 40 mg Documented By: LALA Glucose (Glucose Gel 15 Gm Gel..Gram.) 15 gm PO Q15M PRN; Protocol PRN Reason: per Hypoglycemia Standing Ord. Vancomycin HCl 1,250 mg/ (Sodium Chloride) 250 mls @ 166.667 mls/hr IV Q8H [facility] Last Infusion: 05/16/25 02:57 Dose: Infused Documented By: LALA Insulin Human Lispro (Insulin Lispro 100 Unit/Ml 3 Ml Vial) 0 unit SUBCUT QIDACHS [facility]; Protocol Last Admin: 05/16/25 08:33 Dose: 2 unit Documented By: DINH Magnesium Hydroxide (Milk Of Magnesia 30 Ml Oral.Susp) 30 ml PO DAILY PRN PRN Reason: Constipation Melatonin (Melatonin 3 Mg Tablet) 6 mg PO BEDTIME PRN PRN Reason: Insomnia Metformin HCl (Metformin Hcl 1,000 Mg Tablet) 1,000 mg PO BID [facility] Last Admin: 05/16/25 08:33 Dose: 1,000 mg Documented By: DINH Pharmacy Consult (Consult Rx Vancomycin Dosing) 1 each MISCELLANE DAILY PRN PRN Reason: Consult order Sitagliptin Phosphate (Sitagliptin Phosphate 50 Mg Tablet) 50 mg PO DAILY [facility] Last Admin: 05/16/25 08:33 Dose: 50 mg Documented By: DINH Sodium Chloride (0.9 % Sodium Chloride Flush 3 Ml Syringe) 3 ml IVFLUSH QSHIFT [facility] Last Admin: 05/16/25 08:34 Dose: 3 ml Documented By: DINH Vitamin D (Cholecalciferol (Vitamin D3) 25 Mcg Tablet) 50 mcg PO DAILY [facility] Last Admin: 05/16/25 08:34 Dose: 50 mcg Documented By: DINH Labs 05/15/25 08:48 05/16/25 05:39 Labs: Laboratory Results - last 24 hr 05/15/25 05/15/25 05/15/25 08:48 11:11 16:17 MCV 88.4 MCH 29.3 MCHC 33.1 RDW 12.8 Plt Count 340 MPV 10.3 Absolute Nucleated RBC 0.000 Nucleated RBC % (auto) 0.0 Anion Gap 16 Estim Creat Clear Calc 233.5 Estimated GFR > 60 POC Glucose 266 H 162 H Random Glucose 273 H Calcium 9.6 Vancomycin Trough 9.9 L 05/15/25 05/16/25 05/16/25 20:38 05:39 07:16 MCV MCH MCHC RDW Plt Count MPV Absolute Nucleated RBC Nucleated RBC % (auto) Anion Gap Estim Creat Clear Calc 237.1 Estimated GFR > 60 POC Glucose 213 H 170 H Random Glucose Calcium Vancomycin Trough Microbiology Microbiology Results: Microbiology 05/14/25 14:12 Gram Stain - Final Abdomen - Abscess Routine Culture - Preliminary Staphylococcus species 05/14/25 09:42 Blood Culture - Preliminary Blood - Venous No growth after 24 hours. 05/14/25 09:22 Blood Culture - Preliminary Blood - Venous No growth after 24 hours. Procedures Date of Service Date of Service: 05/16/25 Progress Note: A&P Assessment and plan (1) Abdominal wall abscess: Status: Acute Plan 29 year old male s/p I&D of an abdominal wall abscess. He is doing well today, pain is minimal, he is afebrile. Culture resulting staph species. On exam the site appears to be improving, cellulitis is reducing, there remains some mild induration. There is scant serosangeious discharge. Packing remains in place. I instructed him to remove this packing tomorrow along with the dressing. He is to continue to keep this covered with gauze or a bandaid especially with showering, will follow up in the office in 1 week. discussed this case with medicine ASHISH hardy, he will have 7 day course of doxycycline for continued abx coverage. recommende folowing up with PCP to improve management of his sugars going forward Time Spent With Patient Time: Total time managing care of this patient today ____ minutes. Quality Stroke Does the patient have a stroke diagnosis?: No VTE Prior VTE?: No VTE Risk Level:: Medical - moderate - high VTE Device Contraindication: Treatment Not Indicated VTE Drug Contraindication: N/A - Med Ordered
--- NOTE | 2025-05-16 09:11 | HE.PHANOTE ---
Re: Vanco Stable renal function. Trough returned at 10.8. Wiht current dose (1250mg q8h) predicted AUC is lower than goal. Dose increased to 1500mg q8h with predicted AUC 456, predicted 12.6. Next trough 05/17 @ 0800.
[2025-05-16 11:22] LABS: Glucose, Whole Blood 206 mg/dL (60-115)
--- NOTE | 2025-05-16 12:12 | PM.DS ---
DS: Providers Provider Date of Service: 05/16/25 Date of admission: 05/14/25 11:53 Date of discharge: 05/16/25 Primary care physician: César Wallace MD Consults: 05/14/25 11:54 Consult to General Surgery Stat Consulting Provider: [facility] Reason for consultation: abscess abdomen 05/14/25 12:28 Consult to General Surgery Routine Consulting Provider: [facility] Reason for consultation: Abdominal abscess Has provider been notified: Yes 05/14/25 16:00 Consult to Wound Care Routine Reason for consultation: Abdominal abcess. DS: Diagnosis Discharge Diagnosis (1) Abdominal wall abscess: Status: Acute DS: Summary Hospital Course Hospital Course: From Admission HPI: Date of Service: 05/14/25 Attending physician on admission: Carlos Davenport Chief Complaint: Worsening abd abscess Pt is a 29-year-old male with a PMH significant for mild intermittent asthma, bnh-hiqpmeu-frnkgbuch type 2 diabetes, and obesity class 3 who presents to the ED with abdominal redness, swelling, and pain. Pt reports noticed a ?lump? on his lower right abdomen 3 days ago. Pt initially thought nothing of it, however yesterday began to grow larger. Woke this morning with right lower quadrant abdominal pain and area now appeared more swollen and red. Denies fever or drainage from area. No known trauma to the area. Denies nausea, vomiting, diarrhea. No SOB or difficulty breathing ? In the ED pt's vitals stable. Labs were significant for leukocytosis 12.1, CRP 2.02, AST 49, ALT 121. No significant electrolyte abnormalities. Renal function baseline. Lactic acid WNL. Dry CT of abdomen/pelvis without gross fluid collection in peritoneal cavity, though bedside ultrasound showed abscess. ED physician contacted General surgery who plan on draining abscess later on in the afternoon. Pt was treated in the ED with vancomycin. Pt is admitted to the hospital or treatment and further evaluation of abdominal wall abscess. Hospital course: Pt was admitted to the hospital for abdominal wall cellulitis with abscess. Pt was seen by General surgery who performed bedside I&D with a 1cm incision and resultant purulent discharge. Wound was packed and covered in clean dressing. Pt was treated in the hospital with vancomycin IV, and will be transitioned to doxycycline 100 mg b.i.d. x7 days at discharge. Pt should remove packing from the incision tomorrow, and keep incision dressed at home, especially with showering. Change dressing daily. Follow up outpatient with General surgery in 1 week. Take full course of antibiotics to completion, with end date 05/23/2025. Began taking doxycycline this evening at home. For zqp-hflupqg-aetnieitv type 2 diabetes, continue metformin and sitagliptin. POC moderately high in the hospital, generally >200. Follow up with PCP for management of glycemic control. For mild intermittent asthma, continue home inhaler. Time Attestation Discharge Coordination Time (in mins): 32 Quality: Safe Use of Opioids Does Pt have an Active Cancer Diagnosis on the Problem List?: No Quality: Stroke Does the patient have a stroke diagnosis?: No Physical Exam Exam: Exam: General: AOx3, no acute distress Resp: CTA bilaterally CVS: S1, S2, RRR GI: 1-cm incision in abd wall with packing; improved erythema, some induration. Some serosanguineous discharge; no purulent discharge noted Skin: Warm, dry Neuro: Cranial nerves II-XII grossly intact bilaterally. Motor grossly intact bilaterally Extremities: No edema Psych: Appropriate affect Vital Signs: Vital Signs: Last Vital Signs Temp 98.2 F 05/16/25 07:12 Pulse 70 05/16/25 07:12 Resp 12 05/16/25 07:12 BP 131/76 05/16/25 07:12 Pulse Ox 96 05/16/25 07:12 O2 Del Method Room Air 05/16/25 07:12 BMI result Body Mass Index 51.4 DS: Data Data Completed and Pending Labs on day of discharge: Laboratory Results - last 24 hr 05/15/25 05/15/25 05/16/25 16:17 20:38 05:39 Creatinine 0.66 Estim Creat Clear Calc 237.1 Estimated GFR > 60 POC Glucose 162 H 213 H Vancomycin Trough 05/16/25 05/16/25 05/16/25 07:16 08:17 11:03 Creatinine Estim Creat Clear Calc Estimated GFR POC Glucose 170 H 206 H Vancomycin Trough 10.8 Preliminary micro results at discharge 05/14/25 09:42 Blood Culture - Preliminary Blood - Venous No growth after 48 hours. 05/14/25 09:22 Blood Culture - Preliminary Blood - Venous No growth after 48 hours. 05/14/25 14:12 Routine Culture - Preliminary Abdomen - Abscess Staphylococcus species Discharge Plan Discharge Anticipated Discharge Date/Time: 05/16/25 11:29 Patient Disposition: Home, Self-Care Discharge Diagnosis: Abdominal wall abscess Referrals: César Wallace MD [Primary Care Provider, Internal Medicine] - 1 Week Jose Campbell PA-C [Physician Senior Fire Protection Engineer, General Surgery] - 1 Week Referral Note: Abdominal wall abscess Discharge Medications: New doxycycline monohydrate 100 mg capsule 100 mg PO BID Qty: 15 0RF Rx Instructions: Take one capsule twice a day with meals. Begin this evening and end on 05/23. Complete whole course of antibiotics. Continued albuterol sulfate 90 mcg/actuation HFA aerosol inhaler 2 puff inhalation Q4-6H PRN (Reason: shortness of breath or wheezing) Qty: 8.5 2RF cholecalciferol (vitamin D3) 50 mcg (2,000 unit) capsule 50 mcg PO DAILY 90 Days Qty: 90 3RF metformin 1,000 mg tablet 1,000 mg PO BID 90 Days Qty: 180 1RF lidocaine [Lidoderm] 5 % adhesive patch,medicated 1 patch topical DAILY MDD remove after 12 hours PRN (Reason: pain) Qty: 30 0RF Rx Instructions: leave on most painful area for up to 12 hrs Januvia 50 mg tablet 50 mg PO DAILY 90 Days Qty: 90 1RF Discharge Orders: Discharge Order (Routine); Ordered 05/16/25 Ordered By: Abbie Traylor Activity on Discharge: As tolerated Stand Alone Forms: Patient Portal Discharge page, Work/School Release Print Language: Citizen Of [place] Care Plan Goals: Resolution of cellulitis and abscess Health Concerns: Abdominal wall cellulitis/abscess Sepsis Plan of Treatment: You were admitted to the hospital for abdominal wall cellulitis with abscess. You were seen by General surgery were bedside I&D was performed, and treated with IV antibiotics. Take doxycycline 100 mg twice a day with meals for the next 7 days; end date 05/23 Remove packing tomorrow; daily dressing changes; keep dressed at home, especially when showering Follow up outpatient in 1 week with [facility] [place] [facility] Assessment: See discharge summary Discharge Date/Time: 05/16/25 12:52
[2025-05-16 12:24] VITALS: BP 133/75; PULSE 87; RESP 18; TEMP 36.7; O2SAT 97
--- NOTE | 2025-05-16 12:55 | MHC.CM.PN ---
dDP: PT HAS BEEN MEDICALLY CLEARED FOR DC HOME, NO SERVICES. PT HAS OWN RIDE HOME.
== END 2025-05-16 12:52 | disposition home or self-care (01) | DRG 364 ==
LOC: HO.ED 11:55 → HO.EDOVER 12:01 → HO.S3 14:49
PROVIDERS: Admitting Provider Student in an Organized Health Care Education/Training Program; Emergency Provider Emergency Medicine; PCP Internal Medicine; Visit Provider Student in an Organized Health Care Education/Training Program
DX: L02.211 Cutaneous abscess of abdominal wall (principal); Z68.43 Body mass index [BMI] 50.0-59.9, adult; E11.9 Type 2 diabetes mellitus without complications; J45.20 Mild intermittent asthma, uncomplicated; Z79.84 Long term (current) use of oral hypoglycemic drugs; B95.8 Unspecified staphylococcus as the cause of diseases classified elsewhere; L03.311 Cellulitis of abdominal wall; E66.813 Obesity, class 3; Z79.899 Other long term (current) drug therapy
CPT/HCPCS: 36415; 74176; 80048; 80053; 80202; 82565; 82947; 83605; 85025; 85027; 85652; 86140; 87040; 87070; 87077; 87186; 87205; 99285; J1650; J2003; J3373; J3374

== ENCOUNTER → 2025-05-14 09:05 | Outpatient (BNV) | payer OTHER, SELFPAY | PROVIDERS: Admitting Provider Student in an Organized Health Care Education/Training Program; Emergency Provider Emergency Medicine; PCP Internal Medicine; Visit Provider Radiology Diagnostic Radiology | DX: R16.0 Hepatomegaly, not elsewhere classified (principal) | CPT/HCPCS: 74176 ==

== ENCOUNTER → 2025-05-14 11:53 | Outpatient (BNV) | payer OTHER, SELFPAY | PROVIDERS: Admitting Provider Student in an Organized Health Care Education/Training Program; Emergency Provider Emergency Medicine; PCP Internal Medicine | DX: L02.211 Cutaneous abscess of abdominal wall (principal) | CPT/HCPCS: 10060; 99024; 99222; 99499 ==

== ENCOUNTER → 2025-05-14 11:53 | Outpatient (BNV) | payer OTHER, SELFPAY | PROVIDERS: Admitting Provider Student in an Organized Health Care Education/Training Program; Emergency Provider Emergency Medicine; PCP Internal Medicine; Visit Provider Student in an Organized Health Care Education/Training Program | DX: L02.211 Cutaneous abscess of abdominal wall (principal) | CPT/HCPCS: 99233 ==

== ENCOUNTER 2025-05-25 09:44 | Outpatient (AMB) | payer OTHER, SELFPAY ==
--- OUTSIDE RECORDS SUMMARY | 2025-05-25 09:47 | XMS_ITS | Clinical Summary ---
Author Organization [facility] Address [address] [place], [place] [id number] Phone Care Team Providers Care Rn Telephonic Name Role Phone César Wallace MD Primary Care Provider [phone] Social History Tobacco Use Types Packs/Day Years Used Date Smoking Tobacco: Never Assessed Sex and Gender Information Value Date Recorded Sex Assigned at Not on file Legal Sex Male 3:33 PM EST Gender Identity Not on file Sexual Orientation Not on file Plan of Treatment Not on file Medical Devices Not on file Insurance [facility] [place] [address] [facility] ACO ACO ACO [facility] Care Teams Rn Telephonic Relationship Specialty Start Date End Date César Wallace MD [address] [place] [id number] PCP - General Internal Medicine 08/11/24 Additional Source Comments The information contained in this document represents components of the legal health record. It is not the complete legal health record.[facility]
--- OUTSIDE RECORDS SUMMARY | 2025-05-25 09:47 | XMS_ITS | Encounter Summary ---
Author Organization [facility] Address [address] [place] [id number] Phone Care Team Providers Care Filenet Architect Name Role Phone Valerie Cooper MD Primary Care Provider [phone] Encounter Details Date Type Department Care Team (Late st Contact Info) Description 09/11/2011 Documentation [facility] Family Medicine [address] [place] [address] Family Medicine, Physician [address] [place], [place] [id number] Social History Tobacco Use Types Packs/Day Years [...] on filedocumented in this encounter Care Teams Filenet Architect Relationship Specialty Start Date End Date Valerie Cooper MD [address] [facility] [place] [address] PCP - General 05/14/17 01/14/23 documented as of this encounter
[2025-05-25 10:03] VITALS: BP 122/74; PULSE 80; BMI 54.0
--- NOTE | 2025-05-25 10:03 | MHC.OFFVIS ---
Vital Signs 05/25/25 10:03 Height 5 ft 8 in Weight 355 lb BMI 54.0 BP 122/74 Blood Pressure Location Lt radial Position Sitting Pulse 80 Intake Visit Reasons: s/p abd abscess drain 05/14/25 Intake Note: Pt states, I'm here for f/u of my abscess. no pain, no drainage, Safety Compliance Specialist Required: No Allergies No Known Allergies Allergy (Verified 05/25/25 10:05) Medication List - Last Reconciled 05/25/25 by Dixon Peters RN albuterol sulfate 90 mcg/actuation 2 puffs inhalation Q4-6H PRN cholecalciferol (vitamin D3) 50 mcg PO DAILY 90 days lidocaine 5% (Lidoderm) 1 patch topical DAILY PRN MDD remove after 12 hours metformin 1,000 mg PO BID 90 days sitagliptin phosphate (Januvia) 50 mg PO DAILY 90 days HPI HPI s/p abd abscess drain 05/14/25: Details: Doing well. Denies pain, denies discharge. Denies fevers or chills. Reports he completed doxycycline yesterday. Has not followed up with primary care yet regarding diabetes management [facility] Medical History Osteoarthritis of left hip Chronic left hip pain Vitamin D deficiency Diabetes mellitus Lumbar degenerative disc disease Morbid obesity with BMI of 50.0-59.9, adult Asthma Surgical History History of excision of mass (02/19/22) History of repair of ACL History of repair of anterior cruciate ligament of right knee (~08/2015) Family History Brother Epilepsy Maternal Aunt Breast cancer Social History Household Members: Family Housing: Apartment Do you presently have visiting nurse or other home services: No Alcohol intake: never Patient Tobacco Use Status: Never used Tobacco e-Cigarette/Vaping Use: Never Used Second Hand Smoke Exposure: Yes service: No Current occupational status: employed Current occupation: [employer] Cognitive needs: No Hearing needs: No Vision needs: No Physical Exam Vital Signs: Last Vital Signs Pulse 80 05/25/25 10:03 BP 122/74 05/25/25 10:03 BMI result Body Mass Index 54.0 Const General: comfortable and no acute distress Orientation/consciousness: patient oriented x3 GI Other: Right lower quadrant I&D site: Healing well some dry skin surrounding. Some deep induration tissue, appropriate at this point. No palpable fluid collection no drainage noted Neuro General: patient oriented x3 Assessment & Plan Assessment & Plan (1) Abdominal wall abscess: Code(s): L02.211 - Cutaneous abscess of abdominal wall Category: Medical Plan 29-year-old male s/p I&D of abdominal wall abscess returning to the office for routine follow-up. Patient doing well overall, not experiencing pain or drainage from the incision site. He has completed the full course of doxycycline that he was prescribed on discharge. Has been afebrile. On exam the wound appears to be healing well there is some induration tissue that is appropriate for this stage of recovery. There was no drainage in the area was nontender there was no surrounding erythema. Expect this to decrease with time. I again stressed the importance of following up with his primary care regarding diabetes management. Also recommended continuing adequate hygiene. He understands this and plans to follow up with his primary care soon. Patient no longer requiring follow-up, he can follow up as needed with any concerns in the future Coding Level of Care Code Est Pt Level 3 (86219) Diagnoses Abdominal wall abscess L02.211
== END 2025-05-25 10:12 | disposition home or self-care (01) ==
LOC: HO.HGS 09:45
PROVIDERS: PCP Internal Medicine
DX: L02.211 Cutaneous abscess of abdominal wall (principal)
CPT/HCPCS: 99213

== ENCOUNTER → 2025-05-25 09:44 | Outpatient (BNVA) | payer OTHER, SELFPAY | PROVIDERS: PCP Internal Medicine | DX: L02.211 Cutaneous abscess of abdominal wall (principal) | CPT/HCPCS: 99212 ==

== ENCOUNTER → 2025-06-21 07:44 | Outpatient (REF) | payer OTHER, SELFPAY ==
--- NOTE | 2025-06-21 07:46 | CA_ITS ---
Acquisition Time: 2025-06-21 09:15:25 Total Exercise Time: 00:06:31 Test Indications: CP,UNSPECIFIED,ELEV BP READINGS Medications: Protocol: TENA Max HR: 162 BPM 85% of Pred: 190 BPM Max BP: 170/84 mmHG Max Work Load: 7.7 METS Exercise stress test with exercise 6 mins 31 secs of Tena Protocol, achieving 85% MPHR, with reports of SOB, no chest pain, without any arrythmias, with normotensive response to exercise. Without any EKG changes meeting any criteria for ischemia. In recovery, breathing returned to baseline. Test reviewed with Dr. Saldivar. Referred By: Cinthia Martin Electronically Signed By: Jamil Lockwood
--- NOTE | 2025-06-21 07:46 | CA_ITS ---
Transthoracic Echocardiogram Patient (Last, First, Middle): Anthony Gregorio, Gender: Male Date of : 1995 Age: 29 Procedure Date: 06/21/2025 Procedure Type: Transthoracic Echocardiogram Location: OP Height: 172.72 cm Weight: 161.03 kg BSA: 2.61 m2 Heart Rate: bpm BP: 122 / 74 mmHg Board Setter: LACI Referring MD: Cinthia Martin GREEN MEAT PACKER-C Symptoms: R07.9 - Chest pain, unspecified Study Quality: Adequate with contrast ECG Rhythm: Sinus Conclusions: - The left ventricular systolic function is normal. The calculated ejection fraction is 60% by biplane method. - No obvious valvular pathology seen on this study. Findings Procedure Information Contrast agent, definity, is being given per protocol without apparent complications. Left Ventricle Normal left ventricular cavity size. The left ventricular systolic function is normal. The calculated ejection fraction is 60% by biplane method. There is no evidence of regional wall motion abnormalities. Diastolic function is normal for age. There is mild septal and mild basal asymmetric hypertrophy. Right Ventricle Mildly increased right ventricular cavity size. There is normal right ventricular systolic function. Atria Both atria are normal in size. Aortic Valve The aortic valve was not well visualized. There is no aortic valve stenosis. There is no aortic valve regurgitation. Mitral Valve The mitral valve appears normal. There is no mitral valve regurgitation. There is no mitral valve stenosis. Pulmonic Valve The pulmonic valve is likely normal. Tricuspid Valve There is no tricuspid valve regurgitation. Tricuspid regurgitation envelope is inadequate for calculation of right ventricular systolic pressure. Great Vessels The asc aorta and aortic arch are normal in size. Venous The inferior vena cava is normal in size and collapses greater than 50% with inspiration. Pericardium/Pleural There is no evidence of pericardial effusion. Prior Study Comparison No prior study available for comparison. Recommendations, Care & Conclusions No obvious valvular pathology seen on this study. Measurements 2D Linear Measurements IVSd: 0.85 0.6-0.9/0.6-1.0 cm LVIDd: 5.40 3.9-5.3/4.2-5.9 cm LVIDd Index: 2.07 2.4-3.2/2.2-3.1 cm/m2 LVIDs: 3.68 2.0-3.6 cm LVPWd: 0.86 0.7-1.1 cm LA Diam: 4.30 2.7-3.8/3.0-4.0 cm LAIDs Index: 1.65 1.5-2.3 cm/m2 LV Mass: 210.51 67-162/88-224 g LV Mass Index: 80.66 43-95/49-115 g/m2 LVOT Diam: 2.20 3.0+(-)1.3 cm 2D Systolic Function EF 4C: 66.60 >55% EF 2C: 55.50 >55% EF BiP: 60.40 >55% Mitral Valve MV Pk E: 1.04 MV PK A: 0.46 MV Decel Time: 211.00 E/A: 2.20 E'Lateral: 11.90 E'Medial: 11.60 E/E' Med: 9.00 E/E' Lat: 8.70 PHT: 62.00 MVA PHT: 3.55 Decel Lewis: 4.93 Aortic Valve AoV Pk Elio: 1.64 AoV Mn Elio: 1.10 AoV VTI: 0.32 AoV Pk Grad: 11.00 Aov Mn Grad: 5.00 AMINATA Cont.VTI: 2.90 LVOT LVOT Pk Elio: 1.17 LVOT Mn Elio: 0.74 LVOT VTI: 0.24 LVOT Pk Grad: 5.00 LVOT Mn Grad: 3.00 LVOT Diam: 2.20 LVOT Area: 3.80 Diastolic Function MV Pk E: 1.04 MV Pk A: 0.46 E/A: 2.20 E'Medial: 11.60 E/E' Med: 9.00 E' Laterial: 11.90 E/E' Lat: 8.70 Right Ventricle TAPSE (mm): 33.80 TVS' Elio: 16.10 Tricuspid Valve RA Press: 3.00 Great Vessels Aorta Sinus of Valsalva: 3.12 2.0-3.5 cm Ao Asc: 3.10 2.1-3.4 cm Ao Arch: 2.70 Updated in Other Vendor System with Status of Final Dung Saldivar MD electronically signed on 06/23/2025 12:09:40 PM with status of Final
--- OUTSIDE RECORDS SUMMARY | 2025-06-21 07:46 | XMS_ITS | Clinical Summary ---
Author Organization [facility] Address [address] [place], [place] [id number] Phone Care Team Providers Care Undercover Cop Name Role Phone César Wallace MD Primary Care Provider [phone] Social History Tobacco Use Types Packs/Day Years Used Date Smoking Tobacco: Never Assessed Sex and Gender Information Value Date Recorded Sex Assigned at Not on file Legal Sex Male 3:33 PM EST Gender Identity Not on file Sexual Orientation Not on file Plan of Treatment Not on file Medical Devices Not on file Insurance [facility] Care Teams Undercover Cop Relationship Specialty Start Date End Date César Wallace MD [address] [place] [address] PCP - General Internal Medicine 08/11/24 Additional Source Comments The information contained in this document represents components of the legal health record. It is not the complete legal health record.[facility]
--- OUTSIDE RECORDS SUMMARY | 2025-06-21 07:46 | XMS_ITS | Encounter Summary ---
Author Organization [facility] Address [address] [place] [address] Phone Care Team Providers Care Inorganic Chemical Technician Name Role Phone Valerie Cooper MD Primary Care Provider [phone] Encounter Details Date Type Department Care Team (Late st Contact Info) Description 03/13/2015 Documentation [facility] [place] Family Medicine [address] [place] [address] Family Medicine, Physician [address] [place], [place] [phone] Social History Tobacco Use Types Packs/Day Years [...] on filedocumented in this encounter Care Teams Inorganic Chemical Technician Relationship Specialty Start Date End Date Valerie Cooper MD [address] [place] [address] [place] [address] PCP - General 05/14/17 01/14/23 documented as of this encounter
--- OUTSIDE RECORDS SUMMARY | 2025-06-21 07:46 | XMS_ITS | Encounter Summary ---
Author Organization [facility] Address [address] [place] [address] Phone Care Team Providers Care Dryer And Washer Mechanic Name Role Phone Valerie Cooper MD Primary Care Provider [phone] Encounter Details Date Type Department Care Team (Late st Contact Info) Description 05/07/2015 Documentation [facility] [place] Medicine [address] [place] [address] Family Medicine, Physician [address] [place], [place] [phone] Social History Tobacco Use Types Packs/Day Years [...] on filedocumented in this encounter Care Teams Dryer And Washer Mechanic Relationship Specialty Start Date End Date Valerie Cooper MD [address] [place] [address] [place] [address] PCP - General 05/14/17 01/14/23 documented as of this encounter
--- OUTSIDE RECORDS SUMMARY | 2025-06-21 07:46 | XMS_ITS | Encounter Summary ---
Author Organization [facility] Address [address] [place] [address] Phone Care Team Providers Care Corporate Ethics Officer Name Role Phone Valerie Cooper MD Primary Care Provider [phone] Encounter Details Date Type Department Care Team (Late st Contact Info) Description 01/15/2011 Documentation [facility] [place] Family Medicine [address] [place] [address] Family Medicine, Physician [address] [place], [place] [phone] Social History Tobacco Use Types Packs/Day Years [...] on filedocumented in this encounter Care Teams Corporate Ethics Officer Relationship Specialty Start Date End Date Valerie Cooper MD [address] [place] [address] PCP - General 05/14/17 01/14/23 documented as of this encounter
--- OUTSIDE RECORDS SUMMARY | 2025-06-21 07:46 | XMS_ITS | Encounter Summary ---
Author Organization [facility] Address [address] [place] [address] Phone Care Team Providers Care Forklift Truck Operator Name Role Phone Valerie Cooper MD Primary Care Provider Encounter Details Date Type Department Care Team (Late st Contact Info) Description 08/31/2011 Documentation [facility] [address] [place] [address] Family Medicine, Physician [address] [place], [place] [phone] Social History Tobacco Use Types Packs/Day Years [...] on filedocumented in this encounter Care Teams Forklift Truck Operator Relationship Specialty Start Date End Date Valerie Cooper MD [address] [facility] [place] [address] PCP - General 05/14/17 01/14/23 documented as of this encounter
--- OUTSIDE RECORDS SUMMARY | 2025-06-21 07:46 | XMS_ITS | Clinical Summary ---
Author Organization [facility] Address [address] [place] [address] Phone Care Team Providers Care Installation Helper Name Role Phone Unavailable Primary Care Provider [...] of *CVA/Stroke, No family history of *Sudden /[place] under 55, Family history of ADD/ADHD, No [...] AM EDT Pulse - - Temperature 36.6 C (97.8 F) 12/15/2012 12:00 AM EDT Respiratory Rate - - Oxygen Saturation 99% [...] 04/20/1996, Additional history exists Influenza Vaccines (#1) 2025 07/12/20 13, 06/29/2012, 06/04/2011, Additional history exists COVID-19 Vaccine ( season) 2025 Hepatitis B Vaccines Completed 05/06/1995, 1994, 1994 HIB Vaccines Completed 12/10/1995, 12/1994, 04/02/1995, Additional history exists IPV Vaccines Completed 12/10/1995, 12/1994, 04/02/1995, Additional history exists MMR Vaccines Completed 06/07/1998, 12/30/1995 Meningococcal Vaccine Aged Out 10/19/2007 No abbey jevoany eligible based on patient's age to complete [...]
--- OUTSIDE RECORDS SUMMARY | 2025-06-21 07:46 | XMS_ITS | Encounter Summary ---
Author Organization [facility] Address [address] [place] [address] Phone Care Team Providers Care Physical Sciences Professor Name Role Phone Valerie Cooper MD Primary Care Provider [phone] Encounter Details Date Type Department Care Team (Late st Contact Info) Description 05/20/2017 Conversion Encounter [facility] [place] [address] [place] [address] Social History Tobacco Use Types Packs/Day Years [...] on filedocumented in this encounter Care Teams Physical Sciences Professor Relationship Specialty Start Date End Date Valerie Cooper MD [address] [place] [address] PCP - General 05/14/17 01/14/23 documented as of this encounter
--- OUTSIDE RECORDS SUMMARY | 2025-06-21 07:46 | XMS_ITS | Encounter Summary ---
Author Organization [facility] Address [address] [place] [address] Phone Care Team Providers Care Sales Product Manager Name Role Phone Valerie Cooper MD Primary Care Provider [phone] Encounter Details Date Type Department Care Team (Late st Contact Info) Description 09/11/2011 Documentation [facility] Family Medicine [address] [place] [address] Family Medicine, Physician [address] [place], [place] [phone] Social History Tobacco Use Types Packs/Day Years [...] on filedocumented in this encounter Care Teams Sales Product Manager Relationship Specialty Start Date End Date Valerie Cooper MD [address] [facility] [place] [address] PCP - General 05/14/17 01/14/23 documented as of this encounter
== END ==
LOC: HO.CARD 07:44
PROVIDERS: PCP Internal Medicine; Visit Provider Nurse Practitioner Family
DX: R03.0 Elevated blood-pressure reading, without diagnosis of hypertension (principal); R07.9 Chest pain, unspecified
CPT/HCPCS: 93017; 93306; Q9957

== ENCOUNTER → 2025-06-21 07:46 | Outpatient (BNV) | payer OTHER, SELFPAY | PROVIDERS: PCP Internal Medicine | DX: I42.2 Other hypertrophic cardiomyopathy (principal) | CPT/HCPCS: 93016; 93018; 93350; 93352 ==

== ENCOUNTER 2025-07-05 14:56 | Outpatient (AMB) | payer OTHER, SELFPAY ==
[2025-07-05 15:26] VITALS: BP 124/72; PULSE 87; BMI 53.1
--- NOTE | 2025-07-05 15:26 | A.OFFVIS_ITS ---
Vital Signs 07/05/25 15:26 Height 5 ft 8 in Weight 349 lb 3.395 oz BMI 53.1 BP 124/72 Blood Pressure Location Lt brachial Position Sitting Pulse 87 Pulse Source Pulse Oximeter Intake Visit Reasons: f/up-testing Flume Worker Required: No Allergies No Known Allergies Allergy (Verified 07/05/25 15:28) Medication List - Last Reconciled 07/05/25 by Cinthia Martin, PUBLIC RELATIONS CONSULTANT-C albuterol sulfate 90 mcg/actuation 2 puffs inhalation Q4-6H PRN cholecalciferol (vitamin D3) 50 mcg PO DAILY 90 days lidocaine 5% (Lidoderm) 1 patch topical DAILY PRN MDD remove after 12 hours metformin 1,000 mg PO BID 90 days sitagliptin phosphate (Januvia) 50 mg PO DAILY 90 days HPI HPI f/up-testing: Details: Anthony is a 29-year-old male with past medical history of morbid obesity, bord isela hypertension and diabetes who underwent evaluation for left-sided chest discomfort with an echocardiogram and exercise stress test and now presents for follow-up. Today he reports that he has not had any recurrent chest discomfort. He reports good activity tolerance. No shortness of breath, PND, orthopnea or edema. No lightheadedness, presyncope, syncope, falls. He has no prior cardiac history. He denies any known family history of heart disease. He is a nonsmoker, denies substance use or alcohol use. [facility] Medical History Osteoarthritis of left hip Chronic left hip pain Vitamin D deficiency Diabetes mellitus Lumbar degenerative disc disease Morbid obesity with BMI of 50.0-59.9, adult Asthma Surgical History History of excision of mass (02/19/22) History of repair of ACL History of repair of anterior cruciate ligament of right knee (~08/2015) Family History Brother Epilepsy Maternal Aunt Breast cancer Social History Household Members: Family Housing: Apartment Do you presently have visiting nurse or other home services: No Alcohol intake: never Patient Tobacco Use Status: Never used Tobacco e-Cigarette/Vaping Use: Never Used Second Hand Smoke Exposure: Yes service: No Current occupational status: employed Current occupation: [employer] Cognitive needs: No Hearing needs: No Vision needs: No Review of Systems Const All systems reviewed & are unremarkable except as noted in HPI and below ENT Denies dizziness Card Denies chest pain, Denies chest pain at rest, Denies chest pain with activity, Denies rapid heart rate, Denies pedal edema, Denies edema, Denies leg edema, Denies lightheadedness, Denies palpitations, Denies dyspnea, Denies dyspnea on exertion and Denies orthopnea Resp Denies cough, Denies dyspnea and Denies dyspnea on exertion GI Denies hematochezia and Denies change in stool character Musc Denies abnormal gait, Denies limited range of motion, Denies muscle cramps, Denies muscle weakness, Denies numbness, Denies radiating pain into limb, Denies stiffness and Denies tingling Neuro Denies abnormal gait, Denies dizziness, Denies numbness and Denies tingling Endo Denies palpitations Physical Exam Vital Signs: Last Vital Signs Pulse 87 07/05/25 15:26 BP 124/72 07/05/25 15:26 BMI result Body Mass Index 53.1 Const General: cooperative, healthy appearing, comfortable and no acute distress Orientation/consciousness: patient oriented x3 Neck Neck: Yes normal visual inspection Resp Effort & Inspection: normal respiratory effort Auscultation: clear to auscultation bilaterally, no rales, no rhonchi and no wheezes Cardio Rate: regular rate Rhythm: regular rhythm Heart sounds: S1 normal heart sound present, S2 normal heart sound present, no gallops, no murmurs and no rubs Neuro General: patient oriented x3 Extrem General: Yes normal to inspection and No no pedal edema Psych Appearance: grossly normal Mental Status: mental status grossly normal Speech and movement: Normal speech and movement present Assessment & Plan Assessment & Plan (1) Chest pain: Code(s): R07.9 - Chest pain, unspecified Category: Medical Qualifiers: Chest pain type: unspecified Qualified Code(s): R07.9 - Chest pain, unspecified Plan: Prior ER evaluation for chest discomfort and ruled out for ACS. EKG showed normal sinus rhythm, no acute ST or T-wave abnormalities, rate 85. Echocardiogram done 06/21/2025 showed EF 60 %, normal valves and no regional wall motion abnormality reported. Exercise stress test 06/21/2025 with exercise 6 minutes 30 seconds with mild shortness of breath, no EKG changes of ischemia. Test results reviewed with him and offered reassurance that chest discomfort was noncardiac. Cardiac risk factors of morbid obesity borderline hypertension and diabetes. Spent time discussing cardiac risk factor modifications for his cur rent and future health. Recommended weight loss and activity as tolerated. Cardiology follow-up PRN. (2) Borderline hypertension: Code(s): R03.0 - Elevated blood-pressure reading, without diagnosis of hypertension Category: Medical Plan: Blood pressure goal less than 130/80. Controlled at this time. No med changes made. (3) Diabetes mellitus: Code(s): E11.9 - Type 2 diabetes mellitus without complications Category: Medical Qualifiers: Diabetes mellitus type: type 2 Diabetes mellitus longwall headgate operator insulin use: without shelter use Diabetes mellitus complication status: with hyperglycemia Qualified Code(s): E11.65 - Type 2 diabetes mellitus with hyperglycemia Plan: Hemoglobin A1c goal less than 7. Followed by his PCP. He tells me he has been diabetic for about 1 year. The importance of good blood sugar control and how it relates to cardiac health discussed. (4) Morbid obesity with BMI of 50.0-59.9, adult: Code(s): E66.01 - Morbid (severe) obesity due to excess calories; Z68.43 - Body mass index [BMI] 50.0-59.9, adult Category: Medical Plan: Benefits a weight loss discussed. Plan Time spent on chart review, documentation, interview assessment Coding Level of Care Code Est Pt Level 3 (99327) Complex EM visit Add On G2211 Diagnoses Chest pain R07.9 Chest pain type: unspecified Borderline hypertension R03.0 Type 2 diabetes mellitus with hyperglycemia, without long-term current use of insulin E11.65 Diabetes mellitus type: type 2 Diabetes mellitus longwall headgate operator insulin use: without longwall headgate operator use Diabetes mellitus complication status: with hyperglycemia Morbid obesity with BMI of 50.0-59.9, adult E66.01; Z68.43 Time Spent (min) 24
--- OUTSIDE RECORDS SUMMARY | 2025-07-05 16:25 | XMS_ITS | Clinical Summary ---
Author Organization [facility] Address [address] [place] [address] Phone Care Team Providers Care Skin Care Specialist Name Role Phone Unavailable Primary Care Provider [...] of *CVA/Stroke, No family history of *Sudden /[place] under 55, Family history of ADD/ADHD, No [...] 06/04/2011, Additional history exists COVID-19 Vaccine ( - 2024- season) 2025 Hepatitis B Vaccines Completed 05/06/1995, [...]
--- OUTSIDE RECORDS SUMMARY | 2025-07-05 16:25 | XMS_ITS | Encounter Summary ---
Author Organization [facility] Address [address] [place] [address] Phone Care Team Providers Care Director Of Casino Name Role Phone Valerie Cooper MD Primary Care Provider [phone] Encounter Details Date Type Department Care Team (Late st Contact Info) Description 08/31/2011 Documentation [facility] [place] [address] [place] [address] Family Medicine, Physician [address] [place], [place] [phone] Social History Tobacco Use Types Packs/Day Years [...] on filedocumented in this encounter Care Teams Director Of Casino Relationship Specialty Start Date End Date Valerie Cooper MD [address] [place] [address] PCP - General 05/14/17 01/14/23 documented as of this encounter
--- OUTSIDE RECORDS SUMMARY | 2025-07-05 16:25 | XMS_ITS | Encounter Summary ---
Author Organization [facility] Address [address] [place] [address] Phone Care Team Providers Care Rangelands Conservation Laborer Name Role Phone Valerie Cooper MD Primary Care Provider [phone] Encounter Details Date Type Department Care Team (Late st Contact Info) Description 03/13/2015 Documentation [facility] [place] [address] [place] [address] Family Medicine, Physician [address] [place], [place] [phone] Social History Tobacco Use Types Packs/Day Years [...] on filedocumented in this encounter Care Teams Rangelands Conservation Laborer Relationship Specialty Start Date End Date Valerie Cooper MD [address] [place] [address] [place] [address] PCP - General 05/14/17 01/14/23 documented as of this encounter
--- OUTSIDE RECORDS SUMMARY | 2025-07-05 16:25 | XMS_ITS | Clinical Summary ---
Author Organization [facility] Address [address] [place], [place] [id number] Phone Care Team Providers Care Printed Circuit Board Reworker Name Role Phone César Wallace MD Primary Care Provider [phone] Social History Tobacco Use Types Packs/Day Years Used Date Smoking Tobacco: Never Assessed Sex and Gender Information Value Date Recorded Sex Assigned at Not on file Legal Sex Male 3:33 PM EST Gender Identity Not on file Sexual Orientation Not on file Plan of Treatment Not on file Medical Devices Not on file Insurance [facility] Care Teams Printed Circuit Board Reworker Relationship Specialty Start Date End Date César Wallace MD [address] [place] [address] PCP - General Internal Medicine 08/11/24 Additional Source Comments The information contained in this document represents components of the legal health record. It is not the complete legal health record.[facility]
--- OUTSIDE RECORDS SUMMARY | 2025-07-05 16:25 | XMS_ITS | Encounter Summary ---
Author Organization [facility] Address [address] [place] [address] Phone Care Team Providers Care Bronzer Name Role Phone Valerie Cooper MD Primary Care Provider [phone] Encounter Details Date Type Department Care Team (Late st Contact Info) Description 05/07/2015 Documentation [facility] [place] [address] [place] [address] Family Medicine, Physician [address] [place], [place] [phone] Social History Tobacco Use Types Packs/Day Years [...] on filedocumented in this encounter Care Teams Bronzer Relationship Specialty Start Date End Date Valerie Cooper MD [address] [place] [address] [place] [address] PCP - General 05/14/17 01/14/23 documented as of this encounter
--- OUTSIDE RECORDS SUMMARY | 2025-07-05 16:25 | XMS_ITS | Encounter Summary ---
Author Organization [facility] Address [address] [place] [address] Phone Care Team Providers Care Assistant Golf Coach Name Role Phone Valerie Cooper MD Primary Care Provider [phone] Encounter Details Date Type Department Care Team (Late st Contact Info) Description 05/20/2017 Conversion Encounter [facility] [place] [address] [place] [address] Social History Tobacco Use Types Packs/Day Years [...] on filedocumented in this encounter Care Teams Assistant Golf Coach Relationship Specialty Start Date End Date Valerie Cooper MD [address] [place] [address] PCP - General 05/14/17 01/14/23 documented as of this encounter
--- OUTSIDE RECORDS SUMMARY | 2025-07-05 16:25 | XMS_ITS | Encounter Summary ---
Author Organization [facility] Address [address] [place] [address] Phone Care Team Providers Care Business Planning Manager Name Role Phone Valerie Cooper MD Primary Care Provider [phone] Encounter Details Date Type Department Care Team (Late st Contact Info) Description 09/11/2011 Documentation [facility] [place] Family Medicine [address] [place] [address] Family Medicine, Physician [address] [place], [place] [phone] Social History Tobacco Use Types Packs/Day Years [...] on filedocumented in this encounter Care Teams Business Planning Manager Relationship Specialty Start Date End Date Valerie Cooper MD [address] [facility] [place] [address] PCP - General 05/14/17 01/14/23 documented as of this encounter
--- OUTSIDE RECORDS SUMMARY | 2025-07-05 16:25 | XMS_ITS | Encounter Summary ---
Author Organization [facility] Address [address] [place] [address] Phone Care Team Providers Care Court Monitor Name Role Phone Valerie Cooper MD Primary Care Provider [phone] Encounter Details Date Type Department Care Team (Late st Contact Info) Description 01/15/2011 Documentation [facility] [place] [address] [place] [address] Family Medicine, Physician [address] [place], [place] [phone] Social History Tobacco Use Types Packs/Day Years [...] on filedocumented in this encounter Care Teams Court Monitor Relationship Specialty Start Date End Date Valerie Cooper MD 150 [facility] [place] [address] PCP - General 05/14/17 01/14/23 documented as of this encounter
== END 2025-07-05 15:56 | disposition home or self-care (01) ==
LOC: HO.HCS 14:57
PROVIDERS: PCP Internal Medicine; Visit Provider Nurse Practitioner Family
DX: R07.9 Chest pain, unspecified (principal); R03.0 Elevated blood-pressure reading, without diagnosis of hypertension; E11.65 Type 2 diabetes mellitus with hyperglycemia; E66.01 Morbid (severe) obesity due to excess calories; Z68.43 Body mass index [BMI] 50.0-59.9, adult
CPT/HCPCS: 99213

== ENCOUNTER → 2025-07-05 14:56 | Outpatient (BNVA) | payer OTHER, SELFPAY | PROVIDERS: PCP Internal Medicine; Visit Provider Nurse Practitioner Family | DX: E11.65 Type 2 diabetes mellitus with hyperglycemia (principal); R07.9 Chest pain, unspecified; E66.01 Morbid (severe) obesity due to excess calories; Z68.43 Body mass index [BMI] 50.0-59.9, adult | CPT/HCPCS: 99212 ==

== ENCOUNTER 2025-07-08 09:45 | Emergency (ER) | payer OTHER, SELFPAY ==
--- NOTE | ~2025-07-08 | XR_ITS ---
CLINICAL HISTORY: cough upper resp sx Exam: PA and lateral views of the chest. Comparison: March 16, 2025. Findings: Lungs are well inflated. Mediastinal contours, cardiac silhouette, and pulmonary vasculature are within normal limits. No focal areas of consolidation. No pleural effusion or pneumothorax. Impression: No acute findings. This document has been electronically signed by: Alfred Garcia MD on 07/08/2025 12:19:57
[2025-07-08 09:48] VITALS: BP 148/69; PULSE 97; RESP 18; TEMP 36.3; O2SAT 95; BMI 52.4
--- OUTSIDE RECORDS SUMMARY | 2025-07-08 10:20 | XMS_ITS | Clinical Summary ---
Author Organization [facility] Address [address] [place], [place] [id number] Phone Care Team Providers Care Work From Home Name Role Phone César Wallace MD Primary Care Provider [phone] Social History Tobacco Use Types Packs/Day Years Used Date Smoking Tobacco: Never Assessed Sex and Gender Information Value Date Recorded Sex Assigned at Not on file Legal Sex Male 3:33 PM EST Gender Identity Not on file Sexual Orientation Not on file Plan of Treatment Not on file Medical Devices Not on file Insurance [facility] [place] [address] [facility] A[employer] ACO ACO [facility] Care Teams Work From Home Relationship Specialty Start Date End Date César Wallace MD [address] [place] [address] PCP - General Internal Medicine 08/11/24 Additional Source Comments The information contained in this document represents components of the legal health record. It is not the complete legal health record.[facility]
--- OUTSIDE RECORDS SUMMARY | 2025-07-08 10:20 | XMS_ITS | Encounter Summary ---
Author Organization [facility] Address [address] [place] [address] Phone Care Team Providers Care American Indian Studies Professor Name Role Phone Valerie Cooper MD Primary Care Provider [phone] Encounter Details Date Type Department Care Team (Late st Contact Info) Description 08/31/2011 Documentation [facility] [place] [address] [place] [address] Family Medicine, Physician [address] [place], [place] [phone] Social History Tobacco Use Types Packs/Day Years [...] on filedocumented in this encounter Care Teams American Indian Studies Professor Relationship Specialty Start Date End Date Valerie Cooper MD 150 [facility] [place] [address] PCP - General 05/14/17 01/14/23 documented as of this encounter
--- OUTSIDE RECORDS SUMMARY | 2025-07-08 10:20 | XMS_ITS | Encounter Summary ---
Author Organization [facility] Address [address] [place] [address] Phone Care Team Providers Care Health Occupations Instructor Name Role Phone Valerie Cooper MD Primary Care Provider [phone] Encounter Details Date Type Department Care Team (Late st Contact Info) Description 03/13/[address] [facility] [place] [address] [place] [address] Family Medicine, Physician [address] [place], [place] [phone] Social History Tobacco Use Types Packs/Day Years [...] on filedocumented in this encounter Care Teams Health Occupations Instructor Relationship Specialty Start Date End Date Valerie Cooper MD [address] [place] [address] [place] [address] PCP - General 05/14/17 01/14/23 documented as of this encounter
--- OUTSIDE RECORDS SUMMARY | 2025-07-08 10:20 | XMS_ITS | Encounter Summary ---
Author Organization [facility] Address [address] [place] [address] Phone Care Team Providers Care Communication Professor Name Role Phone Valerie Cooper MD Primary Care Provider [phone] Encounter Details Date Type Department Care Team (Late st Contact Info) Description 01/15/2011 Documentation [facility] [place] Medicine [address] [place] [address] Family Medicine, Physician [address] [place], [place] [phone] Social History Tobacco Use Types Packs/Day Years [...] on filedocumented in this encounter Care Teams Communication Professor Relationship Specialty Start Date End Date Valerie Cooper MD 150 [facility] [place] [address] PCP - General 05/14/17 01/14/23 documented as of this encounter
--- OUTSIDE RECORDS SUMMARY | 2025-07-08 10:20 | XMS_ITS | Encounter Summary ---
Author Organization [facility] Address [address] [place] [address] Phone Care Team Providers Care Transfer Driver Name Role Phone Valerie Cooper MD Primary Care Provider Encounter Details Date Type Department Care Team (Late st Contact Info) Description 09/11/2011 Documentation [facility] [place] [address] [place] [address] Family Medicine, Physician [address] [place], [place] [phone] Social History Tobacco Use Types Packs/Day Years [...] on filedocumented in this encounter Care Teams Transfer Driver Relationship Specialty Start Date End Date Valerie Cooper MD 150 [place] [address] PCP - General 05/14/17 01/14/23 documented as of this encounter
--- OUTSIDE RECORDS SUMMARY | 2025-07-08 10:20 | XMS_ITS | Encounter Summary ---
Author Organization [facility] Address [address] [place] [address] Phone Care Team Providers Care Final Rail Cutter Name Role Phone Valerie Cooper MD Primary Care Provider [phone] Encounter Details Date Type Department Care Team (Late st Contact Info) Description 05/20/2017 Conversion Encounter [facility] [address] [place] [address] Social History Tobacco Use Types Packs/Day Years [...] on filedocumented in this encounter Care Teams Final Rail Cutter Relationship Specialty Start Date End Date Valerie Cooper MD 150 [place] [address] PCP - General 05/14/17 01/14/23 documented as of this encounter
--- OUTSIDE RECORDS SUMMARY | 2025-07-08 10:20 | XMS_ITS | Encounter Summary ---
Author Organization [facility] Address [address] [place] [address] Phone Care Team Providers Care Loan Closer Name Role Phone Valerie Cooper MD Primary Care Provider [phone] Encounter Details Date Type Department Care Team (Late st Contact Info) Description 05/07/2015 Documentation [facility] [place] Family Medicine [address] [place] [address] Family Medicine, Physician [address] [place], [place] [phone] Social History Tobacco Use Types Packs/Day Years [...] on filedocumented in this encounter Care Teams Loan Closer Relationship Specialty Start Date End Date Valerie Cooper MD [address] [place] [address] [place] [address] PCP - General 05/14/17 01/14/23 documented as of this encounter
--- OUTSIDE RECORDS SUMMARY | 2025-07-08 10:20 | XMS_ITS | Clinical Summary ---
Author Organization [facility] Address [address] [place] [address] Phone Care Team Providers Care Dock Clerk Name Role Phone Unavailable Primary Care Provider [...] of *CVA/Stroke, No family history of *Sudden /[place] under 55, Family history of ADD/ADHD, No [...]
[2025-07-08 10:27] LABS: IDNOW Serial# 08D9AD1C; Strep A Nucleic Acid Negative (Negative)
[2025-07-08 10:29] LABS: COVID-19 Test Negative (Negative); IDNOW Serial# 58CA691E
[2025-07-08 10:31] LABS: IDNOW Serial# 55D5AD1C; Influenza B2 Negative (Negative)
--- NOTE | 2025-07-08 11:00 | ED.URI ---
HPI - URI/Sore Throat General Chief Complaint: Upper Respiratory Symptoms Stated Complaint: Cough, sinus, Time Seen by Provider: 07/08/25 10:41 Source: patient Mode of arrival: ambulatory Limitations: no limitations History of Present Illness ED Provider: DR. Simon HPI Narrative: 29-year-old male came in for evaluation of coughing with clear sputum, nasal congestion, sore throat, generalized body ache, subjective fever. No sick contacts, no recent travel, no recent prolonged immobilization. Related Data Previous Rx's ?Medication ?Instructions ?Recorded lidocaine 5 % topical patch 1 patch topical DAILY PRN pain #30 11/05/23 (Lidoderm) ea sitagliptin phosphate 50 mg tablet 50 mg PO DAILY 90 days #90 tabs 09/14/24 (Januvia) albuterol sulfate 90 mcg/actuation 2 puff inhalation Q4-6H PRN 03/07/25 aerosol inhaler shortness of breath or wheezing #8.5 grams cholecalciferol (vitamin D3) 50 50 mcg PO DAILY 90 days #90 caps 03/29/25 mcg (2,000 unit) capsule metformin 1,000 mg tablet 1,000 mg PO BID 90 days #180 tabs 03/29/25 Allergies Allergy/AdvReac Type Severity Reaction Status Date / Time No Known Allergies Allergy Verified 07/08/25 09:50 Review of Systems Review of Systems: All other systems are reviewed and are negative Constitutional: Reports as per HPI and Reports no additional constitutional complaints Eyes: Reports as per HPI and Reports no additional eye complaints Reports system reviewed and no additional complaints, except as documented Cardiovascular: Reports as per HPI and Reports no additional cardiovascular complaints Respiratory: Reports as per HPI and Reports no additional respiratory complaints Gastrointestinal: Reports as per HPI and Reports no additional gastrointestinal complaints Genitourinary: Reports no additional female genitourinary complaints Musculoskeletal: Reports no additional musculoskeletal complaints Skin/Breast: Reports system reviewed and no additional complaints, except as docu Psychiatric: Reports no additional psychiatric complaints Endocrine: Reports no additional endocrine complaints Hematologic/Lymphatic: Reports no additional hematologic/lymphatic complaints Allergic/Immunologic: Reports no additional allergic/immunologic complaints Reports system reviewed and no additional complaints, except as documented and Reports Abnormal speech present PMFSH Past Medical History Medical History Osteoarthritis of left hip Chronic left hip pain Vitamin D deficiency Diabetes mellitus Lumbar degenerative disc disease Morbid obesity with BMI of 50.0-59.9, adult Asthma Surgical History History of excision of mass (02/19/22) History of repair of ACL History of repair of anterior cruciate ligament of right knee (~08/2015) Family History Family History Brother Epilepsy Maternal Aunt Breast cancer Social History Social History Household Members: Family Housing: Apartment Do you presently have visiting nurse or other home services: No Alcohol intake: never Patient Tobacco Use Status: Never used Tobacco e-Cigarette/Vaping Use: Never Used Second Hand Smoke Exposure: Yes Advance Directives: No Advance Directives Information Provided: Yes Do you have a plan to hurt others: No Plan service: No Current occupational status: employed Current occupation: [employer] Cognitive needs: No Hearing needs: No Vision needs: No Physical Exam Vital Signs: Vital Signs: Last Vital Signs Temp 97.4 F 07/08/25 09:48 Pulse 97 07/08/25 09:48 Resp 18 07/08/25 09:48 BP 148/69 H 07/08/25 09:48 Pulse Ox 95 07/08/25 09:48 O2 Del Method Room Air 07/08/25 09:48 BMI result Body Mass Index 52.4 Vital signs have been reviewed and appear to be correct. Blood pressure elevated. Heart rate normal. Respiratory rate normal. Temperature normal. Oxygen saturation normal. Appearance: Alert. Oriented X3. No acute distress. Head: Normal external exam. Normocephalic. Atraumatic. No Real signs noted. No raccoon eyes noted Eyes: PERRLA. EOMI. Conjunctiva and sclera normal. Eyelids normal. ENT: TM's Normal. Pharynx normal. Uvula midline. Moist mucous membranes. No trismus noted. No drooling noted. No muffled voice noted. Neck: Normal inspection. Neck supple. FROM. No adenopathy. Thyroid Normal. No meningeal signs. No neck mass noted. CVS: Normal heart rate and rhythm. Heart sound normal. No murmurs noted. Pulses normal throughout. Respiratory: No respiratory distress. Painless inspiration. Breath sounds normal. No wheezes/rales/rhonchi noted. Chest nontender. No accessory muscle usage noted or decreased air movement noted. Abdomen: Soft and nontender. Bowel sounds normal in all 4 quadrants. No distention noted. No organomegaly noted. No visible injury noted. Back: No CVA tenderness. Full range of motion noted. Skin: Skin warm and dry. Normal skin color. Normal skin turgor. No rashes/lesions/lacerations noted. Extremities: No lower extremity edema. Extremities exhibit normal range of motion. Extremities nontender. Neuro: Oriented X 3. Cranial nerve exam: II-XII are grossly intact No motor deficit. No sensory deficit. Reflexes normal. Course Reevaluation(s) Reevaluation #1: Viral upper respiratory infection. Negative chest x-ray for acute intrathoracic pathology. No antibiotic is indicated at this point. Patient was instructed to use isolation until his symptoms improved. Time: 11:02 Medical Decision Making Differential Diagnosis Differential Diagnoses: The differential diagnosis associated with the presentation includes (Pneumonia, pneumothorax, pleural effusion, strep pharyngitis, influenza, RSV.) Admission/Observation Consideration of admission/observation: Escalation of care including admission/observation considered Lab Data MDM Lab Attestation statement: I reviewed the patient's lab results. Labs: Lab Results 07/08/25 Range/Units 10:06 COVID-19 (ANNALISA) Negative (Negative) COVID-19 Clin Com See Note Influenza Type A (MELISSA) Negative (Negative) Influenza Type B (MELISSA) Negative (Negative) Influenza A & B Note See Note S. pyogenes GrpA MELISSA Negative (Negative) Independent Interpretation I performed an independent interpretation of an: Plain X-Ray (Chest: No acute intrathoracic pathology.) Radiology Impression Discussion of test interpretation with radiology: I have reviewed the radiologist's reading. Discharge Plan Discharge Clinical Impression: Viral infection Patient Disposition: Home, Self-Care Instructions: Viral Syndrome (ED) Prescriptions: No Action albuterol sulfate 90 mcg/actuation HFA aerosol inhaler 2 puff inhalation Q4-6H PRN (Reason: shortness of breath or wheezing) Qty: 8.5 2RF cholecalciferol (vitamin D3) 50 mcg (2,000 unit) capsule 50 mcg PO DAILY 90 Days Qty: 90 3RF metformin 1,000 mg tablet 1,000 mg PO BID 90 Days Qty: 180 1RF lidocaine [Lidoderm] 5 % adhesive patch,medicated 1 patch topical DAILY MDD remove after 12 hours PRN (Reason: pain) Qty: 30 0RF Rx Instructions: leave on most painful area for up to 12 hrs Januvia 50 mg tablet 50 mg PO DAILY 90 Days Qty: 90 1RF Referrals: César Wallace MD [Primary Care Provider, Internal Medicine] Stand Alone Forms: Work/School Release Print Language: Estonian
[2025-07-08 12:54] VITALS: BP 148/69; PULSE 97; RESP 18; TEMP 36.3; O2SAT 95
== END 2025-07-08 12:55 | disposition home or self-care (01) ==
PROVIDERS: Emergency Provider Emergency Medicine; PCP Internal Medicine
DX: B34.9 Viral infection, unspecified (principal); R05.9 Cough, unspecified; R09.81 Nasal congestion; R50.9 Fever, unspecified; M79.10 Myalgia, unspecified site; Z11.52 Encounter for screening for COVID-19
CPT/HCPCS: 71046; 87502; 87635; 87651; 99282; 99283

== ENCOUNTER → 2025-07-08 09:50 | Outpatient (BNV) | payer OTHER, SELFPAY | PROVIDERS: Emergency Provider Emergency Medicine; PCP Internal Medicine; Visit Provider Radiology Diagnostic Radiology | DX: R05.9 Cough, unspecified (principal) | CPT/HCPCS: 71046 ==

== ENCOUNTER 2025-08-08 09:09 | Outpatient (REF) | payer OTHER, SELFPAY ==
[2025-08-08 09:29] LABS: MANUAL DIFF FLAG NO
[2025-08-08 09:51] LABS: Hematocrit 43.2 % (42.0-52.0); Hemoglobin 14.2 g/dl (14.0-18.0); Imm Gran Abs Auto 0.02 X10*3/uL (0.00-0.03); Imm Gran Pct Auto 0.2 % (0.0-0.4); Lymphocytes Absolute Auto 3.2 X10*3/uL (1.2-4.9); Mean Corpuscular HGB Conc 32.9 g/dl (31.0-36.0); Mean Corpuscular Hemoglobin 28.8 pg (27.0-33.0); Mean Corpuscular Volume 87.6 fL (80.0-98.0); NRBC Abs Auto 0.000 X10*3/uL (0.0-0.012); NRBC Pct Auto 0.0 /100WBC (0.0-0.2); Platelet Count 315 X10*3/uL (160-400); Red Blood Count 4.93 X10*6/uL (4.60-5.80); White Blood Count 10.2 X10*3/uL (4.8-10.8)
--- OUTSIDE RECORDS SUMMARY | 2025-08-08 09:55 | XMS_ITS | Clinical Summary ---
Author Organization [facility] Address [address] [place], [place] [phone] Phone Care Team Providers Care Teller Head Name Role Phone César Wallace MD Primary Care Provider [phone] Social History Tobacco Use Types Packs/Day Years Used Date Smoking Tobacco: Never Assessed Sex and Gender Information Value Date Recorded Sex Assigned at Not on file Legal Sex Male 3:33 PM EST Gender Identity Not on file Sexual Orientation Not on file Plan of Treatment Not on file Medical Devices Not on file Insurance [facility] Care Teams Teller Head Relationship Specialty Start Date End Date César Wallace MD [address] [place] [address] PCP - General Internal Medicine 08/11/24 Additional Source Comments The information contained in this document represents components of the legal health record. It is not the complete legal health record.[facility]
--- OUTSIDE RECORDS SUMMARY | 2025-08-08 09:55 | XMS_ITS | Encounter Summary ---
Author Organization [facility] Address [address] [place] [address] Phone Care Team Providers Care Inflated Pad Buffer Name Role Phone Valerie Cooper MD Primary Care Provider [phone] Encounter Details Date Type Department Care Team (Late st Contact Info) Description 03/13/2015 Documentation [facility] [place] [address] [place] [address] Family Medicine, Physician [address] [place], [place] [phone] Social History Tobacco Use Types Packs/Day Years [...] on filedocumented in this encounter Care Teams Inflated Pad Buffer Relationship Specialty Start Date End Date Valerie Cooper MD [address] [place] [address] [place] [address] PCP - General 05/14/17 01/14/23 documented as of this encounter
--- OUTSIDE RECORDS SUMMARY | 2025-08-08 09:55 | XMS_ITS | Encounter Summary ---
Author Organization [facility] Address [address] [place] [address] Phone Care Team Providers Care Avionics Systems Engineer Name Role Phone Valerie Cooper MD Primary Care Provider [phone] Encounter Details Date Type Department Care Team (Late st Contact Info) Description 05/07/2015 Documentation [facility] [place] Family Medicine [address] [place] [address] Family Medicine, Physician [address] [place], [place] [phone] Social History Tobacco Use Types Packs/Day Years [...] on filedocumented in this encounter Care Teams Avionics Systems Engineer Relationship Specialty Start Date End Date Valerie Cooper MD [address] [place] [address] [place] [address] PCP - General 05/14/17 01/14/23 documented as of this encounter
--- OUTSIDE RECORDS SUMMARY | 2025-08-08 09:55 | XMS_ITS | Encounter Summary ---
Author Organization [facility] Address [address] [place] [address] Phone Care Team Providers Care Furniture Sales Consultant Name Role Phone Valerie Cooper MD Primary Care Provider [phone] Encounter Details Date Type Department Care Team (Late st Contact Info) Description 08/31/2011 Documentation [facility] [place] Family [place] [address] [place] [address] Family Medicine, Physician [address] [place], [place] [phone] Social History Tobacco Use Types Packs/Day Years [...] on filedocumented in this encounter Care Teams Furniture Sales Consultant Relationship Specialty Start Date End Date Valerie Cooper MD 150 [facility] [place] [address] PCP - General 05/14/17 01/14/23 documented as of this encounter
--- OUTSIDE RECORDS SUMMARY | 2025-08-08 09:55 | XMS_ITS | Encounter Summary ---
Author Organization [facility] Address [address] [place] [address] Phone Care Team Providers Care Pre Planning Advisor Name Role Phone Valerie Cooper MD Primary Care Provider [phone] Encounter Details Date Type Department Care Team (Late st Contact Info) Description 09/11/2011 Documentation [facility] [place] [address] [place] [address] Family Medicine, Physician [address] [place], [place] [phone] Social History Tobacco Use Types Packs/Day Years [...] on filedocumented in this encounter Care Teams Pre Planning Advisor Relationship Specialty Start Date End Date Valerie Cooper MD 150 [facility] [place] [address] PCP - General 05/14/17 01/14/23 documented as of this encounter
--- OUTSIDE RECORDS SUMMARY | 2025-08-08 09:55 | XMS_ITS | Encounter Summary ---
Author Organization [facility] Address [address] [place] [address] Phone Care Team Providers Care Erp Engineer Name Role Phone Valerie Cooper MD Primary Care Provider [phone] Encounter Details Date Type Department Care Team (Late st Contact Info) Description 05/20/2017 Conversion Encounter [facility] [place] [address] [place] [address] Social History Tobacco Use Types Packs/Day Years [...] on filedocumented in this encounter Care Teams Erp Engineer Relationship Specialty Start Date End Date Valerie Cooper MD [address] [place] [address] PCP - General 05/14/17 01/14/23 documented as of this encounter
--- OUTSIDE RECORDS SUMMARY | 2025-08-08 09:55 | XMS_ITS | Encounter Summary ---
Author Organization [facility] Address [address] [place] [address] Phone Care Team Providers Care Manager User Interface Name Role Phone Valerie Cooper MD Primary Care Provider [phone] Encounter Details Date Type Department Care Team (Late st Contact Info) Description 01/15/2011 Documentation [facility] [place] [address] [place] [address] Family Medicine, Physician [address] [place], [place] [phone] Social History Tobacco Use Types Packs/Day Years [...] filedocumented in this encounter Care Teams Manager User Interface Relationship Specialty Start Date End Date Valerie Cooper MD 150 [facility] [place] [address] PCP - General 05/14/17 01/14/23 documented as of this encounter
--- OUTSIDE RECORDS SUMMARY | 2025-08-08 09:55 | XMS_ITS | Clinical Summary ---
Author Organization [facility] Address [address] [place] [address] Phone Care Team Providers Care Interior Decorator Painting Name Role Phone Unavailable Primary Care Provider [...] of *CVA/Stroke, No family history of *Sudden /[place] under 55, Family history of ADD/ADHD, No [...]
[2025-08-08 10:20] LABS: Alanine Aminotransferase 105 U/L (0-40); Albumin Level 4.7 g/dL (3.5-5.0); Alkaline Phosphatase 79 U/L (39-117); Anion Gap 10 (12-20); Aspartate Amino Transferase 52 U/L (5-37); Blood Urea Nitrogen 9 mg/dL (9-16); Calcium 9.4 mg/dL (8.4-10.2); Carbon Dioxide 25 mmol/L (22-29); Chloride 107 mmol/L (96-108); Cholesterol 199 mg/dL (<200); Estimated Glomerular Filt Rate > 60; HDL Cholesterol 32 mg/dL (>40); Potassium 4.3 mmol/L (3.3-5.1); Sodium 138 mmol/L (135-145); Total Protein 7.8 g/dL (6.5-8.0); Triglycerides 172 mg/dL (<150)
[2025-08-08 11:15] LABS: Folate 10.9 ng/mL (> or = 4.0); Vitamin B12 636 pg/mL (200-900)
== END 2025-08-08 09:10 | disposition home or self-care (01) ==
LOC: HO.LAB 09:09
PROVIDERS: PCP Internal Medicine; Visit Provider Internal Medicine
DX: E11.9 Type 2 diabetes mellitus without complications (principal); E53.8 Deficiency of other specified B group vitamins; E78.00 Pure hypercholesterolemia, unspecified; E55.9 Vitamin D deficiency, unspecified; D64.9 Anemia, unspecified
CPT/HCPCS: 36415; 80053; 80061; 82306; 82607; 82746; 83036; 84443; 85025

== ENCOUNTER 2025-08-09 10:12 | Outpatient (REF) | payer OTHER, SELFPAY ==
[2025-08-09 10:38] LABS: Appearance Urine Clear; Glucose Urine UA >=1000 mg/dL (Negative); PH 5.5 (5.0-9.0); Specific Gravity - Urine 1.025 (1.005-1.025); UMIC TRIGGER UACC YES
[2025-08-09 11:16] LABS: Microalbum/Creatinine Ratio Ur 4.6 ug/mg cr (<30)
--- OUTSIDE RECORDS SUMMARY | 2025-08-09 11:55 | XMS_ITS | Clinical Summary ---
Author Organization [facility] Address [address] [place], [place] [address] Phone Care Team Providers Care Equipment Superintendent Name Role Phone César Wallace MD Primary Care Provider [phone] Social History Tobacco Use Types Packs/Day Years Used Date Smoking Tobacco: Never Assessed Sex and Gender Information Value Date Recorded Sex Assigned at Not on file Legal Sex Male 3:33 PM EST Gender Identity Not on file Sexual Orientation Not on file Plan of Treatment Not on file Medical Devices Not on file Insurance [facility] [employer] ACO [facility]CO [facility] Care Teams Equipment Superintendent Relationship Specialty Start Date End Date César Wallace MD [address] [place] [address] PCP - General Internal Medicine 08/11/24 Additional Source Comments The information contained in this document represents components of the legal health record. It is not the complete legal health record.[facility]
--- OUTSIDE RECORDS SUMMARY | 2025-08-09 11:55 | XMS_ITS | Encounter Summary ---
Author Organization [facility] Address [address] [place] [address] Phone Care Team Providers Care Physical Medicine Specialist Name Role Phone Valerie Cooper MD Primary Care Provider [phone] Encounter Details Date Type Department Care Team (Late st Contact Info) Description 05/07/2015 Documentation [facility] [place] [address] [place] [address] Family Medicine, Physician [address] [place], [place] [phone] Social History Tobacco Use Types Packs/Day Years [...] filedocumented in this encounter Care Teams Physical Medicine Specialist Relationship Specialty Start Date End Date Valerie Cooper MD [address] [place] [address] [place] [address] PCP - General 05/14/17 01/14/23 documented as of this encounter
--- OUTSIDE RECORDS SUMMARY | 2025-08-09 11:55 | XMS_ITS | Encounter Summary ---
Author Organization [facility] Address [address] [place] [address] Phone Care Team Providers Care Cooperative Education Coordinator Name Role Phone Valerie Cooper MD Primary Care Provider [phone] Encounter Details Date Type Department Care Team (Late st Contact Info) Description 01/15/2011 Documentation [facility] [place] Family Medicine [address] [place] [address] Family Medicine, Physician [address] [place], [place] [phone] Social History Tobacco Use Types Packs/Day Years [...] on filedocumented in this encounter Care Teams Cooperative Education Coordinator Relationship Specialty Start Date End Date Valerie Cooper MD [address] [facility] [place] [address] PCP - General 05/14/17 01/14/23 documented as of this encounter
--- OUTSIDE RECORDS SUMMARY | 2025-08-09 11:55 | XMS_ITS | Clinical Summary ---
Author Organization [facility] Address [address] [place] [address] Phone Care Team Providers Care Hearing Therapy Teacher Name Role Phone Unavailable Primary Care Provider [...] of *CVA/Stroke, No family history of *Sudden /IN under 55, Family history of ADD/ADHD, No [...]
--- OUTSIDE RECORDS SUMMARY | 2025-08-09 11:55 | XMS_ITS | Encounter Summary ---
Author Organization [facility] Address [address] [place] [address] Phone Care Team Providers Care Organic Search Lead Name Role Phone Valerie Cooper MD Primary Care Provider [phone] Encounter Details Date Type Department Care Team (Late st Contact Info) Description 03/13/2015 Documentation [facility] [place] Family Medicine [address] [place] [address] Family Medicine, Physician [address] [place], [place] [phone] Social History Tobacco Use Types Packs/Day Years [...] on filedocumented in this encounter Care Teams Organic Search Lead Relationship Specialty Start Date End Date Valerie Cooper MD [address] [place] [address] [place] [address] PCP - General 05/14/17 01/14/23 documented as of this encounter
--- OUTSIDE RECORDS SUMMARY | 2025-08-09 11:55 | XMS_ITS | Encounter Summary ---
Author Organization [facility] Address [address] [place] [address] Phone Care Team Providers Care Signal Fitter Name Role Phone Valerie Cooper MD Primary Care Provider [phone] Encounter Details Date Type Department Care Team (Late st Contact Info) Description 09/11/2011 Documentation [facility] [place] Family Medicine [address] [place] [address] Family Medicine, Physician [address] [place], [place] [phone] Social History Tobacco Use Types Packs/Day Years [...] on filedocumented in this encounter Care Teams Signal Fitter Relationship Specialty Start Date End Date Valerie Cooper MD [address] [facility] [place] [address] PCP - General 05/14/17 01/14/23 documented as of this encounter
--- OUTSIDE RECORDS SUMMARY | 2025-08-09 11:55 | XMS_ITS | Encounter Summary ---
Author Organization [facility] Address [address] [place] [address] Phone Care Team Providers Care Field Training Manager Name Role Phone Valerie Cooper MD Primary Care Provider [phone] Encounter Details Date Type Department Care Team (Late st Contact Info) Description 08/31/2011 Documentation [facility] [place] Family Medicine [address] [place] [address] Family Medicine, Physician [address] [place], [place] [phone] Social History Tobacco Use Types Packs/Day Years [...] on filedocumented in this encounter Care Teams Field Training Manager Relationship Specialty Start Date End Date Valerie Cooper MD [address] [place] [address] PCP - General 05/14/17 01/14/23 documented as of this encounter
--- OUTSIDE RECORDS SUMMARY | 2025-08-09 11:55 | XMS_ITS | Encounter Summary ---
Author Organization [facility] Address [address] [place] [address] Phone Care Team Providers Care Advertising Coordinator Name Role Phone Valerie Cooper MD Primary Care Provider Encounter Details Date Type Department Care Team (Late st Contact Info) Description 05/20/2017 Conversion Encounter [facility] [place] [address] [place] [address] Social History Tobacco Use Types Packs/Day Years [...] on filedocumented in this encounter Care Teams Advertising Coordinator Relationship Specialty Start Date End Date Valerie Cooper MD [address] [place] [address] PCP - General 05/14/17 01/14/23 documented as of this encounter
== END 2025-08-09 10:13 | disposition home or self-care (01) ==
LOC: HO.LNP 10:12
PROVIDERS: Visit Provider Internal Medicine
DX: E11.9 Type 2 diabetes mellitus without complications (principal)
CPT/HCPCS: 81001; 82043; 82570

== ENCOUNTER 2025-08-14 15:11 | Outpatient (AMB) | payer OTHER, SELFPAY ==
[2025-08-14 15:14] VITALS: BP 110/72; PULSE 82; O2SAT 99; BMI 52.3
--- NOTE | 2025-08-14 15:14 | MHC.PC.OV ---
Vital Signs 08/14/25 15:14 Height 5 ft 8 in Weight 344 lb 4 oz BMI 52.3 BP 110/72 Blood Pressure Location Lt brachial Position Sitting Pulse 82 Pulse Source Pulse Oximeter Pulse Oximetry (%) 99 Oxygen Delivery Method Room Air Intake Visit Reasons: Follow Up- repeat A1C Property Insurance Claims Examiner Required: No Accompanied by: Self / Same As Patient Allergies No Known Allergies Allergy (Verified 08/14/25 15:36) Medication List - Last Reconciled 08/14/25 by César Wallace MD albuterol sulfate 90 mcg/actuation 2 puffs inhalation Q4-6H PRN cholecalciferol (vitamin D3) 50 mcg PO DAILY 90 days lidocaine 5% (Lidoderm) 1 patch topical DAILY PRN MDD remove after 12 hours metformin 1,000 mg PO BID 90 days sitagliptin phosphate (Januvia) 50 mg PO DAILY 90 days Tobacco use date assessed: 08/14/25 Dental Screening Dental Screen Date: 08/14/25 Did you have a dental visit in the last 12 months?: No Did you have a dental problem in the last 6 months where you did not have access to dental care?: No Was dental information given to patient?: No HPI Follow Up- repeat A1C HPI Details Patient comes in today for his follow up visit States that he feels okay Reports that he is now working regularly again, which keeps him active and hopefully should help with his diabetes He admits to not taking his Metformin consistently for the past few months due to increased diarrhea and some abdominal cramping every time he takes his Metformin He denies any headaches or dizziness Denies any chest pains lately - he underwent cardiac evaluation for his previous left-sided chest discomfort with echocardiogram and exercise stress test a couple of months ago in June 2025 and both tests came back normal He denies any SOB No nausea/vomiting, no abdominal pain No change in bowel habits noted He had his follow up labs done last week - to discuss his results [facility] Medical History (Updated 08/14/25 @ 16:24 by César Wallace MD) Mixed hyperlipidemia Osteoarthritis of left hip Chronic left hip pain Vitamin D deficiency Diabetes mellitus Lumbar degenerative disc disease Morbid obesity with BMI of 50.0-59.9, adult Asthma Surgical History History of excision of mass (02/19/22) History of repair of ACL History of repair of anterior cruciate ligament of right knee (~08/2015) Family History Brother Epilepsy Maternal Aunt Breast cancer Social History Household Members: Family Housing: Apartment Do you presently have visiting nurse or other home services: No Alcohol intake: never Patient Tobacco Use Status: Never used Tobacco e-Cigarette/Vaping Use: Never Used Second Hand Smoke Exposure: Yes service: No Current occupational status: employed Current occupation: [employer] Cognitive needs: No Hearing needs: No Vision needs: No Questionnaire PHQ-9 Over the last 2 weeks, how often have you been bothered by any of the following problems? 1. Little interest or pleasure in doing things: not at all 2. Feeling down, depressed, or hopeless: not at all 3. Trouble falling or staying asleep, or sleeping too much: not at all 4. Feeling tired or having little energy: not at all 5. Poor appetite or overeating: not at all 6. Feeling bad about yourself - or that you are a failure or have let yourself or your family down: not at all 7. Trouble concentrating on things, such as reading the newspaper or watching television: not at all 8. Moving or speaking so slowly that other people could have noticed. Or the opposite - being so fidgety or restless that you have been moving around a lot more than usual: not at all 9. Thoughts that you would be better off or of hurting yourself in some way: not at all Total score: 0 Depression Screening Interpretation: Negative Depression Screening Done: Yes [address]2211 - PHQ-9 Billing: Yes Source: Developed by Drs. Kwesi Tran, Za Campoverde, Jovon Mireles and colleagues, with an educational sary from [employer]. Thrive Questionnaire Date Thrive assessed: 08/14/25 I am a: Patient What is your living situation today?: I have a steady place to live Within the past 12 months, did the food you bought not last and you didn't have the money to get more?: Never true Within the past 12 months, did you worry whether your food would run out before you got money to buy more?: Sometimes True Do you have trouble paying for medicines?: No Do you have trouble getting transportation to medical appointments?: No Do you have trouble paying your heating and electricity bill?: No Do you have trouble taking care of your child, family member or friend?: No Do you have trouble with day-to-day activities such as bathing, preparing meals, shopping, managing finances, etc.?: No Are you currently unemployed and looking for a job?: No Are you interested in more education?: No Please select the resources that you would like help with: None Currently or been in a relationship where the following occur: No concerns reported THRIVE Score: 1 AUDIT C Alcohol Use Questionnaire (AUDIT-C) 1. How often do you have a drink containing alcohol?: Never 3. How often do you have six or more drinks on one occasion?: Never Total Score: 0 Score Reviewed/Action Taken: Yes LIBBY-7 AMB Questionnaire LIBBY-7 Date LIBBY - 7 assessed: 08/14/25 Feeling nervous, anxious, or on edge: 0 = Not at all Not being able to stop or control worryin = Not at all Worrying too much about different things: 0 = Not at all Trouble relaxin = Not at all Being so restless that it is hard to sit still: 0 = Not at all Becoming easily annoyed or irritable: 0 = Not at all Feeling afraid as if something awful might happen: 0 = Not at all Total LIBBY-7 score (0-4 normal; 5-9 mild; 10-14 moderate; 15-21 severe): 0 Source: Developed by Drs. Kwesi Tran, Za Campoverde, Jovon Mireles and colleagues, with an educational sary from [employer]. Review of Systems Const Denies chills, Denies fatigue, Denies fever(s) and Denies headache(s) ENT Denies dysphagia, Denies dizziness, Denies otalgia, Denies headache(s), Denies neck pain, Denies odynophagia and Denies sore throat Card Denies chest pain, Denies palpitations and Denies dyspnea Resp Denies chest congestion, Denies cough and Denies dyspnea GI Denies abdominal pain, Denies constipation, Denies dysphagia, Denies heartburn, Denies diarrhea, Denies nausea, Denies odynophagia and Denies vomiting Denies difficulty urinating, Denies dysuria, Denies nocturia and Denies urinary frequency Musc Reports back pain (over the lower back, on and off), Reports arthralgias (over the left hip - chronic) and Denies neck pain Skin/Breast Denies rash Neuro Denies dizziness and Denies headache(s) Endo Denies fatigue and Denies palpitations Physical exam (Primary Care) Vital Signs: Last Vital Signs Pulse 82 08/14/25 15:14 BP 110/72 08/14/25 15:14 Pulse Ox 99 08/14/25 15:14 Oxygen Delivery Method Room Air 08/14/25 15:14 BMI result Body Mass Index 52.3 Tobacco/Smoking Status: Tobacco use Status Tobacco use date assessed 08/14/25 08/14/25 15:20 Patient Tobacco Use Status Never used Tobacco 08/14/25 15:20 e-Cigarette/Vaping Use Never Used 08/14/25 15:20 PHQ-9: PHQ-9 Score PHQ-9: Total score 0 08/14/25 15:20 Depression Screening Interpretation: Negative Thrive Assessment: Date of Thrive Assessment Date Thrive assessed 08/14/25 08/14/25 15:20 Currently or been in a relationship where the following occur: No concerns reported Const General: no acute distress and alert HENMT Ears: TM's normal bilaterally and EAC's normal Throat: Yes posterior oropharynx normal and Yes tonsils normal (no TP congestion) Neck Neck: Yes supple and No lymphadenopathy Thyroid: Thyroid normal Resp Auscultation: clear to auscultation bilaterally, no rales and no wheezes Cardio Rate: regular rate Rhythm: regular rhythm Heart sounds: no murmurs GI Palpation (GI): Soft to palpation and nontender Auscultation: normal bowel sounds General: Yes no CVA tenderness Back/Spine/Pelvis Back: no CVA tenderness Thoracic/Lumbar Spine: lumbar spinal tenderness (mild) Skin Rashes: no rashes Extrem General: Yes no clubbing, cyanosis or edema Left lower extremity: hip/thigh Details: tenderness Location: of the hip Location: anterolaterally Results Reviewed Results Reviewed: Laboratory Tests 08/08/25 08/09/25 09:27 08:50 WBC 10.2 Hgb 14.2 Hct 43.2 Plt Count 315 Sodium 138 Potassium 4.3 Creatinine 0.67 Estimated GFR > 60 Fasting Glucose 193 H Hemoglobin A1c % 9.9 H Calcium 9.4 AST 52 H ALT 105 H Alkaline Phosphatase 79 Triglycerides 172 H Cholesterol 199 LDL Cholesterol, Calc 133 H HDL Cholesterol 32 L Vitamin B12 636 25-OH Vitamin D Total 16.3 L TSH 2.23 Ur Specific Williamson 1.025 Urine Protein Negative Urine Glucose (UA) >=1000 H Urine Blood Negative Urine Nitrite Negative Ur Leukocyte Esterase Negative Microalb/Creat Ratio 4.6 Coding Level of Care Code Est Pt Level 4 (83913) Complex EM visit Add On G2211 Diagnoses Type 2 diabetes mellitus with hyperglycemia, without long-term current use of insulin E11.65 Diabetes mellitus type: type 2 Diabetes mellitus senior care insulin use: without senior care use Diabetes mellitus complication status: with hyperglycemia Mixed hyperlipidemia E78.2 Elevated LFTs R79.89 Elevated blood pressure reading in office without diagnosis of hypertension R03.0 Mild intermittent asthma without complication J45.20 Asthma severity: mild Asthma persistence: intermittent Asthma complication type: uncomplicated Vitamin D deficiency E55.9 Primary osteoarthritis of left hip M16.12 Osteoarthritis type: primary Leukocytosis, unspecified type D72.829 Leukocytosis type: unspecified Lumbar degenerative disc disease M51.36 Morbid obesity with BMI of 50.0-59.9, adult E66.01; Z68.43 Additional Codes PHQ-9 - 54084 - PHQ-9 Billing: Yes ([id number]) Assessment & Plan Assessment & Plan (1) Diabetes mellitus: Code(s): E11.9 - Type 2 diabetes mellitus without complications Category: Medical Qualifiers: Diabetes mellitus type: type 2 Diabetes mellitus deputy director of public works insulin use: without deputy director of public works use Diabetes mellitus complication status: with hyperglycemia Qualified Code(s): E11.65 - Type 2 diabetes mellitus with hyperglycemia Plan: His HgbA1c was at 9.9% on his labs done last week (HgbA1c was previously at 9.8% earlier this year) - goal is at least <7.0% Reinforced diabetic diet Patient initially was not taking his medications as prescribed due to increased stress and anxiety and more recently due to frequent diarrhea and abdominal cramping whenever he takes his Metformin States that he has just been taking his Januvia regularly lately Will D/C Metformin and increase his Januvia up to 100 mg QD Will start him additionally on Glipizide XL 5 mg QD Will recheck his labs and HgbA1c in 3 months for follow up (2) Mixed hyperlipidemia: Code(s): E78.2 - Mixed hyperlipidemia Category: Medical Plan: Results of his labs done last week reviewed and discussed with patient - he is advised that his cholesterol levels were elevated, especially his serum triglyceride level, and they have gone up from his numbers last year Reinforced low cholesterol diet Advised patient that his numbers should improve with better control on his diabetes and if the improvement is not enough, then we will consider starting him on some statins (also if his LFTs normalize) later on if necessary Will have him recheck his labs and fasting lipids in 3 months for follow up (3) Elevated LFTs: Code(s): R79.89 - Other specified abnormal findings of blood chemistry Category: Medical Plan: His LFTs remained elevated and have increased further from previous on his recent labs These are most likely related to his weight (hepatosteatosis) and he has been advised that losing weight should help get them back to normal gradually He did have an abdominal US done in July 2021 that revealed (+) increased hepatic parenchymal echogenicity most compatible with hepatic steatosis Will continue to monitor his LFTs regularly (4) Elevated blood pressure reading in office without diagnosis of hypertension: Code(s): R03.0 - Elevated blood-pressure reading, without diagnosis of hypertension Category: Medical Plan: His blood pressure is a lot better and is normal today Reinforced low sodium diet Patient is advised to monitor his blood pressure at least every now and then (5) Asthma: Code(s): J45.909 - Unspecified asthma, uncomplicated Category: Medical Qualifiers: Asthma severity: mild Asthma persistence: intermittent Asthma complication type: uncomplicated Qualified Code(s): J45.20 - Mild intermittent asthma, uncomplicated Plan: Controlled - states that he has not had any flare ups of his asthma in a while He has an Albuterol inhaler that he uses as needed but as he has not had any flare ups in a while, has not needed to use it at all lately (6) Vitamin D deficiency: Code(s): E55.9 - Vitamin D deficiency, unspecified Category: Medical Plan: Continue Vitamin D3 2000 units QD Have advised patient that his vitamin D level is still very low on his recent labs and he should continue taking his Vitamin D3 tablets daily (7) Osteoarthritis of left hip: Code(s): M16.12 - Unilateral primary osteoarthritis, left hip Category: Medical Qualifiers: Osteoarthritis type: primary Qualified Code(s): M16.12 - Unilateral primary osteoarthritis, left hip Plan: He was referred to and seen by orthopedics for his left hip issues last year He has been referred to physical therapy about a year ago and states that PT did not help at all He eventually underwent an MRI of the left hip in July 2024, which revealed (+) [id number] left hip osteoarthritis with a large geode within the acetabulum. No stress reaction, fracture, or avascular necrosis. No labral tear. Mild gluteus minimus and minimal gluteus medius tendinosis are noted He was then referred to a hip specialist for further management (8) Leukocytosis (leucocytosis): Code(s): D72.829 - Elevated white blood cell count, unspecified Category: Medical Qualifiers: Leukocytosis type: unspecified Qualified Code(s): D72.829 - Elevated white blood cell count, unspecified Plan: Improved on his recent labs - patient's differential on his CBC also appears normal Will continue to monitor his CBC regularly for now and will do further work ups only if this progresses or gets worse (9) Lumbar degenerative disc disease: Code(s): M51.36 - Other intervertebral disc degeneration, lumbar region Category: Medical Plan: Reinforced activity and weight lifting restrictions Lumbar spine x-rays done back on 02/16/2019 revealed a stable mild anterior T11 wedge compression fracture, anterior spondylosis at T12-L1 and L1-L2, with no acute fracture or spondylolisthesis seen Repeat lumbar spine x-rays done in September 2022 revealed (+) mild curvature of the lumbar sacral spine to the right. Bone alignment is otherwise normal. No fracture or dislocation. Mild degenerative spondylosis and degenerative disc disease at T12-L1, L1-L2 and L2-L3; (+) lower lumbar spine facet arthritis. The previous T11 wedge compression fracture has apparently resolved Patient also reports (+) improvement of symptoms and relief of pain when he received physical therapy in the past - advised that we can refer him to physical therapy again at any time when needed and he just has to reach out and let us know Continue Lidocaine 5% patches apply QD PRN (10) Morbid obesity with BMI of 50.0-59.9, adult: Code(s): E66.01 - Morbid (severe) obesity due to excess calories; Z68.43 - Body mass index [BMI] 50.0-59.9, adult Category: Medical Plan: Reinforced diet/exercise as tolerated/lose weight Plan Follow up in 3 months Orders: Orders Comprehensive [place]. Panel Fast 3 Months E78.00 - Pure hypercholesterolemia, unspecified Lipid Panel 3 Months E78.00 - Pure hypercholesterolemia, unspecified Microalbumin, Random (w Creat) 3 Months E11.9 - Type 2 diabetes mellitus without complications Hemoglobin A1c 3 Months E11.9 - Type 2 diabetes mellitus without complications UA CC w/rflx Micro + Cult 3 Months R30.0 - Dysuria Complete Blood Count Auto Diff 3 Months D64.9 - Anemia, unspecified Medications: New glipizide ER 5 mg PO DAILY 90 tabs 1RF 90 days Changed From sitagliptin phosphate (Januvia) 50 mg PO DAILY 90 days 90 tabs 1RF To sitagliptin phosphate 100 mg PO DAILY 90 tabs 1RF 90 days Discontinued metformin Discontinued Reason: Doctor's Order 1,000 mg PO BID 90 days 180 tabs 1RF
--- OUTSIDE RECORDS SUMMARY | 2025-08-14 16:56 | XMS_ITS | Encounter Summary ---
Author Organization [facility] Address [address] [place] [address] Phone Care Team Providers Care Telecom Coordinator Name Role Phone Valerie Cooper MD Primary Care Provider [phone] Encounter Details Date Type Department Care Team (Late st Contact Info) Description 03/13/2015 Documentation [facility] [place] Family Medicine [address] [place] [address] Family Medicine, Physician [address] [place], [place] [phone] Social History Tobacco Use Types Packs/Day Years [...] on filedocumented in this encounter Care Teams Telecom Coordinator Relationship Specialty Start Date End Date Valerie Cooper MD [address] [place] [address] [place] [address] PCP - General 05/14/17 01/14/23 documented as of this encounter
--- OUTSIDE RECORDS SUMMARY | 2025-08-14 16:56 | XMS_ITS | Encounter Summary ---
Author Organization [facility] Address [address] [place] [address] Phone Care Team Providers Care Physical Therapy Aides Teacher Name Role Phone Valerie Cooper MD Primary Care Provider [phone] Encounter Details Date Type Department Care Team (Late st Contact Info) Description 05/07/2015 Documentation [facility] [place] [address] [place] [address] Family Medicine, Physician [address] [place], [place] [phone] Social History Tobacco Use Types Packs/Day Years [...] filedocumented in this encounter Care Teams Physical Therapy Aides Teacher Relationship Specialty Start Date End Date Valerie Cooper MD [address] [place] [address] [place] [address] PCP - General 05/14/17 01/14/23 documented as of this encounter
--- OUTSIDE RECORDS SUMMARY | 2025-08-14 16:56 | XMS_ITS | Encounter Summary ---
Author Organization [facility] Address [address] [place] [address] Phone Care Team Providers Care Miller Head Name Role Phone Valerie Cooper MD Primary Care Provider [phone] Encounter Details Date Type Department Care Team (Late st Contact Info) Description 01/15/2011 Documentation [facility] [place] Family Medicine [address] [place] [address] Family Medicine, Physician [address] [place], [place] [phone] Social History Tobacco Use Types Packs/Day Years [...] on filedocumented in this encounter Care Teams Miller Head Relationship Specialty Start Date End Date Valerie Cooper MD [address] [place] [address] PCP - General 05/14/17 01/14/23 documented as of this encounter
--- OUTSIDE RECORDS SUMMARY | 2025-08-14 16:56 | XMS_ITS | Clinical Summary ---
Author Organization [facility] Address [address] [place], [place] [id number] Phone Care Team Providers Care Medical Fee Clerk Name Role Phone César Wallace MD Primary Care Provider [phone] Social History Tobacco Use Types Packs/Day Years Used Date Smoking Tobacco: Never Assessed Sex and Gender Information Value Date Recorded Sex Assigned at Not on file Legal Sex Male 3:33 PM EST Gender Identity Not on file Sexual Orientation Not on file Plan of Treatment Not on file Medical Devices Not on file Insurance [facility] [facility] [facility] Care Teams Medical Fee Clerk Relationship Specialty Start Date End Date César Wallace MD [address] [place] [id number] PCP - General Internal Medicine 08/11/24 Additional Source Comments The information contained in this document represents components of the legal health record. It is not the complete legal health record.[facility]
--- OUTSIDE RECORDS SUMMARY | 2025-08-14 16:56 | XMS_ITS | Encounter Summary ---
Author Organization [facility] Address [address] [place] [phone] Phone Care Team Providers Care Wood Carving Machine Operator Name Role Phone Valerie Cooper MD Primary Care Provider [phone] Encounter Details Date Type Department Care Team (Late st Contact Info) Description 09/11/2011 Documentation [facility] [place] [facility] [address] [place] [address] Family Medicine, Physician [address] [place], [place] [id number] Social History Tobacco Use Types Packs/Day Years [...] on filedocumented in this encounter Care Teams Wood Carving Machine Operator Relationship Specialty Start Date End Date Valerie Cooper MD [address] [facility] [place] [address] PCP - General 05/14/17 01/14/23 documented as of this encounter
--- OUTSIDE RECORDS SUMMARY | 2025-08-14 16:56 | XMS_ITS | Clinical Summary ---
Author Organization [facility] Address [address] [place] [id number] Phone Care Team Providers Care Senior Manufacturing Engineer Name Role Phone Unavailable Primary Care Provider [...] of *CVA/Stroke, No family history of *Sudden /OK under 55, Family history of ADD/ADHD, No [...]
--- OUTSIDE RECORDS SUMMARY | 2025-08-14 16:56 | XMS_ITS | Encounter Summary ---
Author Organization [facility] Address [address] [place] [address] Phone Care Team Providers Care Auto Air Conditioning Apprentice Name Role Phone Valerie Cooper MD Primary Care Provider [phone] Encounter Details Date Type Department Care Team (Late st Contact Info) Description 05/20/2017 Conversion Encounter [facility] [place] [address] [place] [address] Social History Tobacco Use Types Packs/Day Years [...] on filedocumented in this encounter Care Teams Auto Air Conditioning Apprentice Relationship Specialty Start Date End Date Valerie Cooper MD [address] [place] [address] PCP - General 05/14/17 01/14/23 documented as of this encounter
--- OUTSIDE RECORDS SUMMARY | 2025-08-14 16:56 | XMS_ITS | Encounter Summary ---
Author Organization [facility] Address [address] [place] [address] Phone Care Team Providers Care Boilermaker [employer] Name Role Phone Valerie Cooper MD Primary Care Provider [phone] Encounter Details Date Type Department Care Team (Late st Contact Info) Description 08/31/2011 Documentation [facility] [place] Family Medicine [address] [place] [address] Family Medicine, Physician [address] [place], [place] [phone] Social History Tobacco Use Types Packs/Day Years [...] on filedocumented in this encounter Care Teams Boilermaker [employer] Relationship Specialty Start Date End Date Valerie Cooper MD [address] [facility] [place] [address] PCP - General 05/14/17 01/14/23 documented as of this encounter
== END 2025-08-14 15:50 | disposition home or self-care (01) ==
LOC: HO.HMCH 15:11
PROVIDERS: PCP Internal Medicine; Visit Provider Internal Medicine
DX: E11.65 Type 2 diabetes mellitus with hyperglycemia (principal); E78.2 Mixed hyperlipidemia; R79.89 Other specified abnormal findings of blood chemistry; R03.0 Elevated blood-pressure reading, without diagnosis of hypertension; J45.20 Mild intermittent asthma, uncomplicated; E55.9 Vitamin D deficiency, unspecified; M16.12 Unilateral primary osteoarthritis, left hip; D72.829 Elevated white blood cell count, unspecified; M51.369 Other intervertebral disc degeneration, lumbar region without mention of lumbar back pain or lower extremity pain; E66.01 Morbid (severe) obesity due to excess calories; Z68.43 Body mass index [BMI] 50.0-59.9, adult

== ENCOUNTER → 2025-08-14 15:11 | Outpatient (BNVA) | payer OTHER, SELFPAY | PROVIDERS: PCP Internal Medicine; Visit Provider Internal Medicine | DX: E11.65 Type 2 diabetes mellitus with hyperglycemia (principal); E78.2 Mixed hyperlipidemia; E66.01 Morbid (severe) obesity due to excess calories; R79.89 Other specified abnormal findings of blood chemistry; R03.0 Elevated blood-pressure reading, without diagnosis of hypertension; J45.20 Mild intermittent asthma, uncomplicated; E55.9 Vitamin D deficiency, unspecified; M16.12 Unilateral primary osteoarthritis, left hip; D72.829 Elevated white blood cell count, unspecified; M51.369 Other intervertebral disc degeneration, lumbar region without mention of lumbar back pain or lower extremity pain; Z68.43 Body mass index [BMI] 50.0-59.9, adult | CPT/HCPCS: 96127; 99212 ==